=== PATIENT | male | born 1950 | race Caucasian/White ===

== ENCOUNTER 2017-10-10 09:51 | Day surgery (SDC) | payer MEDICARE, OTHER, SELFPAY ==
--- NOTE | 2017-10-10 | PATH_ITS ---
[facility] Accession Number: [id number] . 01 Material submitted: . PART A: TERMINAL ILEUM BIOPSY PART B: RIGHT COLON BIOPSY PART C: TRANSVERSE AND DESCENDING COLON BIOPSY PART D: LEFT COLON BX PART E: COLON PART F: SIGMOID AND RECTAL BIOPSY . 02 Diagnosis: A. Terminal Ileum, Biopsies: Small bowel mucosa with no diagnostic abnormality. Negative for active inflammation, granulomas, dysplasia and malignancy. . B-E: Right Colon, Transverse and Descending Colon, Left Colon, Colon, Biopsies: Colonic mucosa with no significant diagnostic abnormality. Negative for active inflammation, granulomas, dysplasia and malignancy. . F. Sigmoid Colon, Rectum, Biopsies: Chronic colitis with moderate to severe neutrophilic activity. Rare nonnecrotizing granulomas present in association with crypt rupture. Negative for dysplasia and malignancy. [facility]/10/18/2017 . 02 Comment: The morphological appearance could be compatible with the provided clinical history of Crohn's disease in the appropriate clinical and endoscopic setting. . 02 Electronically signed: . Allie May MD, Pathologist NPI- [id number] . 01 Gross description: . Received six formalin-filled containers each labeled with the patient's name. . A. In a container labeled TI, the specimen consists of a 0.3 cm portion of tissue. Entirely submitted in cassette A. B. In a container labeled right colon are two 0.2 to 0.3 cm portions of tissue. Entirely submitted in cassette B. C. In a container labeled transverse and descending colon, the specimen consists of two less than 0.1 to 0.3 cm portions of tissue. Entirely submitted in cassette C. D. In a container labeled left colon are two 0.2 to 0.3 cm portions of tissue. Entirely submitted in cassette D. E. In a container designated colon, source confirmed per client, are multiple less than 0.1 to 0.3 cm portions of tissue. Filtered, wrapped and entirely submitted in cassette E. F. In a container labeled sigmoid and rectal are multiple less than 0.1 to 0.3 cm portions of tissue, which are filtered, wrapped and entirely submitted in cassette F. ([facility]:[id number]) /[facility] . 02 Pathologist provided ICD-10: K50.90 . 02 CPT . 284823, 364730, 733639, 150029, 128982, 015095 Performed at: 01 [facility] [address] [place] [address], [place], [place] [id number] MD Tyrone Patel MD Phone: [phone] Performed at: 02 [facility] [address] [place] [id number] MD Rocco Smalls MD Phone: [phone]
[2017-10-10] MEDS: SODIUM CHLORIDE 0.9% 1,000 ML 70 ML IV (10:13)
[2017-10-10 10:18] VITALS: BP 172/100; PULSE 82; RESP 16; TEMP 36.6; O2SAT 96; BMI 32.8
--- NOTE | 2017-10-10 10:44 | PM.HP.1 ---
History of Present Illness Date Patient Seen: 10/10/17 Chief complaint: colonoscopy [id number] Narrative: 67-year-old male with a longstanding history of Crohn's colitis currently managed with sulfasalazine and prednisone who has had a several month history of rectal bleeding suggestive that he is currently has poorly controlled Crohn's disease. He has no evidence of acute abdomen. He is here for disease activity assessment by means of colonoscopy. Patient History Family & Social History Social History: household members significant other Meds Home Medications Medication Instructions Recorded Confirmed Type simvastatin 40 mg PO QDAY #0 02/16/11 10/10/17 History atenolol 50 mg PO BID #0 11/10/11 10/10/17 History sulfasalazine 1,000 mg PO BID #0 11/10/11 10/10/17 History Review of Systems Review of Systems All systems reviewed & are unremarkable except as noted in HPI and below Exam Vital Signs (past 8 hours): - 10/10/17 10:18 Temperature 98 F Pulse Rate 82 Respiratory Rate 16 Blood Pressure 172/100 H Pulse Oximetry 96 Oxygen Delivery Method Room Air Narrative Exam Narrative: General: Patient is overweight, not in apparent distress Cardiovascular: Regular rate and rhythm, no murmurs, rubs, or gallops; no evidence of edema; no palpable abdominal aortic aneurysm Gastrointestinal: Normoactive bowel sounds, soft, nontender, nondistended, no rebound tenderness, no hepatosplenomegaly, no evidence of hernia Assessment & Plan Plan: Assessment/Plan Narrative: 67-year-old male with a history of Crohn's colitis for several years currently with signs of poorly-controlled disease including rectal bleeding for several months. He is currently managed on sulfasalazine and takes prednisone whenever his rectal bleeding is frequent. Colonoscopy today is to assess his disease activity. Regarding the procedure(s), the risks and potential complications, benefits, and alternatives (including not doing the procedure) were discussed with the patient. The risks include but are not limited to bleeding, infection, perforation which may require surgical intervention, missed lesions, and adverse reactions to sedative medicines. After a question and answer period, the patient agreed to proceed with the procedure(s) and gives informed consent.
--- NOTE | 2017-10-10 11:15 | PM.OP.ENDO ---
Operative Date/Time/Diagnoses Date of procedure: 10/10/17 Procedure Notes Procedure in detail: Surgeon: Danish Rosado MD Procedure: Colonoscopy with biopsy Preoperative diagnosis: History of Crohn's colitis with hematochezia Postoperative diagnosis: History of Crohn's colitis, currently with hematochezia Medications: Conscious sedation using 6 mg IV of Midazolam and 150 mcg IV of Fentanyl; ondansetron 4 mg IV Preanesthesia Assessment An H and P was performed/updated and the Px?s ASA class is 2. The procedure was discussed in detail with the patient. The potential risks and complications including infection, bleeding, missed lesions, perforation, need for surgery in case of perforation, prolonged hospital stay, and were explained. A brief question and answer period was allotted and once all questions were answered, informed consent was obtained. The patient was brought back to the procedure room and placed on standard monitoring. The patient?s vital signs were monitored continuously throughout the entire procedure. Prior to starting, a timeout was performed to confirm the patient?s identity, allergies, medications, and procedure. Procedure in detail The patient was placed in left lateral decubitus position and once adequate sedation was obtained a BELKIS was performed. The digital rectal examination did not reveal any abnormality. The tip of the colonoscope was placed in the anal canal and advanced without difficulty all the way to the cecum which was identified by the appendiceal orifice and ileocecal valve. The terminal ileum was intubated to a distance of 5 cm and showed no mucosal abnormalities. Biopsies were taken for histology. The colonoscope was brought back into the cecum and careful examination of all moreno of the colon was performed with irrigation of any residual stool. Random colon biopsies were obtained from the right colon, transverse colon, and descending colon. In these areas of the colon, there was no note of any mucosal abnormality or colitis. From the anus all the way to 30 cm proximal to the anus (likely representing the sigmoid colon) there was note of diffuse moderate inflammation characterized by aphthous ulcerations, granularity, edema. This is consistent with the patient's history of Crohn's colitis biopsies were obtained from this area. In the sigmoid colon there was also note of a 5 mm sessile polyp which was removed in its entirety by means of a cold snare with minimal bleeding. Retroflexion performed in the colon revealed grade 1 internal hemorrhoids. The patient tolerated the procedure well and will be brought back to the recovery area to be discharged once criteria are met. The prep was judged to be good/excellent and adequate to identify polyps less than 5 mm. The withdrawal time was 12.5 min. The total procedure time from initial sedation was 18. Complications There were no complications and estimated blood loss was minimal. Recommendations: Resume previous diet Continue outPx medications including sulfasalazine and prednisone 20 mg daily until patient is seen at [facility] Follow up pathology results Repeat colonoscopy timing depending on response to therapy Office follow up with Dr. Albright November 06, 2017 as previously scheduled An emergency contact number was given to the patient for any complications related to the procedure
[2017-10-10] MEDS: ONDANSETRON 4 MG/2 ML INJ IV (11:18)
--- NOTE | 2017-10-10 11:20 | P.OP.ENDO_ITS ---
Operative Date/Time/Diagnoses Date of procedure: 10/10/17 Procedure Notes Procedure in detail: Surgeon: Danish Rosado MD Procedure: Colonoscopy with biopsy Preoperative diagnosis: History of Crohn's colitis with hematochezia Postoperative diagnosis: History of Crohn's colitis, currently with hematochezia Medications: Conscious sedation using 6 mg IV of Midazolam and 150 mcg IV of Fentanyl; ondansetron 4 mg IV Preanesthesia Assessment An H and P was performed/updated and the Px?s ASA class is 2. The procedure was discussed in detail with the patient. The potential risks and complications including infection, bleeding, missed lesions, perforation, need for surgery in case of perforation, prolonged hospital stay, and were explained. A brief question and answer period was allotted and once all questions were answered, informed consent was obtained. The patient was brought back to the procedure room and placed on standard monitoring. The patient?s vital signs were monitored continuously throughout the entire procedure. Prior to starting, a timeout was performed to confirm the patient?s identity, allergies, medications, and procedure. Procedure in detail The patient was placed in left lateral decubitus position and once adequate sedation was obtained a BELKIS was performed. The digital rectal examination did not reveal any abnormality. The tip of the colonoscope was placed in the anal canal and advanced without difficulty all the way to the cecum which was identified by the appendiceal orifice and ileocecal valve. The terminal ileum was intubated to a distance of 5 cm and showed no mucosal abnormalities. Biopsies were taken for histology. The colonoscope was brought back into the cecum and careful examination of all moreno of the colon was performed with irrigation of any residual stool. Random colon biopsies were obtained from the right colon, transverse colon, and descending colon. In these areas of the colon, there was no note of any mucosal abnormality or colitis. From the anus all the way to 30 cm proximal to the anus (likely representing the sigmoid colon ) there was note of diffuse moderate inflammation characterized by aphthous ulcerations, granularity, edema. This is consistent with the patient's history of Crohn's colitis biopsies were obtained from this area. In the sigmoid colon there was also note of a 5 mm sessile polyp which was removed in its entirety by means of a cold snare with minimal bleeding. Retroflexion performed in the colon revealed grade 1 internal hemorrhoids. The patient tolerated the procedure well and will be brought back to the recovery area to be discharged once criteria are met. The prep was judged to be good/excellent and adequate to identify polyps less than 5 mm. The withdrawal time was 12.5 min. The total procedure time from initial sedation was 18. Complications There were no complications and estimated blood loss was minimal. Recommendations: Resume previous diet Continue outPx medications including sulfasalazine and prednisone 20 mg daily until patient is seen at [facility] Follow up pathology results Repeat colonoscopy timing depending on response to therapy Office follow up with Dr. Albright November 06, 2017 as previously scheduled An emergency contact number was given to the patient for any complications related to the procedure
[2017-10-10] MEDS: MIDAZOLAM 5 MG/5 ML VIAL IV (11:35)
[2017-10-10] MEDS: fentaNYL 250 MCG/5 ML INJ IV (11:36)
[2017-10-10 11:45] VITALS: BP 148/86; PULSE 76; RESP 20; TEMP 36.6; O2SAT 95
--- NOTE | 2017-10-10 11:46 | PM.DS.1 ---
History of Present Illness Chief complaint: colonoscopy [id number] Narrative: 67-year-old male with a longstanding history of Crohn's colitis currently managed with sulfasalazine and prednisone who has had a several month history of rectal bleeding suggestive that he is currently has poorly controlled Crohn's disease. He has no evidence of acute abdomen. He is here for disease activity assessment by means of colonoscopy. Discharge Providers Primary care physician: Ernesto Nation MD Discharge provider: Danish Rosado MD Exam Vital Signs (past 8 hours): - 10/10/17 10:18 Temperature 98 F Pulse Rate 82 Respiratory Rate 16 Blood Pressure 172/100 H Pulse Oximetry 96 Oxygen Delivery Method Room Air Narrative Exam Narrative: General: Patient is well developed, not in apparent distress Cardiovascular: Regular rate and rhythm, no murmurs, rubs, or gallops; no evidence of edema; no palpable abdominal aortic aneurysm Gastrointestinal: Normoactive bowel sounds, soft, nontender, nondistended, no rebound tenderness, no hepatosplenomegaly, no evidence of hernia Discharge Plan Discharge Plan Patient Disposition: Home, Self-Care Discharge Med Rec/Prescriptions Prescriptions: Continue simvastatin 40 MG tablet 40 mg PO QDAY Qty: 0 RF: 0 atenolol 25 MG tablet 50 mg PO BID Qty: 0 RF: 0 sulfasalazine 500 MG tablet 1,000 mg PO BID Qty: 0 RF: 0 Discharge Orders: Discharge (Order); Ordered 10/10/17 Ordered By: Danish Rosado Provider Discharge Instructions Diet: Diet as Tolerated Visit Report/Discharge Packet Stand Alone Forms: Surgery Discharge Discharge Data Primary Care Provider: Ernesto Nation Attending Provider: Danish Rosado
[2017-10-10 12:05] VITALS: BP 149/90; PULSE 75; RESP 20; TEMP 36.6; O2SAT 95
== END 2017-10-10 12:00 | disposition home or self-care (01) ==
PROVIDERS: Family Provider Family Medicine Geriatric Medicine; PCP Family Medicine Geriatric Medicine; Visit Provider Internal Medicine Gastroenterology
PROC: 0DJD8ZZ Inspection of Lower Intestinal Tract, Via Natural or Artificial Opening Endoscopic (ICD-10-PCS; CPT 45378; principal; 2017-10-10 11:00)
DX: K50.90 Crohn's disease, unspecified, without complications (principal); K92.1 Melena
CPT/HCPCS: 45380; 88305; J2250; J2405; J3010

== ENCOUNTER → 2018-06-03 20:54 | Outpatient (REF) | payer MEDICARE, OTHER, SELFPAY ==
[2018-06-03 21:29] LABS: HEMOLYSIS < 15 (0-50)
[2018-06-03 21:30] LABS: Add Manual Diff / Slide Review NO; Basophils Absolute Auto 100 /uL (0-100); Basophils Percent Auto 1.3 % (0-2); Eosinophils Absolute Auto 200 /uL (0-450); Eosinophils Percent Auto 2.5 % (2-4); Hematocrit 41.4 % (41-53); Hemoglobin 13.8 g/dL (13.5-17.5); Lymphocytes Absolute Auto 1600 /uL (1100-4500); Lymphocytes Percent Auto 18.8 % (25-40); Mean Corpuscular HGB Conc 33.3 % (30-36); Mean Corpuscular Hemoglobin 31.7 PG (26-34); Mean Corpuscular Volume 95.2 fL (80-100); Monocytes Absolute Auto 1000 /uL (0-900); Monocytes Percent Auto 11.1 % (3-14); Neutrophils Absolute Auto 5800 /uL (1500-7000); Neutrophils Percent Auto 66.3 % (50-75); Platelet Count 218 X10^3/uL (150-400); Red Blood Cell Count 4.35 X10^6/uL (4.5-5.9); Red Cell Distribution Width 13.8 % (11.6-14.8); White Blood Cell Count 8.7 X10^3/uL (4.5-11.0)
[2018-06-03 21:43] LABS: Alanine Aminotransferase 27 IU/L (21-72); Albumin 3.9 g/dL (3.5-5.0); Albumin Globulin Ratio 1.5 (1.0-2.8); Alkaline Phosphatase 72 U/L (38-126); Aspartate Aminotransferase 47 IU/L (17-59); BUN Creatinine Ratio 16.3 (6-22); Bilirubin Total 0.2 mg/dL (0.2-1.3); Blood Urea Nitrogen 13 mg/dL (9-20); Carbon Dioxide 28 mmol/L (22-32); Chloride 103 mmol/L (98-107); Cholesterol 129 mg/dL (140-199); Estimated Glomerular Filt Rate > 60.0 mL/min (>60); Globulin 2.6 g/dL (1.7-4.1); Glucose 95 mg/dL (80-110); HDL Cholesterol 52 mg/dL (40-60); LDL Cholesterol Calculated 60 mg/dL (<100); Potassium 4.4 mmol/L (3.4-5.1); Sodium 139 mmol/L (137-145); Total Protein 6.5 g/dL (6.3-8.2); Triglycerides 85 mg/dL (35-150)
[2018-06-03 22:29] LABS: Thyroid Stimulating Hormone 3.63 uIU/mL (0.47-4.68)
[2018-06-03 22:32] LABS: Prostate Specific Antigen 0.369 ng/mL (0.10-4.00)
== END ==
LOC: LAB 20:54
PROVIDERS: Family Provider Family Medicine Geriatric Medicine; PCP Family Medicine Geriatric Medicine; Visit Provider Family Medicine Geriatric Medicine
DX: E78.5 Hyperlipidemia, unspecified (principal); C61 Malignant neoplasm of prostate; K50.10 Crohn's disease of large intestine without complications; Z13.29 Encounter for screening for other suspected endocrine disorder
CPT/HCPCS: 36415; 80053; 80061; 84153; 84443; 85025

== ENCOUNTER → 2019-04-01 15:49 | Outpatient (CLI) | payer MEDICARE, OTHER, SELFPAY ==
[2019-04-01 17:49] LABS: Add Manual Diff / Slide Review NO; Basophils Absolute Auto 100 /uL (0-100); Basophils Percent Auto 1.9 % (0-2); Eosinophils Absolute Auto 300 /uL (0-450); Eosinophils Percent Auto 5.5 % (2-4); Hematocrit 38.6 % (41-53); Hemoglobin 12.7 g/dL (13.5-17.5); Lymphocytes Absolute Auto 1400 /uL (1100-4500); Lymphocytes Percent Auto 23.7 % (25-40); Mean Corpuscular Hemoglobin 29.1 PG (26-34); Mean Corpuscular Volume 88.4 fL (80-100); Monocytes Absolute Auto 800 /uL (0-900); Monocytes Percent Auto 14.2 % (3-14); Neutrophils Absolute Auto 3200 /uL (1500-7000); Neutrophils Percent Auto 54.7 % (50-75); Platelet Count 225 X10^3/uL (150-400); Red Blood Cell Count 4.37 X10^6/uL (4.5-5.9); Red Cell Distribution Width 13.8 % (11.6-14.8); White Blood Cell Count 5.9 X10^3/uL (4.5-11.0)
[2019-04-01 17:56] LABS: HEMOLYSIS < 15 (0-50); Iron 32 ug/dL (49-181)
[2019-04-01 18:26] LABS: Alanine Aminotransferase 25 IU/L (<50); Albumin 4.1 g/dL (3.5-5.0); Albumin Globulin Ratio 1.3 (1.0-2.8); Alkaline Phosphatase 98 U/L (38-126); Aspartate Aminotransferase 48 IU/L (17-59); BUN Creatinine Ratio 17.1 (6-22); Bilirubin Total 0.3 mg/dL (0.2-1.3); Blood Urea Nitrogen 12 mg/dL (9-20); Calcium 9.4 mg/dL (8.4-10.2); Carbon Dioxide 26 mmol/L (22-32); Chloride 105 mmol/L (98-107); Estimated Glomerular Filt Rate > 60.0 mL/min (>60); Globulin 3.1 g/dL (1.7-4.1); Glucose 79 mg/dL (80-110); HEMOLYSIS < 15 (0-50); Percent Iron Saturation 8 % (20-50); Potassium 4.4 mmol/L (3.4-5.1); Sodium 139 mmol/L (137-145); Total Iron Binding Capacity 385 ug/dL (261-462); Total Protein 7.2 g/dL (6.3-8.2); Transferrin 309 mg/dL (206-381)
[2019-04-03 14:32] LABS: Hepatitis B Core Antibody Nonreactive (Nonreactive)
[2019-04-03 16:07] LABS: Mitogen-NIL 6.56 IU/mL; NIL 0.01 IU/mL; QuantiFERON TB NEGATIVE (Negative); TB1-NIL 0.02 IU/mL; TB2-NIL 0.01 IU/mL
[2019-04-05 15:35] LABS: Hepatitis B Surf AB Imm QUANT < 5 mIU/mL (> 9)
== END ==
PROVIDERS: PCP Family Medicine Geriatric Medicine; Visit Provider Student in an Organized Health Care Education/Training Program
DX: K50.10 Crohn's disease of large intestine without complications (principal)
CPT/HCPCS: 36415; 80053; 82657; 83540; 83550; 85025; 86480; 86704; 86706

== ENCOUNTER → 2019-04-02 13:21 | Outpatient (CLI) | payer MEDICARE, OTHER, SELFPAY ==
[2019-04-09 19:39] LABS: Calprotectin, Stool 579.7 mcg/g
== END ==
PROVIDERS: PCP Family Medicine Geriatric Medicine; Visit Provider Student in an Organized Health Care Education/Training Program
DX: K50.10 Crohn's disease of large intestine without complications (principal)
CPT/HCPCS: 83993; 87045; 87177; 87899

== ENCOUNTER 2019-07-09 06:05 | Emergency (ER) | payer MEDICARE, OTHER, SELFPAY ==
[2019-07-09] MEDS: ONDANSETRON 4 MG/2 ML INJ IV ×2 (06:46→09:53)
[2019-07-09] MEDS: HYDROMORPHONE 0.5 MG INJ IV (06:46)
[2019-07-09] MEDS: SODIUM CHLORIDE 0.9% 1,000 ML 150 ML IV (06:47)
--- NOTE | 2019-07-09 06:57 | ED_ITS ---
HPI - Abdominal Pain <Song Mcpherson DO - Last Filed: 07/10/19 01:00> General Chief Complaint: Abdominal Pain Stated Complaint: abd pain Time Seen by Provider: 07/09/19 06:09 Source: patient Mode of arrival: Ambulatory Limitations: no limitations History of Present Illness HPI narrative: 69-year-old male nonsmoker with history of hypertension, hyperlipidemia, prostate cancer and Crohn's presents with severe, unrelenting abdominal pain which started at about 1:00 a.m.. He states this is much different than the type of discomfort associated with his Crohn's flare ups. He states his last bowel movement was a few days ago and he can no longer even pass gas. He denies any urinary complaints nor fever or chills. He is nauseated but denies vomiting. His pain is persistent and worsening. He states it is worse when he moves and improves with rest. He denies chest pain or shortness of breath. MD complaint: abdominal pain Onset (ago): hour(s) Pain Consistency: constant Location: diffuse Severity: severe Quality: cramping and aching Radiation: none Relieving factors: nothing Exacerbating factors: movement Associated symptoms: nausea Related Data Home Medications Medication Instructions Recorded Confirmed simvastatin 40 mg PO QDAY #0 02/16/11 10/10/17 atenolol 50 mg PO BID #0 11/10/11 10/10/17 sulfasalazine 1,000 mg PO BID #0 11/10/11 10/10/17 Previous Rx's Medication Instructions Recorded ondansetron HCl [Zofran] 4 mg PO Q6H PRN #12 tab 07/09/19 oxycodone-acetaminophen [Percocet] 1 tab PO Q6H PRN #14 tab 07/09/19 tamsulosin [Flomax] 0.4 mg PO DAILY #5 cap 07/09/19 Allergies Allergy/AdvReac Type Severity Reaction Status Date / Time No Known Drug Allergies Allergy Verified 07/09/19 07:52 Review of Systems <Song Mcpherson DO - Last Filed: 07/10/19 01:00> Constitutional Constitutional: Denies chills, Denies fatigue, Denies fever(s), Denies frequent falls, Denies lethargy and Denies weakness Eyes Eyes: Denies change in vision, Denies eye discharge, Denies irritation and Denies loss of vision ENT Ears, Nose, Mouth, and Throat: Denies change in voice, Denies dizziness, Denies neck pain, Denies sore throat and Denies throat swelling Cardiovascular Cardiovascular: Denies chest pain, Denies irregular heart rhythm, Denies lightheadedness, Denies palpitations, Denies dyspnea, Denies dyspnea on exertion and Denies orthopnea Respiratory Respiratory: Denies cough, Denies dyspnea, Denies dyspnea on exertion and Denies wheezing Gastrointestinal Gastrointestinal: Denies abdominal pain, Denies change in bowel habits, Denies diarrhea, Denies nausea and Denies vomiting Genitourinary Genitourinary: Denies hematuria, Denies flank pain, Denies urinary incontinence and Denies urinary urgency Musculoskeletal Musculoskeletal: Denies back pain, Denies muscle weakness, Denies neck pain, Denies numbness and Denies tingling Integumentary/Breasts Skin/Breast: Denies pruritus, Denies erythema, Denies rash and Denies wounds Neurologic Neurologic: Denies behavioral changes, Denies confusion, Denies dizziness, Denies frequent falls, Denies loss of vision, Denies numbness, Denies tingling and Denies weakness Psychiatric Psychiatric: Denies anxiety, Denies behavioral changes, Denies confusion, Denies depression, Denies homicidal ideation and Denies suicidal ideation Endocrine Endocrine: Denies fatigue, Denies flushing and Denies palpitations Hematologic/Lymphatic Hematologic/Lymphatic: Denies easy bruising Allergic/Immunologic Allergic/Immunologic: Denies urticaria, Denies throat swelling and Denies wheezing Patient History <Song Mcpherson DO - Last Filed: 07/10/19 01:00> Social History household members: significant other Smoking Status: Never smoker Smoking Status: Never smoker alcohol intake frequency: a few times a month Substance Use Type: does not use Exam <Song Mcpherson DO - Last Filed: 07/10/19 01:00> Narrative Exam Narrative: GENERAL: [69] year old patient appears stated age. Well- nourished, well-developed patient, in mild distress. HEAD: Atraumatic. Normocephalic. EYES: Pupils equal round and reactive. Extraocular motions intact. No scleral icterus. No injection or drainage. ENT: Nose without bleeding, purulent drainage. Throat without erythema, tonsillar hypertrophy or exudate. Airway patent. NECK: Trachea midline. Non tender CARDIOVASCULAR: Regular rate and rhythm without murmurs, gallops, or rubs. RESPIRATORY: Clear to auscultation. Breath sounds equal bilaterally. No wheezes, rales, or rhonchi. GASTROINTESTINAL: Abdomen soft, very tender throughout, with decreased bowel sounds, nondistended. EXTREMITIES: No edema or joint tenderness. BACK: Nontender without deformity or crepitance. No flank tenderness. NEURO: AOx3. SKIN: No rash or erythema of visible areas Initial Vital Signs Initial Vital Signs: Vital Signs Pulse Rate 64 07/09/19 08:12 Respiratory Rate 16 07/09/19 08:12 Blood Pressure 155/70 H 07/09/19 08:12 Pulse Oximetry 96 07/09/19 08:12 <Christ Stockton MD - Last Filed: 07/10/19 07:42> Initial Vital Signs Initial Vital Signs: Vital Signs Pulse Rate 64 07/09/19 08:12 Respiratory Rate 16 07/09/19 08:12 Blood Pressure 155/70 H 07/09/19 08:12 Pulse Oximetry 96 07/09/19 08:12 Course <Sogn Mcpherson DO - Last Filed: 07/10/19 01:00> Orders Ordered: Discontinued Medications Hydromorphone HCl (Dilaudid) 0.5 mg IV NOW ONE Stop: 07/09/19 06:20 Last Admin: 07/09/19 06:46 Dose: 0.5 mg Documented by: LELA Hydromorphone HCl (Dilaudid) 1 mg IV NOW ONE Stop: 07/09/19 09:44 Last Admin: 07/09/19 09:53 Dose: 1 mg Documented by: SHELBY Sodium Chloride (Normal Saline 0.9%) 1,000 mls @ 150 mls/hr IV CONT LARRY Last Infusion: 07/09/19 10:45 Dose: 0 mls/hr Documented by: Admin: 07/09/19 06:47 Dose: 150 mls/hr Documented by: LELA Ondansetron HCl (Zofran) 4 mg IV NOW ONE Stop: 07/09/19 06:20 Last Admin: 07/09/19 06:46 Dose: 4 mg Documented by: LELA Ondansetron HCl (Zofran) 4 mg IV NOW ONE Stop: 07/09/19 09:44 Last Admin: 07/09/19 09:53 Dose: 4 mg Documented by: SHELBY Tamsulosin HCl (Flomax) 0.4 mg PO NOW ONE Stop: 07/09/19 09:59 Last Admin: 07/09/19 10:43 Dose: Not Given Documented by: SHELBY Vital Signs Vital signs: Vital Signs - 8 hr 07/09/19 08:12 Pulse Rate 64 Respiratory Rate 16 Blood Pressure [Left Arm] 155/70 H Pulse Oximetry 96 <Christ Stockton MD - Last Filed: 07/10/19 07:42> Course Course Narrative: 0715: Report received from Dr. Mcpherson. CT of the patient's abdomen with IV contrast was ordered since the patient has been having increased abdominal pain and cramps without any bowel movement since yesterday afternoon. The patient has not been passing flatness. He has been intensely nauseous and has almost vomited but not vomited. He had 3 small bowel movements yesterday without melena or hematochezia or diarrhea. His pain and discomfort is unlike his normal Crohn's disease. He denies any fever chills sweats cough shortness of breath or exposure to [place] it. He denies any fall or injury. His pain I at the time that I am examining him is under control. Repeat PE: He is awake alert oriented and coherent. He does not appear to be in any acute distress. Monitor reveals that his vital signs are stable. Blood pressure is 155/75. Lungs are clear and symmetrical. Heart is regular rhythm and rate without tachycardia or murmur. Abdomen is distended, mildly tympanitic in all 4 quadrants. Diffusely tender without any significant guarding rebound or rigidity. Bowel sounds are decreased. There is no palpable spleen or mass. CT scan is pending to rule out any acute pathology including possible bowel obstruction. 0930: The patient's CT scan of the abdomen reveals biliary system is nondilated. Pancreas enhances normally. Spleen is normal in size and hands min. Peritoneum in bowel reveals bowel loops to have normal wall thickness and caliber no free fluid or air no evidence of obstruction. There is a small fat containing umbilical hernia. Patient has a 4 mm stone at the right ureterovesic al junction causing mild to moderate right hydronephrosis and hydroureter. There is remote granulomatous disease in the spleen. The patient has a couple of indeterminate hepatic hypodensities most likely hepatic cysts in his liver. No acute pathology. Orders Ordered: Discontinued Medications Hydromorphone HCl (Dilaudid) 0.5 mg IV NOW ONE Stop: 07/09/19 06:20 Last Admin: 07/09/19 06:46 Dose: 0.5 mg Documented by: LELA Hydromorphone HCl (Dilaudid) 1 mg IV NOW ONE Stop: 07/09/19 09:44 Last Admin: 07/09/19 09:53 Dose: 1 mg Documented by: SHELBY Sodium Chloride (Normal Saline 0.9%) 1,000 mls @ 150 mls/hr IV CONT LARRY Last Infusion: 07/09/19 10:45 Dose: 0 mls/hr Documented by: Admin: 07/09/19 06:47 Dose: 150 mls/hr Documented by: LELA Ondansetron HCl (Zofran) 4 mg IV NOW ONE Stop: 07/09/19 06:20 Last Admin: 07/09/19 06:46 Dose: 4 mg Documented by: LELA Ondansetron HCl (Zofran) 4 mg IV NOW ONE Stop: 07/09/19 09:44 Last Admin: 07/09/19 09:53 Dose: 4 mg Documented by: SHELBY Tamsulosin HCl (Flomax) 0.4 mg PO NOW ONE Stop: 07/09/19 09:59 Last Admin: 07/09/19 10:43 Dose: Not Given Documented by: SHELBY Vital Signs Vital signs: Vital Signs - 8 hr 07/09/19 08:12 Pulse Rate 64 Respiratory Rate 16 Blood Pressure [Left Arm] 155/70 H Pulse Oximetry 96 MDM - Abdominal Pain <Song Mcpherson DO - Last Filed: 07/10/19 01:00> Lab Data Result diagrams: 07/09/19 06:50 07/09/19 06:50 Labs: Lab Results 07/09/19 07/09/19 07/09/19 Range/Units 06:50 06:50 06:50 WBC 9.7 (4.5-11.0) X10^3/uL RBC 4.84 (4.5-5.9) X10^6/uL Hgb 12.8 L (13.5-17.5) g/dL Hct 39.3 L (41-53) % MCV 81.2 (80-100) fL MCH 26.5 (26-34) PG MCHC 32.7 (30-36) % RDW 16.8 H (11.6-14.8) % Plt Count 210 (150-400) X10^3/uL Neut % (Auto) 91.6 H (50-75) % Lymph % (Auto) 4.5 L (25-40) % [place] % (Auto) 3.2 (3-14) % Eos % (Auto) 0.1 L (2-4) % Baso % (Auto) 0.6 (0-2) % Neut # (Auto) 8900 H (7071-1840) /uL Lymph # (Auto) 400 L (2454-3177) /uL [place] # (Auto) 300 (0-900) /uL Eos # (Auto) 0 (0-450) /uL Baso # (Auto) 100 (0-100) /uL Sodium 138 (137-145) mmol/L Potassium 4.6 (3.4-5.1) mmol/L Chloride 107 (98-107) mmol/L Carbon Dioxide 24 (22-32) mmol/L BUN 17 (9-20) mg/dL Creatinine 0.82 (0.66-1.25) mg/dL Estimated GFR > 60.0 (>60) mL/min BUN/Creatinine Ratio 20.7 (6-22) Glucose 152 H (80-110) mg/dL Lactate 1.1 (0.7-2.1) mmol/L Calcium 9.0 (8.4-10.2) mg/dL Total Bilirubin 0.4 (0.2-1.3) mg/dL AST 32 (17-59) IU/L ALT 20 (<50) IU/L Alkaline Phosphatase 100 (38-126) U/L Total Protein 7.3 (6.3-8.2) g/dL Albumin 4.2 (3.5-5.0) g/dL Globulin 3.1 (1.7-4.1) g/dL Albumin/Globulin Ratio 1.4 (1.0-2.8) Lipase 70 (23-300) U/L <Christ Maino, MD - Last Filed: 07/10/19 07:42> Lab Data Labs: Lab Results 07/09/19 07/09/19 07/09/19 Range/Units 06:50 06:50 06:50 WBC 9.7 (4.5-11.0) X10^3/uL RBC 4.84 (4.5-5.9) X10^6/uL Hgb 12.8 L (13.5-17.5) g/dL Hct 39.3 L (41-53) % MCV 81.2 (80-100) fL MCH 26.5 (26-34) PG MCHC 32.7 (30-36) % RDW 16.8 H (11.6-14.8) % Plt Count 210 (150-400) X10^3/uL Neut % (Auto) 91.6 H (50-75) % Lymph % (Auto) 4.5 L (25-40) % [place] % (Auto) 3.2 (3-14) % Eos % (Auto) 0.1 L (2-4) % Baso % (Auto) 0.6 (0-2) % Neut # (Auto) 8900 H (4331-6424) /uL Lymph # (Auto) 400 L (3737-8040) /uL [place] # (Auto) 300 (0-900) /uL Eos # (Auto) 0 (0-450) /uL Baso # (Auto) 100 (0-100) /uL Sodium 138 (137-145) mmol/L Potassium 4.6 (3.4-5.1) mmol/L Chloride 107 (98-107) mmol/L Carbon Dioxide 24 (22-32) mmol/L BUN 17 (9-20) mg/dL Creatinine 0.82 (0.66-1.25) mg/dL Estimated GFR > 60.0 (>60) mL/min BUN/Creatinine Ratio 20.7 (6-22) Glucose 152 H (80-110) mg/dL Lactate 1.1 (0.7-2.1) mmol/L Calcium 9.0 (8.4-10.2) mg/dL Total Bilirubin 0.4 (0.2-1.3) mg/dL AST 32 (17-59) IU/L ALT 20 (<50) IU/L Alkaline Phosphatase 100 (38-126) U/L Total Protein 7.3 (6.3-8.2) g/dL Albumin 4.2 (3.5-5.0) g/dL Globulin 3.1 (1.7-4.1) g/dL Albumin/Globulin Ratio 1.4 (1.0-2.8) Lipase 70 (23-300) U/L Discharge Plan Departure Patient Disposition: Home Clinical Impression: Ureter colic, Ureteric stone Umbilical hernia Qualifiers: Obstruction and gangrene presence: without obstruction or gangrene Qualified Code(s): K42.9 - Umbilical hernia without obstruction or gangrene Hydronephrosis Qualifiers: Hydronephrosis type: with ureteropelvic junction obstruction Qualified Code(s): Q62.11 - Congenital occlusion of ureteropelvic junction Discharge Date/Time: 07/09/19 10:47 Instructions: DI for Kidney Stones, DI for Ventral Hernia, DI for Hydronephrosis-Adult Activity Restrictions/Additional Instructions: 1.Take medications as prescribed 2 Follow up with the urologist Dr. Capellan 3. take 1-3 packets of Miralax to stimulate a bowel movement. Otherwise use 1 packet per day for seven days, stop for 2 days and then resume as necessary for any constipation. 4. Return to the emergency department if you develop progressively worsening abdominal pain, persistent nausea and vomiting, fever,. Prescriptions: New oxycodone-acetaminophen [Percocet] 5-325 mg tablet 1 tab PO Q6H PRN (Reason: pain) Qty: 14 RF: 0 tamsulosin [Flomax] 0.4 mg capsule 0.4 mg PO DAILY Qty: 5 RF: 1 ondansetron HCl [Zofran] 4 mg tablet 4 mg PO Q6H PRN (Reason: nausea and vomiting) Qty: 12 RF: 0 No Action simvastatin 40 MG tablet 40 mg PO QDAY Qty: 0 RF: 0 atenolol 25 MG tablet 50 mg PO BID Qty: 0 RF: 0 sulfasalazine 500 MG tablet 1,000 mg PO BID Qty: 0 RF: 0 Referrals: Scot Telles MD [Primary Care Provider] - Rosalind Capellan MD [Physician] -
[2019-07-09 07:01] LABS: Add Manual Diff / Slide Review NO; Basophils Absolute Auto 100 /uL (0-100); Basophils Percent Auto 0.6 % (0-2); Eosinophils Absolute Auto 0 /uL (0-450); Eosinophils Percent Auto 0.1 % (2-4); Hematocrit 39.3 % (41-53); Hemoglobin 12.8 g/dL (13.5-17.5); Lymphocytes Absolute Auto 400 /uL (1100-4500); Lymphocytes Percent Auto 4.5 % (25-40); Mean Corpuscular HGB Conc 32.7 % (30-36); Mean Corpuscular Hemoglobin 26.5 PG (26-34); Mean Corpuscular Volume 81.2 fL (80-100); Monocytes Absolute Auto 300 /uL (0-900); Monocytes Percent Auto 3.2 % (3-14); Neutrophils Absolute Auto 8900 /uL (1500-7000); Neutrophils Percent Auto 91.6 % (50-75); Platelet Count 210 X10^3/uL (150-400); Red Blood Cell Count 4.84 X10^6/uL (4.5-5.9); Red Cell Distribution Width 16.8 % (11.6-14.8); White Blood Cell Count 9.7 X10^3/uL (4.5-11.0)
[2019-07-09 07:08] LABS: Lactate (Lactic Acid) 1.1 mmol/L (0.7-2.1)
[2019-07-09 07:09] LABS: Alanine Aminotransferase 20 IU/L (<50); Albumin 4.2 g/dL (3.5-5.0); Albumin Globulin Ratio 1.4 (1.0-2.8); Alkaline Phosphatase 100 U/L (38-126); Aspartate Aminotransferase 32 IU/L (17-59); BUN Creatinine Ratio 20.7 (6-22); Bilirubin Total 0.4 mg/dL (0.2-1.3); Blood Urea Nitrogen 17 mg/dL (9-20); Carbon Dioxide 24 mmol/L (22-32); Chloride 107 mmol/L (98-107); Estimated Glomerular Filt Rate > 60.0 mL/min (>60); Globulin 3.1 g/dL (1.7-4.1); Glucose 152 mg/dL (80-110); HEMOLYSIS < 15 (0-50); Lipase 70 U/L (23-300); Potassium 4.6 mmol/L (3.4-5.1); Sodium 138 mmol/L (137-145); Total Protein 7.3 g/dL (6.3-8.2)
[2019-07-09 08:12] VITALS: BP 155/70; PULSE 64; RESP 16; O2SAT 96
--- NOTE | 2019-07-09 09:11 | DI.CT.S_ITS ---
PROCEDURE: CT ABDOMEN PELVIS W CON INDICATIONS: severe right abdominal pain, no flatus, no BM TECHNIQUE: After the administration of intravenous contrast, 5 mm thick sections acquired from the diaphragm to the symphysis. 5 mm coronal and sagittal reformats were acquired. For radiation dose reduction, the following was used: automated exposure control, adjustment of mA and/or kV according to patient size. COMPARISON: [facility], CT, CHEST ABDOMEN PELVIS WITH CONTRAST, 01/14/2009, 10:02. CT, CHEST W/O CONTRAST, 07/21/2009, 11:30. FINDINGS: Image quality: Excellent. ABDOMEN: Lung bases: Left basilar scars and atelectasis. Heart size is normal. Solid organs: There is a 4 mm stone at the right ureterovesical junction, causing [id number] right hydronephrosis and hydroureter. Mild bilateral perinephric stranding. Mild hepatic steatosis. A couple of small indeterminate hepatic hypodensities are most likely cysts. Liver is normal in size and enhancement. Gallbladder is surgically absent. Biliary system is non dilated. Pancreas enhances normally. Spleen is normal in size and enhancement. Calcified granulomas in spleen. No adrenal nodules. Peritoneum and bowel: Bowel loops demonstrate normal wall thickness and caliber. No free fluid or air. Nodes and vessels: No retroperitoneal or mesenteric adenopathy by size criteria. Aorta and inferior vena cava are normal in size. Moderate atherosclerosis. Miscellaneous: A small fat containing umbilical hernia is noted. PELVIS: Genitourinary: Bladder wall thickness is normal. Miscellaneous: No inguinal adenopathy. There is a small fat containing left inguinal hernia. Bones: No suspicious bony lesions. No vertebral body compression fractures. Degenerative disc and facet disease in lumbar spine. IMPRESSION: 1. A 4 mm stone at the right ureterovesical junction, causing [id number] right hydronephrosis and hydroureter. 2. Remote granulomatous disease in spleen. 3. A couple of indeterminate hepatic hypodensities, most likely hepatic cysts. Dictated by: Palma Maddox M.D. on 07/09/2019 at 9:18 Approved by: Palma Maddox M.D. on 07/09/2019 at 9:25
[2019-07-09 09:25] VITALS: BP 157/71; PULSE 70; RESP 18; O2SAT 97
[2019-07-09] MEDS: HYDROMORPHONE 1 MG INJ IV (09:53)
--- NOTE | 2019-07-09 09:54 | PC.NURSE ---
pt requested pain medication, orders rec'd and noted.
[2019-07-09 10:00] VITALS: BP 169/77; PULSE 71; RESP 24; O2SAT 98
== END 2019-07-09 10:47 | disposition home or self-care (01) ==
PROVIDERS: Emergency Medicine; Emergency Provider Emergency Medicine; PCP Student in an Organized Health Care Education/Training Program
DX: N23 Unspecified renal colic (principal); N20.1 Calculus of ureter; N13.30 Unspecified hydronephrosis; K42.9 Umbilical hernia without obstruction or gangrene; Q62.11 Congenital occlusion of ureteropelvic junction; I10 Essential (primary) hypertension; E78.5 Hyperlipidemia, unspecified
CPT/HCPCS: 36415; 74177; 80053; 83605; 83690; 85025; 93005; 96361; 96374; 96375; 96376; 99284; J1170; J2405; Q9967

== ENCOUNTER → 2019-09-10 12:46 | Outpatient (CLI) | payer MEDICARE, OTHER, SELFPAY ==
[2019-09-10 13:59] LABS: BUN Creatinine Ratio 19.2 (6-22); Blood Urea Nitrogen 14 mg/dL (9-20); Calcium 9.4 mg/dL (8.4-10.2); Carbon Dioxide 25 mmol/L (22-32); Chloride 106 mmol/L (98-107); Estimated Glomerular Filt Rate > 60.0 mL/min (>60); Glucose 111 mg/dL (80-110); HEMOLYSIS < 15 (0-50); Potassium 4.9 mmol/L (3.4-5.1); Sodium 137 mmol/L (137-145)
[2019-09-10 14:29] LABS: Prostate Specific Antigen 0.522 ng/mL (0.10-4.00)
== END ==
PROVIDERS: PCP Student in an Organized Health Care Education/Training Program; Referring Provider Student in an Organized Health Care Education/Training Program; Visit Provider Student in an Organized Health Care Education/Training Program
DX: I10 Essential (primary) hypertension (principal); Z85.46 Personal history of malignant neoplasm of prostate
CPT/HCPCS: 36415; 80048; 84153

== ENCOUNTER 2019-10-06 16:14 | Emergency (ER) | payer MEDICARE, OTHER, SELFPAY ==
[2019-10-06 16:17] VITALS: BP 131/68; PULSE 65; RESP 20; TEMP 37.4; O2SAT 98
--- NOTE | 2019-10-06 16:26 | DI.RAD.S_ITS ---
PROCEDURE: XR CHEST 1V INDICATIONS: Chest pain TECHNIQUE: One view of the chest was acquired. COMPARISON: None. FINDINGS: Surgical changes and devices: None. Lungs and pleura: There is cephalization of the upper lobe pulmonary vasculature with mild increased interstitial markings. No pleural effusions or pneumothorax. Mediastinum: Mediastinal contours appear normal. Heart size is at the upper limits of normal. Bones and chest wall: No suspicious bony lesions. Overlying soft tissues appear unremarkable. IMPRESSION: Findings of pulmonary vascular congestion and borderline cardiomegaly. Correlate with BNP. Dictated by: Andrea Bangura M.D. on 10/06/2019 at 17:03 Approved by: Andrea Bangura M.D. on 10/06/2019 at 17:04
[2019-10-06 16:49] LABS: Add Manual Diff / Slide Review NO; Basophils Absolute Auto 100 /uL (0-100); Basophils Percent Auto 0.8 % (0-2); Eosinophils Absolute Auto 200 /uL (0-450); Eosinophils Percent Auto 1.7 % (2-4); Hematocrit 36.5 % (41-53); Hemoglobin 11.6 g/dL (13.5-17.5); Lymphocytes Absolute Auto 800 /uL (1100-4500); Lymphocytes Percent Auto 7.6 % (25-40); Mean Corpuscular HGB Conc 31.9 % (30-36); Mean Corpuscular Hemoglobin 25.5 PG (26-34); Mean Corpuscular Volume 79.8 fL (80-100); Monocytes Absolute Auto 800 /uL (0-900); Monocytes Percent Auto 7.5 % (3-14); Neutrophils Absolute Auto 9100 /uL (1500-7000); Neutrophils Percent Auto 82.4 % (50-75); Platelet Count 254 X10^3/uL (150-400); Red Blood Cell Count 4.58 X10^6/uL (4.5-5.9); Red Cell Distribution Width 17.9 % (11.6-14.8); White Blood Cell Count 11.1 X10^3/uL (4.5-11.0)
[2019-10-06 17:00] LABS: INR 1.2 (0.9-1.3); Prothrombin Time 13.9 SECONDS (10.1-12.7)
[2019-10-06 17:03] LABS: PTT Partial Thromboplastin Tim 32 SECONDS (26.4-36.2)
[2019-10-06 17:04] LABS: Alanine Aminotransferase 19 IU/L (<50); Albumin 3.8 g/dL (3.5-5.0); Albumin Globulin Ratio 1.3 (1.0-2.8); Alkaline Phosphatase 73 U/L (38-126); Aspartate Aminotransferase 29 IU/L (17-59); BUN Creatinine Ratio 15.2 (6-22); Bilirubin Total 0.6 mg/dL (0.2-1.3); Blood Urea Nitrogen 12 mg/dL (9-20); Calcium 9.2 mg/dL (8.4-10.2); Carbon Dioxide 25 mmol/L (22-32); Chloride 104 mmol/L (98-107); Creatine Kinase 30 U/L (55-170); Estimated Glomerular Filt Rate > 60.0 mL/min (>60); Globulin 2.9 g/dL (1.7-4.1); Glucose 96 mg/dL (80-110); HEMOLYSIS < 15 (0-50); Lipase 176 U/L (23-300); Potassium 4.6 mmol/L (3.4-5.1); Sodium 135 mmol/L (137-145); Total Protein 6.7 g/dL (6.3-8.2)
[2019-10-06 17:05] LABS: Lactate (Lactic Acid) 0.8 mmol/L (0.7-2.1)
[2019-10-06 17:16] LABS: Troponin I 0.014 ng/mL (0.01-0.034)
[2019-10-06 17:38] LABS: NT-proBNP (BNP-Adult 18+) 1910 pg/mL (<125)
[2019-10-06 17:51] LABS: Procalcitonin 0.09 ng/mL (<0.5)
[2019-10-06] MEDS: FUROSEMIDE 40 MG/4 ML VIAL IV (18:26)
[2019-10-06 18:59] VITALS: BP 111/57; PULSE 63; RESP 16; O2SAT 99
--- NOTE | 2019-10-07 01:14 | ED.CHESTPAIN ---
HPI - Chest Pain <CURTIS Dover - Last Filed: 10/07/19 02:09> General Chief Complaint: Chest Pain Stated Complaint: Body Aches, Fever, Pressure in Chest and Knees Time Seen by Provider: 10/06/19 16:29 Source: patient Mode of arrival: Ambulatory Limitations: no limitations History of Present Illness HPI narrative: This is a 69-year-old male, former smoker, who has chronic condition as hypertension, CAD with cardiac stent, Crohn's disease, hypertension, prostate cancer presents to ED with intermittent chest pressure, chills, fever ranging from 99-102, back pain, knee pain during last 10 days. Patient reports more consistent chest and back pressure last 2 days. He denies dyspnea but mildly increased short of breath. He reports history of heart failure and noticed about 5 lb weight gain recently. He denies cough. Patient had been on prednisone last 3-4 months for Crohn's disease finally had taper down from 30 mg to 5 mg and stop taking it 2 days ago. Patient's GI specialist is Dr. Wells who manages his Crohn's disease. Patient also has history of bilateral partial knee surgery and has been having increasing knee intermittent pain and has been limping. He is usually very active but due to the increased pain patient has not been walking much last few days. Patient reports mild nausea without vomiting. Patient denies new urinary symptoms or signs/symptoms of skin lesions or infection. Patient report Covid test done on 10/02/19 for current symptoms and was informed that the test was negative. Patient reports his primary care physician Dr. Pagan is located at [facility] and the patient and his significant other is reside in [place] after the recently moved from [facility]. Patient has quality control supervisor is Dr. Capellan and states had had recent visit after 2 week duration of Holter monitor for palpitation/skipping hearts which was normal. He had echo test done by Dr. Capellan about 6 weeks ago which was told normal. He states cardiac stress test was done about 10 years ago. Patient was referred by his primary care doctor for further evaluation and treatment for his symptoms. Had received recent lab tests, EKG, visit reason from the PCP clinic with the patient. Related Data Home Medications Medication Instructions Recorded Confirmed atenolol 25 mg tablet 50 mg PO DAILY #0 tab 09/02/19 09/02/19 azathioprine 10 mg 10/07/19 rosuvastatin mg 10/07/19 Previous Rx's Medication Instructions Recorded furosemide [Lasix] 20 mg PO DAILY 3 Days #3 tab 10/06/19 Allergies Allergy/AdvReac Type Severity Reaction Status Date / Time No Known Drug Allergies Allergy Verified 09/02/19 10:30 Review of Systems <CURTIS Dover - Last Filed: 10/07/19 02:09> Review of Systems Narrative: General: See HPI HEENT: Denies sinus pain, ear pain, sore throat, difficulty swallowing, dizziness. Respiratory: HPI Cardiovascular: See HPI Gastrointestinal: Denies (+) mild nausea, vomiting, abdominal pain, diarrhea, constipation, melena. : Denies dysuria, frequency, incontinence, hematuria, urinary retention. Musculoskeletal: Denies weakness, joint pain or bony pain. Skin: Denies rash, skin lesions, or other. Neurologic: Denies weakness, headache, numbness, change in speech, confusion, seizures, incoordination. Psychiatric: No concerning psychosocial issues. 12-point review of systems is negative except for those stated above. Patient History <CURTIS Dover - Last Filed: 10/07/19 02:09> Medical History (Updated 10/07/19 @ 01:46 by CURTIS Dover) CAD (coronary artery disease) (Acute) Chest pain (Acute) Crohn's disease (Acute) Hyperlipidemia (Acute) Hypertension (Acute) Paresthesia (Acute) Prostate cancer (Acute) Skin cancer (Acute) Surgical History (Updated 10/07/19 @ 01:46 by CURTIS Dover) H/O hernia repair (Acute) History of heart artery stent (Acute) History of prostate surgery (Acute) Social History (Updated 10/07/19 @ 01:47 by CURTIS Dover) household members: significant other Smoking Status: Never smoker Smoking Status: Never smoker alcohol intake frequency: a few times a month Substance Use Type: does not use Exam <CURTIS Dover - Last Filed: 10/07/19 02:09> Narrative Exam Narrative: GEN: Alert, oriented x 3, well appearing and nourished, and in no acute distress. Head: Normal cephalic, atraumatic. No scalp or temporal tenderness, palpable mass or rash. EYES: Pupils are equal, round, and reactive to light and accommodation. Extraocular muscles are intact bilaterally. There is no subconjunctival hemorrhage, exudate and sclera non-icteric. ENT: Left auditory canals and tympanic membranes clear. Right auditory canal semi occluded with cerumen. Hearing grossly intact. Nose without bleeding, purulent discharge or deviation. Facial sinuses nontender to palpate. Mucous membrane moist, no mucosal lesion. Throat without erythema, tonsillar hypertrophy or exudate. Uvula in midline, airway patent. Neck: Trachea in midline. No JVD, non-tender without lymphadenopathy. No masses or thyroid megaly. Supple, non-tender and no meningeal signs. CARDIAC: Normal regular rate and rhythm without murmurs, gallops, or rubs. No chest wall tenderness. No peripheral edema, cyanosis or pallor. Capillary refill is less than 2 seconds. RESPIRATORY: Lungs are clear to auscultate bilaterally. No cough, wheezes, rales, or rhonchi. No stridor, respiratory distress, increase work of breathing, or accessary muscle used. ABD: Abdomen soft, nontender and non-distended. No guarding or rebound tenderness to palpate. Bowel sounds are normal in all 4 quadrants. There is no palpable masses or organomegaly. EXT: Full ROM of all extremities. Reports deep discomfort in bilateral knees significant tenderness to palpate around patella. No loss of sensation, strength, effusion or edema. SKIN: Warm, dry, normal color for patient. No erythema, lesions or rash over visible areas. BACK: Nontender without deformity or crepitance. No flank tenderness. NEUROLOGICAL: Alert and oriented to place, time and person. Sensation and motor function intact bilaterally. No facial droops, dysphasia. PSYCHIATRIC: Good judgement and reason, without hallucinations, abnormal affect or abnormal behaviors during the examination. Patient is not suicidal. Initial Vital Signs Initial Vital Signs: Vital Signs Temperature 99.3 F 10/06/19 16:17 Pulse Rate 65 10/06/19 16:17 Respiratory Rate 20 10/06/19 16:17 Blood Pressure 131/68 10/06/19 16:17 Pulse Oximetry 98 10/06/19 16:17 <Nayely Boswell, - Last Filed: 10/07/19 11:22> Initial Vital Signs Initial Vital Signs: Vital Signs Temperature 99.3 F 10/06/19 16:17 Pulse Rate 65 10/06/19 16:17 Respiratory Rate 20 10/06/19 16:17 Blood Pressure 131/68 10/06/19 16:17 Pulse Oximetry 98 10/06/19 16:17 Scores <[facility] - Last Filed: 10/07/19 02:09> GCS Lexy coma scale eye opening: Spontaneous Lexy coma scale verbal response: Orientated Lexy coma scale motor response: Obey commands Jackson coma scale total score: 15 qSOFA Altered Mental Status (GCS <15): No Respiratory rate greater than/equal to 22: No Systolic blood pressure less than or equal to 100: No qSOFA Total: 0 0-1 Not High Risk 1-3 High risk Course <[facility] - Last Filed: 10/07/19 02:09> Orders Ordered: Discontinued Medications Furosemide (Lasix) 40 mg IV NOW ONE Stop: 10/06/19 18:23 Last Admin: 10/06/19 18:26 Dose: 40 mg Documented by: KODAK Vital Signs Vital signs: Vital Signs - 8 hr 10/06/19 18:59 Pulse Rate 63 Respiratory Rate 16 Blood Pressure 111/57 L Pulse Oximetry 99 <Nayely Boswell DO - Last Filed: 10/07/19 11:22> Orders Ordered: Discontinued Medications Furosemide (Lasix) 40 mg IV NOW ONE Stop: 10/06/19 18:23 Last Admin: 10/06/19 18:26 Dose: 40 mg Documented by: KODAK Vital Signs Vital signs: Vital Signs - 8 hr 10/06/19 18:59 Pulse Rate 63 Respiratory Rate 16 Blood Pressure 111/57 L Pulse Oximetry 99 MDM - Chest Pain <[facility] Last Filed: 10/07/19 02:09> Differential Diagnosis Differential diagnosis: Likely atypical chest pain and other (Pneumonia, UTI, heart faillure, STEMI, viral illness, Covid 19) Medical Records Data Attestation: I reviewed the patient's medical records. Lab Data Attestation: I reviewed the patient's lab results. Result diagrams: 10/06/19 16:43 10/06/19 16:43 Labs: Lab Results 10/06/19 10/06/19 10/06/19 Range/Units 16:43 16:43 16:43 WBC 11.1 H (4.5-11.0) X10^3/uL RBC 4.58 (4.5-5.9) X10^6/uL Hgb 11.6 L (13.5-17.5) g/dL Hct 36.5 L (41-53) % MCV 79.8 L (80-100) fL MCH 25.5 L (26-34) PG MCHC 31.9 (30-36) % RDW 17.9 H (11.6-14.8) % Plt Count 254 (150-400) X10^3/uL Neut % (Auto) 82.4 H (50-75) % Lymph % (Auto) 7.6 L (25-40) % [place] % (Auto) 7.5 (3-14) % Eos % (Auto) 1.7 L (2-4) % Baso % (Auto) 0.8 (0-2) % Neut # (Auto) 9100 H (9333-7252) /uL Lymph # (Auto) 800 L (8072-2743) /uL [place] # (Auto) 800 (0-900) /uL Eos # (Auto) 200 (0-450) /uL Baso # (Auto) 100 (0-100) /uL PT 13.9 H (10.1-12.7) SECONDS INR 1.2 (0.9-1.3) APTT 32 (26.4-36.2) SECONDS Sodium 135 L (137-145) mmol/L Potassium 4.6 (3.4-5.1) mmol/L Chloride 104 (98-107) mmol/L Carbon Dioxide 25 (22-32) mmol/L BUN 12 (9-20) mg/dL Creatinine 0.79 (0.66-1.25) mg/dL Estimated GFR > 60.0 (>60) mL/min BUN/Creatinine Ratio 15.2 (6-22) Glucose 96 (80-110) mg/dL Lactate (0.7-2.1) mmol/L Calcium 9.2 (8.4-10.2) mg/dL Total Bilirubin 0.6 (0.2-1.3) mg/dL AST 29 (17-59) IU/L ALT 19 (<50) IU/L Alkaline Phosphatase 73 (38-126) U/L Total Creatine Kinase 30 L (55-170) U/L CK-MB (CK-2) TNP CK-MB (CK-2) Rel Index TNP Troponin I 0.014 (0.01-0.034) ng/mL NT-Pro-B Natriuret Pep (<125) pg/mL Total Protein 6.7 (6.3-8.2) g/dL Albumin 3.8 (3.5-5.0) g/dL Globulin 2.9 (1.7-4.1) g/dL Albumin/Globulin Ratio 1.3 (1.0-2.8) Lipase 176 (23-300) U/L Procalcitonin (<0.5) ng/mL 10/06/19 10/06/19 10/06/19 Range/Units 16:43 16:43 16:43 WBC (4.5-11.0) X10^3/uL RBC (4.5-5.9) X10^6/uL Hgb (13.5-17.5) g/dL Hct (41-53) % MCV (80-100) fL MCH (26-34) PG MCHC (30-36) % RDW (11.6-14.8) % Plt Count (150-400) X10^3/uL Neut % (Auto) (50-75) % Lymph % (Auto) (25-40) % [place] % (Auto) (3-14) % Eos % (Auto) (2-4) % Baso % (Auto) (0-2) % Neut # (Auto) (4188-3801) /uL Lymph # (Auto) (8229-7946) /uL Adair # (Auto) (0-900) /uL Eos # (Auto) (0-450) /uL Baso # (Auto) (0-100) /uL PT (10.1-12.7) SECONDS INR (0.9-1.3) APTT (26.4-36.2) SECONDS Sodium (137-145) mmol/L Potassium (3.4-5.1) mmol/L Chloride (98-107) mmol/L Carbon Dioxide (22-32) mmol/L BUN (9-20) mg/dL Creatinine (0.66-1.25) mg/dL Estimated GFR (>60) mL/min BUN/Creatinine Ratio (6-22) Glucose (80-110) mg/dL Lactate 0.8 (0.7-2.1) mmol/L Calcium (8.4-10.2) mg/dL Total Bilirubin (0.2-1.3) mg/dL AST (17-59) IU/L ALT (<50) IU/L Alkaline Phosphatase (38-126) U/L Total Creatine Kinase (55-170) U/L CK-MB (CK-2) CK-MB (CK-2) Rel Index Troponin I (0.01-0.034) ng/mL NT-Pro-B Natriuret Pep 1910 H (<125) pg/mL Total Protein (6.3-8.2) g/dL Albumin (3.5-5.0) g/dL Globulin (1.7-4.1) g/dL Albumin/Globulin Ratio (1.0-2.8) Lipase (23-300) U/L Procalcitonin 0.09 (<0.5) ng/mL Urine Dip Bedside Urine Glucose Negative Urine Specific [place] 1.010 Bedside Urine Occult Blood - Negative Bedside Urine pH 6.5 Bedside Urine Protein - Negative Bedside Urine Urobilinogen - Negative Bedside Urine Nitrite - Negative Bedside Urine Leukocytes - Negative Esterase Imaging Data Chest x-ray: Radiologist's Impression: [address] [address] XRay Report Signed Patient: Eliezer Blair LMR#: [id number] : 9Acct:[id number] Age/Sex: 69 / MDate of Service: 10/06/19 Loc: ED Accession Number: [id number] Procedure: XR chest 1V Ordering Provider: Nayely Boswell D.O. PROCEDURE: XR CHEST 1V INDICATIONS: Chest pain TECHNIQUE: One view of the chest was acquired. COMPARISON: None. FINDINGS: Surgical changes and devices: None. Lungs and pleura: There is cephalization of the upper lobe pulmonary vasculature with mild increased interstitial markings. No pleural effusions or pneumothorax. Mediastinum: Mediastinal contours appear normal. Heart size is at the upper limits of normal. Bones and chest wall: No suspicious bony lesions. Overlying soft tissues appear unremarkable. IMPRESSION: Findings of pulmonary vascular congestion and borderline cardiomegaly. Correlate with BNP. Dictated by: Andrea Bangura M.D. on 10/06/2019 at 17:03 Approved by: Andrea Bangura M.D. on 10/06/2019 at 17:04 ECG Data Attestation: I personally reviewed and interpreted this ECG as follows: Prior ECG tracings: available for review Interpretation: Normal sinus rhythm rate at 66. Left deviated Hurt. MO interval 166, QRS duration 114, QT/QTc 382/[address] changes Previous EKG shows Q waves in lead III MDM Narrative Medical decision making narrative: This is a 69 year old gentleman who presents to ED with several chief complaints. Patient reports intermittent fever for 2 weeks with chest and back pressure with very mild short of breath with activity and bilateral knee pain. EKG is sinus rhythm without acute ST changes. Chest x-ray indicates pulmonary vascular congestion and borderline cardiomegaly without acute findings for pneumonia. Lung sounds are clear to auscultate with O2 sat in 98%. Patient states he had taken Lasix in the past and is aware of heart failure. Patient reports gained about 5 lb recently. CBC shows mild elevation in WBC as 11.1 with neutrophil of 82.4 %. Mild anemia and H/H of 11.6/36.5. Mildly decreased sodium of 135. Normal kidney function test. Troponin was within normal of 0.014. ProBNP is increased today to 1910. Lactate and procalcitonin was negative indicating sepsis or bacterial infection. Urine appears no indication for infection. No obvious signs for cellulitis. Bilateral knees appears to be normal without erythema, edema, warmth. Patient denies acute abdominal pain. Patient recently stopped taking prednisone tapered dose 2 days ago after 2-3 month duration use. Covid 19 test was done a few days ago which was arranged by the PCP and it was negative. Patient denies any changes in respiratory symptoms after Covid test was obtained and additional test was deffered. Patient was medicated with 40 mg of Lasix in ED. he was discharged to home with additional 20 mg total 3 day dose for fluid overload and advised to follow up with his primary care physician for recheck. It is unclear the etiologies of fever. Patient may have viral illness. Patient advised to follow-up with primary care physician and possible echocardiogram. Return precautions were discussed with patient. Patient verbalized the understanding and agreement with treatment plan. <Nayely Boswell, DO - Last Filed: 10/07/19 11:22> Lab Data Labs: Lab Results 10/06/19 10/06/19 10/06/19 Range/Units 16:43 16:43 16:43 WBC 11.1 H (4.5-11.0) X10^3/uL RBC 4.58 (4.5-5.9) X10^6/uL Hgb 11.6 L (13.5-17.5) g/dL Hct 36.5 L (41-53) % MCV 79.8 L (80-100) fL MCH 25.5 L (26-34) PG MCHC 31.9 (30-36) % RDW 17.9 H (11.6-14.8) % Plt Count 254 (150-400) X10^3/uL Neut % (Auto) 82.4 H (50-75) % Lymph % (Auto) 7.6 L (25-40) % [place] % (Auto) 7.5 (3-14) % Eos % (Auto) 1.7 L (2-4) % Baso % (Auto) 0.8 (0-2) % Neut # (Auto) 9100 H (6387-5843) /uL Lymph # (Auto) 800 L (9506-4810) /uL [place] # (Auto) 800 (0-900) /uL Eos # (Auto) 200 (0-450) /uL Baso # (Auto) 100 (0-100) /uL PT 13.9 H (10.1-12.7) SECONDS INR 1.2 (0.9-1.3) APTT 32 (26.4-36.2) SECONDS Sodium 135 L (137-145) mmol/L Potassium 4.6 (3.4-5.1) mmol/L Chloride 104 (98-107) mmol/L Carbon Dioxide 25 (22-32) mmol/L BUN 12 (9-20) mg/dL Creatinine 0.79 (0.66-1.25) mg/dL Estimated GFR > 60.0 (>60) mL/min BUN/Creatinine Ratio 15.2 (6-22) Glucose 96 (80-110) mg/dL Lactate (0.7-2.1) mmol/L Calcium 9.2 (8.4-10.2) mg/dL Total Bilirubin 0.6 (0.2-1.3) mg/dL AST 29 (17-59) IU/L ALT 19 (<50) IU/L Alkaline Phosphatase 73 (38-126) U/L Total Creatine Kinase 30 L (55-170) U/L CK-MB (CK-2) TNP CK-MB (CK-2) Rel Index TNP Troponin I 0.014 (0.01-0.034) ng/mL NT-Pro-B Natriuret Pep (<125) pg/mL Total Protein 6.7 (6.3-8.2) g/dL Albumin 3.8 (3.5-5.0) g/dL Globulin 2.9 (1.7-4.1) g/dL Albumin/Globulin Ratio 1.3 (1.0-2.8) Lipase 176 (23-300) U/L Procalcitonin (<0.5) ng/mL 10/06/19 10/06/19 10/06/19 Range/Units 16:43 16:43 16:43 WBC (4.5-11.0) X10^3/uL RBC (4.5-5.9) X10^6/uL Hgb (13.5-17.5) g/dL Hct (41-53) % MCV (80-100) fL MCH (26-34) PG MCHC (30-36) % RDW (11.6-14.8) % Plt Count (150-400) X10^3/uL Neut % (Auto) (50-75) % Lymph % (Auto) (25-40) % [place] % (Auto) (3-14) % Eos % (Auto) (2-4) % Baso % (Auto) (0-2) % Neut # (Auto) (1847-1077) /uL Lymph # (Auto) (8353-9488) /uL [place] # (Auto) (0-900) /uL Eos # (Auto) (0-450) /uL Baso # (Auto) (0-100) /uL PT (10.1-12.7) SECONDS INR (0.9-1.3) APTT (26.4-36.2) SECONDS Sodium (137-145) mmol/L Potassium (3.4-5.1) mmol/L Chloride (98-107) mmol/L Carbon Dioxide (22-32) mmol/L BUN (9-20) mg/dL Creatinine (0.66-1.25) mg/dL Estimated GFR (>60) mL/min BUN/Creatinine Ratio (6-22) Glucose (80-110) mg/dL Lactate 0.8 (0.7-2.1) mmol/L Calcium (8.4-10.2) mg/dL Total Bilirubin (0.2-1.3) mg/dL AST (17-59) IU/L ALT (<50) IU/L Alkaline Phosphatase (38-126) U/L Total Creatine Kinase (55-170) U/L CK-MB (CK-2) CK-MB (CK-2) Rel Index Troponin I (0.01-0.034) ng/mL NT-Pro-B Natriuret Pep 1910 H (<125) pg/mL Total Protein (6.3-8.2) g/dL Albumin (3.5-5.0) g/dL Globulin (1.7-4.1) g/dL Albumin/Globulin Ratio (1.0-2.8) Lipase (23-300) U/L Procalcitonin 0.09 (<0.5) ng/mL Urine Dip Bedside Urine Glucose Negative Urine Specific [place] 1.010 Bedside Urine Occult Blood - Negative Bedside Urine pH 6.5 Bedside Urine Protein - Negative Bedside Urine Urobilinogen - Negative Bedside Urine Nitrite - Negative Bedside Urine Leukocytes - Negative Esterase ECG Data Attestation: I personally reviewed and interpreted this ECG as follows: Prior ECG tracings: available for review Interpretation: Normal sinus rhythm rate 66 p.r. interval 164 QRS [address] changes similar to previous EKG low voltage is noted Discharge Plan Departure Patient Disposition: Home Clinical Impression: Congestive heart failure Qualifiers: Heart failure type: unspecified Heart failure chronicity: unspecified Qualified Code(s): I50.9 - Heart failure, unspecified Fever Qualifiers: Fever type: unspecified Qualified Code(s): R50.9 - Fever, unspecified Discharge Date/Time: 10/06/19 19:12 Instructions: DI for Heart Failure, DI for Fever (Symptom) -- Adult Activity Restrictions/Additional Instructions: You have been diagnosed with [heart failure and fever. proBNP is 1910 today. CXR shows pulmonary vascular congestion with borderline cardiomyopathy. WBC has mildly increased to 11.1 today. Lactate, procalcitonin are unremarkable which is indicator for severe infection. Mild anemia and today's H&H is 11.6/36.5. Sodium level is mildly decreased to 135. O2 Sat is 98% in room air with good lung sounds.]. What to do: *Take your medications as directed. You are discharged to home with Lasix 20 mg for 3 days to help with heart failure. Lasix has been transmitted to [facility] in [facility]. Please limit sodium intake. *Follow up with your primary care provider in 2-3 days, call for an appointment. It is recommended echocardiogram arranged by primary care physician. Let them know you were seen in the ED and that we asked you to be seen in follow up. *Return to ED if you have any new, worsening, or concerning symptoms, such as [worsening or different chest pain, breathing difficulty, increasing swelling to her legs, fever, unable to tolerate fluids, or any acute concerns]. Prescriptions: New furosemide [Lasix] 20 mg tablet 20 mg PO DAILY 3 Days Qty: 3 RF: 0 No Action atenolol 25 mg tablet 50 mg PO DAILY Qty: 0 RF: 0 rosuvastatin 10 mg tablet RF: 0 azathioprine 50 mg tablet 10 mg RF: 0 Referrals: Arnulfo Pagan MD [Primary Care Provider] - <Nayely Boswell DO - Last Filed: 10/07/19 11:22> Cosign ED Attending Jesus Attestation: I was immediately available in the department for consultation. Documentation has been reviewed. I agree with assessment and plan.
== END 2019-10-06 19:12 | disposition home or self-care (01) ==
PROVIDERS: Emergency Medicine; Emergency Provider Nurse Practitioner Family; PCP Family Medicine
DX: I50.9 Heart failure, unspecified (principal); R50.9 Fever, unspecified; M54.9 Dorsalgia, unspecified; R06.02 Shortness of breath; R11.0 Nausea; M25.562 Pain in left knee; M25.561 Pain in right knee; D72.829 Elevated white blood cell count, unspecified
CPT/HCPCS: 36415; 71045; 80053; 81003; 82550; 83605; 83690; 83880; 84145; 84484; 85025; 85610; 85730; 93005; 96374; 99284; J1940

== ENCOUNTER 2019-10-10 14:02 | Emergency (ER) | payer MEDICARE, OTHER, SELFPAY ==
[2019-10-10] VITALS (8 sets, daily range): BP systolic 124–163; BP diastolic 86–98; PULSE 108–184; RESP 15–55; TEMP 36.9; O2SAT 95–97; BMI 30.9
--- NOTE | 2019-10-10 14:09 | ED_ITS ---
HPI - Chest Pain General Chief Complaint: Chest Pain Stated Complaint: heart issue Time Seen by Provider: 10/10/19 14:08 Source: patient, RN notes reviewed and old records reviewed Mode of arrival: Ambulatory Limitations: no limitations History of Present Illness HPI narrative: Patient is a 69-year-old male with history of coronary artery disease hypertension Crohn's disease prostate cancer presenting today with chest discomfort. He says he has had off and on for the last 2 weeks. Actually seen evaluated here 4 days ago for body aches fever he actually had a COVID-19 test last week for intermittent fevers she got the results back 5 days ago which were negative. Today he says that he started having some chest discomfort he took nitroglycerin without any relief. He feels of fluttering in his chest. He is noted to be in atrial fibrillation with RVR. He denies any shortness of breath he says his fevers have resolved he denies any cough. MD complaint: chest pain Duration: intermittent (for 2 weeks) Related Data Home Medications Medication Instructions Recorded Confirmed atenolol 25 mg tablet 50 mg PO DAILY #0 tab 09/02/19 09/02/19 azathioprine 10 mg 10/07/19 rosuvastatin mg 10/07/19 Previous Rx's Medication Instructions Recorded metoprolol succinate 25 mg PO BID #30 each 10/10/19 warfarin [Coumadin] 5 mg PO DAILY #20 tab 10/10/19 Allergies Allergy/AdvReac Type Severity Reaction Status Date / Time No Known Drug Allergies Allergy Verified 10/10/19 14:10 Review of Systems Review of Systems Narrative: GENERAL: Denies chills, fatigue, malaise, fever, sweats, travel HEENT: Denies sinus pain, ear pain, sore throat, difficulty swallowing, neck pain RESPIRATORY: Denies dyspnea, cough, wheezing, hemoptysis, sputum. CARDIOVASCULAR: See HPI GASTROINTESTINAL: Denies nausea, vomiting, abdominal pain, diarrhea, constipation, melena. : Denies dysuria, frequency, incontinence, hematuria, urinary retention, flank pain. MUSCULOSKELETAL: Denies weakness, joint pain, or bony pain SKIN: No rash, no erythema, no pruritus NEUROLOGIC: Denies weakness, dizziness, headache, numbness, change in speech, confusion PSYCHIATRIC: No concerning psychosocial issues. 12 point review of systems is negative except for those stated above and HPI Patient History Medical History (Updated 10/10/19 @ 16:18 by Nayely Boswell DO) CAD (coronary artery disease) (Acute) Chest pain (Acute) Crohn's disease (Acute) Hyperlipidemia (Acute) Hypertension (Acute) Paresthesia (Acute) Prostate cancer (Acute) Skin cancer (Acute) Surgical History (Updated 10/07/19 @ 01:46 by CURTIS Dover) H/O hernia repair (Acute) History of heart artery stent (Acute) History of prostate surgery (Acute) Social History (Updated 10/07/19 @ 01:47 by CURTIS Dover) household members: significant other Smoking Status: Never smoker Smoking Status: Never smoker alcohol intake frequency: a few times a month Substance Use Type: does not use Exam Initial Vital Signs Initial Vital Signs: Vital Signs Temperature 98.5 F 10/10/19 14:10 Pulse Rate 184 H 10/10/19 14:10 Respiratory Rate 15 10/10/19 14:10 Blood Pressure 124/94 H 10/10/19 14:10 Pulse Oximetry 97 10/10/19 14:10 GENERAL: Well-appearing, well-nourished and in no acute distress. HEENT: Head atraumatic,EOMI, pupils reactive, face symmetric, moist mucous membranes CARDIOVASCULAR: Tachycardic irregularly irregular RESPIRATORY: Breath sounds equal bilaterally, no wheezes rales or rhonchi. ABDOMEN: Soft, nontender. Normoactive bowel sounds all 4 quadrants. No guarding or rebound. EXTREMITIES: Normal range of motion, no clubbing or edema. Neurovascularly intact NEUROLOGICAL: Alert and oriented x4.Normal gait and speech. SKIN: Warm, dry, no laceration, no petechiae, no rashes or lesions. Scores CHADS-VASc Congestive heart failure: yes Hypertension: yes Age 75 years or older: no Diabetes mellitus: no Stroke, TIA, or TE: no Vascular disease: no Age 65 to 74 years: yes Sex category (female): Male CHADS-VASc Score: 3 Course Orders Ordered: ED Orders 10/10/19 14:09 EKG-12 Lead Stat 10/10/19 14:16 XR chest 1V Stat 10/10/19 14:26 Complete Blood Count AUTO DIFF Stat Comprehensive Metabolic Panel Stat Magnesium Stat NT-proBNP (BNP-Adult 18+) Stat Partial Thromboplastin Time Stat Prothrombin Time INR Stat Thyroid Stimulating Hormone Stat Troponin & CK Cardiac Panel Stat Discontinued Medications Apixaban (Eliquis) 5 mg PO NOW ONE Stop: 10/10/19 16:04 Last Admin: 10/10/19 16:20 Dose: Not Given Documented by: URIEL Metoprolol Succinate (Toprol Xl) 25 mg PO NOW ONE Stop: 10/10/19 16:04 Last Admin: 10/10/19 16:18 Dose: 25 mg Documented by: URIEL Metoprolol Tartrate (Lopressor) 5 mg IV NOW ONE Stop: 10/10/19 14:17 Last Admin: 10/10/19 14:22 Dose: 5 mg Documented by: URIEL Warfarin Sodium (Coumadin) 5 mg PO NOW ONE Stop: 10/10/19 16:12 Last Admin: 10/10/19 16:20 Dose: 5 mg Documented by: URIEL Consultations Consultation #1: Dr. Morgan, cardiology, recommends Eliquis and Toprol XL b.i.d. and follow up as outpatient on Sunday as scheduled Time: 16:05 Vital Signs Vital signs: Vital Signs - 8 hr 10/10/19 14:10 10/10/19 15:49 10/10/19 15:50 Temperature 98.5 F Pulse Rate 184 H 120 H 108 H Respiratory Rate 15 23 22 Blood Pressure 124/94 H 145/98 H Pulse Oximetry 97 95 95 10/10/19 16:00 10/10/19 16:10 10/10/19 16:18 Temperature Pulse Rate 127 H 122 H 108 H Respiratory Rate 40 H 32 H Blood Pressure 150/94 H 163/91 H 163/91 H Pulse Oximetry 96 97 10/10/19 16:20 10/10/19 16:30 Temperature Pulse Rate 112 H 167 H Respiratory Rate 17 55 H Blood Pressure 159/86 H Pulse Oximetry 96 97 MDM - Chest Pain Lab Data Attestation: I reviewed the patient's lab results. Result diagrams: 10/10/19 14:26 10/10/19 14:26 Labs: Lab Results 10/10/19 10/10/19 10/10/19 Range/Units 14:26 14:26 14:26 WBC 7.5 (4.5-11.0) X10^3/uL RBC 5.15 (4.5-5.9) X10^6/uL Hgb 13.4 L (13.5-17.5) g/dL Hct 40.6 L (41-53) % MCV 78.9 L (80-100) fL MCH 26.0 (26-34) PG MCHC 33.0 (30-36) % RDW 17.4 H (11.6-14.8) % Plt Count 276 (150-400) X10^3/uL Neut % (Auto) 71.3 (50-75) % Lymph % (Auto) 16.4 L (25-40) % [place] % (Auto) 9.2 (3-14) % Eos % (Auto) 2.4 (2-4) % Baso % (Auto) 0.7 (0-2) % Neut # (Auto) 5300 (0394-3840) /uL Lymph # (Auto) 1200 (5688-7689) /uL [place] # (Auto) 700 (0-900) /uL Eos # (Auto) 200 (0-450) /uL Baso # (Auto) 100 (0-100) /uL PT 14.2 H (10.1-12.7) SECONDS INR 1.2 (0.9-1.3) APTT 33 (26.4-36.2) SECONDS Sodium 138 (137-145) mmol/L Potassium 3.7 (3.4-5.1) mmol/L Chloride 105 (98-107) mmol/L Carbon Dioxide 26 (22-32) mmol/L BUN 19 (9-20) mg/dL Creatinine 1.13 (0.66-1.25) mg/dL Estimated GFR > 60.0 (>60) mL/min BUN/Creatinine Ratio 16.8 (6-22) Glucose 133 H (80-110) mg/dL Calcium 9.8 (8.4-10.2) mg/dL Magnesium 2.0 (1.6-2.3) mg/dL Total Bilirubin 0.5 (0.2-1.3) mg/dL AST 29 (17-59) IU/L ALT 19 (<50) IU/L Alkaline Phosphatase 68 (38-126) U/L Total Creatine Kinase 37 L (55-170) U/L CK-MB (CK-2) TNP CK-MB (CK-2) Rel Index TNP Troponin I 0.030 (0.01-0.034) ng/mL NT-Pro-B Natriuret Pep 935 H (<125) pg/mL Total Protein 6.9 (6.3-8.2) g/dL Albumin 4.0 (3.5-5.0) g/dL Globulin 2.9 (1.7-4.1) g/dL Albumin/Globulin Ratio 1.4 (1.0-2.8) TSH (0.47-4.68) uIU/mL 10/10/19 Range/Units 14:26 WBC (4.5-11.0) X10^3/uL RBC (4.5-5.9) X10^6/uL Hgb (13.5-17.5) g/dL Hct (41-53) % MCV (80-100) fL MCH (26-34) PG MCHC (30-36) % RDW (11.6-14.8) % Plt Count (150-400) X10^3/uL Neut % (Auto) (50-75) % Lymph % (Auto) (25-40) % [place] % (Auto) (3-14) % Eos % (Auto) (2-4) % Baso % (Auto) (0-2) % Neut # (Auto) (3037-2556) /uL Lymph # (Auto) (7160-0125) /uL [place] # (Auto) (0-900) /uL Eos # (Auto) (0-450) /uL Baso # (Auto) (0-100) /uL PT (10.1-12.7) SECONDS INR (0.9-1.3) APTT (26.4-36.2) SECONDS Sodium (137-145) mmol/L Potassium (3.4-5.1) mmol/L Chloride (98-107) mmol/L Carbon Dioxide (22-32) mmol/L BUN (9-20) mg/dL Creatinine (0.66-1.25) mg/dL Estimated GFR (>60) mL/min BUN/Creatinine Ratio (6-22) Glucose (80-110) mg/dL Calcium (8.4-10.2) mg/dL Magnesium (1.6-2.3) mg/dL Total Bilirubin (0.2-1.3) mg/dL AST (17-59) IU/L ALT (<50) IU/L Alkaline Phosphatase (38-126) U/L Total Creatine Kinase (55-170) U/L CK-MB (CK-2) CK-MB (CK-2) Rel Index Troponin I (0.01-0.034) ng/mL NT-Pro-B Natriuret Pep (<125) pg/mL Total Protein (6.3-8.2) g/dL Albumin (3.5-5.0) g/dL Globulin (1.7-4.1) g/dL Albumin/Globulin Ratio (1.0-2.8) TSH 1.45 (0.47-4.68) uIU/mL Imaging Data Chest x-ray: Radiologist's Impression: PROCEDURE: XR CHEST 1V INDICATIONS: chest pain TECHNIQUE: One view of the chest was acquired. COMPARISON: [facility], , XR CHEST 1V, 10/06/2019, 16:52. [facility], , CHEST 1 VIEW, 11/10/2011, 13:37. FINDINGS: Surgical changes and devices: None. Lungs and pleura: Lungs are clear. No pleural effusions or pneumothorax. Mediastinum: Mediastinal contours appear normal. Heart size is normal. Bones and chest wall: No suspicious bony lesions. Overlying soft tissues appear unremarkable. IMPRESSION: Reduced inspiratory volume, mild chronic elevation of the left hemidiaphragm. No acute disease. Dictated by: Archie Cruz M.D. on 10/10/2019 at 14:54 Approved by: Archie Cruz M.D. on 10/10/2019 at 14:55 ECG Data Attestation: I personally reviewed and interpreted this ECG as follows: Prior ECG tracings: available for review Interpretation: AFib with RVR rate [address] changes previous EKG shows a normal sinus rhythm MDM Narrative Medical decision making narrative: The patient has new onset atrial fibrillation however he is had his symptoms off and on for the last 2 weeks he is therefore not a candidate for ER cardioversion. He actually has an appointment with a instructor physical education on Sunday Dr. Gonsalez. He is given 1 dose of IV metoprolol in his heart rate seems to be much better controlled rate 106-120. I have spoken with on-call cardiology who recommends p.o. metoprolol. I have had a discussion with patient about anticoagulation he has an elevated chads Vasc score and requires more than aspirin. He is semi familiar with anticoagulation his is currently taking Coumadin we discussed risks and benefits of anticoagulation. At this time he would like to take Coumadin over Eliquis. He is feeling much better now that his heart rate is controlled I discussed all findings with the patient, Education has been performed rega rding treatment plan, diagnosis, warning signs and symptoms and all concerns have been addressed. Verbally agree with and understood all of the above. Discharge Plan Departure Patient Disposition: Home Clinical Impression: Atrial fibrillation with rapid ventricular response Instructions: Atrial Fibrillation Activity Restrictions/Additional Instructions: *You have been diagnosed with atrial fibrillation *What to do: You are at risk for stroke with atrial fibrillation. You will need to take Coumadin and have your blood checked regularly. Please bring this paper with you to your appointment on Sunday along with her EKG Be sure to have INR checked next week with Cardiology INR today is 1.2 *Continue to take medications as directed--> sent to [facility] in [place] Metoprolol 25 mg twice a day--stop taking atenolol Warfarin 5 mg once daily *Follow up with your primary care provider in 2-3 days *Return to ER if you should have increasing shortness of breath, heart palpitations, bloody stool, hitting your head or trauma [or] any new, worsening or concerning symptoms Prescriptions: New metoprolol succinate 25 mg capsule,sprinkle,ER 24hr 25 mg PO BID Qty: 30 RF: 0 warfarin [Coumadin] 5 mg tablet 5 mg PO DAILY Qty: 20 RF: 0 No Action atenolol 25 mg tablet 50 mg PO DAILY Qty: 0 RF: 0 rosuvastatin 10 mg tablet RF: 0 azathioprine 50 mg tablet 10 mg RF: 0 Referrals: Chilo Gonsalez MD [Non-Staff] - Arnulfo Pagan MD [Primary Care Provider] -
--- NOTE | 2019-10-10 14:16 | DI.RAD.S_ITS ---
PROCEDURE: XR CHEST 1V INDICATIONS: chest pain TECHNIQUE: One view of the chest was acquired. COMPARISON: [facility], , XR CHEST 1V, 10/06/2019, 16:52. Merged With [facility], , CHEST 1 VIEW, 11/10/2011, 13:37. FINDINGS: Surgical changes and devices: None. Lungs and pleura: Lungs are clear. No pleural effusions or pneumothorax. Mediastinum: Mediastinal contours appear normal. Heart size is normal. Bones and chest wall: No suspicious bony lesions. Overlying soft tissues appear unremarkable. IMPRESSION: Reduced inspiratory volume, mild chronic elevation of the left hemidiaphragm. No acute disease. Dictated by: Archie Cruz M.D. on 10/10/2019 at 14:54 Approved by: Archie Cruz M.D. on 10/10/2019 at 14:55
[2019-10-10] MEDS: METOPROLOL TARTRATE 5 MG/5 ML INJ IV (14:22)
[2019-10-10 14:36] LABS: Add Manual Diff / Slide Review NO; Basophils Absolute Auto 100 /uL (0-100); Basophils Percent Auto 0.7 % (0-2); Eosinophils Absolute Auto 200 /uL (0-450); Eosinophils Percent Auto 2.4 % (2-4); Hematocrit 40.6 % (41-53); Hemoglobin 13.4 g/dL (13.5-17.5); Lymphocytes Absolute Auto 1200 /uL (1100-4500); Lymphocytes Percent Auto 16.4 % (25-40); Mean Corpuscular Volume 78.9 fL (80-100); Monocytes Absolute Auto 700 /uL (0-900); Monocytes Percent Auto 9.2 % (3-14); Neutrophils Absolute Auto 5300 /uL (1500-7000); Neutrophils Percent Auto 71.3 % (50-75); Platelet Count 276 X10^3/uL (150-400); Red Blood Cell Count 5.15 X10^6/uL (4.5-5.9); Red Cell Distribution Width 17.4 % (11.6-14.8); White Blood Cell Count 7.5 X10^3/uL (4.5-11.0)
[2019-10-10 14:43] LABS: HEMOLYSIS 20 (0-50)
[2019-10-10 14:44] LABS: INR 1.2 (0.9-1.3); Prothrombin Time 14.2 SECONDS (10.1-12.7)
[2019-10-10 14:47] LABS: PTT Partial Thromboplastin Tim 33 SECONDS (26.4-36.2)
[2019-10-10 14:49] LABS: Alanine Aminotransferase 19 IU/L (<50); Albumin Globulin Ratio 1.4 (1.0-2.8); Alkaline Phosphatase 68 U/L (38-126); Aspartate Aminotransferase 29 IU/L (17-59); BUN Creatinine Ratio 16.8 (6-22); Bilirubin Total 0.5 mg/dL (0.2-1.3); Blood Urea Nitrogen 19 mg/dL (9-20); Calcium 9.8 mg/dL (8.4-10.2); Carbon Dioxide 26 mmol/L (22-32); Chloride 105 mmol/L (98-107); Creatine Kinase 37 U/L (55-170); Estimated Glomerular Filt Rate > 60.0 mL/min (>60); Globulin 2.9 g/dL (1.7-4.1); Glucose 133 mg/dL (80-110); Potassium 3.7 mmol/L (3.4-5.1); Sodium 138 mmol/L (137-145); Total Protein 6.9 g/dL (6.3-8.2)
[2019-10-10 15:02] LABS: NT-proBNP (BNP-Adult 18+) 935 pg/mL (<125)
[2019-10-10 15:33] LABS: Thyroid Stimulating Hormone 1.45 uIU/mL (0.47-4.68)
[2019-10-10] MEDS: METOPROLOL ER 25 MG TABLET PO (16:18)
[2019-10-10] MEDS: WARFARIN 5 MG TABLET PO (16:20)
== END 2019-10-10 16:40 | disposition home or self-care (01) ==
PROVIDERS: Emergency Provider Emergency Medicine; PCP Family Medicine
DX: I48.91 Unspecified atrial fibrillation (principal); I25.10 Atherosclerotic heart disease of native coronary artery without angina pectoris; I10 Essential (primary) hypertension; Z85.46 Personal history of malignant neoplasm of prostate
CPT/HCPCS: 36415; 71045; 80053; 82550; 83735; 83880; 84443; 84484; 85025; 85610; 85730; 93005; 96374; 99284

== ENCOUNTER → 2020-09-01 15:57 | Outpatient (CLI) | payer MEDICARE, OTHER, SELFPAY ==
--- NOTE | 2020-09-01 17:05 | DI.RAD.S_ITS ---
PROCEDURE: XR WRIST LT MIN 3V INDICATIONS: left wrist pain and weakness TECHNIQUE: 3 views of the wrist were acquired. COMPARISON: None. FINDINGS: Bones: No fractures or dislocations. No suspicious bony lesions. Scattered degenerative subchondral sclerosis and spurring. Diffuse carpal degenerative sclerosis. There is [id number] appearance at the capitate lunate articulation with associated sclerosis. 1st MCP joint degeneration also noted, mild. Soft tissues: No suspicious soft tissue calcifications. IMPRESSION: Severe diffuse carpal joint degeneration. Dictated by: Marino Osuna M.D. on 09/02/2020 at 8:49 Approved by: Marino Osuna M.D. on 09/02/2020 at 9:21
--- NOTE | 2020-09-01 17:05 | DI.RAD.S_ITS ---
PROCEDURE: XR HAND LT MIN 3V INDICATIONS: left hand pain TECHNIQUE: 3 views of the hand(s) acquired. COMPARISON: None. FINDINGS: Bones: No fractures or dislocations. Carpal bones are normally aligned. No suspicious bony lesions. Scattered degenerative subchondral sclerosis and spurring. First CMC and triscaphe joint degeneration. Marginal lucency seen at the PIP joint of the index finger in the DIP joints of the index and middle finger, possibly small cysts versus erosions. Additional possible age-indeterminate erosion involving the 3rd metacarpal head. Soft tissues: No suspicious soft tissue calcifications. IMPRESSION: Chronic degenerative changes as above. If the patient's pain or other symptoms persist, consider further evaluation with MRI Dictated by: Marino Osuna M.D. on 09/02/2020 at 8:47 Approved by: Marino Osuna M.D. on 09/02/2020 at 8:49
[2020-09-01 17:10] LABS: Creatinine Urine Random 140.9 mg/dL
[2020-09-01 17:13] LABS: Microalbumi Creatinin Ratio Ur 4.2 ug/mg CR (<30); Microalbumin Urine Random 0.6 mg/dL (0-1.6)
[2020-09-01 17:43] LABS: Add Manual Diff / Slide Review NO; Basophils Absolute Auto 100 /uL (0-100); Basophils Percent Auto 1.1 % (0-2); Eosinophils Absolute Auto 300 /uL (0-450); Eosinophils Percent Auto 3.4 % (2-4); Hematocrit 43.4 % (41-53); Hemoglobin 14.4 g/dL (13.5-17.5); Lymphocytes Absolute Auto 1300 /uL (1100-4500); Lymphocytes Percent Auto 17.4 % (25-40); Mean Corpuscular HGB Conc 33.2 % (30-36); Mean Corpuscular Hemoglobin 28.2 PG (26-34); Mean Corpuscular Volume 84.9 fL (80-100); Monocytes Absolute Auto 600 /uL (0-900); Monocytes Percent Auto 8.2 % (3-14); Neutrophils Absolute Auto 5300 /uL (1500-7000); Neutrophils Percent Auto 69.9 % (50-75); Platelet Count 149 X10^3/uL (150-400); Red Blood Cell Count 5.11 X10^6/uL (4.5-5.9); Red Cell Distribution Width 16.4 % (11.6-14.8); White Blood Cell Count 7.6 X10^3/uL (4.5-11.0)
[2020-09-01 18:16] LABS: Alanine Aminotransferase 28 IU/L (<50); Albumin 3.9 g/dL (3.5-5.0); Albumin Globulin Ratio 1.4 (1.0-2.8); Alkaline Phosphatase 77 U/L (38-126); Aspartate Aminotransferase 39 IU/L (17-59); BUN Creatinine Ratio 21.1 (6-22); Bilirubin Total 0.5 mg/dL (0.2-1.3); Blood Urea Nitrogen 20 mg/dL (9-20); Calcium 9.5 mg/dL (8.4-10.2); Carbon Dioxide 24 mmol/L (22-32); Chloride 106 mmol/L (98-107); Cholesterol 131 mg/dL (140-199); Estimated Glomerular Filt Rate > 60.0 mL/min (>60); Globulin 2.8 g/dL (1.7-4.1); Glucose 115 mg/dL (80-110); HDL Cholesterol 40 mg/dL (40-60); HEMOLYSIS < 15 (0-50); LDL Cholesterol Calculated 52 mg/dL (<100); Potassium 4.2 mmol/L (3.4-5.1); Sodium 138 mmol/L (137-145); Total Protein 6.7 g/dL (6.3-8.2); Triglycerides 196 mg/dL (35-150)
[2020-09-01 18:18] LABS: Hemoglobin A1C% w Est Avg Glu 5.8 % (4.0-6.0)
[2020-09-01 18:45] LABS: Prostate Specific Antigen Scrn 0.516 ng/mL (0.1-4.0)
== END ==
PROVIDERS: PCP Family Medicine; Referring Provider Family Medicine; Visit Provider Family Medicine
DX: I10 Essential (primary) hypertension (principal); Z12.5 Encounter for screening for malignant neoplasm of prostate; R73.9 Hyperglycemia, unspecified; I49.9 Cardiac arrhythmia, unspecified; K50.90 Crohn's disease, unspecified, without complications; Z85.46 Personal history of malignant neoplasm of prostate; M25.532 Pain in left wrist; R29.898 Other symptoms and signs involving the musculoskeletal system
CPT/HCPCS: 36415; 73110; 73130; 80053; 80061; 82043; 82570; 83036; 85025; G0103

== ENCOUNTER 2020-10-18 09:45 | Outpatient (RCR) | payer MEDICARE, OTHER, SELFPAY ==
--- NOTE | 2020-09-30 15:56 | PT.OIE ---
Current Diagnoses Primary osteoarthritis, right hand (09/30/20) Primary osteoarthritis, left hand (09/30/20) Pain in left hand (09/30/20) Weakness (09/30/20) Past Medical History (Last Reviewed 06/28/20 @ 14:26 by Castro Tang MD) CAD (coronary artery disease) (~2009) Cardiac arrhythmia (~2009) Cataracts, bilateral (~2003) Chest pain Crohn's disease (~2012) H/O hernia repair History of heart artery stent (~2009) History of knee replacement History of prostate surgery (~2012) Hyperlipidemia Hypertension Osteoarthritis Paresthesia Prostate cancer (~2010) Skin cancer Past Surgical History (Last Reviewed 06/28/20 @ 14:26 by Castro Tang MD) Anesthesia H/O hernia repair History of heart artery stent (~2009) History of knee replacement History of prostate surgery (~2012) Visit Care Team Role Provider Type Castro Tang MD Attending Provider Physician Family Provider Primary Care Provider Referring Provider Specialty: [facility] Address: [address] [place] [address] Email: [email or web address] Physical Therapy Initial Evaluation PT-OP-A Visit Information Start: 09/14/20 18:02 Freq: Status: Active Protocol: Document 09/30/20 09:56 LRN (Rec: 09/30/20 11:46 LRN [id number]) Out-Patient Physical Therapy Visit Information Visit Information Visit Type Initial Evaluation Visit Start Time 09:56 Visit Stop Time 10:52 Total Visit Minutes 56 Visit Number 1 Evaluation Information Evaluation Date 09/30/20 Precautions Precautions Heart stints A.Fib Controlled HBP Erickson partial knee replacements (2012 left, ~2014 right) PT-OP-B Current Condition Start: 09/14/20 18:02 Freq: Status: Active Protocol: Document 09/30/20 09:56 LRN (Rec: 09/30/20 11:46 LRN [id number]) Current Condition History of Current Condition Onset Date Gradual worsening since past 5 -6 months (onset 2 years ago). Current Complaints Keeps him up at night and disturbs sleep. History of Current Condition Referring physician reports he has severe arthritis at L wrist and knuckles of digits 2 -5. States ~ 6 months ago developed R forearm ache in wrist extensors due to using more his R than L since the L hand pain. States it feels like tendonitis that he's had before but is at PT for only the L hand. Prior Treatments and Tests Bilateral thumb surgery, ~2008 , 2009 to transfer tendon from forearm to CMC jt due to bone on bone at the time. X-rays at of L Wrist ( Severe diffuse carpal joint degeneration) and L hand ( Marginal lucency seen at the PIP joint of the index finger in the DIP joints of the index and middle finger, possibly small cysts versus erosions. Additional possible age- indeterminate erosion involving the 3rd metacarpal head). Treatment Goals Patient/Caregiver Goals Pt goal is to achieve some pain relief. Pt agreeable to other goals of : improved mobility of L wrist and hand, education onto a HEP, & education of self care pain managment. Prior Functional Status Baseline Function- ADL's Independent Baseline Function- Mobility Independent Baseline Function- Work/School Retired from [employer] company . Current Functional Impairments (Reported) Functional Limitations- ADL's Interferes with sleep. Pain lifting frying pain, tying shoes (with laces); therefore purchased slip ons to avoid having to tie shoes), reaching over items overhead with L hand. Personal Factors Other Personal Factors That May Effect Chronic Osteoarthritis Therapy/Recovery Hx of prostate cancer Cardiac arrhythmia (A. Fib) PT-OP-C Subjective Start: 09/14/20 18:02 Freq: Status: Active Protocol: Document 09/30/20 09:56 LRN (Rec: 09/30/20 11:46 LRN [id number]) Patient Questionnaires Quick Dash- Upper Extremity Quick Dash UE Score 27.5 (one missing question) Quick Dash UE Impairment 20 to 39% Impaired (Score 20- 39) OP-PT Pain Assessment Pain Assessment Grid Paper Pain Assessment Grid Completed Yes Location Left Dorsal Hand Pain Location Details L knuckles 2-4 & dorsal wrist Intensity 7 Scale Used Numeric (0 - 10) Description Sharp,Throbbing Frequency Intermittent Pain Aggravating Factors Changing Position,Activity Other Pain Alleviating Factors At night, takes Excedrin PM aspirin to sleep. PT-OP-H Neuro Start: 09/14/20 18:02 Freq: Status: Active Protocol: Document 09/30/20 09:56 LRN (Rec: 09/30/20 11:46 LRN [id number]) Sensation Evaluation Gross Sensation Gross Sensation WNL PT-OP-J Posture/Palpation/Skin Start: 09/14/20 18:02 Freq: Status: Active Protocol: Document 09/30/20 09:56 LRN (Rec: 09/30/20 11:46 LRN [id number]) Posture Evaluation Comments Posture Comments Atrophy L forearm, forward head, Arms in IR. Skin Assessment Other Assessments Skin Assessment Comments Pt forearms have areas of dry white and red patches of skin. PT-OP-K Range of Motion Start: 09/14/20 18:02 Freq: Status: Active Protocol: Document 09/30/20 09:56 LRN (Rec: 09/30/20 11:46 LRN [id number]) Elbow/Forearm Range of Motion Elbow/Forearm Left Active ROM Testing Position Sitting Pronation (degrees) 90 Supination (degrees) 60 Wrist Goniometric Range of Motion Wrist Right Wrist ROM WFL Yes Flexion Active (degrees) 54 Extension Active (degrees) 61 Ulnar Deviation Active (degrees) 25 Radial Deviation Active (degrees) 25 Left Wrist ROM WFL No Flexion Active (degrees) 24 Extension Active (degrees) 26 Ulnar Deviation Active (degrees) 16 Radial Deviation Active (degrees) 20 ROM Limitations Comments Pain with UD and flexion L hand. Finger Goniometric Range of Motion Finger Left Fifth MCP Flexion Active (degrees) 70 Left Fourth MCP Flexion Active (degrees) 68 Left Third MCP Flexion Active (degrees) 62 Left Second MCP Flexion Active (degrees) 60 PT-OP-M Strength Start: 09/14/20 18:02 Freq: Status: Active Protocol: Document 09/30/20 09:56 LRN (Rec: 09/30/20 11:46 LRN [id number]) Elbow/Forearm Strength Elbow and Forearm Manual Muscle Testing Right Comments Generally 5/5 Left Comments Generally 5/5 Wrist Strength Wrist Manual Muscle Testing Right Comments Generally 5/5 Left Flexion (C7) 2+ Poor+ Extension (C6) 5 Normal Ulnar Deviation 4 Good Radial Deviation 5 Normal Comments Wrist flex & UD strength limited due to dorsal wrist pain. Hand Deflector Operator/Pinch Strength Hand Dominance Hand Dominance Right Hand Strength Left Comments #77, 83, 75 kg, 45, 38, 34, Pain at MCP joints while squeezing critical care nurse strength testing device. Opposition strength is normal. Table top flex is 5/5, no pain . Right Comments #97, 100, 96 kg 42, 46, 44 PT-OP-Q Treatments Start: 09/14/20 18:02 Freq: Status: Active Protocol: Document 09/30/20 09:56 LRN (Rec: 09/30/20 11:46 LRN [id number]) Self-Care/Home Management Treatment Education Patient Education Home Exercise Program Other Education Educated pt in proper stretch to avoid pain and to perform active stretch after prolonged stretch. Educated pt in self care for max stretch program. Discussed results of evaluation, goals, and plan of care (POC). Pt agreeable to goals and POC. Activities Self-Care/Home Management Activities I/S pt in HEP: Stretches: Wrist flex > ext, and UD. PT-OP-T Assessment and Plan Start: 09/14/20 18:02 Freq: Status: Active Protocol: Document 09/30/20 09:56 LRN (Rec: 09/30/20 11:46 LRN [id number]) Physical Therapy Assessment Rehab Potential Rehabilitation Potential Good Evaluation Complexity Number of Personal Factors/Comorbidities 3 or More Number of Body Systems Impaired 4 or More Clinical Presentation at Evaluation Evolving Impairments Impairments Activity Tolerance,Functional Activities,Pain,ROM,Soft Tissue Mobility,Strength Other Impairments Interferes with sleep Goals Four Impairment Intermittent L wrist & hand ( MCP jts) pain rated 7/10 Short Term Goal (STG) Decrease intermittent pain at L wrist & L hand MCP joints to 3-4/10. STG Duration 11/05/20 Planer Offbearer Goal (LTG) Pain relief with use of L hand , with tolerable pain, no sharp pain and pt able to tie shoe laces with tolerable discomfort. LTG Duration 12/03/20 Three Impairment Decreased L wrist/hand strength due to pain Short Term Goal (STG) Pt will be able to lift and lower a frying pain with tolerable pain no greater than 2-3/10. STG Duration 11/05/20 Planer Offbearer Goal (LTG) Pt will be able to safely modify his reaching overhead and lifting of objects with L hand to minimize or eliminate sharp pain in the L hand/wrist . LTG Duration 12/03/20 Two Impairment Decreased L wrist/digits 2-4 MCP jts mobility interfering with sleep Impairment Pt goal is to achieve some pain relief, improve mobility of L wrist and hand, educate pt on HEP, educate on pain managment. Short Term Goal (STG) Normalize AROM of L wrist flexion from 24 to 54 deg's (R is 54 deg's) and UD from 16 to 25 deg's (R is 25 deg's), improve supination AROM ( initial is 60 deg's). STG Duration 11/05/20 Planer Offbearer Goal (LTG) Improve digits 2-5 MCP flexion AROM (initial active flexion in deg's: digits 2 to 5 is 60, 62, 68, 70 deg's respectively ) with pt interrupted in sleep no more than 1 time during the night. LTG Duration 12/03/20 One Impairment Lacks appropriate self care HEP Short Term Goal (STG) Pt will be educated in self care pain managment techniques . STG Duration 10/08/20 Planer Offbearer Goal (LTG) Pt will be educate and independent in a self care HEP . LTG Duration 12/29/20 Assessment Summary Assessment Pt presents with mechanical and soft tissue dysfunction of the L hand and wrist. He has stiffness and pain of the L wrist with flexion and ulnar deviation. He has pain at L hand digits 2-4 MCP joints with active flexion (fist making), due to arthritic changes, decreased stability at joints (weakness of finger extensors), and tightness of the L hand finger/wrist extensors and restrictions in tendon glides at the MCP joints. The pt lacks a self care program of exercises and pain management techniques. His progress may be hindered due to skin conditions that may need to be evaluated prior to use of the modality of paraffin dip. The pt will benefit from skilled physical therapy to achieve the above stated goals. Physical Therapy Plan Frequency and Duration Plan of Care Start Date 09/30/20 Plan of Care End Date 12/29/20 Therapeutic Interventions Therapeutic Interventions Manual Therapy,Patient/ Caregiver Education,Self-Care/ Home Management,Soft Tissue Mobilization,Taping, Therapeutic Exercises Modalities Cold Pack/Ice Massage,Hot Packs,Paraffin Bath,Ultrasound Next Visit Focus/Plan Next Note Type Treatment Note Next Visit Plan US L wrist extensors f/b review and issue handouts for HEP (wrist flex & UD stretch). Pt to complete UE QuickDASH Assess for cervical involvement, L finger AROM at MCP joints, and carpal mobility. Discuss nighttime positioning to decrease pain at night. Add L finger flexion stretching and start L wrist/ finger extension strengthening . Progress pt onto HEP, when ROM improved decrease to 1x/week with focus on pt's HEP.
--- NOTE | 2020-10-04 11:09 | PT.OTN ---
Current Diagnoses Primary osteoarthritis, right hand (10/04/20) Primary osteoarthritis, left hand (10/04/20) Pain in left hand (10/04/20) Weakness (10/04/20) Physical Therapy Treatment Note PT-OP-A Visit Information Start: 09/14/20 18:02 Freq: Status: Active Protocol: Document 10/04/20 09:51 LRN (Rec: 10/04/20 11:03 LRN [id number]) Out-Patient Physical Therapy Visit Information Visit Information Visit Type Treatment Note Visit Start Time 09:51 Visit Stop Time 10:44 Total Visit Minutes 53 Visit Number 2 Evaluation Information Evaluation Date 09/30/20 Precautions Precautions Heart stints A.Fib Controlled HBP Erickson partial knee replacements (2012 left, ~2014 right) PT-OP-B Current Condition Start: 09/14/20 18:02 Freq: Status: Active Protocol: Document 09/30/20 09:56 LRN (Rec: 09/30/20 11:46 LRN [id number]) Current Condition History of Current Condition Onset Date Gradual worsening since past 5 -6 months (onset 2 years ago). Current Complaints Keeps him up at night and disturbs sleep. History of Current Condition Referring physician reports he has severe arthritis at L wrist and knuckles of digits 2 -5. States ~ 6 months ago developed R forearm ache in wrist extensors due to using more his R than L since the L hand pain. States it feels like tendonitis that he's had before but is at PT for only the L hand. Prior Treatments and Tests Bilateral thumb surgery, ~2008 , 2009 to transfer tendon from forearm to CMC jt due to bone on bone at the time. X-rays at of L Wrist ( Severe diffuse carpal joint degeneration) and L hand ( Marginal lucency seen at the PIP joint of the index finger in the DIP joints of the index and middle finger, possibly small cysts versus erosions. Additional possible age- indeterminate erosion involving the 3rd metacarpal head). Treatment Goals Patient/Caregiver Goals Pt goal is to achieve some pain relief. Pt agreeable to other goals of : improved mobility of L wrist and hand, education onto a HEP, & education of self care pain managment. Prior Functional Status Baseline Function- ADL's Independent Baseline Function- Mobility Independent Baseline Function- Work/School Retired from [employer] . Current Functional Impairments (Reported) Functional Limitations- ADL's Interferes with sleep. Pain lifting frying pain, tying shoes (with laces); therefore purchased slip ons to avoid having to tie shoes), reaching over items overhead with L hand. Personal Factors Other Personal Factors That May Effect Chronic Osteoarthritis Therapy/Recovery Hx of prostate cancer Cardiac arrhythmia (A. Fib) PT-OP-C Subjective Start: 09/14/20 18:02 Freq: Status: Active Protocol: Document 10/04/20 09:51 LRN (Rec: 10/04/20 11:03 LRN [id number]) OP-PT Subjective Patient Comments Patient Comments Insidious onset of L wrist/ thumb pain. States no change. Patient Questionnaires Quick Dash- Upper Extremity Quick Dash UE Score 25 Quick Dash UE Impairment 20 to 39% Impaired (Score 20- 39) PT-OP-H Neuro Start: 09/14/20 18:02 Freq: Status: Active Protocol: Document 09/30/20 09:56 LRN (Rec: 09/30/20 11:46 LRN [id number]) Sensation Evaluation Gross Sensation Gross Sensation WNL PT-OP-J Posture/Palpation/Skin Start: 09/14/20 18:02 Freq: Status: Active Protocol: Document 09/30/20 09:56 LRN (Rec: 09/30/20 11:46 LRN [id number]) Posture Evaluation Comments Posture Comments Atrophy L forearm, forward head, Arms in IR. Skin Assessment Other Assessments Skin Assessment Comments Pt forearms have areas of dry white and red patches of skin. PT-OP-K Range of Motion Start: 09/14/20 18:02 Freq: Status: Active Protocol: Document 09/30/20 09:56 LRN (Rec: 09/30/20 11:46 LRN [id number]) Elbow/Forearm Range of Motion Elbow/Forearm Left Active ROM Testing Position Sitting Pronation (degrees) 90 Supination (degrees) 60 Wrist Goniometric Range of Motion Wrist Right Wrist ROM WFL Yes Flexion Active (degrees) 54 Extension Active (degrees) 61 Ulnar Deviation Active (degrees) 25 Radial Deviation Active (degrees) 25 Left Wrist ROM WFL No Flexion Active (degrees) 24 Extension Active (degrees) 26 Ulnar Deviation Active (degrees) 16 Radial Deviation Active (degrees) 20 ROM Limitations Comments Pain with UD and flexion L hand. Finger Goniometric Range of Motion Finger Left Fifth MCP Flexion Active (degrees) 70 Left Fourth MCP Flexion Active (degrees) 68 Left Third MCP Flexion Active (degrees) 62 Left Second MCP Flexion Active (degrees) 60 PT-OP-M Strength Start: 09/14/20 18:02 Freq: Status: Active Protocol: Document 09/30/20 09:56 LRN (Rec: 09/30/20 11:46 LRN [id number]) Elbow/Forearm Strength Elbow and Forearm Manual Muscle Testing Right Comments Generally 5/5 Left Comments Generally 5/5 Wrist Strength Wrist Manual Muscle Testing Right Comments Generally 5/5 Left Flexion (C7) 2+ Poor+ Extension (C6) 5 Normal Ulnar Deviation 4 Good Radial Deviation 5 Normal Comments Wrist flex & UD strength limited due to dorsal wrist pain. Hand Director [facility]/Pinch Strength Hand Dominance Hand Dominance Right Hand Strength Left Comments #77, 83, 75 kg, 45, 38, 34, Pain at MCP joints while squeezing toll bridge operator strength testing device. Opposition strength is normal. Table top flex is 5/5, no pain . Right Comments #97, 100, 96 kg 42, 46, 44 PT-OP-Q Treatments Start: 09/14/20 18:02 Freq: Status: Active Protocol: Document 10/04/20 09:51 LRN (Rec: 10/04/20 11:03 LRN [id number]) Therapeutic Exercises Sitting Exercises L wrist ext Sitting Exercise Name Self passive/active stretch Side left Reps/Minutes 2' L wrist flex Sitting Exercise Name Self passive/active stretch Side left Reps/Minutes 2' Manual Therapy Treatment Manual Traction L wrist Details L wrist distraction & with AP of lunate on wrist ext Body Position Supine Reps/Duration 3' Cervical Details Manual C tx in neutral and R SB: Without & With L wrist ext Body Position Supine Reps/Duration 10' Nerve Glides L UE Median n Nerve Median Details L Shoulder deprssion with passive wrist ext with AP to Lunate Body Position Supine Reps/Duration 3' Self-Care/Home Management Treatment Education Patient Education Pain Management Other Education Educated & discussed handouts for edema/pain management ( RICE & contrast bath). Educated & discussed neutral nighttime sleep positioning in [facility]. Activities Self-Care/Home Management Activities Issued & reviewed HEP: Wrist flex/ext stretch; Neck SB & rot stretch PT-OP-R Modalities Start: 09/14/20 18:02 Freq: Status: Active Protocol: Document 10/04/20 09:51 LRN (Rec: 10/04/20 11:03 LRN [id number]) Ultrasound Therapy Treatment L wrist Treatment Duration (minutes) 8 Patient Position Sitting Applicator Size (cm2) 2 Frequency Setting (mHz) 3 Mode Setting Pulsed Duty Cycle 50% Intensity Setting (w/cm2) 1.0 PT-OP-T Assessment and Plan Start: 09/14/20 18:02 Freq: Status: Active Protocol: Document 10/04/20 09:51 LRN (Rec: 10/04/20 11:03 LRN [id number]) Physical Therapy Assessment Goals Four Impairment Intermittent L wrist & hand ( MCP jts) pain rated 7/10 Short Term Goal (STG) Decrease intermittent pain at L wrist & L hand MCP joints to 3-4/10. STG Duration 11/05/20 Assisted Goal (LTG) Pain relief with use of L hand , with tolerable pain, no sharp pain and pt able to tie shoe laces with tolerable discomfort. LTG Duration 12/03/20 Three Impairment Decreased L wrist/hand strength due to pain Short Term Goal (STG) Pt will be able to lift and lower a frying pain with tolerable pain no greater than 2-3/10. STG Duration 11/05/20 Assisted Goal (LTG) Pt will be able to safely modify his reaching overhead and lifting of objects with L hand to minimize or eliminate sharp pain in the L hand/wrist . LTG Duration 12/03/20 Two Impairment Decreased L wrist/digits 2-4 MCP jts mobility interfering with sleep Impairment Pt goal is to achieve some pain relief, improve mobility of L wrist and hand, educate pt on HEP, educate on pain managment. Short Term Goal (STG) Normalize AROM of L wrist flexion from 24 to 54 deg's (R is 54 deg's) and UD from 16 to 25 deg's (R is 25 deg's), improve supination AROM ( initial is 60 deg's). STG Duration 11/05/20 Assisted Goal (LTG) Improve digits 2-5 MCP flexion AROM (initial active flexion in deg's: digits 2 to 5 is 60, 62, 68, 70 deg's respectively ) with pt interrupted in sleep no more than 1 time during the night. LTG Duration 12/03/20 One Impairment Lacks appropriate self care HEP Short Term Goal (STG) Pt will be educated in self care pain managment techniques . STG Duration 10/08/20 Assisted Goal (LTG) Pt will be educate and independent in a self care HEP . LTG Duration 12/29/20 Assessment Summary Assessment Pt tender at unar side of L carpal: lunate to start, but after US tender at radial side of lunate. Pt sleeping with L arm under head in slidelie and arm draping over head. Pt shows no obvious signs of cervical involvement, but nighttime static positioning of the wrist in flexion may be straining the dorsal side of the wrist. Pt to monitor more closely his sleeping position and try changing position to sidelie huggin pilllow this coming week. UE Quick DASH is 25, no change in impairment with missing one question (20 to 39% Impaired (Score 20-39)) Physical Therapy Plan Frequency and Duration Frequency of Treatment 2x/Week Plan of Care Start Date 09/30/20 Plan of Care End Date 12/29/20 Next Visit Focus/Plan Next Note Type Treatment Note Next Visit Plan US L wrist extensors f/b review HEP (wrist flex/ext stretch and neck SB/rot stretch). Issue handouts for HEP (UD stretch). Assess response to addition of cervical stretches and change in pt sleep position with awareness of L hand/wrist positioning. L finger AROM at MCP joints, and carpal mobility. Add L finger flexion stretching and start L wrist/ finger extension strengthening . Progress pt onto HEP, when ROM improved decrease to 1x/week with focus on pt's HEP.
--- NOTE | 2020-10-11 17:00 | PT.OTN ---
Current Diagnoses Primary osteoarthritis, right hand (10/11/20) Primary osteoarthritis, left hand (10/11/20) Pain in left hand (10/11/20) Weakness (10/11/20) Physical Therapy Treatment Note PT-OP-A Visit Information Start: 09/14/20 18:02 Freq: Status: Active Protocol: Document 10/11/20 09:50 LRN (Rec: 10/11/20 10:35 LRN [id number]) Out-Patient Physical Therapy Visit Information Visit Information Visit Type Treatment Note Visit Start Time 09:50 Visit Stop Time 10:30 Total Visit Minutes 40 Visit Number 3 Evaluation Information Evaluation Date 09/30/20 Precautions Precautions Heart stints A.Fib Controlled HBP Erickson partial knee replacements (2012 left, ~2014 right) PT-OP-B Current Condition Start: 09/14/20 18:02 Freq: Status: Active Protocol: Document 09/30/20 09:56 LRN (Rec: 09/30/20 11:46 LRN [id number]) Current Condition History of Current Condition Onset Date Gradual worsening since past 5 -6 months (onset 2 years ago). Current Complaints Keeps him up at night and disturbs sleep. History of Current Condition Referring physician reports he has severe arthritis at L wrist and knuckles of digits 2 -5. States ~ 6 months ago developed R forearm ache in wrist extensors due to using more his R than L since the L hand pain. States it feels like tendonitis that he's had before but is at PT for only the L hand. Prior Treatments and Tests Bilateral thumb surgery, ~2008 , 2009 to transfer tendon from forearm to CMC jt due to bone on bone at the time. X-rays at of L Wrist ( Severe diffuse carpal joint degeneration) and L hand ( Marginal lucency seen at the PIP joint of the index finger in the DIP joints of the index and middle finger, possibly small cysts versus erosions. Additional possible age- indeterminate erosion involving the 3rd metacarpal head). Treatment Goals Patient/Caregiver Goals Pt goal is to achieve some pain relief. Pt agreeable to other goals of : improved mobility of L wrist and hand, education onto a HEP, & education of self care pain managment. Prior Functional Status Baseline Function- ADL's Independent Baseline Function- Mobility Independent Baseline Function- Work/School Retired from [employer] . Current Functional Impairments (Reported) Functional Limitations- ADL's Interferes with sleep. Pain lifting frying pain, tying shoes (with laces); therefore purchased slip ons to avoid having to tie shoes), reaching over items overhead with L hand. Personal Factors Other Personal Factors That May Effect Chronic Osteoarthritis Therapy/Recovery Hx of prostate cancer Cardiac arrhythmia (A. Fib) PT-OP-C Subjective Start: 09/14/20 18:02 Freq: Status: Active Protocol: Document 10/11/20 09:50 LRN (Rec: 10/11/20 10:35 LRN [id number]) OP-PT Subjective Patient Comments Patient Comments Same. Last night slept good and didn't get woken by L wrist pain, but the night before pulled weeds and had a lot of L wrist pain. Did ice after pulling weeds, but not right away. Wrist ext just kills me (just at the L wrist). States he can't remember how he did after last session. PT-OP-H Neuro Start: 09/14/20 18:02 Freq: Status: Active Protocol: Document 09/30/20 09:56 LRN (Rec: 09/30/20 11:46 LRN [id number]) Sensation Evaluation Gross Sensation Gross Sensation WNL PT-OP-J Posture/Palpation/Skin Start: 09/14/20 18:02 Freq: Status: Active Protocol: Document 09/30/20 09:56 LRN (Rec: 09/30/20 11:46 LRN [id number]) Posture Evaluation Comments Posture Comments Atrophy L forearm, forward head, Arms in IR. Skin Assessment Other Assessments Skin Assessment Comments Pt forearms have areas of dry white and red patches of skin. PT-OP-K Range of Motion Start: 09/14/20 18:02 Freq: Status: Active Protocol: Document 09/30/20 09:56 LRN (Rec: 09/30/20 11:46 LRN [id number]) Elbow/Forearm Range of Motion Elbow/Forearm Left Active ROM Testing Position Sitting Pronation (degrees) 90 Supination (degrees) 60 Wrist Goniometric Range of Motion Wrist Right Wrist ROM WFL Yes Flexion Active (degrees) 54 Extension Active (degrees) 61 Ulnar Deviation Active (degrees) 25 Radial Deviation Active (degrees) 25 Left Wrist ROM WFL No Flexion Active (degrees) 24 Extension Active (degrees) 26 Ulnar Deviation Active (degrees) 16 Radial Deviation Active (degrees) 20 ROM Limitations Comments Pain with UD and flexion L hand. Finger Goniometric Range of Motion Finger Left Fifth MCP Flexion Active (degrees) 70 Left Fourth MCP Flexion Active (degrees) 68 Left Third MCP Flexion Active (degrees) 62 Left Second MCP Flexion Active (degrees) 60 PT-OP-M Strength Start: 09/14/20 18:02 Freq: Status: Active Protocol: Document 09/30/20 09:56 LRN (Rec: 09/30/20 11:46 LRN [id number]) Elbow/Forearm Strength Elbow and Forearm Manual Muscle Testing Right Comments Generally 5/5 Left Comments Generally 5/5 Wrist Strength Wrist Manual Muscle Testing Right Comments Generally 5/5 Left Flexion (C7) 2+ Poor+ Extension (C6) 5 Normal Ulnar Deviation 4 Good Radial Deviation 5 Normal Comments Wrist flex & UD strength limited due to dorsal wrist pain. Hand Sweater Designer/Pinch Strength Hand Dominance Hand Dominance Right Hand Strength Left Comments #77, 83, 75 kg, 45, 38, 34, Pain at MCP joints while squeezing cottage attendant strength testing device. Opposition strength is normal. Table top flex is 5/5, no pain . Right Comments #97, 100, 96 kg 42, 46, 44 PT-OP-Q Treatments Start: 09/14/20 18:02 Freq: Status: Active Protocol: Document 10/11/20 09:50 LRN (Rec: 10/11/20 10:35 LRN [id number]) Therapeutic Exercises Sitting Exercises L wrist ext stretch Sitting Exercise Name Forearm in supination and pronation Side left Reps/Minutes 4' Comments Pt tolerated sup positioning stretch much better L wrist ext Sitting Exercise Name Active Side left Reps/Minutes 3x Comments Painful, therefore stopped for MwM AROM Manual Therapy Treatment Soft Tissue Mobilization L wrist Flexors Mobilization Type Strumming Intensity/Depth Moderate Body Position Sitting Comments Tight muscles. Decreased pain with wrist ext after STM L wrist extensors Mobilization Type Strumming Intensity/Depth Moderate Body Position Sitting Manual Techniques MWM L wrist ext Type PA of Lunate with L wrist ext Body Location Lunate Body Position Sitting Reps/Duration 3' Self-Care/Home Management Treatment Education Patient Education Home Exercise Program Other Education Discussed self care pain management of wrist, including activity and timing (ice right after activity). Activities Self-Care/Home Management Activities Issued & reviewed HEP: Stretch into L wrist with forearm in supination. PT-OP-R Modalities Start: 09/14/20 18:02 Freq: Status: Active Protocol: Document 10/11/20 09:50 LRN (Rec: 10/11/20 10:35 LRN [id number]) Ultrasound Therapy Treatment L wrist Treatment Duration (minutes) 8 Patient Position Sitting Applicator Size (cm2) 2 Frequency Setting (mHz) 3 Mode Setting Pulsed Duty Cycle 50% Intensity Setting (w/cm2) 1.0 Comments 4' anter & posertior carpel bones PT-OP-T Assessment and Plan Start: 09/14/20 18:02 Freq: Status: Active Protocol: Document 10/11/20 09:50 LRN (Rec: 10/11/20 10:35 LRN [id number]) Physical Therapy Assessment Goals Four Impairment Intermittent L wrist & hand ( MCP jts) pain rated 7/10 Short Term Goal (STG) Decrease intermittent pain at L wrist & L hand MCP joints to 3-4/10. STG Duration 11/05/20 Nursing Home Goal (LTG) Pain relief with use of L hand , with tolerable pain, no sharp pain and pt able to tie shoe laces with tolerable discomfort. LTG Duration 12/03/20 Three Impairment Decreased L wrist/hand strength due to pain Short Term Goal (STG) Pt will be able to lift and lower a frying pain with tolerable pain no greater than 2-3/10. STG Duration 11/05/20 Custodial Worker Goal (LTG) Pt will be able to safely modify his reaching overhead and lifting of objects with L hand to minimize or eliminate sharp pain in the L hand/wrist . LTG Duration 12/03/20 Two Impairment Decreased L wrist/digits 2-4 MCP jts mobility interfering with sleep Impairment Pt goal is to achieve some pain relief, improve mobility of L wrist and hand, educate pt on HEP, educate on pain managment. Short Term Goal (STG) Normalize AROM of L wrist flexion from 24 to 54 deg's (R is 54 deg's) and UD from 16 to 25 deg's (R is 25 deg's), improve supination AROM ( initial is 60 deg's). STG Duration 11/05/20 Nursing Home Goal (LTG) Improve digits 2-5 MCP flexion AROM (initial active flexion in deg's: digits 2 to 5 is 60, 62, 68, 70 deg's respectively ) with pt interrupted in sleep no more than 1 time during the night. LTG Duration 12/03/20 One Impairment Lacks appropriate self care HEP Short Term Goal (STG) Pt will be educated in self care pain management techniques. STG Duration 10/08/20 Nursing Home Goal (LTG) Pt will be educate and independent in a self care HEP . LTG Duration 12/29/20 Assessment Summary Assessment Pain with active L wrist ext after US. Decreased pain with active ext after STM of wrist flexors & extensors. Pain appears to be L wrist Lunate. Physical Therapy Plan Frequency and Duration Frequency of Treatment 2x/Week Plan of Care Start Date 09/30/20 Plan of Care End Date 12/29/20 Next Visit Focus/Plan Next Note Type Treatment Note Next Visit Plan US L wrist extensors f/b review HEP (wrist flex/ext stretch and neck SB/rot stretch). Issue handouts for HEP (UD stretch). Assess response to addition of cervical stretches and change in pt sleep position with awareness of L hand/wrist positioning. L finger AROM at MCP joints, and carpal mobility. Add L finger flexion stretching and start L wrist/ finger extension strengthening . Progress pt onto HEP, when ROM improved decrease to 1x/week with focus on pt's HEP.
--- NOTE | 2020-10-15 13:12 | PT-OP ANOTE ---
Pt notified by phone of his missed appointment. He states he did not have it on his calendar and he wrote the appt from his list, but he threw the list away. Pt notified of next appt 10/18/20, 9:45a. Pt states his hand is doing better and that it doesn't wake him up at night anymore.
--- NOTE | 2020-10-18 16:30 | PT.OTN ---
Current Diagnoses Primary osteoarthritis, right hand (10/18/20) Primary osteoarthritis, left hand (10/18/20) Pain in left hand (10/18/20) Weakness (10/18/20) Physical Therapy Treatment Note PT-OP-A Visit Information Start: 09/14/20 18:02 Freq: Status: Active Protocol: Document 10/18/20 09:50 LRN (Rec: 10/18/20 10:35 LRN [id number]) Out-Patient Physical Therapy Visit Information Visit Information Visit Type Treatment Note Visit Start Time 09:50 Visit Stop Time 10:33 Total Visit Minutes 43 Visit Number 4 Evaluation Information Evaluation Date 09/30/20 Precautions Precautions Heart stints A.Fib Controlled HBP Erickson partial knee replacements (2012 left, ~2014 right) PT-OP-B Current Condition Start: 09/14/20 18:02 Freq: Status: Active Protocol: Document 09/30/20 09:56 LRN (Rec: 09/30/20 11:46 LRN [id number]) Current Condition History of Current Condition Onset Date Gradual worsening since past 5 -6 months (onset 2 years ago). Current Complaints Keeps him up at night and disturbs sleep. History of Current Condition Referring physician reports he has severe arthritis at L wrist and knuckles of digits 2 -5. States ~ 6 months ago developed R forearm ache in wrist extensors due to using more his R than L since the L hand pain. States it feels like tendonitis that he's had before but is at PT for only the L hand. Prior Treatments and Tests Bilateral thumb surgery, ~2008 , 2009 to transfer tendon from forearm to [facility] jt due to bone on bone at the time. X-rays at of L Wrist ( Severe diffuse carpal joint degeneration) and L hand ( Marginal lucency seen at the PIP joint of the index finger in the DIP joints of the index and middle finger, possibly small cysts versus erosions. Additional possible age- indeterminate erosion involving the 3rd metacarpal head). Treatment Goals Patient/Caregiver Goals Pt goal is to achieve some pain relief. Pt agreeable to other goals of : improved mobility of L wrist and hand, education onto a HEP, & education of self care pain managment. Prior Functional Status Baseline Function- ADL's Independent Baseline Function- Mobility Independent Baseline Function- Work/School Retired from [employer] . Current Functional Impairments (Reported) Functional Limitations- ADL's Interferes with sleep. Pain lifting frying pain, tying shoes (with laces); therefore purchased slip ons to avoid having to tie shoes), reaching over items overhead with L hand. Personal Factors Other Personal Factors That May Effect Chronic Osteoarthritis Therapy/Recovery Hx of prostate cancer Cardiac arrhythmia (A. Fib) PT-OP-C Subjective Start: 09/14/20 18:02 Freq: Status: Active Protocol: Document 10/18/20 09:50 LRN (Rec: 10/18/20 10:35 LRN [id number]) OP-PT Subjective Patient Comments Patient Comments R hand worse the last couple days. Dropped a box that wasn 't heavy ~5#. Was using the hands yesterday (electrical work done with L hand. Getting used to sleeping on the back. When did wake up on side the L arm was overhead . PT-OP-H Neuro Start: 09/14/20 18:02 Freq: Status: Active Protocol: Document 09/30/20 09:56 LRN (Rec: 09/30/20 11:46 LRN [id number]) Sensation Evaluation Gross Sensation Gross Sensation WNL PT-OP-J Posture/Palpation/Skin Start: 09/14/20 18:02 Freq: Status: Active Protocol: Document 09/30/20 09:56 LRN (Rec: 09/30/20 11:46 LRN [id number]) Posture Evaluation Comments Posture Comments Atrophy L forearm, forward head, Arms in IR. Skin Assessment Other Assessments Skin Assessment Comments Pt forearms have areas of dry white and red patches of skin. PT-OP-K Range of Motion Start: 09/14/20 18:02 Freq: Status: Active Protocol: Document 09/30/20 09:56 LRN (Rec: 09/30/20 11:46 LRN [id number]) Elbow/Forearm Range of Motion Elbow/Forearm Left Active ROM Testing Position Sitting Pronation (degrees) 90 Supination (degrees) 60 Wrist Goniometric Range of Motion Wrist Right Wrist ROM WFL Yes Flexion Active (degrees) 54 Extension Active (degrees) 61 Ulnar Deviation Active (degrees) 25 Radial Deviation Active (degrees) 25 Left Wrist ROM WFL No Flexion Active (degrees) 24 Extension Active (degrees) 26 Ulnar Deviation Active (degrees) 16 Radial Deviation Active (degrees) 20 ROM Limitations Comments Pain with UD and flexion L hand. Finger Goniometric Range of Motion Finger Left Fifth MCP Flexion Active (degrees) 70 Left Fourth MCP Flexion Active (degrees) 68 Left Third MCP Flexion Active (degrees) 62 Left Second MCP Flexion Active (degrees) 60 PT-OP-M Strength Start: 09/14/20 18:02 Freq: Status: Active Protocol: Document 09/30/20 09:56 LRN (Rec: 09/30/20 11:46 LRN [id number]) Elbow/Forearm Strength Elbow and Forearm Manual Muscle Testing Right Comments Generally 5/5 Left Comments Generally 5/5 Wrist Strength Wrist Manual Muscle Testing Right Comments Generally 5/5 Left Flexion (C7) 2+ Poor+ Extension (C6) 5 Normal Ulnar Deviation 4 Good Radial Deviation 5 Normal Comments Wrist flex & UD strength limited due to dorsal wrist pain. Hand Tire Spotter/Pinch Strength Hand Dominance Hand Dominance Right Hand Strength Left Comments #77, 83, 75 kg, 45, 38, 34, Pain at MCP joints while squeezing custom protection officer strength testing device. Opposition strength is normal. Table top flex is 5/5, no pain . Right Comments #97, 100, 96 kg 42, 46, 44 PT-OP-Q Treatments Start: 09/14/20 18:02 Freq: Status: Active Protocol: Document 10/18/20 09:50 LRN (Rec: 10/18/20 10:35 LRN [id number]) Therapeutic Exercises Sitting Exercises Active C. SB Sitting Exercise Name Stretch Side bilateral Reps/Minutes 10 H x 6 each Comments V cuing required to not go into pain as shown in facial grimacing. Active C rot Sitting Exercise Name Active C rot stretch Side bilateral Reps/Minutes 10 H x 6 each Comments Extra time for training , v. cuing for holding of stretch L wrist ext stretch Sitting Exercise Name Passive stretch: Forearm in supin/pron Side left Reps/Minutes 4' Comments Pt tolerated sup positioning stretch much better L wrist ext Sitting Exercise Name Active Side left Reps/Minutes 10x Comments Painful, therefore stopped for MwM AROM L wrist flex Sitting Exercise Name Self passive/active stretch Side left Reps/Minutes 10 H x 10 Manual Therapy Treatment Manual Traction Cervical Details Manual C tx in neutral and R SB: Without & With L wrist ext Body Position Supine Reps/Duration 10' Self-Care/Home Management Treatment Education Patient Education Home Exercise Program Other Education Pt education and discussion at length (anatomy and physiology) in proper posturing sitting and sleeping , and effects on L UE/wrist pain. Discussed use of hot/cold packs for pain & edema management. Activities Self-Care/Home Management Activities Issued & reviewed HEP: Wrist UD stretch; Active wrist flex/ ext. PT-OP-R Modalities Start: 09/14/20 18:02 Freq: Status: Active Protocol: Document 10/18/20 09:50 LRN (Rec: 10/18/20 10:35 LRN [id number]) Other Unlisted Modality Treatment Hot/Cold treatment Name of Modality Hot 3'/Cold 1' cycles to L wrist Body Position Sitting Comments Pt doing C stretches during treatment PT-OP-T Assessment and Plan Start: 09/14/20 18:02 Freq: Status: Active Protocol: Document 10/18/20 09:50 LRN (Rec: 10/18/20 10:35 LRN [id number]) Physical Therapy Assessment Goals Four Impairment Intermittent L wrist & hand ( MCP jts) pain rated 7/10 Short Term Goal (STG) Decrease intermittent pain at L wrist & L hand MCP joints to 3-4/10. STG Duration 11/05/20 [facility] Goal (LTG) Pain relief with use of L hand , with tolerable pain, no sharp pain and pt able to tie shoe laces with tolerable discomfort. LTG Duration 12/03/20 Three Impairment Decreased L wrist/hand strength due to pain Short Term Goal (STG) Pt will be able to lift and lower a frying pain with tolerable pain no greater than 2-3/10. STG Duration 11/05/20 [facility] Goal (LTG) Pt will be able to safely modify his reaching overhead and lifting of objects with L hand to minimize or eliminate sharp pain in the L hand/wrist . LTG Duration 12/03/20 Two Impairment Decreased L wrist/digits 2-4 MCP jts mobility interfering with sleep Impairment Pt goal is to achieve some pain relief, improve mobility of L wrist and hand, educate pt on HEP, educate on pain managment. Short Term Goal (STG) Normalize AROM of L wrist flexion from 24 to 54 deg's (R is 54 deg's) and UD from 16 to 25 deg's (R is 25 deg's), improve supination AROM ( initial is 60 deg's). STG Duration 11/05/20 Md Pediatric Allergist Goal (LTG) Improve digits 2-5 MCP flexion AROM (initial active flexion in deg's: digits 2 to 5 is 60, 62, 68, 70 deg's respectively ) with pt interrupted in sleep no more than 1 time during the night. LTG Duration 12/03/20 One Impairment Lacks appropriate self care HEP Short Term Goal (STG) Pt will be educated in self care pain management techniques. (10/18/20: Pt educated in use of MH/Cryotherapy and contrast hot/cold therapy during therapeutic ex's). STG Duration 10/08/20 (10/18/20: MET GOAL) Md Pediatric Allergist Goal (LTG) Pt will be educate and independent in a self care HEP . LTG Duration 12/29/20 (10/18/20: Progressed HEP) Progress Towards Goals Progress Comments Progressed HEP Assessment Summary Assessment Decreased L wrist pain with AROM (flex/ext/UD/RD) during manual C tx; therefore probable cervical involvement. Pt noted he slept with his L arm overhead and woke with L wrist pain but he is working on changing his sleeping position habit.. Positive response to use of hot/cold during L wrist ROM ex with increased tolerance to AROM. Physical Therapy Plan Frequency and Duration Frequency of Treatment 2x/Week Plan of Care Start Date 09/30/20 Plan of Care End Date 12/29/20 Next Visit Focus/Plan Next Note Type Treatment Note Next Visit Plan Issue handouts for HEP (UD stretch). L finger AROM at MCP joints, and carpal mobility. Add L finger flexion stretching and start L wrist/ finger extension strengthening . Manual C. Tx and add to HEP Scalene stretch JMT of 1s rib for inferior glide (note pt with heart stent and A.Fib) Add scapular depression ex. Progress pt onto HEP, when ROM improved decrease to 1x/week with focus on pt's HEP.
--- NOTE | 2020-11-30 14:11 | PT.OPDS ---
Current Diagnoses Primary osteoarthritis, right hand (10/18/20) Primary osteoarthritis, left hand (10/18/20) Pain in left hand (10/18/20) Weakness (10/18/20) Visit Care Team Role Provider Type Castro Tang MD Attending Provider Physician Family Provider Primary Care Provider Referring Provider Specialty: Family Practice Address: [address] [place] [address] Email: [email or web address] Visit Number Visit Number 4 Discharge Summary PT-OP-B Current Condition Start: 09/14/20 18:02 Freq: Status: Active Protocol: Document 09/30/20 09:56 LRN (Rec: 09/30/20 11:46 LRN [id number]) Current Condition History of Current Condition Onset Date Gradual worsening since past 5 -6 months (onset 2 years ago). Current Complaints Keeps him up at night and disturbs sleep. History of Current Condition Referring physician reports he has severe arthritis at L wrist and knuckles of digits 2 -5. States ~ 6 months ago developed R forearm ache in wrist extensors due to using more his R than L since the L hand pain. States it feels like tendonitis that he's had before but is at PT for only the L hand. Prior Treatments and Tests Bilateral thumb surgery, ~2008 , 2009 to transfer tendon from forearm to [facility] jt due to bone on bone at the time. X-rays at of L Wrist ( Severe diffuse carpal joint degeneration) and L hand ( Marginal lucency seen at the PIP joint of the index finger in the DIP joints of the index and middle finger, possibly small cysts versus erosions. Additional possible age- indeterminate erosion involving the 3rd metacarpal head). Treatment Goals Patient/Caregiver Goals Pt goal is to achieve some pain relief. Pt agreeable to other goals of : improved mobility of L wrist and hand, education onto a HEP, & education of self care pain managment. Prior Functional Status Baseline Function- ADL's Independent Baseline Function- Mobility Independent Baseline Function- Work/School Retired from [employer] . Current Functional Impairments (Reported) Functional Limitations- ADL's Interferes with sleep. Pain lifting frying pain, tying shoes (with laces); therefore purchased slip ons to avoid having to tie shoes), reaching over items overhead with L hand. Personal Factors Other Personal Factors That May Effect Chronic Osteoarthritis Therapy/Recovery Hx of prostate cancer Cardiac arrhythmia (A. Fib) PT-OP-C Subjective Start: 09/14/20 18:02 Freq: Status: Active Protocol: Document 10/18/20 09:50 LRN (Rec: 10/18/20 10:35 LRN [id number]) OP-PT Subjective Patient Comments Patient Comments R hand worse the last couple days. Dropped a box that wasn 't heavy ~5#. Was using the hands yesterday (electrical work done with L hand. Getting used to sleeping on the back. When did wake up on side the L arm was overhead . PT-OP-H Neuro Start: 09/14/20 18:02 Freq: Status: Active Protocol: Document 09/30/20 09:56 LRN (Rec: 09/30/20 11:46 LRN [id number]) Sensation Evaluation Gross Sensation Gross Sensation WNL PT-OP-J Posture/Palpation/Skin Start: 09/14/20 18:02 Freq: Status: Active Protocol: Document 09/30/20 09:56 LRN (Rec: 09/30/20 11:46 LRN [id number]) Posture Evaluation Comments Posture Comments Atrophy L forearm, forward head, Arms in IR. Skin Assessment Other Assessments Skin Assessment Comments Pt forearms have areas of dry white and red patches of skin. PT-OP-K Range of Motion Start: 09/14/20 18:02 Freq: Status: Active Protocol: Document 09/30/20 09:56 LRN (Rec: 09/30/20 11:46 LRN [id number]) Elbow/Forearm Range of Motion Elbow/Forearm Left Active ROM Testing Position Sitting Pronation (degrees) 90 Supination (degrees) 60 Wrist Goniometric Range of Motion Wrist Right Wrist ROM WFL Yes Flexion Active (degrees) 54 Extension Active (degrees) 61 Ulnar Deviation Active (degrees) 25 Radial Deviation Active (degrees) 25 Left Wrist ROM WFL No Flexion Active (degrees) 24 Extension Active (degrees) 26 Ulnar Deviation Active (degrees) 16 Radial Deviation Active (degrees) 20 ROM Limitations Comments Pain with UD and flexion L hand. Finger Goniometric Range of Motion Finger Left Fifth MCP Flexion Active (degrees) 70 Left Fourth MCP Flexion Active (degrees) 68 Left Third MCP Flexion Active (degrees) 62 Left Second MCP Flexion Active (degrees) 60 PT-OP-M Strength Start: 09/14/20 18:02 Freq: Status: Active Protocol: Document 09/30/20 09:56 LRN (Rec: 09/30/20 11:46 LRN [id number]) Elbow/Forearm Strength Elbow and Forearm Manual Muscle Testing Right Comments Generally 5/5 Left Comments Generally 5/5 Wrist Strength Wrist Manual Muscle Testing Right Comments Generally 5/5 Left Flexion (C7) 2+ Poor+ Extension (C6) 5 Normal Ulnar Deviation 4 Good Radial Deviation 5 Normal Comments Wrist flex & UD strength limited due to dorsal wrist pain. Hand Appliance Service Technician/Pinch Strength Hand Dominance Hand Dominance Right Hand Strength Left Comments #77, 83, 75 kg, 45, 38, 34, Pain at MCP joints while squeezing rack carrier strength testing device. Opposition strength is normal. Table top flex is 5/5, no pain . Right Comments #97, 100, 96 kg 42, 46, 44 PT-OP-T Assessment and Plan Start: 09/14/20 18:02 Freq: Status: Active Protocol: Document 11/30/20 14:05 LRN (Rec: 11/30/20 14:11 LRN [id number]) Physical Therapy Assessment Goals Four Impairment Intermittent L wrist & hand ( MCP jts) pain rated 7/10 Short Term Goal (STG) Decrease intermittent pain at L wrist & L hand MCP joints to 3-4/10. STG Duration 11/05/20 (Self discharge on , goal not met) [facility] Goal (LTG) Pain relief with use of L hand , with tolerable pain, no sharp pain and pt able to tie shoe laces with tolerable discomfort. LTG Duration 12/03/20 (Self discharge on , goal not met) Three Impairment Decreased L wrist/hand strength due to pain Short Term Goal (STG) Pt will be able to lift and lower a frying pain with tolerable pain no greater than 2-3/10. STG Duration 11/05/20 (Self discharge on , goal not met) Infectious Waste Technician Goal (LTG) Pt will be able to safely modify his reaching overhead and lifting of objects with L hand to minimize or eliminate sharp pain in the L hand/wrist . LTG Duration 12/03/20 (Self discharge on , goal not met) Two Impairment Decreased L wrist/digits 2-4 MCP jts mobility interfering with sleep Impairment Pt goal is to achieve some pain relief, improve mobility of L wrist and hand, educate pt on HEP, educate on pain managment. Short Term Goal (STG) Normalize AROM of L wrist flexion from 24 to 54 deg's (R is 54 deg's) and UD from 16 to 25 deg's (R is 25 deg's), improve supination AROM ( initial is 60 deg's). STG Duration 11/05/20 (Self discharge on , goal not met) Infectious Waste Technician Goal (LTG) Improve digits 2-5 MCP flexion AROM (initial active flexion in deg's: digits 2 to 5 is 60, 62, 68, 70 deg's respectively ) with pt interrupted in sleep no more than 1 time during the night. LTG Duration 12/03/20 (Self discharge on 10/27/20, goal not met) One Impairment Lacks appropriate self care HEP Short Term Goal (STG) Pt will be educated in self care pain management techniques. (10/18/20: Pt educated in use of MH/Cryotherapy and contrast hot/cold therapy during therapeutic ex's). STG Duration 10/08/20 (10/18/20: MET GOAL) Infectious Waste Technician Goal (LTG) Pt will be educate and independent in a self care HEP . LTG Duration 12/29/20 (10/18/20: Progressed HEP) Assessment Summary Assessment Pt was last seen 10/18/20. Message sent from office that pt was being sent to an orthopedic physician; therefore pt requesting discharge from therapy. Pt did have decreased L wrist pain during manual C. tx; therefore probable cervical involvement. Pt has a home exercise program. He will be discharged from therapy at pt request. Physical Therapy Plan Discharge Physical Therapy Discharge Reasons Patient Request Discharge Comments Thank you for your referral.
== END 2020-12-01 09:15 | disposition home or self-care (01) ==
LOC: PHYS 09:45
PROVIDERS: Family Provider Family Medicine; PCP Family Medicine; Referring Provider Family Medicine; Visit Provider Family Medicine
DX: M19.041 Primary osteoarthritis, right hand (principal); M19.042 Primary osteoarthritis, left hand; R53.1 Weakness; M79.642 Pain in left hand
CPT/HCPCS: 97035; 97110; 97140; 97162; 97535

== ENCOUNTER → 2020-12-13 09:21 | Outpatient (CLI) | payer MEDICARE, OTHER, SELFPAY ==
[2020-12-13 12:01] LABS: COVID19 -Nasal RAPID Negative (Negative)
== END ==
PROVIDERS: Family Provider Family Medicine; PCP Family Medicine; Visit Provider Nurse Practitioner Family
DX: Z20.822 Contact with and (suspected) exposure to COVID-19 (principal); Z01.812 Encounter for preprocedural laboratory examination
CPT/HCPCS: 87635; C9803

== ENCOUNTER 2020-12-15 07:26 | Day surgery (SDC) | payer MEDICARE, OTHER, SELFPAY ==
[2020-12-15] VITALS (8 sets, daily range): BP systolic 119–195; BP diastolic 65–96; PULSE 60–67; RESP 12–16; TEMP 36.3–37.3; O2SAT 94–100; BMI 32.4
--- NOTE | 2020-12-15 | PATH_ITS ---
[facility] Accession Number: [id number] . 01 Material submitted: . PART A: colon - RIGHT COLON BIOPSIES PART B: colon - TRANSVERSE COLON BIOPSIES PART C: colon - LEFT DESCENDING COLON BIOPSIES PART D: colon - RECTO-SIGMOID COLON BIOPSIES . 01 Clinical history: . 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 02 Diagnosis: A-B. Right Colon, Transverse Colon, Biopsies: Colonic mucosa with no diagnostic abnormality. Negative for active, chronic, and microscopic colitis. Negative for dysplasia and malignancy. . C. Left Descending Colon, Biopsies: Focal, mildly active colitis. Negative for granulomas, dysplasia and malignancy. . D. Rectosigmoid Colon, Biopsies: Mildly active colitis. Negative for granulomas, dysplasia and malignancy. [facility] 12/20/2020 1214 Local . 02 Comment: No obvious viral cytopathic effects or parasitic organisms are identified. The morphologic appearance could be compatible with the provided clinical history of Crohn's disease if infection and medication-related mucosal are excluded. . 02 Electronically signed: . Allie May MD, Pathologist NPI- [id number] . 01 Gross description: . A. Received in formalin, labeled colon consists of multiple warren fragments of soft tissue measuring 0.8 x 0.6 x 0.2 cm in aggregate. The specimen is entirely submitted in cassette A1. B. Received in formalin, labeled colon consists of multiple warren fragments of soft tissue measuring 0.9 x 0.8 x 0.2 cm in aggregate. The specimen is entirely submitted in cassette B1. C. Received in formalin, labeled colon consists of multiple warren fragments of soft tissue measuring 0.7 x 0.6 x 0.2 cm in aggregate. The specimen is entirely submitted in cassette C1. D. Received in formalin, labeled colon consists of multiple warren fragments of soft tissue measuring 0.7 x 0.6 x 0.2 cm in aggregate. The specimen is entirely submitted in cassette D1. ([id number]) /MRV 12/17/2020 1122 Local . 02 Pathologist provided ICD-10: K50.10 . 02 CPT . 172413, 646022, [id number], 639113 Performed at: 01 [facility] [address] [id number] MD Tyrone Patel MD Phone: [phone] Performed at: [address] [facility] [id number] MD Allie May MD Phone: [phone]
[2020-12-15] MEDS: SODIUM CHLORIDE 0.9% 1,000 ML 84 ML IV (08:05)
--- NOTE | 2020-12-15 08:42 | PM.HP.1 ---
History of Present Illness History of Present Illness Date Patient Seen: 12/15/20 Chief complaint: SDC Narrative: History of Crohn's colitis need for follow-up colonoscopy Patient History Medical History (Updated 10/27/20 @ 11:09 by Castro Tang MD) Arthritis of both wrists CAD (coronary artery disease) (~2009) Cardiac arrhythmia (~2009) Cataracts, bilateral (~2003) Chest pain Crohn's disease (~2012) Hyperlipidemia Hypertension Osteoarthritis Paresthesia Prostate cancer (~2010) Skin cancer Surgical History Anesthesia H/O hernia repair History of heart artery stent (~2009) History of knee replacement History of prostate surgery (~2012) Family & Social History Family History Father History of heart disease Social History: household members significant other Tobacco & Substance use: Smoking Status Never smoker alcohol intake current alcohol intake frequency a few times a month Substance Use Type does not use Meds Home Medications and Allergies Home Medications Medication Instructions Recorded Confirmed Type rosuvastatin 10 mg tablet 10 mg PO DAILY 10/07/19 12/15/20 History warfarin 5 mg tablet (Coumadin) 5 mg PO DAILY #20 tab 10/10/19 12/15/20 Rx sotalol 80 mg tablet 80 mg PO BID 06/28/20 12/15/20 History Allergies Allergy/AdvReac Type Severity Reaction Status Date / Time No Known Drug Allergies Allergy Verified 12/15/20 07:45 Exam Vital Signs (past 8 hours): - 12/15/20 07:53 Temperature 98.2 F Pulse Rate 67 Respiratory Rate 12 Blood Pressure 188/89 H Pulse Oximetry 97 Oxygen Delivery Method Room Air Narrative Exam Narrative: Oropharynx free of lesions Chest clear to auscultation percussion Cardiac exam reveals no S3 or murmur Assessment & Plan Assessment & Plan narrative: History of Crohn's colitis need for follow-up colonoscopy. Risks, benefits, alternatives have been explained. Time Spent With Patient Critical Care time: I spent a total of [] minutes of critical care time on this patient's care today; this time is exclusive of procedural time.
--- NOTE | 2020-12-15 08:43 | P.OP.COLON_ITS ---
Operative Date/Time/Diagnoses Date of procedure: 12/15/20 Pre-op diagnosis: See indication and findings Procedure & Clinicians Study performed: Colonoscopy with biopsy Indications: Crohn's colitis surveillance Surgeon: Lu Albright Procedure Notes Procedure in detail: After informed consent was obtained the patient was placed in left lateral decubitus position. The video colonoscope was introduced the rectum slowly advanced cecum. Preparation was good. On slow withdrawal mucosa was carefully examined. The scope was removed. The patient tolerated procedure well. Blood loss none Complications none Sedation mac Findings 1. Mildly active proctosigmoiditis. Otherwise negative colonoscopy to cecum. B iopsies were taken to every 10 cm in the right colon, transverse colon, descending colon, and rectosigmoid. Will follow up thebiopsies with Eliezer. Follow-up colonoscopy will most likely be recommended in 2-3 years. He restart his warfarin tomorrow.
--- NOTE | 2020-12-15 10:20 | SUR.PHASEII ---
Pt hypertensive at admission and discharge. Counseled to keep track of his blood pressure at home and consult with his PCP if it remains high.
== END 2020-12-15 10:06 | disposition home or self-care (01) ==
PROVIDERS: Family Provider Family Medicine; PCP Family Medicine; Referring Provider Internal Medicine Gastroenterology; Visit Provider Internal Medicine Gastroenterology
PROC: 0DJD8ZZ Inspection of Lower Intestinal Tract, Via Natural or Artificial Opening Endoscopic (ICD-10-PCS; CPT 45378; principal; 2020-12-15 08:30)
DX: K50.10 Crohn's disease of large intestine without complications (principal); I25.10 Atherosclerotic heart disease of native coronary artery without angina pectoris; I48.91 Unspecified atrial fibrillation; Z80.0 Family history of malignant neoplasm of digestive organs; Z79.01 Long term (current) use of anticoagulants; Z95.5 Presence of coronary angioplasty implant and graft; Z90.49 Acquired absence of other specified parts of digestive tract
CPT/HCPCS: 45380; 85610; J2704

== ENCOUNTER → 2021-02-02 12:05 | Outpatient (CLI) | payer MEDICARE, OTHER, SELFPAY ==
[2021-02-02 14:13] LABS: BUN Creatinine Ratio 22.9 (6-22); Blood Urea Nitrogen 16 mg/dL (9-20); Calcium 9.1 mg/dL (8.4-10.2); Carbon Dioxide 26 mmol/L (22-32); Chloride 105 mmol/L (98-107); Estimated Glomerular Filt Rate > 60.0 mL/min (>60); Glucose 115 mg/dL (80-110); HEMOLYSIS < 15 (0-50); Potassium 4.8 mmol/L (3.4-5.1); Sodium 140 mmol/L (137-145)
== END ==
PROVIDERS: Family Provider Family Medicine; PCP Family Medicine; Referring Provider Nurse Practitioner Gerontology; Visit Provider Nurse Practitioner Gerontology
DX: I10 Essential (primary) hypertension (principal)
CPT/HCPCS: 36415; 80048

== ENCOUNTER → 2021-03-23 13:44 | Outpatient (CLI) | payer MEDICARE, OTHER, SELFPAY ==
[2021-03-23 15:13] LABS: BUN Creatinine Ratio 20.3 (6-22); Blood Urea Nitrogen 15 mg/dL (9-20); Calcium 9.1 mg/dL (8.4-10.2); Carbon Dioxide 25 mmol/L (22-32); Chloride 107 mmol/L (98-107); Estimated Glomerular Filt Rate > 60.0 mL/min (>60); Glucose 87 mg/dL (80-110); HEMOLYSIS 26 (0-50); Potassium 4.6 mmol/L (3.4-5.1); Sodium 139 mmol/L (137-145)
== END ==
PROVIDERS: Family Provider Family Medicine; PCP Family Medicine; Referring Provider Nurse Practitioner Gerontology; Visit Provider Nurse Practitioner Gerontology
DX: I10 Essential (primary) hypertension (principal)
CPT/HCPCS: 36415; 80048

== ENCOUNTER → 2021-05-31 12:09 | Outpatient (CLI) | payer MEDICARE, OTHER, SELFPAY ==
[2021-05-31 13:19] LABS: Alanine Aminotransferase 19 IU/L (<50); Albumin 3.9 g/dL (3.5-5.0); Albumin Globulin Ratio 1.5 (1.0-2.8); Alkaline Phosphatase 70 U/L (38-126); Aspartate Aminotransferase 26 IU/L (17-59); Bilirubin Total 0.6 mg/dL (0.2-1.3); Blood Urea Nitrogen 16 mg/dL (9-20); Calcium 8.7 mg/dL (8.4-10.2); Carbon Dioxide 27 mmol/L (22-32); Chloride 106 mmol/L (98-107); Estimated Glomerular Filt Rate > 60.0 mL/min (>60); Globulin 2.6 g/dL (1.7-4.1); Glucose 106 mg/dL (80-110); HEMOLYSIS < 15 (0-50); Potassium 4.3 mmol/L (3.4-5.1); Sodium 137 mmol/L (137-145); Total Protein 6.5 g/dL (6.3-8.2)
== END ==
PROVIDERS: Family Provider Family Medicine; PCP Family Medicine; Referring Provider Nurse Practitioner; Visit Provider Nurse Practitioner
DX: R42 Dizziness and giddiness (principal)
CPT/HCPCS: 36415; 80053

== ENCOUNTER → 2021-07-07 13:29 | Outpatient (CLI) | payer MEDICARE, OTHER, SELFPAY ==
[2021-07-08 04:13] LABS: Hepatitis B Core AB w/Reflex Negative (Negative)
[2021-07-08 06:28] LABS: Hepatitis B Surf AB Quant <3.1 mIU/mL (Immunity>9.9)
[2021-07-11 01:41] LABS: QuantiFERON Mitogen Value >10.00 IU/mL (.); QuantiFERON TB Gold Plus Negative (Negative); QuantiFERON TB1 Ag Value 0.01 IU/mL (.); QuantiFERON TB2 Ag Value 0.01 IU/mL (.)
== END ==
PROVIDERS: Family Provider Family Medicine; PCP Family Medicine; Referring Provider Internal Medicine Gastroenterology; Visit Provider Internal Medicine Gastroenterology
DX: K50.111 Crohn's disease of large intestine with rectal bleeding (principal)
CPT/HCPCS: 36415; 82657; 86480; 86704; 86706; 86707; 87340

== ENCOUNTER → 2021-07-26 14:03 | Outpatient (CLI) | payer MEDICARE, OTHER, SELFPAY ==
[2021-07-26 15:08] LABS: COVID19 -Nasal RAPID Negative (Negative)
== END ==
PROVIDERS: Family Provider Family Medicine; PCP Family Medicine; Visit Provider Surgery
DX: Z20.822 Contact with and (suspected) exposure to COVID-19 (principal); Z01.812 Encounter for preprocedural laboratory examination
CPT/HCPCS: 87635; C9803

== ENCOUNTER 2021-07-27 08:21 | Day surgery (SDC) | payer MEDICARE, OTHER, SELFPAY ==
--- NOTE | 2021-07-27 | PATH_ITS ---
[facility] Accession Number: [id number] . 01 Material submitted: . colon - RANDOM COLON . 01 Diagnosis: Random Colon, Biopsies: Severely active colitis with ulceration, crypt rupture and crypt abscesses. Negative for CMV antigen by immunohistochemistry. Negative for granulomas, dysplasia, and malignancy. V 08/01/2021 1402 Local . 01 Comment: The morphologic appearance could be compatible with the provided clinical history of Crohn's disease, if infection and medication-related mucosal injury are excluded. . 01 Electronically signed: . Allie May MD, Pathologist NPI- [id number] . 01 Gross description: . RANDOM COLON: Received in formalin are multiple fragment(s) of warren, soft tissue measuring 1.4 x 0.3 x 0.1 cm in aggregate submitted entirely in 1 cassette(s) /CPE 07/28/2021 0832 Local . 01 Microscopic: . An immunohistochemical stain for CMV antigen was performed and is negative. The control stain showed appropriate reactivity. . * This test was developed and its performance characteristics determined by [facility]. It has not been cleared or approved by the U.S. Food and Drug Administration. The FDA has determined that such clearance or approval is not necessary. This test is used for clinical purposes. It should not be regarded as investigational or for research. . 01 Pathologist provided ICD-10: K50.111 . 01 CPT . 384311, [id number] Specimen Comment: A courtesy copy of this report has been sent to [phone] Performed at: 01 [facility] [address] [place] [address] [address] [facility], [place], [place] [id number] MD Tyrone Patel MD Phone: [phone]
[2021-07-27 08:51] VITALS: BP 167/92; PULSE 101; RESP 22; TEMP 37.1; O2SAT 96; BMI 31.6
[2021-07-27] MEDS: SODIUM CHLORIDE 0.9% 1,000 ML 70 ML IV (09:11)
[2021-07-27] MEDS: ONDANSETRON 4 MG/2 ML INJ IV (09:16)
--- NOTE | 2021-07-27 09:24 | SUR.PREOP ---
Pt came in nauseated, Dr. Curran made aware, ondansetron given, nausea slowly resolving.
--- NOTE | 2021-07-27 09:53 | PM.HP.1 ---
History of Present Illness History of Present Illness Date Patient Seen: 07/27/21 Time Patient Seen: 09:45 Chief complaint: SDC Narrative: Patient is a very pleasant 71-year-old male who presented for colonoscopy. He does have a personal history of Crohn's disease. She states his disease is currently not controlled. He is having copious diarrhea and rectal bleeding. He is now off of his prednisone that is still on a 5 ASA. He has difficulty taking a full dose of the 5 ASA. He states he has bleeding every day. His last colonoscopy was in 2020 he had active disease to the descending colon. He has had increased nausea. He has had increased fatigue. Patient History Medical History Arthritis of both wrists CAD (coronary artery disease) (~2009) Cardiac arrhythmia (~2009) Cataracts, bilateral (~2003) Chest pain Crohn's disease (~2012) Hyperlipidemia Hypertension Osteoarthritis Paresthesia Prostate cancer (~2010) Skin cancer Surgical History Anesthesia H/O hernia repair History of heart artery stent (~2009) History of knee replacement History of prostate surgery (~2012) Family & Social History Family History Father History of heart disease Social History: household members spouse Tobacco & Substance use: Smoking Status Never smoker alcohol intake current alcohol intake frequency holiday/special occasion Substance Use Type does not use Meds Home Medications and Allergies Home Medications Medication Instructions Recorded Confirmed Type rosuvastatin 10 mg tablet 10 mg PO DAILY 10/07/19 07/27/21 History warfarin 5 mg tablet (Coumadin) 5 mg PO DAILY #20 tab 10/10/19 07/27/21 Rx sotalol 80 mg tablet 80 mg PO BID 06/28/20 07/27/21 History Allergies Allergy/AdvReac Type Severity Reaction Status Date / Time No Known Drug Allergies Allergy Verified 12/15/20 07:45 Review of Systems Review of Systems ROS: Yes All systems reviewed with the patient and are negative except as otherwise documented Exam Vital Signs (past 8 hours): - 07/27/21 08:51 Temperature 98.7 F Pulse Rate 101 H Respiratory Rate 22 Blood Pressure 167/92 H Pulse Oximetry 96 Oxygen Delivery Method Room Air Const General: cooperative, comfortable, well developed and well groomed HENNJ Head: normocephalic and atraumatic Resp Effort & Inspection: normal respiratory effort and able to speak in complete sentences Auscultation: clear to auscultation bilaterally Cardio Rate: regular rate Rhythm: regular rhythm GI Palpation: soft and No rigid Assessment & Plan Assessment & Plan narrative: 1. Colonoscopy today, further recommendations to follow Time Spent With Patient Critical Care time: I spent a total of [] minutes of critical care time on this patient's care today; this time is exclusive of procedural time.
[2021-07-27 10:16] VITALS: BP 112/65; PULSE 83; RESP 10; TEMP 36.8; O2SAT 98
--- NOTE | 2021-07-27 10:19 | P.OP.COLON_ITS ---
Operative Date/Time/Diagnoses Date of procedure: 07/27/21 Time of procedure: 09:58 Procedure Notes Procedure in detail: Surgeon: Carmencita Curran DO Procedure: Colonoscopy with biopsy Preoperative diagnosis: 1. Crohn's colitis, disease activity assessment 2. Long-term use of anticoagulant, last Coumadin 6 days ago Postoperative diagnosis: 1. Salmeron colitis -Riggs 2-3, biopsied 2. Normal-appearing terminal ileum Medications: Monitored anesthesia care Preanesthesia Assessment An H and P was performed/updated and the Px?s ASA class is 3. The procedure was discussed in detail with the patient. The potential risks and complications including infection, bleeding, missed lesions, perforation, need for surgery in case of perforation, prolonged hospital stay, and were explained. A brief question and answer period was allotted and once all questions were answered, informed consent was obtained. The patient was brought back to the procedure room and placed on standard monitoring. The patient?s vital signs were monitored continuously throughout the entire procedure. Prior to starting, a timeout was performed to confirm the patient?s identity, allergies, medications, and procedure. Procedure in detail The patient was placed in left lateral decubitus position and once adequate sedation was obtained a BELKIS was performed. The digital rectal examination did not reveal any palpable lesions. The tip of the colonoscope was placed in the a nal canal and advanced without difficulty all the way to the cecum and terminal ileum which was identified by the appendiceal orifice and the ileocecal valve. Careful examination of all moreno of the colon was performed with irrigation of any residual stool. Patient noted to have salmeron colitis from the rectum to the cecum. This was Riggs 2-3 severity with ulceration and spontaneous bleeding. Random colon biopsies were obtained. Terminal ileum was unremarkable. The patient tolerated the procedure well and will be brought back to the recovery area to be discharged once criteria are met. The prep was judged to be good/excellent and adequate to identify polyps less than 5 mm. The withdrawal time was 8 min. Complications There were no complications and estimated blood loss was minimal. Recommendations: Resume previous diet Continue outPx medications Follow up pathology results Repeat colonoscopy will be determined based on response to therapy Office follow up to be scheduled An emergency contact number was given to the patient for any complications related to the procedure
[2021-07-27 10:21] VITALS: BP 118/67; PULSE 86; RESP 18; O2SAT 98
[2021-07-27 10:27] VITALS: BP 135/67; PULSE 91; RESP 16; O2SAT 96
[2021-07-27 10:31] VITALS: BP 151/77; PULSE 84; RESP 16; O2SAT 98
== END 2021-07-27 10:57 | disposition home or self-care (01) ==
PROVIDERS: Family Provider Family Medicine; PCP Family Medicine; Referring Provider Student in an Organized Health Care Education/Training Program; Visit Provider Student in an Organized Health Care Education/Training Program
PROC: 0DJD8ZZ Inspection of Lower Intestinal Tract, Via Natural or Artificial Opening Endoscopic (ICD-10-PCS; CPT 45378; principal; 2021-07-27 09:30)
DX: K50.111 Crohn's disease of large intestine with rectal bleeding (principal); Z79.01 Long term (current) use of anticoagulants
CPT/HCPCS: 45380; J2405; J2704

== ENCOUNTER → 2021-08-10 10:34 | Outpatient (CLI) | payer MEDICARE, OTHER, SELFPAY ==
[2021-08-10 11:24] LABS: Prothrombin Time 81.3 SECONDS (10.1-12.7)
[2021-08-10 15:14] LABS: INR 6.8 (0.9-1.3)
== END ==
PROVIDERS: Family Provider Family Medicine; PCP Family Medicine; Referring Provider Internal Medicine Cardiovascular Disease; Visit Provider Internal Medicine Cardiovascular Disease
DX: I48.91 Unspecified atrial fibrillation (principal)
CPT/HCPCS: 36415; 85610

== ENCOUNTER 2021-08-15 13:59 | Observation (INO) | payer MEDICARE, OTHER, SELFPAY ==
[2021-08-15] VITALS (17 sets, daily range): BP systolic 128–173; BP diastolic 60–84; PULSE 66–80; RESP 16–22; TEMP 36.5–37.1; O2SAT 96–98; BMI 30.2
--- NOTE | 2021-08-15 14:18 | DI.RAD.S_ITS ---
PROCEDURE: XR CHEST 2V INDICATIONS: Dizziness, palpitations TECHNIQUE: 2 views of the chest were acquired. COMPARISON: [facility], CT, CT ABDOMEN PELVIS W CON, 07/09/2019, 8:57. [facility], CR, XR CHEST 1V, 10/10/2019, 14:30. [facility], CR, XR CHEST 1V, 10/06/2019, 16:52. FINDINGS: Surgical changes and devices: None. Lungs and pleura: Lungs are clear. No pleural effusions or pneumothorax. Mediastinum: Mediastinal contours are normal. Heart size is normal. Bones and chest wall: No suspicious bony abnormalities. Mild T8 compression fracture, unchanged. Soft tissues appear unremarkable. IMPRESSION: No acute cardiopulmonary abnormality. Dictated by: Cr Alvarez M.D. on 08/15/2021 at 16:38 Approved by: Cr Alvarez M.D. on 08/15/2021 at 16:40
--- NOTE | 2021-08-15 14:51 | ED.ABDPAIN ---
HPI - Abdominal Pain <Israel Ochoa PA-C - Last Filed: 08/15/21 20:10> General Chief Complaint: Abdominal Pain Stated Complaint: Crohn's and UC, Antivia Treatment, Dizzy/Heart Iss Time Seen by Provider: 08/15/21 14:16 Source: patient Mode of arrival: Ambulatory History of Present Illness HPI narrative: 71-year-old male with past medical history AFib, coronary artery disease, status post drug-eluting stent to the LAD and RCA, Crohn's disease of large intestine presents to the ED with 2 months of worsening lightheadedness, 5 days of worsening epigastric pain. Patient has been suffering a Crohn's flare for the last 2 months, during which the patient reports worsening lightheadedness, exertional dyspnea, fatigue. Patient has been on prednisone for the last 2 months, is being currently tapered down. Patient was given a 1st infusion of Entyvio 5 days ago for Crohn's, following which he experienced a new symptomof epigastric pain which he describes as burning. Patient states that the epigastric pain is relieved with defecation, however it returns soon after. Patient also complains of nausea since the Entyvio infusion. Patient endorses chronic diarrhea, with blood in the stool that has not changed recently. Denies fever, chills, headache, chest pain, vomiting, dysuria, syncope. Patient was in e-mail communication with his GI doctor this morning, who advised him to go to the ED. patient also is on Coumadin for AFib, his elevated to 6.8 on 08/10/2021. Patient states that he was hospitalized for this, Coumadin held until last night. Patient took a small dose of Coumadin last night as instructed. Related Data Home Medications Medication Instructions Recorded Confirmed rosuvastatin 10 mg tablet 10 mg PO DAILY 10/07/19 08/15/21 sotalol 80 mg tablet 80 mg PO BID 06/28/20 08/15/21 prednisone 5 mg tablet 5 mg PO DAILY 08/15/21 08/15/21 warfarin 5 mg tablet 2.5 mg PO DAILY 08/15/21 08/15/21 Allergies Allergy/AdvReac Type Severity Reaction Status Date / Time No Known Drug Allergies Allergy Verified 12/15/20 07:45 Review of Systems <Israel Ochoa PA-C - Last Filed: 08/15/21 20:10> Review of Systems ROS Unobtainable: All systems reviewed & are unremarkable except as noted in HPI and below Constitutional Constitutional: Denies chills, Reports fatigue, Denies fever(s), Denies frequent falls and Reports lethargy Eyes Eyes: Denies change in vision, Denies eye discharge, Denies irritation and Denies loss of vision ENT Ears, Nose, Mouth, and Throat: Denies change in voice, Reports dizziness, Denies neck pain, Denies sore throat and Denies throat swelling Cardiovascular Cardiovascular: Denies chest pain, Denies irregular heart rhythm, Denies lightheadedness, Denies palpitations, Denies dyspnea, Reports dyspnea on exertion and Denies orthopnea Respiratory Respiratory: Denies cough, Denies dyspnea, Reports dyspnea on exertion and Denies wheezing Gastrointestinal Gastrointestinal: Reports abdominal pain, Reports hematochezia, Denies change in bowel habits, Denies diarrhea, Reports loose stools, Reports nausea and Denies vomiting Genitourinary Genitourinary: Denies hematuria, Denies flank pain, Denies urinary incontinence and Denies urinary urgency Musculoskeletal Musculoskeletal: Denies back pain, Denies muscle weakness, Denies neck pain, Denies numbness and Denies tingling Integumentary/Breasts Skin/Breast: Denies pruritus, Denies erythema, Denies rash and Denies wounds Neurologic Neurologic: Denies behavioral changes, Denies confusion, Reports dizziness, Denies frequent falls, Denies loss of vision, Denies numbness and Denies tingling Psychiatric Psychiatric: Denies anxiety, Denies behavioral changes, Denies confusion, Denies depression, Denies homicidal ideation and Denies suicidal ideation Endocrine Endocrine: Reports fatigue, Denies flushing and Denies palpitations Hematologic/Lymphatic Hematologic/Lymphatic: Denies easy bruising Allergic/Immunologic Allergic/Immunologic: Denies urticaria, Denies throat swelling and Denies wheezing Patient History <Israel Ochoa PA-C - Last Filed: 08/15/21 20:10> Medical History (Updated 08/15/21 @ 20:44 by CURTIS Cervantes) Arthritis of both wrists CAD (coronary artery disease) (~2009) Cardiac arrhythmia (~2009) Cataracts, bilateral (~2003) Chest pain Crohn's disease (~2012) Dyslipidemia Hyperlipidemia Hypertension Osteoarthritis Paresthesia Prostate cancer (~2010) Skin cancer Symptomatic anemia Surgical History Anesthesia H/O hernia repair History of heart artery stent (~2009) History of knee replacement History of prostate surgery (~2012) Family History (Updated 08/15/21 @ 22:22 by CURTIS Cervantes) Father History of heart disease Myocardial infarction Mother Crohn's disease Social History household members: spouse Smoking Status: Former smoker alcohol intake: current Smoking Status: Never smoker alcohol intake frequency: holidays/special occasions only Substance Use Type: does not use Exam <Israel Ochoa PA-C - Last Filed: 08/15/21 20:10> Narrative Exam Narrative: Const General:?cooperative, healthy appearing and comfortable HENMT Head:?normal to inspection Ears:?hearing grossly normal bilaterally Nose:?external nose normal Face and sinus:?normal facial exam and sinuses nontender Mouth:?oral mucosae normal Throat:?posterior oropharynx normal Eyes General:?appearance normal, both eyes and all related structures Neck Neck:?normal visual inspection and no lymphadenopathy noted Resp Effort & Inspection:?normal respiratory effort Auscultation:?clear to auscultation bilaterally Cardio Rate:?regular rate Rhythm:?regular rhythm Neuro General:?patient alert, patient awake and patient oriented x3 Initial Vital Signs Initial Vital Signs: Vital Signs Temperature 98.7 F 08/15/21 14:07 Pulse Rate 80 08/15/21 14:07 Respiratory Rate 18 08/15/21 14:07 Blood Pressure 173/84 H 08/15/21 14:07 Pulse Oximetry 98 08/15/21 14:07 <Joya Alvarenga DO - Last Filed: 08/16/21 19:37> Initial Vital Signs Initial Vital Signs: Vital Signs Temperature 98.7 F 08/15/21 14:07 Pulse Rate 80 08/15/21 14:07 Respiratory Rate 18 08/15/21 14:07 Blood Pressure 173/84 H 08/15/21 14:07 Pulse Oximetry 98 08/15/21 14:07 Course <Israel Ochoa PA-C - Last Filed: 08/15/21 20:10> Orders Ordered: Acetaminophen (Acetaminophen 325 Mg Tablet) 650 mg PO Q6HR PRN PRN Reason: Fever/Mild Pain (1-3) Last Admin: 08/16/21 03:04 Dose: 650 mg Documented by: MICHELLE Atorvastatin Calcium (Atorvastatin 20 Mg Tablet) 20 mg PO BEDTIME [facility] Last Admin: 08/15/21 21:44 Dose: 20 mg Documented by: MICHELLE Diltiazem HCl (Diltiazem Cd 180 Mg Cap) 180 mg PO DAILY [facility] Last Admin: 08/16/21 08:32 Dose: 180 mg Documented by: CTRALEXANDRIA Enoxaparin Sodium (Enoxaparin 40 Mg/0.4 Ml Syringe) 40 mg SUBCUT DAILY [facility] Famotidine (Famotidine 20 Mg/2 Ml Vial) 20 mg IV NOW [facility] Last Admin: 08/15/21 15:04 Dose: 20 mg Documented by: YANIRA Sodium Chloride (Normal Saline 0.9%) 1,000 mls @ 100 mls/hr IV CONT [facility] Last Admin: 08/15/21 21:43 Dose: 100 mls/hr Documented by: MICHELLE Methylprednisolone (Methylprednisolone 125 Mg/2 Ml Vial) 60 mg IV DAILY [facility] Last Admin: 08/16/21 14:35 Dose: 60 mg Documented by: JARED Naloxone HCl (Naloxone 0.4 Mg/Ml Vial) 0.2 mg IV Q2MIN PRN PRN Reason: Opiate Reversal Pantoprazole Sodium (Pantoprazole 40 Mg Vial) 40 mg IV BID [facility] Last Admin: 08/16/21 08:32 Dose: 40 mg Documented by: CTRAL[place]ANDRIA Admin: 08/15/21 21:43 Dose: 40 mg Documented by: MICHELLE Sodium Chloride (Sodium Chloride 0.9% Flush) 10 ml IV BID [facility] Last Admin: 08/16/21 08:42 Dose: 10 ml Documented by: CTRAL[place]ANDRIA Admin: 08/15/21 21:43 Dose: 10 ml Documented by: MICHELLE Sodium Chloride (Sodium Chloride 0.9% Flush) 10 ml IV PRN PRN PRN Reason: Flush Last Admin: 08/15/21 21:48 Dose: 10 ml Documented by: MICHELLE Sotalol HCl (Sotalol 80 Mg Tablet) 80 mg PO BID [facility] Last Admin: 08/16/21 08:32 Dose: 80 mg Documented by: CTR.LUCY Admin: 08/15/21 21:43 Dose: 80 mg Documented by: MICHELLE Discontinued Medications Al Hydrox/Mg Hydrox/Simethicone 20 ml/ Lidocaine HCl 15 ml 0 ml PO NOW ONE Stop: 08/15/21 14:44 Last Admin: 08/15/21 15:03 Dose: 35 ml Documented by: YANIRA Sodium Chloride (Normal Saline 0.9%) 1,000 mls @ 100 mls/hr IV CONT [facility] Last Admin: 08/15/21 21:54 Dose: Not Given Documented by: MICHELLE Non-Formulary Medication (Rosuvastatin) 10 mg PO DAILY [facility] Ondansetron HCl (Ondansetron 4 Mg/2 Ml Inj) 4 mg IV NOW ONE Stop: 08/15/21 14:42 Last Admin: 08/15/21 15:05 Dose: 4 mg Documented by: YANIRA Ondansetron HCl (Ondansetron 4 Mg/2 Ml Inj) 4 mg IV NOW ONE Stop: 08/15/21 19:23 Last Admin: 08/15/21 20:46 Dose: Not Given Documented by: FLORY Prednisone (Prednisone 5 Mg Tablet) 5 mg PO DAILY [facility] Last Admin: 08/16/21 08:32 Dose: 5 mg Documented by: JARED Vital Signs Vital signs: Vital Signs - 8 hr 08/15/21 14:07 08/15/21 14:22 08/15/21 14:30 Temperature 98.7 F Pulse Rate 80 73 74 Respiratory Rate 18 Blood Pressure 173/84 H Pulse Oximetry 98 97 96 08/15/21 14:32 08/15/21 14:48 08/15/21 15:00 Temperature Pulse Rate 73 Respiratory Rate Blood Pressure 171/81 H 154/72 H Pulse Oximetry 97 08/15/21 15:11 08/15/21 15:30 08/15/21 16:08 Temperature Pulse Rate 76 66 Respiratory Rate 18 Blood Pressure Pulse Oximetry 96 96 98 08/15/21 16:09 08/15/21 16:30 08/15/21 17:00 Temperature Pulse Rate 72 69 67 Respiratory Rate 22 20 Blood Pressure 138/65 128/60 Pulse Oximetry 98 97 96 08/15/21 18:44 08/15/21 19:01 08/15/21 19:11 Temperature 98.0 F 98.0 F 97.7 F Pulse Rate 73 68 72 Respiratory Rate 20 18 18 Blood Pressure 170/79 H 166/77 H 150/66 H Pulse Oximetry <Joya Alvarenga, DO - Last Filed: 08/16/21 19:37> Orders Ordered: Acetaminophen (Acetaminophen 325 Mg Tablet) 650 mg PO Q6HR PRN PRN Reason: Fever/Mild Pain (1-3) Last Admin: 08/16/21 03:04 Dose: 650 mg Documented by: MICHELLE Atorvastatin Calcium (Atorvastatin 20 Mg Tablet) 20 mg PO BEDTIME [facility] Last Admin: 08/15/21 21:44 Dose: 20 mg Documented by: MICHELLE Diltiazem HCl (Diltiazem Cd 180 Mg Cap) 180 mg PO DAILY [facility] Last Admin: 08/16/21 08:32 Dose: 180 mg Documented by: CTRAL[place] Enoxaparin Sodium (Enoxaparin 40 Mg/0.4 Ml Syringe) 40 mg SUBCUT DAILY [facility] Famotidine (Famotidine 20 Mg/2 Ml Vial) 20 mg IV NOW [facility] Last Admin: 08/15/21 15:04 Dose: 20 mg Documented by: YANIRA Sodium Chloride (Normal Saline 0.9%) 1,000 mls @ 100 mls/hr IV CONT [facility] Last Admin: 08/15/21 21:43 Dose: 100 mls/hr Documented by: MICHELLE Methylprednisolone (Methylprednisolone 125 Mg/2 Ml Vial) 60 mg IV DAILY [facility] Last Admin: 08/16/21 14:35 Dose: 60 mg Documented by: JARED Naloxone HCl (Naloxone 0.4 Mg/Ml Vial) 0.2 mg IV Q2MIN PRN PRN Reason: Opiate Reversal Pantoprazole Sodium (Pantoprazole 40 Mg Vial) 40 mg IV BID [facility] Last Admin: 08/16/21 08:32 Dose: 40 mg Documented by: CTR.[email or web address] Admin: 08/15/21 21:43 Dose: 40 mg Documented by: MICHELLE Sodium Chloride (Sodium Chloride 0.9% Flush) 10 ml IV BID [facility] Last Admin: 08/16/21 08:42 Dose: 10 ml Documented by: CTR.LUCY Admin: 08/15/21 21:43 Dose: 10 ml Documented by: MICHELLE Sodium Chloride (Sodium Chloride 0.9% Flush) 10 ml IV PRN PRN PRN Reason: Flush Last Admin: 08/15/21 21:48 Dose: 10 ml Documented by: MICHELLE Sotalol HCl (Sotalol 80 Mg Tablet) 80 mg PO BID [facility] Last Admin: 08/16/21 08:32 Dose: 80 mg Documented by: Admin: 08/15/21 21:43 Dose: 80 mg Documented by: MICHELLE Discontinued Medications Al Hydrox/Mg Hydrox/Simethicone 20 ml/ Lidocaine HCl 15 ml 0 ml PO NOW ONE Stop: 08/15/21 14:44 Last Admin: 08/15/21 15:03 Dose: 35 ml Documented by: YANIRA Sodium Chloride (Normal Saline 0.9%) 1,000 mls @ 100 mls/hr IV CONT [facility] Last Admin: 08/15/21 21:54 Dose: Not Given Documented by: MICHELLE Non-Formulary Medication (Rosuvastatin) 10 mg PO DAILY [facility] Ondansetron HCl (Ondansetron 4 Mg/2 Ml Inj) 4 mg IV NOW ONE Stop: 08/15/21 14:42 Last Admin: 08/15/21 15:05 Dose: 4 mg Documented by: YANIRA Ondansetron HCl (Ondansetron 4 Mg/2 Ml Inj) 4 mg IV NOW ONE Stop: 08/15/21 19:23 Last Admin: 08/15/21 20:46 Dose: Not Given Documented by: FLORY Prednisone (Prednisone 5 Mg Tablet) 5 mg PO DAILY [facility] Last Admin: 08/16/21 08:32 Dose: 5 mg Documented by: JARED Vital Signs Vital signs: Vital Signs - 8 hr 08/15/21 14:07 08/15/21 14:22 08/15/21 14:30 Temperature 98.7 F Pulse Rate 80 73 74 Respiratory Rate 18 Blood Pressure 173/84 H Pulse Oximetry 98 97 96 08/15/21 14:32 08/15/21 14:48 08/15/21 15:00 Temperature Pulse Rate 73 Respiratory Rate Blood Pressure 171/81 H 154/72 H Pulse Oximetry 97 08/15/21 15:11 08/15/21 15:30 08/15/21 16:08 Temperature Pulse Rate 76 66 Respiratory Rate 18 Blood Pressure Pulse Oximetry 96 96 98 08/15/21 16:09 08/15/21 16:30 06/06/22 17:00 Temperature Pulse Rate 72 69 67 Respiratory Rate 22 20 Blood Pressure 138/65 128/60 Pulse Oximetry 98 97 96 08/15/21 18:44 08/15/21 19:01 08/15/21 19:11 Temperature 98.0 F 98.0 F 97.7 F Pulse Rate 73 68 72 Respiratory Rate 20 18 18 Blood Pressure 170/79 H 166/77 H 150/66 H Pulse Oximetry MDM - Abdominal Pain <Israel Ochoa PA-C - Last Filed: 08/15/21 20:10> Lab Data Lab results narrative: H&H 7.3, down from 14.4 for over 43.4 a year ago. INR down to 1.8 from 6.8 on 08/10/2021 Result diagrams: 08/16/21 05:10 08/16/21 05:10 Labs: Lab Results 08/15/21 08/15/21 08/15/21 Range/Units 00:03 14:59 14:59 WBC 6.7 (4.5-11.0) X10^3/uL RBC 3.02 L (4.5-5.9) X10^6/uL Hgb Cancelled 7.3 L Hct Cancelled 23.0 L MCV 76.3 L (80-100) fL MCH 24.3 L (26-34) PG MCHC 31.8 (30-36) % RDW 19.0 H (11.6-14.8) % Plt Count 313 (150-400) X10^3/uL Neut % (Auto) 83.7 H (50-75) % Lymph % (Auto) 6.9 L (25-40) % Bracken % (Auto) 5.4 (3-14) % Eos % (Auto) 3.0 (2-4) % Baso % (Auto) 1.0 (0-2) % Neut # (Auto) 5600 (8475-6764) /uL Lymph # (Auto) 500 L (7648-8248) /uL Bracken # (Auto) 400 (0-900) /uL Eos # (Auto) 200 (0-450) /uL Baso # (Auto) 100 (0-100) /uL PT (10.1-12.7) SECONDS INR (0.9-1.3) APTT (26.4-36.2) SECONDS Sodium 138 (137-145) mmol/L Potassium 4.5 (3.4-5.1) mmol/L Chloride 107 (98-107) mmol/L Carbon Dioxide 27 (22-32) mmol/L BUN 9 (9-20) mg/dL Creatinine 0.91 (0.66-1.25) mg/dL Estimated GFR > 60 (>60) mL/min BUN/Creatinine Ratio 9.9 (6-22) Glucose 106 (80-110) mg/dL Calcium 8.3 L (8.4-10.2) mg/dL Total Bilirubin 0.3 (0.2-1.3) mg/dL AST 16 L (17-59) IU/L ALT 8 (<50) IU/L Alkaline Phosphatase 66 (38-126) U/L Total Creatine Kinase (55-170) U/L CK-MB (CK-2) CK-MB (CK-2) Rel Index Troponin I (0.01-0.034) ng/mL NT-Pro-B Natriuret Pep (<125) pg/mL Total Protein 5.3 L (6.3-8.2) g/dL Albumin 2.7 L (3.5-5.0) g/dL Globulin 2.6 (1.7-4.1) g/dL Albumin/Globulin Ratio 1.0 (1.0-2.8) Lipase 102 (23-300) U/L SARS-CoV-2 (PCR) (Negative) Blood Type Antibody Screen Crossmatch 08/15/21 08/15/21 08/15/21 Range/Units 14:59 14:59 14:59 WBC (4.5-11.0) X10^3/uL RBC (4.5-5.9) X10^6/uL Hgb Hct MCV (80-100) fL MCH (26-34) PG MCHC (30-36) % RDW (11.6-14.8) % Plt Count (150-400) X10^3/uL Neut % (Auto) (50-75) % Lymph % (Auto) (25-40) % Bracken % (Auto) (3-14) % Eos % (Auto) (2-4) % Baso % (Auto) (0-2) % Neut # (Auto) (7313-9385) /uL Lymph # (Auto) (8101-3592) /uL Bracken # (Auto) (0-900) /uL Eos # (Auto) (0-450) /uL Baso # (Auto) (0-100) /uL PT 20.2 H D (10.1-12.7) SECONDS INR 1.8 H (0.9-1.3) APTT 31 (26.4-36.2) SECONDS Sodium (137-145) mmol/L Potassium (3.4-5.1) mmol/L Chloride (98-107) mmol/L Carbon Dioxide (22-32) mmol/L BUN (9-20) mg/dL Creatinine (0.66-1.25) mg/dL Estimated GFR (>60) mL/min BUN/Creatinine Ratio (6-22) Glucose (80-110) mg/dL Calcium (8.4-10.2) mg/dL Total Bilirubin (0.2-1.3) mg/dL AST (17-59) IU/L ALT (<50) IU/L Alkaline Phosphatase (38-126) U/L Total Creatine Kinase 21 L (55-170) U/L CK-MB (CK-2) TNP CK-MB (CK-2) Rel Index TNP Troponin I < 0.012 (0.01-0.034) ng/mL NT-Pro-B Natriuret Pep 197 H (<125) pg/mL Total Protein (6.3-8.2) g/dL Albumin (3.5-5.0) g/dL Globulin (1.7-4.1) g/dL Albumin/Globulin Ratio (1.0-2.8) Lipase (23-300) U/L SARS-CoV-2 (PCR) (Negative) Blood Type Antibody Screen Crossmatch 08/15/21 08/15/21 Range/Units 16:13 18:59 WBC (4.5-11.0) X10^3/uL RBC (4.5-5.9) X10^6/uL Hgb Hct MCV (80-100) fL MCH (26-34) PG MCHC (30-36) % RDW (11.6-14.8) % Plt Count (150-400) X10^3/uL Neut % (Auto) (50-75) % Lymph % (Auto) (25-40) % Bracken % (Auto) (3-14) % Eos % (Auto) (2-4) % Baso % (Auto) (0-2) % Neut # (Auto) (0213-6954) /uL Lymph # (Auto) (0654-9662) /uL Bracken # (Auto) (0-900) /uL Eos # (Auto) (0-450) /uL Baso # (Auto) (0-100) /uL PT (10.1-12.7) SECONDS INR (0.9-1.3) APTT (26.4-36.2) SECONDS Sodium (137-145) mmol/L Potassium (3.4-5.1) mmol/L Chloride (98-107) mmol/L Carbon Dioxide (22-32) mmol/L BUN (9-20) mg/dL Creatinine (0.66-1.25) mg/dL Estimated GFR (>60) mL/min BUN/Creatinine Ratio (6-22) Glucose (80-110) mg/dL Calcium (8.4-10.2) mg/dL Total Bilirubin (0.2-1.3) mg/dL AST (17-59) IU/L ALT (<50) IU/L Alkaline Phosphatase (38-126) U/L Total Creatine Kinase (55-170) U/L CK-MB (CK-2) CK-MB (CK-2) Rel Index Troponin I (0.01-0.034) ng/mL NT-Pro-B Natriuret Pep (<125) pg/mL Total Protein (6.3-8.2) g/dL Albumin (3.5-5.0) g/dL Globulin (1.7-4.1) g/dL Albumin/Globulin Ratio (1.0-2.8) Lipase (23-300) U/L SARS-CoV-2 (PCR) Negative (Negative) Blood Type O Positive Antibody Screen Negative Crossmatch See Detail Point of care testing: Urine Dip Bedside Urine Glucose Negative Bedside Urine Bilirubin - Negative Bedside Urine Ketone - Negative Urine Specific Danese 1.015 Bedside Urine Occult Blood - Negative Bedside Urine pH 7.5 Bedside Urine Protein - Negative Bedside Urine Urobilinogen - Negative Bedside Urine Nitrite - Negative Bedside Urine Leukocytes - Negative Esterase Imaging Data Chest x-ray: Radiologist's Impression: PROCEDURE:? XR CHEST 2V ? INDICATIONS:? Dizziness, palpitations ? TECHNIQUE:? 2 views of the chest were acquired.? ? COMPARISON:? [facility], CT, CT ABDOMEN PELVIS W CON, 07/09/2019, 8:57.? [facility], CR, XR CHEST 1V, 10/10/2019, 14:30.? [facility], CR, XR CHEST 1V, 10/06/2019, 16:52. ? FINDINGS:? ? Surgical changes and devices:? None.? ? Lungs and pleura:? Lungs are clear.? No pleural effusions or pneumothorax.? ? Mediastinum:? Mediastinal contours are normal.? Heart size is normal.? ? Bones and chest wall:? No suspicious bony abnormalities.? Mild T8 compression fracture, unchanged.? Soft tissues appear unremarkable.? ? IMPRESSION:? No acute cardiopulmonary abnormality. ? ? ? Dictated by: Cr Alvarez M.D. on 08/15/2021 at 16:38 ? ? Approved by: Cr Alvarez M.D. on 08/15/2021 at 16:40 ? ECG Data Interpretation: Normal sinus rhythm, no axis deviation, no acute ST-T changes MDM Narrative Medical decision making narrative: 71-year-old male with past medical history AFib, coronary artery disease, status post drug-eluting stent to the LAD and RCA, Crohn's disease of large intestine presents to the ED with 2 months of worsening lightheadedness, 5 days of worsening epigastric pain. Concern for Crohn's flare versus dehydration versus anemia versus coagulopathy versus ACS versus acute CHF exacerbation. Will obtain chest x-ray, EKG, labs, troponin, BNP, coags. Will treat patient with Zofran, Pepcid AC, GI cocktail for symptoms. Will consider IV hydration, contingent on BNP, labs. H&H 7.3/23. INR 1.8, down from 6.8 on 08/10/2021. Other labs within normal limits. No acute findings on chest x-ray. BNP, troponin normal. Started patient is on 2 units of PRBCs. Discussed patient with hospitalist Haley Osuna, she agrees to admit for observation to monitor for stable H&H. Patient has epigastric pain improved with Pepcid, GI cocktail. Was stable for the entire stay in the ED. <Joya Alvarenga, DO - Last Filed: 08/16/21 19:37> Lab Data Labs: Lab Results 08/15/21 08/15/21 08/15/21 Range/Units 00:03 14:59 14:59 WBC 6.7 (4.5-11.0) X10^3/uL RBC 3.02 L (4.5-5.9) X10^6/uL Hgb Cancelled 7.3 L Hct Cancelled 23.0 L MCV 76.3 L (80-100) fL MCH 24.3 L (26-34) PG MCHC 31.8 (30-36) % RDW 19.0 H (11.6-14.8) % Plt Count 313 (150-400) X10^3/uL Neut % (Auto) 83.7 H (50-75) % Lymph % (Auto) 6.9 L (25-40) % Bracken % (Auto) 5.4 (3-14) % Eos % (Auto) 3.0 (2-4) % Baso % (Auto) 1.0 (0-2) % Neut # (Auto) 5600 (2158-5481) /uL Lymph # (Auto) 500 L (1729-7888) /uL Bracken # (Auto) 400 (0-900) /uL Eos # (Auto) 200 (0-450) /uL Baso # (Auto) 100 (0-100) /uL PT (10.1-12.7) SECONDS INR (0.9-1.3) APTT (26.4-36.2) SECONDS Sodium 138 (137-145) mmol/L Potassium 4.5 (3.4-5.1) mmol/L Chloride 107 (98-107) mmol/L Carbon Dioxide 27 (22-32) mmol/L BUN 9 (9-20) mg/dL Creatinine 0.91 (0.66-1.25) mg/dL Estimated GFR > 60 (>60) mL/min BUN/Creatinine Ratio 9.9 (6-22) Glucose 106 (80-110) mg/dL Calcium 8.3 L (8.4-10.2) mg/dL Total Bilirubin 0.3 (0.2-1.3) mg/dL AST 16 L (17-59) IU/L ALT 8 (<50) IU/L Alkaline Phosphatase 66 (38-126) U/L Total Creatine Kinase (55-170) U/L CK-MB (CK-2) CK-MB (CK-2) Rel Index Troponin I (0.01-0.034) ng/mL NT-Pro-B Natriuret Pep (<125) pg/mL Total Protein 5.3 L (6.3-8.2) g/dL Albumin 2.7 L (3.5-5.0) g/dL Globulin 2.6 (1.7-4.1) g/dL Albumin/Globulin Ratio 1.0 (1.0-2.8) Lipase 102 (23-300) U/L SARS-CoV-2 (PCR) (Negative) Blood Type Antibody Screen Crossmatch 08/15/21 08/15/21 08/15/21 Range/Units 14:59 14:59 14:59 WBC (4.5-11.0) X10^3/uL RBC (4.5-5.9) X10^6/uL Hgb Hct MCV (80-100) fL MCH (26-34) PG MCHC (30-36) % RDW (11.6-14.8) % Plt Count (150-400) X10^3/uL Neut % (Auto) (50-75) % Lymph % (Auto) (25-40) % Bracken % (Auto) (3-14) % Eos % (Auto) (2-4) % Baso % (Auto) (0-2) % Neut # (Auto) (2239-3643) /uL Lymph # (Auto) (9079-4441) /uL Bracken # (Auto) (0-900) /uL Eos # (Auto) (0-450) /uL Baso # (Auto) (0-100) /uL PT 20.2 H D (10.1-12.7) SECONDS INR 1.8 H (0.9-1.3) APTT 31 (26.4-36.2) SECONDS Sodium (137-145) mmol/L Potassium (3.4-5.1) mmol/L Chloride (98-107) mmol/L Carbon Dioxide (22-32) mmol/L BUN (9-20) mg/dL Creatinine (0.66-1.25) mg/dL Estimated GFR (>60) mL/min BUN/Creatinine Ratio (6-22) Glucose (80-110) mg/dL Calcium (8.4-10.2) mg/dL Total Bilirubin (0.2-1.3) mg/dL AST (17-59) IU/L ALT (<50) IU/L Alkaline Phosphatase (38-126) U/L Total Creatine Kinase 21 L (55-170) U/L CK-MB (CK-2) TNP CK-MB (CK-2) Rel Index TNP Troponin I < 0.012 (0.01-0.034) ng/mL NT-Pro-B Natriuret Pep 197 H (<125) pg/mL Total Protein (6.3-8.2) g/dL Albumin (3.5-5.0) g/dL Globulin (1.7-4.1) g/dL Albumin/Globulin Ratio (1.0-2.8) Lipase (23-300) U/L SARS-CoV-2 (PCR) (Negative) Blood Type Antibody Screen Crossmatch 08/15/21 08/15/21 Range/Units 16:13 18:59 WBC (4.5-11.0) X10^3/uL RBC (4.5-5.9) X10^6/uL Hgb Hct MCV (80-100) fL MCH (26-34) PG MCHC (30-36) % RDW (11.6-14.8) % Plt Count (150-400) X10^3/uL Neut % (Auto) (50-75) % Lymph % (Auto) (25-40) % Bracken % (Auto) (3-14) % Eos % (Auto) (2-4) % Baso % (Auto) (0-2) % Neut # (Auto) (4547-5505) /uL Lymph # (Auto) (2661-4150) /uL Bracken # (Auto) (0-900) /uL Eos # (Auto) (0-450) /uL Baso # (Auto) (0-100) /uL PT (10.1-12.7) SECONDS INR (0.9-1.3) APTT (26.4-36.2) SECONDS Sodium (137-145) mmol/L Potassium (3.4-5.1) mmol/L Chloride (98-107) mmol/L Carbon Dioxide (22-32) mmol/L BUN (9-20) mg/dL Creatinine (0.66-1.25) mg/dL Estimated GFR (>60) mL/min BUN/Creatinine Ratio (6-22) Glucose (80-110) mg/dL Calcium (8.4-10.2) mg/dL Total Bilirubin (0.2-1.3) mg/dL AST (17-59) IU/L ALT (<50) IU/L Alkaline Phosphatase (38-126) U/L Total Creatine Kinase (55-170) U/L CK-MB (CK-2) CK-MB (CK-2) Rel Index Troponin I (0.01-0.034) ng/mL NT-Pro-B Natriuret Pep (<125) pg/mL Total Protein (6.3-8.2) g/dL Albumin (3.5-5.0) g/dL Globulin (1.7-4.1) g/dL Albumin/Globulin Ratio (1.0-2.8) Lipase (23-300) U/L SARS-CoV-2 (PCR) Negative (Negative) Blood Type O Positive Antibody Screen Negative Crossmatch See Detail Point of care testing: Urine Dip Bedside Urine Glucose Negative Bedside Urine Bilirubin - Negative Bedside Urine Ketone - Negative Urine Specific Danese 1.015 Bedside Urine Occult Blood - Negative Bedside Urine pH 7.5 Bedside Urine Protein - Negative Bedside Urine Urobilinogen - Negative Bedside Urine Nitrite - Negative Bedside Urine Leukocytes - Negative Esterase Discharge Plan Departure Patient Disposition: Admitted as Observation Clinical Impression: Anemia Admit Date/Time: 08/15/21 19:38 Admit Provider: Carlene Osuna <Joya Alvarenga DO - Last Filed: 08/16/21 19:37> Cosign ED Attending Cosignature Attestation: I was available at all time for consultation. Patient chart was reviewed.
[2021-08-15] MEDS: MAG HYDROX/ALUMINUM/SIMETH SUS 20 ML, LIDOCAINE VISCOUS 2% 15 ML PO (15:03)
[2021-08-15] MEDS: FAMOTIDINE 20 MG/2 ML VIAL IV (15:04)
[2021-08-15] MEDS: ONDANSETRON 4 MG/2 ML INJ IV (15:05)
[2021-08-15 15:27] LABS: Add Manual Diff / Slide Review NO; Basophils Absolute Auto 100 /uL (0-100); Eosinophils Absolute Auto 200 /uL (0-450); Hemoglobin 7.3 g/dL (13.5-17.5); Lymphocytes Absolute Auto 500 /uL (1100-4500); Lymphocytes Percent Auto 6.9 % (25-40); Mean Corpuscular HGB Conc 31.8 % (30-36); Mean Corpuscular Hemoglobin 24.3 PG (26-34); Mean Corpuscular Volume 76.3 fL (80-100); Monocytes Absolute Auto 400 /uL (0-900); Monocytes Percent Auto 5.4 % (3-14); Neutrophils Absolute Auto 5600 /uL (1500-7000); Neutrophils Percent Auto 83.7 % (50-75); Platelet Count 313 X10^3/uL (150-400); Red Blood Cell Count 3.02 X10^6/uL (4.5-5.9); White Blood Cell Count 6.7 X10^3/uL (4.5-11.0)
[2021-08-15 15:45] LABS: Creatine Kinase 21 U/L (55-170)
[2021-08-15 15:50] LABS: Alanine Aminotransferase 8 IU/L (<50); Albumin 2.7 g/dL (3.5-5.0); Alkaline Phosphatase 66 U/L (38-126); Aspartate Aminotransferase 16 IU/L (17-59); BUN Creatinine Ratio 9.9 (6-22); Bilirubin Total 0.3 mg/dL (0.2-1.3); Blood Urea Nitrogen 9 mg/dL (9-20); Calcium 8.3 mg/dL (8.4-10.2); Carbon Dioxide 27 mmol/L (22-32); Chloride 107 mmol/L (98-107); Estimated Glomerular Filt Rate > 60 mL/min (>60); Globulin 2.6 g/dL (1.7-4.1); Glucose 106 mg/dL (80-110); HEMOLYSIS < 15 (0-50); Lipase 102 U/L (23-300); Potassium 4.5 mmol/L (3.4-5.1); Sodium 138 mmol/L (137-145); Total Protein 5.3 g/dL (6.3-8.2)
[2021-08-15 15:54] LABS: NT-proBNP (BNP-Adult 18+) 197 pg/mL (<125)
[2021-08-15 15:56] LABS: Troponin I < 0.012 ng/mL (0.01-0.034)
[2021-08-15 16:02] LABS: INR 1.8 (0.9-1.3); Prothrombin Time 20.2 SECONDS (10.1-12.7)
[2021-08-15 16:05] LABS: PTT Partial Thromboplastin Tim 31 SECONDS (26.4-36.2)
--- NOTE | 2021-08-15 16:34 | PC.NURSE ---
Pt consent obtained for transfusion. This RN was the witness.
[2021-08-15 19:20] LABS: COVID19 -Nasal RAPID Negative (Negative)
--- NOTE | 2021-08-15 19:27 | PC.NURSE ---
Pt requests water. Confirmed with PAC Don and OK to give sips of water.
[2021-08-15] MEDS: PANTOPRAZOLE 40 MG VIAL IV (21:43)
[2021-08-15] MEDS: SODIUM CHLORIDE 0.9% FLUSH 10 ML IV ×2 (21:43→21:48)
[2021-08-15] MEDS: SODIUM CHLORIDE 0.9% 1,000 ML 100 ML IV (21:43)
[2021-08-15] MEDS: SOTALOL 80 MG TABLET PO (21:43)
[2021-08-15] MEDS: ATORVASTATIN 20 MG TABLET PO (21:44)
--- NOTE | 2021-08-15 22:20 | P.HP_ITS ---
History of Present Illness History of Present Illness Date Patient Seen: 08/15/21 Time Patient Seen: 22:20 Chief complaint: Crohn's and UC, Antivia Treatment, Dizzy/Heart Iss Narrative: Eliezer Blair is 71-year-old male with past medical history for AFib, coronary artery disease status post 2 drug-eluting stents to the LAD and RCA, atrial fibrillation anticoagulated on warfarin and Crohn's disease of large intestine presented to the ED with 2 months of worsening lightheadedness, 5 days of worsening epigastric cramping and pain.? Patient last Crohn's flare has lasted for 2 months, during which the patient reports worsening lightheadedness, exertional dyspnea, fatigue.? Patient has been taking prednisone for the last 2 months, which is being currently tapered down.? Patient was administered a 1st infusion of Entyvio 5 days ago for Crohn's, following which he experienced a new symptom of epigastric pain which he describes as burning.? Patient states that the epigastric pain is relieved with bowel movement, however it returns soon after.? Patient also complains of nausea since the Entyvio infusion.? Patient endorses chronic bloody diarrhea, and when copious, he will discontinue his warfarin on his own.? Denies fever, chills, headache, chest pain, vomiting, dysuria, or syncope.? Patient was in e-mail communication with his GI doctor this morning, who advised him to go to the ED. His INR was elevated to 6.8 on 08/10/2021 and was instructed to hold his warfarin which was just resumed today as his INR is now 1.8. slightly subtherapeutic.?I noted in his last cardiology note in March of this year by Dr. Capellan, that he was to start taking diltiazem in addition to sotalol as the patient had an adverse reaction to valsartan. It does not appear that this medication was continued in a note that was prepared by Dr. Capellan on July 07 of this year. The ED provider stated his hemoglobin was 7.3, significantly less than his baseline hemoglobin of 11-14 and ordered 2 units PRBC. Patient just completed his first unit when he arrived to the floor. Chest xray was negative for any acute cardiopulmonary abnormality. Currently the patient is a febrile, blood pressure 147/75, heart rate 72, respiratory rate 18, oxygen saturation 98% on room air he weighs 100.5 kg with a BMI of 30.2. His hemoglobin and hematocrit were initially 7.3 and 23 upon presentation to the emergency room. After receiving 1 unit of blood it increased to 8.2 and 25.8. His PT INR on presentation to the emergency department was 20.2 and 1.8 respectively and it is currently 21.0 and 1.9 respectively. Pro BNP was 197, not significant, COVID-19 PCR was negative. Patient History Medical History (Updated 08/15/21 @ 20:44 by CURTIS Cervantes) Arthritis of both wrists CAD (coronary artery disease) (~2009) Cardiac arrhythmia (~2009) Cataracts, bilateral (~2003) Chest pain Crohn's disease (~2012) Dyslipidemia Hyperlipidemia Hypertension Osteoarthritis Paresthesia Prostate cancer (~2010) Skin cancer Symptomatic anemia Surgical History Anesthesia H/O hernia repair History of heart artery stent (~2009) History of knee replacement History of prostate surgery (~2012) Family & Social History Family History (Updated 08/15/21 @ 22:22 by CURTIS Cervantes) Father History of heart disease Myocardial infarction Mother Crohn's disease Social History: household members spouse Prior Living Arrangements House Safety & Behavioral: Feels Safe in Current Yes Environment Been Physically Hurt or No Threatened By a Person Tobacco & Substance use: Smoking Status Former smoker alcohol intake current alcohol intake frequency a few times a month Substance Use Type does not use Meds Home Medications and Allergies Home Medications Medication Instructions Recorded Confirmed Type rosuvastatin 10 mg tablet 10 mg PO DAILY 10/07/19 08/15/21 History sotalol 80 mg tablet 80 mg PO BID 06/28/20 08/15/21 History prednisone 5 mg tablet 5 mg PO DAILY 08/15/21 08/15/21 History warfarin 5 mg tablet 2.5 mg PO DAILY 08/15/21 08/15/21 History Allergies Allergy/AdvReac Type Severity Reaction Status Date / Time No Known Drug Allergies Allergy Verified 12/15/20 07:45 Review of Systems Review of Systems ROS: Yes All systems reviewed with the patient and are negative except as otherwise documented Exam Vital Signs (past 8 hours): - 08/15/21 14:22 08/15/21 14:30 08/15/21 14:32 Temperature Pulse Rate 73 74 73 Respiratory Rate Blood Pressure Pulse Oximetry 97 96 97 08/15/21 14:48 08/15/21 15:00 08/15/21 15:11 Temperature Pulse Rate 76 Respiratory Rate Blood Pressure 171/81 H 154/72 H Pulse Oximetry 96 08/15/21 15:30 08/15/21 16:08 08/15/21 16:09 Temperature Pulse Rate 66 72 Respiratory Rate 18 Blood Pressure Pulse Oximetry 96 98 98 08/15/21 16:30 08/15/21 17:00 08/15/21 18:44 Temperature 98.0 F Pulse Rate 69 67 73 Respiratory Rate 22 20 20 Blood Pressure 138/65 128/60 170/79 H Pulse Oximetry 97 96 08/15/21 19:01 08/15/21 19:11 08/15/21 20:15 Temperature 98.0 F 97.7 F 98.1 F Pulse Rate 68 72 77 Respiratory Rate 18 18 18 Blood Pressure 166/77 H 150/66 H 147/67 H Pulse Oximetry 96 08/15/21 21:48 Temperature 98.3 F Pulse Rate 74 Respiratory Rate 16 Blood Pressure 144/69 H Pulse Oximetry Oxygen Delivery Method Room Air Oxygen Flow Rate 0 Narrative Exam Narrative: Gen: Alert, oriented, over 71y.o. male, anxious HEENT: normocephalic, atraumatic, conjunctiva clear, sclera non-icteric, oral mucosa pink and moist Neck: supple, full ROM, no JVD, trachea is midline Resp: Lungs CTA, non-labored breathing CV: RRR, no murmur or rubs Abd: soft, non-tender, normoactive BTs Skin: no lesions or rashes, dry and intact Neuro: Alert and oriented X 4 w/no focal deficits. Speech clear and coherent. Extremities: moves all 4 extremities, is ambulatory, negative Cele?s sign Psyche: normal mood and affect. Objective Labs Result Diagrams: 08/16/21 00:03 08/15/21 14:59 Labs: Laboratory Results - last 24 hr 08/15/21 08/15/21 08/15/21 14:59 14:59 14:59 WBC 6.7 RBC 3.02 L Hgb 7.3 L Hct 23.0 L MCV 76.3 L MCH 24.3 L MCHC 31.8 RDW 19.0 H Plt Count 313 Neut % (Auto) 83.7 H Lymph % (Auto) 6.9 L [place] % (Auto) 5.4 Eos % (Auto) 3.0 Baso % (Auto) 1.0 Neut # (Auto) 5600 Lymph # (Auto) 500 L [place] # (Auto) 400 Eos # (Auto) 200 Baso # (Auto) 100 PT INR APTT Sodium 138 Potassium 4.5 Chloride 107 Carbon Dioxide 27 BUN 9 Creatinine 0.91 Estimated GFR > 60 BUN/Creatinine Ratio 9.9 Glucose 106 Calcium 8.3 L Total Bilirubin 0.3 AST 16 L ALT 8 Alkaline Phosphatase 66 Total Creatine Kinase 21 L CK-MB (CK-2) TNP CK-MB (CK-2) Rel Index TNP Troponin I < 0.012 NT-Pro-B Natriuret Pep Total Protein 5.3 L Albumin 2.7 L Globulin 2.6 Albumin/Globulin Ratio 1.0 Lipase 102 SARS-CoV-2 (PCR) Blood Type Antibody Screen Crossmatch 08/15/21 08/15/21 08/15/21 14:59 14:59 16:13 WBC RBC Hgb Hct MCV MCH MCHC RDW Plt Count Neut % (Auto) Lymph % (Auto) [place] % (Auto) Eos % (Auto) Baso % (Auto) Neut # (Auto) Lymph # (Auto) [place] # (Auto) Eos # (Auto) Baso # (Auto) PT 20.2 H D INR 1.8 H APTT 31 Sodium Potassium Chloride Carbon Dioxide BUN Creatinine Estimated GFR BUN/Creatinine Ratio Glucose Calcium Total Bilirubin AST ALT Alkaline Phosphatase Total Creatine Kinase CK-MB (CK-2) CK-MB (CK-2) Rel Index Troponin I NT-Pro-B Natriuret Pep 197 H Total Protein Albumin Globulin Albumin/Globulin Ratio Lipase SARS-CoV-2 (PCR) Blood Type O Positive Antibody Screen Negative Crossmatch See Detail 08/15/21 18:59 WBC RBC Hgb Hct MCV MCH MCHC RDW Plt Count Neut % (Auto) Lymph % (Auto) [place] % (Auto) Eos % (Auto) Baso % (Auto) Neut # (Auto) Lymph # (Auto) [place] # (Auto) Eos # (Auto) Baso # (Auto) PT INR APTT Sodium Potassium Chloride Carbon Dioxide BUN Creatinine Estimated GFR BUN/Creatinine Ratio Glucose Calcium Total Bilirubin AST ALT Alkaline Phosphatase Total Creatine Kinase CK-MB (CK-2) CK-MB (CK-2) Rel Index Troponin I NT-Pro-B Natriuret Pep Total Protein Albumin Globulin Albumin/Globulin Ratio Lipase SARS-CoV-2 (PCR) Negative Blood Type Antibody Screen Crossmatch Assessment & Plan Assessment & Plan narrative: Eliezer Blair is placed into observation for monitoring of symptomatic anemia. 1. Symptomatic anemia, acute, present on admission * Hemoglobin and hematocrit were initially 7.3 and 23 upon presentation to the emergency room. After receiving 1 unit of blood it increased to 8.2 and 2 * Patient was receiving his 1st unit of blood on presentation to the floor and given the improvement in his H&H, the 2nd unit will be held. Recheck H&H at the 5:00 a.m. labs 2. Atrial fibrillation, anticoagulated with warfarin currently therapeutic * Patient was initially supratherapeutic with an INR of 6.8 and at that time his warfarin was held. It was 1.7 on presentation to the emergency department and is now 1.9. * Warfarin will continue to be held in the setting of lower GI bleeding. 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 b.i.d. he was also initiated on diltiazem 180 mg sustained release for rhythm control 3. Crohn's disease, acute flare up present on admission * He will receive IV Protonix 40 mg a day * Ondansetron 4 mg IV as needed nausea and vomiting VTE Prophylaxis: Wells risk score 0 [X] Bilateral SCDs Patient is currently anticoagulated on warfarin. Patient is placed into observation as his stay is not expected to exceed 2 midnights. FEN: IV fluids: NS at 100 mL/hour diet: Clears, labs: CBC, C/BMP, liver enzymes, Mag, PT/INR Consultants None Dispo: Probable discharge home Code status: Full code as discussed with the patient who identifies Stefanie Carney, his surrogate and POA. [X] I have utilized all available immediate resources to obtain, update, or review of the patient's current medications Scores Wells' Criteria for PE Clinical signs and symptoms of DVT: No PE is #1 Dx or equally likely: No Heart rate > 100: No Immobilization at least 3 days or surg in previous 4 weeks: No History of PE or DVT: No Hemoptysis: No Malignancy w/Treatment within 6 months or palliative: No Wells' PE Score total: 0 Quality VTE Deep Vein Thrombosis/Pulmonary Embolism Present on Admission: No MIPS - Admit I confirm the patient?s Advance Care Plan is present, Code status is documented, Surrogate decision maker is in patient?s record [If Yes, STOP here]: Yes MIPS - DC The patient has current or prior documentation of left ventricular ejection fraction (LVEF) less than 40%, or moderate or severely depressed left ventricular systolic function.: No
--- NOTE | 2021-08-15 23:14 | PC.NURSE ---
Pt. refused SCD's, saying they were too much to have them undone for him to go to bathroom because of the urgency of have to go
--- NOTE | 2021-08-15 23:39 | PC.NURSE ---
Addendum entered by Dulce To R.N. 08/16/21 00:45: H&H ordered for 2 hours after 1st unit of PRBC completed as per Enrrique ACEVEOD, and was 8.2/25.8 so Enrrique instructed RN not to give 2nd unit of PRBC. Original Note: Patient is alert and oriented. Reportedly came to ER due to lightheadness, fatique, epigastric pain and Crohn's flare. Upon arrival to room 219 he had 1st unit of PRBC infusing. Breath sounds CTA with RA sat of 96%. Endorses feeling SOB with exertion but not at rest. Denies any chest pain but does report some episodes of lightheadedness. Telemetry reading was SR but does have history of afib. Denies nausea or abdominal tenderness; BT present and abdomen is soft. He is having yellow, watery stools with some streaks of bright red blood noted. Denies dysuria, frequency or urgency with urination. Is independent with mobility. Bilateral calf SCD's were applied but patient wore them only for couple hours and now is declining use because he is getting up to bathroom so frequently; reminded to ankle wave when awake and patient verbalizes understanding of risks since blood thinners are being held. Denies pain. Fall risk score is low
[2021-08-16] VITALS (7 sets, daily range): BP systolic 112–147; BP diastolic 60–75; PULSE 62–72; RESP 18–20; TEMP 36.3–37.1; O2SAT 97–98
[2021-08-16 00:32] LABS: INR 1.9 (0.9-1.3)
[2021-08-16 00:40] LABS: Hematocrit 25.8 % (41-53); Hemoglobin 8.2 g/dL (13.5-17.5)
[2021-08-16] MEDS: ACETAMINOPHEN 325 MG TABLET 650 MG PO (03:04)
[2021-08-16 05:29] LABS: Add Manual Diff / Slide Review NO; Basophils Absolute Auto 400 /uL (0-100); Basophils Percent Auto 4.2 % (0-2); Eosinophils Absolute Auto 300 /uL (0-450); Eosinophils Percent Auto 3.4 % (2-4); Hematocrit 26.5 % (41-53); Hemoglobin 8.6 g/dL (13.5-17.5); Lymphocytes Absolute Auto 1500 /uL (1100-4500); Lymphocytes Percent Auto 15.8 % (25-40); Mean Corpuscular HGB Conc 32.5 % (30-36); Mean Corpuscular Hemoglobin 25.3 PG (26-34); Mean Corpuscular Volume 77.7 fL (80-100); Monocytes Absolute Auto 1300 /uL (0-900); Monocytes Percent Auto 13.6 % (3-14); Neutrophils Absolute Auto 6100 /uL (1500-7000); Platelet Count 325 X10^3/uL (150-400); Red Blood Cell Count 3.41 X10^6/uL (4.5-5.9); Red Cell Distribution Width 19.7 % (11.6-14.8); White Blood Cell Count 9.6 X10^3/uL (4.5-11.0)
[2021-08-16 05:36] LABS: BUN Creatinine Ratio 7.1 (6-22); Blood Urea Nitrogen 7 mg/dL (9-20); Calcium 8.1 mg/dL (8.4-10.2); Carbon Dioxide 28 mmol/L (22-32); Chloride 107 mmol/L (98-107); Estimated Glomerular Filt Rate > 60 mL/min (>60); Glucose 92 mg/dL (80-110); HEMOLYSIS < 15 (0-50); Magnesium 2.1 mg/dL (1.6-2.3); Potassium 4.2 mmol/L (3.4-5.1); Sodium 138 mmol/L (137-145)
[2021-08-16] MEDS: dilTIAZem CD 180 MG CAP PO (08:32)
[2021-08-16] MEDS: PANTOPRAZOLE 40 MG VIAL IV ×2 (08:32→20:33)
[2021-08-16] MEDS: predniSONE 5 MG TABLET PO (08:32)
[2021-08-16] MEDS: SOTALOL 80 MG TABLET PO ×2 (08:32→20:32)
[2021-08-16] MEDS: SODIUM CHLORIDE 0.9% FLUSH 10 ML IV ×2 (08:42→20:33)
[2021-08-16 11:18] LABS: Clostridium Difficile Tox PCR Negative for C. diff (Negative)
[2021-08-16] MEDS: methylPREDNISolone 125 MG/2 ML VIAL 60 MG IV (14:35)
--- NOTE | 2021-08-16 15:17 | CM.DANOTE ---
DCP/Assessment: Reviewed chart. Patient is a 71yr old male admitted to [facility] with Chrohn's exacerbation. PCP is Dr. Tang. Primary payor is 1)Medicare 2)[employer]. Met with patient this AM explained CM/SW role. Patient reports that he is I with all ADL's. Patient newly diagnosed with Chrohn's disease and seeks active treatment at [facility] as outpatient. At this time patient does not anticipate any d/c planning needs. CM team following closely. P: Anticipate home when medically stable. PAM Discharge Planning/Care Management CM Discharge Assessment Start: 08/16/21 15:14 Freq: Status: Active Protocol: Document 08/16/21 15:14 PAM (Rec: 08/16/21 15:17 PAM [id number]) Discharge Planning Assessment Assigned Business Account Leader EMILY Maradiaga Contact Information Stefanie Carney (life partner ) # [phone] Advance Directives? Yes Advance Directives on File No History Provided By Patient,Medical Record Prior Living Arrangements House Type of transporation used prior to Drives own vehicle admit Independent with ADL's Yes Is patient alert and oriented? Yes Caregiver for Another No Barriers to Discharge No Discharge Plan Home Transportation Arrangement Family/friend Referrals Initiated Other Additional Comment None needed at time of initial assessment. Patient requesting to d/c home as soon as possible. Provider noitified this AM in rounds. Whiteboard Updated in Patient Room with Yes name and ext. # of Business Account Leader Review Status In Process Next Review Type Continued Stay Review
--- NOTE | 2021-08-16 18:48 | PC.NURSE ---
Pt is AxOx4, independent and cooperative. VSS, pt denies pain. HH stable: 8.6/26.5. C-diff negative. Pt has loose stool x1. Pt is eating well and sleeping well. No other changes. Continue monitor.
--- NOTE | 2021-08-16 20:30 | PM.PN.1 ---
Subjective Subjective Date Patient Seen: 08/16/21 Time Patient Seen: 08:00 Interval history: He is irritable. He continues to have loose stool, with less diarrhea. His fatigue, shortness of breath, dizziness, have resolved with blood transfusion Exam Vital Signs (past 8 hours): - 08/16/21 16:00 08/16/21 19:45 Temperature 97.6 F 97.4 F L Pulse Rate 65 69 Respiratory Rate 18 18 Blood Pressure 127/60 133/62 Pulse Oximetry 97 97 Oxygen Delivery Method Room Air Oxygen Flow Rate 0 Narrative Exam Narrative: GEN: no acute distress CV: regular rate and rhythm ABD: soft, nontender, nondistended Objective Labs Result Diagrams: 08/16/21 05:10 08/16/21 05:10 Labs: Laboratory Results - last 24 hr 08/15/21 08/15/21 08/16/21 00:03 16:13 00:03 WBC RBC Hgb Cancelled Hct Cancelled MCV MCH MCHC RDW Plt Count Neut % (Auto) Lymph % (Auto) [place] % (Auto) Eos % (Auto) Baso % (Auto) Neut # (Auto) Lymph # (Auto) [place] # (Auto) Eos # (Auto) Baso # (Auto) PT 21.0 H INR 1.9 H Sodium Potassium Chloride Carbon Dioxide BUN Creatinine Estimated GFR BUN/Creatinine Ratio Glucose Calcium Magnesium C. difficile Tox (PCR) Crossmatch See Detail 08/16/21 08/16/21 08/16/21 00:03 05:10 05:10 WBC 9.6 RBC 3.41 L Hgb 8.2 L 8.6 L Hct 25.8 L 26.5 L MCV 77.7 L MCH 25.3 L MCHC 32.5 RDW 19.7 H Plt Count 325 Neut % (Auto) 63.0 D Lymph % (Auto) 15.8 L [place] % (Auto) 13.6 Eos % (Auto) 3.4 Baso % (Auto) 4.2 H Neut # (Auto) 6100 Lymph # (Auto) 1500 [place] # (Auto) 1300 H Eos # (Auto) 300 Baso # (Auto) 400 H PT INR Sodium 138 Potassium 4.2 Chloride 107 Carbon Dioxide 28 BUN 7 L Creatinine 0.98 Estimated GFR > 60 BUN/Creatinine Ratio 7.1 Glucose 92 Calcium 8.1 L Magnesium 2.1 C. difficile Tox (PCR) Crossmatch 06/07/22 10:00 WBC RBC Hgb Hct MCV MCH MCHC RDW Plt Count Neut % (Auto) Lymph % (Auto) [place] % (Auto) Eos % (Auto) Baso % (Auto) Neut # (Auto) Lymph # (Auto) [place] # (Auto) Eos # (Auto) Baso # (Auto) PT INR Sodium Potassium Chloride Carbon Dioxide BUN Creatinine Estimated GFR BUN/Creatinine Ratio Glucose Calcium Magnesium C. difficile Tox (PCR) Negative for c. diff Crossmatch [facility], 1928–1983 Medical History (Updated 08/15/21 @ 20:44 by CURTIS Cervantes) Arthritis of both wrists CAD (coronary artery disease) (~2009) Cardiac arrhythmia (~2009) Cataracts, bilateral (~2003) Chest pain Crohn's disease (~2012) Dyslipidemia Hyperlipidemia Hypertension Osteoarthritis Paresthesia Prostate cancer (~2010) Skin cancer Symptomatic anemia Surgical History Anesthesia H/O hernia repair History of heart artery stent (~2009) History of knee replacement History of prostate surgery (~2012) Family History (Updated 08/15/21 @ 22:22 by CURTIS Cervantes) Father History of heart disease Myocardial infarction Mother Crohn's disease Social History household members: spouse Smoking Status: Former smoker alcohol intake: current Assessment & Plan Assessment & Plan narrative: 1. Acute GI bleeding due to acute Crohn's flare -patient transfused for blood loss anemia with good response in hgb and symptoms -as outpatient has been maintained on prednisone 5mg and recently attempted induction on entyvio -c diff negative -had recent colonoscopy last month, and this sounds like continuation of that flare, think repeat colonoscopy not indicated currently -will plan for burst of prednisone to put patient in remission and ideally allow entyvio to keep patient in remission -patient requests to go home, but have recommended to stay to make sure can tolerate diet and bloody diarrhea improves -advance diet -dietary consult 2. Atrial fibrillation -hold coumadin for now -will order lovenox as bleeding is improved and high risk of vte in IBD -consider restarting coumadin on dc vs follow up with outpatient physicians -continue sotalol Time Spent With Patient Critical Care time: I spent a total of [] minutes of critical care time on this patient's care today; this time is exclusive of procedural time. Quality VTE Deep Vein Thrombosis/Pulmonary Embolism Present on Admission: No
[2021-08-16] MEDS: ATORVASTATIN 20 MG TABLET PO (20:32)
[2021-08-17] VITALS: BP 133/74; PULSE 63; RESP 18; TEMP 36.2; O2SAT 96
[2021-08-17] MEDS: MELATONIN 3 MG TABLET 6 MG PO (00:05)
[2021-08-17 02:00] VITALS: O2SAT 95
[2021-08-17 04:00] VITALS: BP 138/75; PULSE 65; RESP 18; TEMP 36.5; O2SAT 97
[2021-08-17 05:02] LABS: Add Manual Diff / Slide Review NO; Basophils Absolute Auto 0 /uL (0-100); Basophils Percent Auto 0.1 % (0-2); Eosinophils Absolute Auto 0 /uL (0-450); Hematocrit 23.3 % (41-53); Hemoglobin 7.7 g/dL (13.5-17.5); Lymphocytes Absolute Auto 400 /uL (1100-4500); Lymphocytes Percent Auto 5.1 % (25-40); Mean Corpuscular Hemoglobin 25.5 PG (26-34); Mean Corpuscular Volume 77.2 fL (80-100); Monocytes Absolute Auto 500 /uL (0-900); Monocytes Percent Auto 6.1 % (3-14); Neutrophils Absolute Auto 7600 /uL (1500-7000); Neutrophils Percent Auto 88.7 % (50-75); Platelet Count 282 X10^3/uL (150-400); Red Blood Cell Count 3.03 X10^6/uL (4.5-5.9); Red Cell Distribution Width 19.6 % (11.6-14.8); White Blood Cell Count 8.6 X10^3/uL (4.5-11.0)
[2021-08-17 05:22] LABS: BUN Creatinine Ratio 11.1 (6-22); Blood Urea Nitrogen 9 mg/dL (9-20); Calcium 7.9 mg/dL (8.4-10.2); Carbon Dioxide 25 mmol/L (22-32); Chloride 107 mmol/L (98-107); Estimated Glomerular Filt Rate > 60 mL/min (>60); Glucose 142 mg/dL (80-110); HEMOLYSIS < 15 (0-50); Magnesium 2.1 mg/dL (1.6-2.3); Potassium 4.3 mmol/L (3.4-5.1); Sodium 137 mmol/L (137-145)
[2021-08-17 08:00] VITALS: BP 142/66; PULSE 66; RESP 17; TEMP 36.2; O2SAT 98
[2021-08-17] MEDS: dilTIAZem CD 180 MG CAP PO (09:20)
[2021-08-17] MEDS: SOTALOL 80 MG TABLET PO (09:20)
[2021-08-17] MEDS: PANTOPRAZOLE 40 MG VIAL IV (09:21)
[2021-08-17] MEDS: methylPREDNISolone 125 MG/2 ML VIAL 60 MG IV (09:21)
[2021-08-17 09:32] VITALS: PULSE 79; RESP 18; O2SAT 96
--- NOTE | 2021-08-17 10:08 | PC.NURSE ---
Assess-Patient is anxious to discharge home. His bowel tones are hypoactive, his crit has dropped a small amount to 7.7 and 23.3 from 8.6 and 26.5. He denies pain, took his medications. We have held his lovenox until talking to the Doctor as he is here for a cohrns flare up. Voices no needs at this time.
[2021-08-17 11:57] VITALS: BP 146/88; PULSE 69; RESP 18; TEMP 36.6; O2SAT 97
[2021-08-17 12:24] LABS: Hematocrit 24.8 % (41-53)
--- NOTE | 2021-08-17 13:26 | PM.DS.1 ---
History of Present Illness History of Present Illness Date Patient Seen: 08/17/21 Chief complaint: Crohn's and UC, Antivia Treatment, Dizzy/Heart Iss Narrative: Eliezer Blair is 71-year-old male with past medical history for AFib, coronary artery disease status post 2 drug-eluting stents to the LAD and RCA, atrial fibrillation anticoagulated on warfarin and Crohn's disease of large intestine presented to the ED with 2 months of worsening lightheadedness, 5 days of worsening epigastric cramping and pain.? Patient last Crohn's flare has lasted for 2 months, during which the patient reports worsening lightheadedness, exertional dyspnea, fatigue.? Patient has been taking prednisone for the last 2 months, which is being currently tapered down.? Patient was administered a 1st infusion of Entyvio 5 days ago for Crohn's, following which he experienced a new symptom of epigastric pain which he describes as burning.? Patient states that the epigastric pain is relieved with bowel movement, however it returns soon after.? Patient also complains of nausea since the Entyvio infusion.? Patient endorses chronic bloody diarrhea, and when copious, he will discontinue his warfarin on his own.? Denies fever, chills, headache, chest pain, vomiting, dysuria, or syncope.? Patient was in e-mail communication with his GI doctor this morning, who advised him to go to the ED. ? His INR was elevated to 6.8 on 08/10/2021 and was instructed to hold his warfarin which was just resumed today as his INR is now 1.8. slightly subtherapeutic.?I noted in his last cardiology note in March of this year by Dr. Capellan, that he was to start taking diltiazem in addition to sotalol as the patient had an adverse reaction to valsartan.? It does not appear that this medication was continued in a note that was prepared by Dr. Capellan on July 07 of this year. The ED provider stated his hemoglobin was 7.3, significantly less than his baseline hemoglobin of 11-14 and ordered 2 units PRBC. Patient just completed his first unit when he arrived to the floor. Chest xray was negative for any acute cardiopulmonary abnormality.? Currently the patient is a febrile, blood pressure 147/75, heart rate 72, respiratory rate 18, oxygen saturation 98% on room air he weighs 100.5 kg with a BMI of 30.2.? His hemoglobin and hematocrit were initially 7.3 and 23 upon presentation to the emergency room.? After receiving 1 unit of blood it increased to 8.2 and 25.8.? His PT INR on presentation to the emergency department was 20.2 and 1.8 respectively and it is currently 21.0 and 1.9 respectively.? Pro BNP was 197, not significant, COVID-19 PCR was negative. Discharge Providers Provider Date of admission: 08/15/21 19:38 Discharge Date: 08/17/21 Primary care physician: Castro Tang MD Consults: 08/16/21 17:45 Consult to Dietitian, Adult Routine Comment: Reason For Exam: crohns flare Discharge provider: Sudhakar Fabian DO Summary Hospital Course Discharge Diagnosis: 1. Acute GI bleeding with acute blood loss anemia due to acute Crohn's flare 2. Atrial fibrillation, paroxysmal, s/p cardioversion 3. CAD, chronic Hospital Course: This is a 71-year-old male who was admitted with acute blood loss anemia secondary to a Crohn's flare. This was further probably worsened by continued warfarin for chronic atrial fibrillation. His home warfarin was held, and given that the patient was recently started on Entyvio a few days prior to admission, he was given a pulse dose of steroids improvement ultimately in his symptoms. Hemoglobin remained stable between 7 and 8 at the time of discharge, and he did respond to 1 unit of packed red blood cell transfusion adequately. He was eating and tolerating a diet at the time of discharge and his bowel movements, though frequent, were no longer bloody, and his symptoms had markedly improved. The patient reported less adverse side effects with methylprednisolone here in the hospital, as compared to home prednisone, so he was discharged with 32 mg of methylprednisolone to take daily at this time. I recommend further follow-up with his GI provider as an outpatient for continued taper depending on his response as an outpatient. Time Spent with Patient Time spent: Greater than 30 minutes Exam Vital Signs (past 8 hours): - 08/17/21 08:00 08/17/21 09:32 08/17/21 11:57 Temperature 97.2 F L 97.8 F Pulse Rate 66 79 69 Respiratory Rate 17 18 18 Blood Pressure 142/66 H 146/88 H Pulse Oximetry 98 96 97 Oxygen Delivery Method Room Air Oxygen Flow Rate 0 Narrative Exam Narrative: GEN: no acute distress CV: regular rate and rhythm ABD: soft, nontender, nondistended Ext: No edema or joint effusions Objective Labs Result Diagrams: 08/17/21 11:57 08/17/21 04:19 Labs: Laboratory Results - last 24 hr 08/17/21 08/17/21 08/17/21 04:19 04:19 11:57 WBC 8.6 RBC 3.03 L Hgb 7.7 L 8.0 L Hct 23.3 L 24.8 L MCV 77.2 L MCH 25.5 L MCHC 33.0 RDW 19.6 H Plt Count 282 Neut % (Auto) 88.7 H D Lymph % (Auto) 5.1 L [place] % (Auto) 6.1 Eos % (Auto) 0.0 L Baso % (Auto) 0.1 Neut # (Auto) 7600 H Lymph # (Auto) 400 L [place] # (Auto) 500 Eos # (Auto) 0 Baso # (Auto) 0 Sodium 137 Potassium 4.3 Chloride 107 Carbon Dioxide 25 BUN 9 Creatinine 0.81 Estimated GFR > 60 BUN/Creatinine Ratio 11.1 Glucose 142 H Calcium 7.9 L Magnesium 2.1 PFSH Medical History (Updated 08/15/21 @ 20:44 by CURTIS Cervantes) Arthritis of both wrists CAD (coronary artery disease) (~2009) Cardiac arrhythmia (~2009) Cataracts, bilateral (~2003) Chest pain Crohn's disease (~2012) Dyslipidemia Hyperlipidemia Hypertension Osteoarthritis Paresthesia Prostate cancer (~2010) Skin cancer Symptomatic anemia Surgical History Anesthesia H/O hernia repair History of heart artery stent (~2009) History of knee replacement History of prostate surgery (~2012) Family History (Updated 08/15/21 @ 22:22 by CURTIS Cervantes) Father History of heart disease Myocardial infarction Mother Crohn's disease Social History household members: spouse Smoking Status: Former smoker alcohol intake: current Discharge Plan Discharge Plan Patient Disposition: Home Provider Discharge Comment: You were admitted to the hospital with flare of UC / crohns. Improved with steroids. Please follow up with GI physician as scheduled for further instructions on steroid taper. Discharge orders & Medications Prescriptions: New pantoprazole 40 mg tablet,delayed release (DR/EC) 40 mg PO DAILY 30 Days Qty: 30 0RF oxycodone 5 mg tablet 5 mg PO TID PRN (Reason: pain) 7 Days Qty: 10 0RF methylprednisolone 32 mg tablet 32 mg PO DAILY 14 Days Qty: 14 0RF Continued sotalol 80 mg tablet 80 mg PO BID 0RF rosuvastatin 10 mg tablet 10 mg PO DAILY 0RF Discontinued prednisone 5 mg Tablet 5 mg PO DAILY 0RF Label Comments: pt took 10mg this AM and was to start 5mg tomorrow AM (08/16) for taper warfarin 5 mg tablet 2.5 mg PO DAILY 0RF Follow up/Referrals: Castro Tang MD [Primary Care Provider] - Diet/Activity/Treatments Diet: Diet as Tolerated Activity: As tolerated Visit Report/Discharge Packet Instructions: DI for Crohns Disease, Gastrointestinal Bleeding, Prednisone Discharge Data Primary Care Provider: Castro Tang Attending Provider: Carlene Osuna VTE Deep Vein Thrombosis/Pulmonary Embolism Present on Admission: No
== END 2021-08-17 14:39 | disposition home or self-care (01) ==
LOC: ED 19:38 → AC 19:39
PROVIDERS: Emergency Medicine; Internal Medicine; Admitting Provider Nurse Practitioner Family; Emergency Provider Student in an Organized Health Care Education/Training Program; Family Provider Family Medicine; PCP Family Medicine; Visit Provider Nurse Practitioner Family
DX: D62 Acute posthemorrhagic anemia (principal); I48.0 Paroxysmal atrial fibrillation; R42 Dizziness and giddiness; K50.111 Crohn's disease of large intestine with rectal bleeding; I25.10 Atherosclerotic heart disease of native coronary artery without angina pectoris; Z79.01 Long term (current) use of anticoagulants; Z20.822 Contact with and (suspected) exposure to COVID-19
CPT/HCPCS: 36415; 36430; 71046; 80048; 80053; 81003; 82550; 83690; 83735; 83880; 84484; 85014; 85018; 85025; 85610; 85730; 86850; 86900; 86901; 87045; 87493; 87635; 87899; 93005; 93010; 94760; 96374; 96375; 96376; 99285; C9803; G0378; P9016; C9113; J2405; J2930

== ENCOUNTER → 2021-08-23 10:43 | Outpatient (CLI) | payer MEDICARE, OTHER, SELFPAY ==
[2021-08-15 20:11] VITALS: BMI 30.2
[2021-08-23 11:56] LABS: Add Manual Diff / Slide Review NO; Basophils Absolute Auto 0 /uL (0-100); Basophils Percent Auto 0.1 % (0-2); Eosinophils Absolute Auto 100 /uL (0-450); Eosinophils Percent Auto 1.4 % (2-4); Hematocrit 26.3 % (41-53); Hemoglobin 8.5 g/dL (13.5-17.5); Lymphocytes Absolute Auto 400 /uL (1100-4500); Mean Corpuscular HGB Conc 32.2 % (30-36); Mean Corpuscular Hemoglobin 24.3 PG (26-34); Mean Corpuscular Volume 75.4 fL (80-100); Monocytes Absolute Auto 1000 /uL (0-900); Monocytes Percent Auto 9.8 % (3-14); Neutrophils Absolute Auto 8200 /uL (1500-7000); Neutrophils Percent Auto 84.7 % (50-75); Platelet Count 418 X10^3/uL (150-400); Red Blood Cell Count 3.49 X10^6/uL (4.5-5.9); Red Cell Distribution Width 20.7 % (11.6-14.8); White Blood Cell Count 9.7 X10^3/uL (4.5-11.0)
[2021-08-23 12:05] LABS: Anisocytosis 2+
== END ==
PROVIDERS: Family Provider Family Medicine; PCP Family Medicine; Referring Provider Internal Medicine Gastroenterology; Visit Provider Internal Medicine Gastroenterology
DX: K50.111 Crohn's disease of large intestine with rectal bleeding (principal)
CPT/HCPCS: 36415; 85025

== ENCOUNTER 2021-08-29 14:59 | Emergency (ER) | payer MEDICARE, OTHER, SELFPAY ==
[2021-08-15 20:11] VITALS: BMI 30.2
[2021-08-29] VITALS (25 sets, daily range): BP systolic 122–159; BP diastolic 61–76; PULSE 62–79; RESP 16–51; TEMP 36.6–36.9; O2SAT 90–99; BMI 28.5
[2021-08-29 16:44] LABS: Add Manual Diff / Slide Review NO; Basophils Absolute Auto 0 /uL (0-100); Basophils Percent Auto 0.1 % (0-2); Eosinophils Absolute Auto 0 /uL (0-450); Eosinophils Percent Auto 0.2 % (2-4); Hematocrit 24.9 % (41-53); Lymphocytes Absolute Auto 400 /uL (1100-4500); Lymphocytes Percent Auto 3.8 % (25-40); Mean Corpuscular Hemoglobin 23.4 PG (26-34); Mean Corpuscular Volume 73.3 fL (80-100); Monocytes Absolute Auto 300 /uL (0-900); Monocytes Percent Auto 3.7 % (3-14); Neutrophils Absolute Auto 8400 /uL (1500-7000); Neutrophils Percent Auto 92.2 % (50-75); Platelet Count 383 X10^3/uL (150-400); Red Cell Distribution Width 22.3 % (11.6-14.8); White Blood Cell Count 9.2 X10^3/uL (4.5-11.0)
[2021-08-29] MEDS: ONDANSETRON 4 MG/2 ML INJ IV (16:49)
[2021-08-29] MEDS: SODIUM CHLORIDE 0.9% 1,000 ML 1000 ML IV (16:49)
[2021-08-29 16:58] LABS: Alanine Aminotransferase 12 IU/L (<50); Albumin 2.9 g/dL (3.5-5.0); Alkaline Phosphatase 62 U/L (38-126); Aspartate Aminotransferase 20 IU/L (17-59); BUN Creatinine Ratio 15.7 (6-22); Bilirubin Total 0.5 mg/dL (0.2-1.3); Blood Urea Nitrogen 17 mg/dL (9-20); Calcium 8.3 mg/dL (8.4-10.2); Carbon Dioxide 27 mmol/L (22-32); Chloride 105 mmol/L (98-107); Estimated Glomerular Filt Rate > 60 mL/min (>60); Glucose 136 mg/dL (80-110); HEMOLYSIS < 15 (0-50); Potassium 4.4 mmol/L (3.4-5.1); Sodium 136 mmol/L (137-145); Total Protein 5.9 g/dL (6.3-8.2)
[2021-08-29] MEDS: HYDROMORPHONE 0.5 MG INJ IV ×2 (16:58→18:18)
[2021-08-29 17:36] LABS: Anisocytosis 2+
--- NOTE | 2021-08-29 18:10 | ED.GIBLEED ---
HPI - GI Bleed General Chief complaint: GI Bleed Stated complaint: COLITIS CROHNS Time Seen by Provider: 08/29/21 16:16 History of Present Illness HPI Narrative: Patient is a 71-year-old male history of atrial fibrillation, coronary artery disease with stents, Crohn's disease ulcerative colitis, anemia presenting today with increasing shortness of breath. He was seen evaluated here on August 15 through August 17 or he required a blood transfusion. At the time he had had some rectal bleeding. He says since his discharge he has had increasing shortness of breath. He says he is more short of breath all the time more so with exertion. Today in the shower he felt very light headed is but he did not pass out. He says his rectal bleeding has slowed down significantly but still present. He denies any orthopnea or cough. Was previously on Coumadin for atrial fibrillation, but held at discharge. He is on Entyvio infusions for his Crohns disease. He denies any abdominal pain nausea vomiting. Related Data Home Medications Medication Instructions Recorded Confirmed rosuvastatin 10 mg tablet 10 mg PO DAILY 10/07/19 08/15/21 sotalol 80 mg tablet 80 mg PO BID 06/28/20 08/15/21 Previous Rx's Medication Instructions Recorded methylprednisolone 32 mg tablet 32 mg PO DAILY 14 days #14 tabs 08/17/21 pantoprazole 40 mg tablet,delayed 40 mg PO DAILY 30 days #30 tabs 08/17/21 release Allergies Allergy/AdvReac Type Severity Reaction Status Date / Time No Known Drug Allergies Allergy Verified 12/15/20 07:45 Review of Systems Review of Systems Narrative: GENERAL: Denies chills, fatigue, malaise, fever, sweats, travel HEENT: Denies sinus pain, ear pain, sore throat, difficulty swallowing, neck pain RESPIRATORY: See HPI CARDIOVASCULAR: Denies chest pain, palpitations, orthopnea, edema GASTROINTESTINAL: See HPI : Denies dysuria, frequency, incontinence, hematuria, urinary retention, flank pain. MUSCULOSKELETAL: Denies weakness, joint pain, or bony pain SKIN: No rash, no erythema, no pruritus NEUROLOGIC: Denies weakness, dizziness, headache, numbness, change in speech, confusion PSYCHIATRIC: No concerning psychosocial issues. 12 point review of systems is negative except for those stated above and HPI Patient History Medical History Arthritis of both wrists CAD (coronary artery disease) (~2009) Cardiac arrhythmia (~2009) Cataracts, bilateral (~2003) Chest pain Crohn's disease (~2012) Dyslipidemia Hyperlipidemia Hypertension Osteoarthritis Paresthesia Prostate cancer (~2010) Skin cancer Symptomatic anemia Surgical History Anesthesia H/O hernia repair History of heart artery stent (~2009) History of knee replacement History of prostate surgery (~2012) Family History Father History of heart disease Myocardial infarction Mother Crohn's disease Social History household members: spouse Smoking Status: Former smoker alcohol intake: current Smoking Status: Former smoker alcohol intake frequency: a few times a month Substance Use Type: does not use Exam Initial Vital Signs Initial Vital Signs: Vital Signs Temperature 97.8 F 08/29/21 15:35 Pulse Rate 73 08/29/21 15:35 Respiratory Rate 16 08/29/21 15:35 Blood Pressure 136/76 08/29/21 15:35 Pulse Oximetry 97 08/29/21 15:35 Oxygen Delivery Method 08/29/21 15:35 GENERAL: Alert pleasant well-appearing 71-year-old male and in no acute distress. HEENT: Head atraumatic,EOMI, pupils reactive, face symmetric, moist mucous membranes CARDIOVASCULAR: Regular rate and rhythm without murmurs, rubs or gallops. RESPIRATORY: Breath sounds equal bilaterally, no wheezes rales or rhonchi. ABDOMEN: Soft, nontender. Normoactive bowel sounds all 4 quadrants. No guarding or rebound. EXTREMITIES: Normal range of motion, no clubbing or edema. Neurovascularly intact NEUROLOGICAL: Alert and oriented x4.Normal gait and speech. SKIN: Warm, dry, no laceration, no petechiae, no rashes or lesions. Course Orders Ordered: ED Orders 08/29/21 16:15 BNP [NT-proBNP (BNP-Adult 18+)] Stat Complete Blood Count AUTO DIFF Stat Comprehensive Metabolic Panel Stat D Dimer Stat Lactate (Lactic Acid) Stat PRBC [Packed Cells] Stat PTT [Partial Thromboplastin Time] Stat Prothrombin Time INR Stat Troponin & CK Cardiac Panel Stat Type and Screen Stat 08/29/21 16:40 COVID19 -Nasal RAPID/Pre-Proc Stat 08/29/21 18:07 EKG-12 Lead Stat 08/29/21 18:14 XR chest 1V Stat Discontinued Medications Hydromorphone HCl (Hydromorphone 0.5 Mg Inj) 0.5 mg IV Q15MIN PRN PRN Reason: Pain, Last Admin: 08/29/21 18:18 Dose: 0.5 mg Documented By: MLJayro Admin: 08/29/21 16:58 Dose: 0.5 mg Documented By: AT Sodium Chloride (Normal Saline 0.9%) 1,000 mls @ 1,000 mls/hr IV BOLUS ONE Stop: 08/29/21 17:15 Last Infusion: 08/29/21 18:13 Dose: 0 mls/hr Documented By: MLJayro Admin: 08/29/21 16:49 Dose: 1,000 mls/hr Documented By: ALENA Ondansetron HCl (Ondansetron 4 Mg/2 Ml Inj) 4 mg IV NOW ONE Stop: 08/29/21 16:17 Last Admin: 08/29/21 16:49 Dose: 4 mg Documented By: ALENA Vital Signs Vital signs: Vital Signs - 8 hr 08/29/21 15:35 08/29/21 19:35 08/29/21 19:51 Temperature 97.8 F 98.1 F 98.2 F Pulse Rate 73 66 62 Respiratory Rate 16 16 18 Blood Pressure 136/76 148/67 H 122/61 Pulse Oximetry 97 Oxygen Delivery Method Room Air 08/29/21 17:24 08/29/21 17:25 08/29/21 17:25 Temperature Pulse Rate 66 64 Respiratory Rate 25 H 25 H Blood Pressure 137/66 Pulse Oximetry 98 99 Oxygen Delivery Method 08/29/21 17:30 08/29/21 18:00 08/29/21 18:30 Temperature Pulse Rate 62 62 65 Respiratory Rate 18 17 20 Blood Pressure Pulse Oximetry 99 Oxygen Delivery Method 08/29/21 19:00 08/29/21 19:28 08/29/21 19:28 Temperature Pulse Rate 64 66 Respiratory Rate 20 35 H Blood Pressure 145/70 H Pulse Oximetry Oxygen Delivery Method 08/29/21 19:30 08/29/21 19:30 08/29/21 19:45 Temperature Pulse Rate 67 62 Respiratory Rate 19 18 Blood Pressure 148/67 H Pulse Oximetry 96 95 Oxygen Delivery Method 08/29/21 19:51 08/29/21 20:15 08/29/21 21:09 Temperature 98.2 F 98.2 F Pulse Rate 66 64 69 Respiratory Rate 16 Blood Pressure 134/62 159/69 H Pulse Oximetry 96 Oxygen Delivery Method 08/29/21 20:00 08/29/21 20:00 08/29/21 20:16 Temperature Pulse Rate 70 64 Respiratory Rate 26 H 19 Blood Pressure 150/70 H Pulse Oximetry 97 94 Oxygen Delivery Method 08/29/21 20:30 08/29/21 20:46 08/29/21 20:47 Temperature Pulse Rate 79 77 77 Respiratory Rate 51 H 19 17 Blood Pressure Pulse Oximetry 90 L 99 99 Oxygen Delivery Method 08/29/21 21:00 08/29/21 21:07 08/29/21 21:09 Temperature Pulse Rate 78 73 69 Respiratory Rate Blood Pressure Pulse Oximetry 99 99 99 Oxygen Delivery Method 08/29/21 22:05 08/29/21 21:30 08/29/21 21:31 Temperature 98.4 F Pulse Rate 70 68 Respiratory Rate Blood Pressure 145/65 H 133/62 Pulse Oximetry 96 Oxygen Delivery Method 08/29/21 21:31 08/29/21 22:00 08/29/21 22:00 Temperature Pulse Rate 69 70 Respiratory Rate Blood Pressure 145/65 H Pulse Oximetry 97 97 Oxygen Delivery Method MDM - GI Bleed Lab Data Result diagrams: 08/29/21 16:15 08/29/21 16:15 Labs: Lab Results 08/29/21 08/29/21 08/29/21 Range/Units 16:15 16:15 16:15 WBC 9.2 (4.5-11.0) X10^3/uL RBC 3.40 L (4.5-5.9) X10^6/uL Hgb 8.0 L (13.5-17.5) g/dL Hct 24.9 L (41-53) % MCV 73.3 L (80-100) fL MCH 23.4 L (26-34) PG MCHC 32.0 (30-36) % RDW 22.3 H (11.6-14.8) % Plt Count 383 (150-400) X10^3/uL Neut % (Auto) 92.2 H (50-75) % Lymph % (Auto) 3.8 L (25-40) % [place] % (Auto) 3.7 (3-14) % Eos % (Auto) 0.2 L (2-4) % Baso % (Auto) 0.1 (0-2) % Neut # (Auto) 8400 H (2610-2998) /uL Lymph # (Auto) 400 L (1573-1216) /uL [place] # (Auto) 300 (0-900) /uL Eos # (Auto) 0 (0-450) /uL Baso # (Auto) 0 (0-100) /uL RBC Morphology See below Anisocytosis 2+ H PT (10.1-12.7) SECONDS INR (0.9-1.3) APTT (26.4-36.2) SECONDS D-Dimer (<230) ng/mL Sodium 136 L (137-145) mmol/L Potassium 4.4 (3.4-5.1) mmol/L Chloride 105 (98-107) mmol/L Carbon Dioxide 27 (22-32) mmol/L BUN 17 (9-20) mg/dL Creatinine 1.08 (0.66-1.25) mg/dL Estimated GFR > 60 (>60) mL/min BUN/Creatinine Ratio 15.7 (6-22) Glucose 136 H (80-110) mg/dL Lactate (0.7-2.1) mmol/L Calcium 8.3 L (8.4-10.2) mg/dL Total Bilirubin 0.5 (0.2-1.3) mg/dL AST 20 (17-59) IU/L ALT 12 (<50) IU/L Alkaline Phosphatase 62 (38-126) U/L Total Creatine Kinase (55-170) U/L CK-MB (CK-2) CK-MB (CK-2) Rel Index Troponin I (0.01-0.034) ng/mL NT-Pro-B Natriuret Pep (<125) pg/mL Total Protein 5.9 L (6.3-8.2) g/dL Albumin 2.9 L (3.5-5.0) g/dL Globulin 3.0 (1.7-4.1) g/dL Albumin/Globulin Ratio 1.0 (1.0-2.8) SARS-CoV-2 (PCR) (Negative) Blood Type O Positive Antibody Screen Negative Crossmatch See Detail 08/29/21 08/29/21 08/29/21 Range/Units 16:15 16:15 16:15 WBC (4.5-11.0) X10^3/uL RBC (4.5-5.9) X10^6/uL Hgb (13.5-17.5) g/dL Hct (41-53) % MCV (80-100) fL MCH (26-34) PG MCHC (30-36) % RDW (11.6-14.8) % Plt Count (150-400) X10^3/uL Neut % (Auto) (50-75) % Lymph % (Auto) (25-40) % [place] % (Auto) (3-14) % Eos % (Auto) (2-4) % Baso % (Auto) (0-2) % Neut # (Auto) (5012-2568) /uL Lymph # (Auto) (3202-3480) /uL [place] # (Auto) (0-900) /uL Eos # (Auto) (0-450) /uL Baso # (Auto) (0-100) /uL RBC Morphology Anisocytosis PT 16.5 H (10.1-12.7) SECONDS INR 1.4 H (0.9-1.3) APTT 25 L D (26.4-36.2) SECONDS D-Dimer 469 H (<230) ng/mL Sodium (137-145) mmol/L Potassium (3.4-5.1) mmol/L Chloride (98-107) mmol/L Carbon Dioxide (22-32) mmol/L BUN (9-20) mg/dL Creatinine (0.66-1.25) mg/dL Estimated GFR (>60) mL/min BUN/Creatinine Ratio (6-22) Glucose (80-110) mg/dL Lactate 1.5 (0.7-2.1) mmol/L Calcium (8.4-10.2) mg/dL Total Bilirubin (0.2-1.3) mg/dL AST (17-59) IU/L ALT (<50) IU/L Alkaline Phosphatase (38-126) U/L Total Creatine Kinase < 20 L (55-170) U/L CK-MB (CK-2) TNP CK-MB (CK-2) Rel Index TNP Troponin I < 0.012 (0.01-0.034) ng/mL NT-Pro-B Natriuret Pep (<125) pg/mL Total Protein (6.3-8.2) g/dL Albumin (3.5-5.0) g/dL Globulin (1.7-4.1) g/dL Albumin/Globulin Ratio (1.0-2.8) SARS-CoV-2 (PCR) (Negative) Blood Type Antibody Screen Crossmatch 08/29/21 08/29/21 Range/Units 16:15 16:40 WBC (4.5-11.0) X10^3/uL RBC (4.5-5.9) X10^6/uL Hgb (13.5-17.5) g/dL Hct (41-53) % MCV (80-100) fL MCH (26-34) PG MCHC (30-36) % RDW (11.6-14.8) % Plt Count (150-400) X10^3/uL Neut % (Auto) (50-75) % Lymph % (Auto) (25-40) % [place] % (Auto) (3-14) % Eos % (Auto) (2-4) % Baso % (Auto) (0-2) % Neut # (Auto) (3969-7346) /uL Lymph # (Auto) (7016-5376) /uL [place] # (Auto) (0-900) /uL Eos # (Auto) (0-450) /uL Baso # (Auto) (0-100) /uL RBC Morphology Anisocytosis PT (10.1-12.7) SECONDS INR (0.9-1.3) APTT (26.4-36.2) SECONDS D-Dimer (<230) ng/mL Sodium (137-145) mmol/L Potassium (3.4-5.1) mmol/L Chloride (98-107) mmol/L Carbon Dioxide (22-32) mmol/L BUN (9-20) mg/dL Creatinine (0.66-1.25) mg/dL Estimated GFR (>60) mL/min BUN/Creatinine Ratio (6-22) Glucose (80-110) mg/dL Lactate (0.7-2.1) mmol/L Calcium (8.4-10.2) mg/dL Total Bilirubin (0.2-1.3) mg/dL AST (17-59) IU/L ALT (<50) IU/L Alkaline Phosphatase (38-126) U/L Total Creatine Kinase (55-170) U/L CK-MB (CK-2) CK-MB (CK-2) Rel Index Troponin I (0.01-0.034) ng/mL NT-Pro-B Natriuret Pep 422 H (<125) pg/mL Total Protein (6.3-8.2) g/dL Albumin (3.5-5.0) g/dL Globulin (1.7-4.1) g/dL Albumin/Globulin Ratio (1.0-2.8) SARS-CoV-2 (PCR) Negative (Negative) Blood Type Antibody Screen Crossmatch Imaging Data Chest x-ray: Radiologist's Impression: XRay Report Signed Patient: Eliezer Blair MR#: [id number] : 1950 Acct:[id number] Age/Sex: 71 / M Date of Service: 08/29/21 Loc: ED Accession Number: [id number] ?? Procedure: XR chest 1V Ordering Provider: Nayely Boswell D.O. PROCEDURE:? XR CHEST 1V ? INDICATIONS:? short of breath ? TECHNIQUE:? One view of the chest was acquired.? ? COMPARISON:? [facility], , XR CHEST 2V, 08/15/2021, 15:41. ? FINDINGS:? ? Surgical changes and devices:? None.? ? Lungs and pleura:? Lungs are clear.? No pleural effusions or pneumothorax.? ? Mediastinum:? Mediastinal contours appear normal.? Heart size is normal.? ? Bones and chest wall:? No suspicious bony lesions.? Overlying soft tissues appear unremarkable.? ? IMPRESSION:? No acute process. ? ? Dictated by: Rowena Mahoney M.D. on 08/29/2021 at 18:3 ECG Data Interpretation: Normal sinus rhythm rate 67 MO interval 144 QRS 106 QTC 452 T-wave inversion noted in lead [address] changes similar to previous MDM Narrative Medical decision making narrative: Patient is becoming more short of breath with exertion. He is not hypoxic or tachycardic. Hemoglobin actually seems to be quite stable but he is likely pretty symptomatic. D-dimer age corrects, he did have a very brief hospital stay possible PE but I do think more likely related to his anemia. BNP is in the 400s it has been higher in the 1000 probably not related to CHF though possible. He is given 1 unit of packed red blood cells. He is actually feeling a bit better. I recommend rechecking his anemia with his primary care provider if things are getting worse then return for further evaluation and workup. Discharge Plan Departure Patient Disposition: Home Clinical Impression: Anemia Instructions: Anemia Activity Restrictions/Additional Instructions: *You have been diagnosed with anemia *What to do: I hope this blood makes you feel better. Please have your blood rechecked in about 1 week with your doctors *Continue to take medications as directed *Follow up with your primary care provider in 2-3 days or call [phone] *Return to ER if you should have increasing shortness of breath chest pain worsening bloody stool or any new, worsening or concerning symptoms Prescriptions: No Action sotalol 80 mg tablet 80 mg PO BID rosuvastatin 10 mg tablet 10 mg PO DAILY pantoprazole 40 mg tablet,delayed release (DR/EC) 40 mg PO DAILY 30 Days Qty: 30 0RF methylprednisolone 32 mg tablet 32 mg PO DAILY 14 Days Qty: 14 0RF Referrals: Castro Tang MD [Primary Care Provider] - Visit Report Forms: Patient Portal/API
--- NOTE | 2021-08-29 18:14 | DI.RAD.S_ITS ---
PROCEDURE: XR CHEST 1V INDICATIONS: short of breath TECHNIQUE: One view of the chest was acquired. COMPARISON: [facility], CR, XR CHEST 2V, 08/15/2021, 15:41. FINDINGS: Surgical changes and devices: None. Lungs and pleura: Lungs are clear. No pleural effusions or pneumothorax. Mediastinum: Mediastinal contours appear normal. Heart size is normal. Bones and chest wall: No suspicious bony lesions. Overlying soft tissues appear unremarkable. IMPRESSION: No acute process. Dictated by: Rowena Mahoney M.D. on 08/29/2021 at 18:31 Approved by: Rowena Mahoney M.D. on 08/29/2021 at 18:31
[2021-08-29 18:16] LABS: Lactate (Lactic Acid) 1.5 mmol/L (0.7-2.1)
[2021-08-29 18:20] LABS: INR 1.4 (0.9-1.3); Prothrombin Time 16.5 SECONDS (10.1-12.7)
[2021-08-29 18:21] LABS: Creatine Kinase < 20 U/L (55-170)
[2021-08-29 18:22] LABS: PTT Partial Thromboplastin Tim 25 SECONDS (26.4-36.2)
[2021-08-29 18:23] LABS: D Dimer 469 ng/mL (<230)
[2021-08-29 18:32] LABS: NT-proBNP (BNP-Adult 18+) 422 pg/mL (<125)
[2021-08-29 18:35] LABS: Troponin I < 0.012 ng/mL (0.01-0.034)
[2021-08-29 19:15] LABS: COVID19 -Nasal RAPID Negative (Negative)
== END 2021-08-29 22:18 | disposition home or self-care (01) ==
PROVIDERS: Emergency Medicine; Emergency Provider Emergency Medicine; Family Provider Family Medicine; PCP Family Medicine
DX: D64.9 Anemia, unspecified (principal); R06.02 Shortness of breath; Z20.822 Contact with and (suspected) exposure to COVID-19; K50.90 Crohn's disease, unspecified, without complications
CPT/HCPCS: 36415; 36430; 71045; 80053; 82550; 83605; 83880; 84484; 85025; 85379; 85610; 85730; 86850; 86900; 86901; 87635; 93005; 96361; 96374; 96375; 99284; C9803; P9016; P9040; J1170; J2405

== ENCOUNTER → 2021-09-13 11:57 | Outpatient (CLI) | payer MEDICARE, OTHER, SELFPAY ==
[2021-08-15 20:11] VITALS: BMI 30.2
[2021-09-13 12:30] LABS: Alanine Aminotransferase 13 IU/L (<50); Albumin 3.3 g/dL (3.5-5.0); Albumin Globulin Ratio 1.1 (1.0-2.8); Alkaline Phosphatase 64 U/L (38-126); Aspartate Aminotransferase 19 IU/L (17-59); BUN Creatinine Ratio 15.9 (6-22); Bilirubin Total 0.5 mg/dL (0.2-1.3); Blood Urea Nitrogen 14 mg/dL (9-20); Calcium 8.8 mg/dL (8.4-10.2); Carbon Dioxide 30 mmol/L (22-32); Chloride 104 mmol/L (98-107); Estimated Glomerular Filt Rate > 60 mL/min (>60); Globulin 2.9 g/dL (1.7-4.1); Glucose 97 mg/dL (80-110); HEMOLYSIS < 15 (0-50); Potassium 4.5 mmol/L (3.4-5.1); Sodium 138 mmol/L (137-145); Total Protein 6.2 g/dL (6.3-8.2)
[2021-09-13 12:33] LABS: Add Manual Diff / Slide Review NO; Basophils Absolute Auto 0 /uL (0-100); Basophils Percent Auto 0.1 % (0-2); Eosinophils Absolute Auto 0 /uL (0-450); Hematocrit 30.2 % (41-53); Hemoglobin 9.4 g/dL (13.5-17.5); Lymphocytes Absolute Auto 300 /uL (1100-4500); Lymphocytes Percent Auto 3.9 % (25-40); Mean Corpuscular HGB Conc 31.2 % (30-36); Mean Corpuscular Hemoglobin 23.5 PG (26-34); Mean Corpuscular Volume 75.2 fL (80-100); Monocytes Absolute Auto 300 /uL (0-900); Monocytes Percent Auto 3.8 % (3-14); Neutrophils Absolute Auto 7600 /uL (1500-7000); Neutrophils Percent Auto 92.2 % (50-75); Platelet Count 291 X10^3/uL (150-400); Red Blood Cell Count 4.02 X10^6/uL (4.5-5.9); Red Cell Distribution Width 23.8 % (11.6-14.8); White Blood Cell Count 8.2 X10^3/uL (4.5-11.0)
[2021-09-13 12:53] LABS: Microcytosis 1+; Ovalocytes 1+
== END ==
PROVIDERS: Family Provider Family Medicine; PCP Family Medicine; Referring Provider Family Medicine; Visit Provider Family Medicine
DX: E78.5 Hyperlipidemia, unspecified (principal); D64.9 Anemia, unspecified; I10 Essential (primary) hypertension; K50.919 Crohn's disease, unspecified, with unspecified complications
CPT/HCPCS: 36415; 80053; 85025

== ENCOUNTER → 2021-09-28 11:38 | Outpatient (CLI) | payer MEDICARE, OTHER, SELFPAY ==
[2021-08-15 20:11] VITALS: BMI 30.2
[2021-09-28 12:40] LABS: Add Manual Diff / Slide Review NO; Basophils Absolute Auto 100 /uL (0-100); Basophils Percent Auto 0.7 % (0-2); Eosinophils Absolute Auto 100 /uL (0-450); Eosinophils Percent Auto 0.8 % (2-4); Hematocrit 30.2 % (41-53); Hemoglobin 9.3 g/dL (13.5-17.5); Lymphocytes Absolute Auto 400 /uL (1100-4500); Lymphocytes Percent Auto 3.4 % (25-40); Mean Corpuscular HGB Conc 30.9 % (30-36); Mean Corpuscular Hemoglobin 22.3 PG (26-34); Mean Corpuscular Volume 72.3 fL (80-100); Monocytes Absolute Auto 600 /uL (0-900); Monocytes Percent Auto 4.8 % (3-14); Neutrophils Absolute Auto 11100 /uL (1500-7000); Neutrophils Percent Auto 90.3 % (50-75); Platelet Count 245 X10^3/uL (150-400); Red Blood Cell Count 4.18 X10^6/uL (4.5-5.9); Red Cell Distribution Width 21.8 % (11.6-14.8); White Blood Cell Count 12.3 X10^3/uL (4.5-11.0)
[2021-09-28 12:51] LABS: HEMOLYSIS < 15 (0-50); Iron 29 ug/dL (49-181)
[2021-09-28 12:52] LABS: Anisocytosis 2+; Poikilocytosis 1+
[2021-09-28 13:02] LABS: Percent Iron Saturation 10 % (20-50); Total Iron Binding Capacity 304 ug/dL (261-462); Transferrin 227 mg/dL (206-381)
[2021-09-28 13:26] LABS: Ferritin 12 ng/mL (18-464)
== END ==
PROVIDERS: Family Provider Family Medicine; PCP Family Medicine; Referring Provider Family Medicine; Visit Provider Family Medicine
DX: D64.9 Anemia, unspecified (principal); E61.1 Iron deficiency; I10 Essential (primary) hypertension; K50.919 Crohn's disease, unspecified, with unspecified complications
CPT/HCPCS: 36415; 82728; 83540; 83550; 85025

== ENCOUNTER → 2021-10-19 12:55 | Outpatient (CLI) | payer MEDICARE, OTHER, SELFPAY ==
[2021-08-15 20:11] VITALS: BMI 30.2
[2021-10-19 14:27] LABS: Add Manual Diff / Slide Review NO; Basophils Absolute Auto 100 /uL (0-100); Basophils Percent Auto 1.2 % (0-2); Eosinophils Absolute Auto 100 /uL (0-450); Eosinophils Percent Auto 2.6 % (2-4); Hematocrit 32.5 % (41-53); Hemoglobin 10.1 g/dL (13.5-17.5); Lymphocytes Absolute Auto 1500 /uL (1100-4500); Lymphocytes Percent Auto 28.3 % (25-40); Mean Corpuscular HGB Conc 31.2 % (30-36); Mean Corpuscular Hemoglobin 22.8 PG (26-34); Monocytes Absolute Auto 900 /uL (0-900); Monocytes Percent Auto 16.7 % (3-14); Neutrophils Absolute Auto 2700 /uL (1500-7000); Neutrophils Percent Auto 51.2 % (50-75); Platelet Count 302 X10^3/uL (150-400); Red Blood Cell Count 4.45 X10^6/uL (4.5-5.9); Red Cell Distribution Width 23.2 % (11.6-14.8); White Blood Cell Count 5.3 X10^3/uL (4.5-11.0)
[2021-10-19 14:45] LABS: NT-proBNP (BNP-Adult 18+) 125 pg/mL (<125)
[2021-10-19 14:54] LABS: Anisocytosis 2+; Hypochromasia 1+; Microcytosis 1+
[2021-10-19 14:55] LABS: Ovalocytes 1+
[2021-10-19 15:12] LABS: Iron 83 ug/dL (49-181)
[2021-10-19 15:26] LABS: Transferrin 224 mg/dL (206-381)
[2021-10-19 22:12] LABS: HEMOLYSIS < 15 (0-50); Percent Iron Saturation 27 % (20-50); Total Iron Binding Capacity 312 ug/dL (261-462)
== END ==
PROVIDERS: Family Provider Family Medicine; PCP Family Medicine; Referring Provider Internal Medicine Cardiovascular Disease; Visit Provider Internal Medicine Gastroenterology
DX: R19.7 Diarrhea, unspecified (principal); K50.111 Crohn's disease of large intestine with rectal bleeding
CPT/HCPCS: 36415; 83540; 83550; 83880; 85025

== ENCOUNTER → 2021-11-08 10:54 | Outpatient (CLI) | payer MEDICARE, OTHER, SELFPAY ==
[2021-08-15 20:11] VITALS: BMI 30.2
[2021-11-08 12:27] LABS: Clostridium Difficile Tox PCR Positive for C. diff (Negative)
[2021-11-10 15:02] LABS: C difficie Toxins A and B, EIA Negative (Negative)
== END ==
PROVIDERS: Family Provider Family Medicine; PCP Family Medicine; Referring Provider Internal Medicine Gastroenterology; Visit Provider Internal Medicine Gastroenterology
DX: R19.7 Diarrhea, unspecified (principal); K50.10 Crohn's disease of large intestine without complications
CPT/HCPCS: 87324; 87493

== ENCOUNTER → 2021-11-30 12:18 | Outpatient (CLI) | payer MEDICARE, OTHER, SELFPAY ==
[2021-08-15 20:11] VITALS: BMI 30.2
[2021-11-30 13:03] LABS: Add Manual Diff / Slide Review NO; Basophils Absolute Auto 100 /uL (0-100); Basophils Percent Auto 0.6 % (0-2); Eosinophils Absolute Auto 100 /uL (0-450); Eosinophils Percent Auto 0.7 % (2-4); Hematocrit 39.9 % (41-53); Lymphocytes Absolute Auto 700 /uL (1100-4500); Lymphocytes Percent Auto 7.2 % (25-40); Mean Corpuscular HGB Conc 32.5 % (30-36); Mean Corpuscular Hemoglobin 25.7 PG (26-34); Monocytes Absolute Auto 300 /uL (0-900); Monocytes Percent Auto 2.5 % (3-14); Neutrophils Absolute Auto 9300 /uL (1500-7000); Platelet Count 215 X10^3/uL (150-400); Red Blood Cell Count 5.05 X10^6/uL (4.5-5.9); Red Cell Distribution Width 22.9 % (11.6-14.8); White Blood Cell Count 10.5 X10^3/uL (4.5-11.0)
[2021-11-30 13:20] LABS: Anisocytosis 1+
== END ==
PROVIDERS: Family Provider Family Medicine; PCP Family Medicine; Referring Provider Internal Medicine Gastroenterology; Visit Provider Internal Medicine Gastroenterology
DX: R19.7 Diarrhea, unspecified (principal); K50.10 Crohn's disease of large intestine without complications
CPT/HCPCS: 36415; 85025

== ENCOUNTER → 2021-12-06 14:59 | Outpatient (CLI) | payer MEDICARE, OTHER, SELFPAY ==
[2021-08-15 20:11] VITALS: BMI 30.2
[2021-12-09 15:32] LABS: Calprotectin, Stool 1615 ug/g (0-120)
== END ==
PROVIDERS: Family Provider Family Medicine; PCP Family Medicine; Referring Provider Internal Medicine Gastroenterology; Visit Provider Internal Medicine Gastroenterology
DX: R19.7 Diarrhea, unspecified (principal); K50.10 Crohn's disease of large intestine without complications
CPT/HCPCS: 83993

== ENCOUNTER → 2021-12-30 09:36 | Outpatient (CLI) | payer MEDICARE, OTHER, SELFPAY ==
[2021-08-15 20:11] VITALS: BMI 30.2
[2021-12-30 10:32] LABS: COVID19 -Nasal RAPID Negative (Negative)
--- NOTE | 2021-12-30 17:29 | DI.NM.S_ITS ---
DATE OF SERVICE: 12/30/2021 PROCEDURE: Pharmacological perfusion study. INDICATION: Coronary artery disease, AFib, history of LAD and RCA stent in 2009. RADIOPHARMACEUTICAL: 24.5 millicurie technetium-99m Myoview IV was injected at stress and 12.2 millicurie technetium-99m Myoview IV was injected at rest. CARDIAC STRESS: The patient underwent IV Lexiscan perfusion study under the supervision of an attending staff, as per standard protocol. Baseline rhythm sinus with some PACs. During stress, no convincing ischemic changes or new significant sustained arrhythmias. Baseline blood pressure 140/80. The patient did not have any chest pain. Had minimal dyspnea. RAW DATA: There is increased subdiaphragmatic activity. The patient's weight is 221 pounds. GATED STUDY: Resting LV ejection fraction 53 and stress LV ejection fraction 66 percent without any obvious wall motion abnormalities. Resting and end- diastolic volume 147 mL and TID ratio 1.07, which is within normal limits. Lung/heart ratio 0.37, which is within normal limits. MYOCARDIAL PERFUSION SCAN: The patient does not have any stress prone images. Stress supine and resting supine images were compared to each other. There appears to be predominantly fixed moderate to large size, moderate to severely decreased perfusion of inferolateral wall and mildly decreased fixed perfusion defect of mid anteroseptum. No reversible ischemia. Resting images look worse than stress supine images. CONCLUSION: 1. This is an abnormal myocardial perfusion study. 2. No reversible ischemia. 3. Predominantly fixed moderate to large size, moderate to severely decreased perfusion of inferolateral wall and mildly decreased perfusion of mid anteroseptum. Summed stress score 8 and summed rest score 12, which is worse than resting score. Most likely, patient has inferolateral infarction, as well as mid anteroseptum infarction. The patient had a perfusion study in February,, at that time also has inferior and inferolateral defect with partial reversibility. In this study, I do not see any significant inferior wall defect. Mostly fixed inferolateral wall defect. In absence of prone images, some component of tissue attenuation artifact cannot be ruled out. Left ventricular function is preserved. No transient ischemic dilatation. Hence, in absence of reversible ischemia and overall preserved ejection fraction, it is not a high-risk perfusion study. Correlate clinically. Eliezer Blair - MARIBEL/sariah/javed doc#: [id number]/job#: [id number] dd: 12/30/2021 16:59:00 dt: 12/30/2021 17:22:00 DICTATING MD/COPIES TO: Lore Horowitz MD COPIES MNE: BHAKTI;
== END ==
PROVIDERS: Family Provider Family Medicine; PCP Family Medicine; Referring Provider Internal Medicine Cardiovascular Disease; Visit Provider Internal Medicine Cardiovascular Disease
DX: R94.39 Abnormal result of other cardiovascular function study (principal); I48.91 Unspecified atrial fibrillation; I25.119 Atherosclerotic heart disease of native coronary artery with unspecified angina pectoris; R06.00 Dyspnea, unspecified; Z20.822 Contact with and (suspected) exposure to COVID-19; Z95.5 Presence of coronary angioplasty implant and graft
CPT/HCPCS: 78452; 87635; 93017; A9502; J2785

== ENCOUNTER → 2022-03-29 10:09 | Outpatient (CLI) | payer MEDICARE, OTHER, SELFPAY ==
[2021-08-15 20:11] VITALS: BMI 30.2
[2022-03-29 10:54] LABS: Hemoglobin A1C% w Est Avg Glu 5.8 % (4.0-6.0)
== END ==
PROVIDERS: Family Provider Family Medicine; PCP Family Medicine; Referring Provider Family Medicine; Visit Provider Family Medicine
DX: Z13.1 Encounter for screening for diabetes mellitus (principal); E78.5 Hyperlipidemia, unspecified; R73.9 Hyperglycemia, unspecified
CPT/HCPCS: 36415; 83036

== ENCOUNTER → 2022-04-10 12:28 | Outpatient (CLI) | payer MEDICARE, OTHER, SELFPAY ==
[2021-08-15 20:11] VITALS: BMI 30.2
[2022-04-10 13:20] LABS: BUN Creatinine Ratio 15.7 (6-22); Blood Urea Nitrogen 13 mg/dL (9-20); Carbon Dioxide 25 mmol/L (22-32); Chloride 105 mmol/L (98-107); Estimated Glomerular Filt Rate > 60 mL/min (>60); Glucose 86 mg/dL (80-110); HEMOLYSIS 20 (0-50); Magnesium 2.1 mg/dL (1.6-2.3); Potassium 4.4 mmol/L (3.4-5.1); Sodium 140 mmol/L (137-145)
== END ==
PROVIDERS: Family Provider Family Medicine; PCP Family Medicine; Referring Provider Internal Medicine Cardiovascular Disease; Visit Provider Internal Medicine Cardiovascular Disease
DX: Z79.899 Other long term (current) drug therapy (principal); Z51.81 Encounter for therapeutic drug level monitoring; I48.91 Unspecified atrial fibrillation; I48.0 Paroxysmal atrial fibrillation
CPT/HCPCS: 36415; 80048; 83735

== ENCOUNTER 2022-05-24 10:12 | Emergency (ER) | payer MEDICARE, OTHER, SELFPAY ==
[2021-08-15 20:11] VITALS: BMI 30.2
[2022-05-24] VITALS (8 sets, daily range): BP systolic 144–177; BP diastolic 71–86; PULSE 78–91; RESP 20–31; TEMP 37.9–38.8; O2SAT 92–95; BMI 33.2
--- NOTE | 2022-05-24 10:23 | DI.RAD.S_ITS ---
PROCEDURE: XR CHEST 1V INDICATIONS: +covid, sore throat, sob TECHNIQUE: One view of the chest was acquired. COMPARISON: [facility], CR, XR CHEST 1V, 08/29/2021, 18:17. FINDINGS: Surgical changes and devices: None. Lungs and pleura: Small airspace opacity in left lower lung field is seen suggestive of left lower lobe patchy infiltrates. No pleural effusions or pneumothorax. Mediastinum: Mediastinal contours appear normal. Heart size is normal. Bones and chest wall: No suspicious bony lesions. Overlying soft tissues appear unremarkable. IMPRESSION: Finding is suggestive of left lower lobe pneumonia. No pleural effusion or pneumothorax. Dictated by: Miguel Hidalgo M.D. on 05/24/2022 at 10:42 Approved by: Miguel Hidalgo M.D. on 05/24/2022 at 10:47
--- NOTE | 2022-05-24 10:23 | ED.SOB ---
HPI - SOB/Dyspnea General Chief Complaint: Shortness of Breath/Dyspnea Stated Complaint: Covid +, SOB, Sore throat Time Seen by Provider: 05/24/22 10:15 History of Present Illness HPI Narrative: This is a 72-year-old male with history of atrial fibrillation on warfarin and sotalol, dyslipidemia and Crohn's disease on Entyvio. Patient states he was [facility] while his was prepping for heart and lung transplant and caught COVID. He is had fever, sore throat and shortness of breath for several days. Patient states he feels a little foggy and has had some trouble remembering. No syncope. Denies active headache, he denies chest pain or pressure, he has some shortness of breath he states his main complaint is sore throat. He has a hoarse voice, he denies any difficulty swallowing saliva or secretions. He states minimal cough but there has been some. He states he has been taking minimal fluids. He is had nausea but no vomiting. He had diarrhea yesterday. No black or bloody stools. He denies any new swelling in his extremities. Patient states he is completing prednisone he had his last dose yesterday for a Crohn's flare. Patient states he is had prior cardiac stents x2 at [facility] and prostate surgeries. Denies any known drug allergies. Remote tobacco use. No ETOH. Denies illicit. He states his primary care is Dr. Tang. Related Data Home Medications Medication Instructions Recorded Confirmed sotalol 80 mg tablet 80 mg PO BID 06/28/20 09/27/21 vedolizumab 300 mg intravenous 300 mg IV Q2W 09/27/21 09/27/21 solution (Entyvio) Previous Rx's Medication Instructions Recorded rosuvastatin 10 mg tablet 10 mg PO DAILY #90 tabs 09/01/21 trazodone 50 mg tablet See Rx Instructions PO BEDTIME PRN 10/10/21 insomnia #90 tabs amoxicillin 875 mg-potassium 1 tab PO BID #20 tabs 05/24/22 clavulanate 125 mg tablet Allergies Allergy/AdvReac Type Severity Reaction Status Date / Time No Known Drug Allergies Allergy Verified 09/01/21 08:59 Review of Systems Review of Systems ROS Unobtainable: All systems reviewed & are unremarkable except as noted in HPI and below Patient History Medical History Arthritis of both wrists CAD (coronary artery disease) (~2009) Cardiac arrhythmia (~2009) Cataracts, bilateral (~2003) Chest pain Crohn's disease (~2012) Dyslipidemia Hyperlipidemia Hypertension Osteoarthritis Paresthesia Prostate cancer (~2010) Skin cancer Symptomatic anemia Surgical History Anesthesia H/O hernia repair History of heart artery stent (~2009) History of knee replacement History of prostate surgery (~2012) Family History Father History of heart disease Myocardial infarction Mother Crohn's disease Social History household members: spouse Smoking Status: Former smoker alcohol intake: current Smoking Status: Former smoker alcohol intake frequency: a few times a month Substance Use Type: does not use Exam Narrative Exam Narrative: GEN: well nourished, well appearing male, alert and oriented x 3, patient appears to be in mild distress. Patient does feel warm to touch. HEENT: Atraumatic, pupils are equal round reactive to light, extraocular movements are intact, nares are clear, TMs are clear with no fluid, there is no conjunctival pallor. Throat is clear without any exudates, erythema, tonsillar enlargement or uvular deviation, patient has hoarse voice, no difficulty with saliva or secretions. No muffled voice. HEART: Regular rate and rhythm without murmur, clicks, rubs. Pulses are equal in upper and lower extremities. No JVD. LUNGS:Lungs clear to auscultation, no wheezes, rales, crackles, chest moves symmetrically, no tachypnea or accessory muscle use. ABD:bowel sounds normal, soft, non-tender, no guarding, rebound, rigidity, no masses noted, no hepatosplenomegaly :No CVA tenderness MSCL: Non-tender, no muscle atrophy, muscles strength 5/5 upper and lower extremities, full range of motion, normal gait NEURO:CN 2-12 intact, sensation normal SKIN: No rash, erythema or other skin changes. Initial Vital Signs Initial Vital Signs: Vital Signs Pulse Rate 86 05/24/22 10:21 Pulse Oximetry 93 05/24/22 10:21 Course Orders Ordered: ED Orders 05/24/22 10:55 Blood Culture Stat Discontinued Medications Acetaminophen (Acetaminophen 325 Mg Tablet) 975 mg PO NOW ONE Stop: 05/24/22 10:25 Last Admin: 05/24/22 10:40 Dose: 975 mg Documented By: DURGA Dexamethasone (Dexamethasone 10 Mg/Ml Vial) 10 mg IV NOW ONE Stop: 05/24/22 10:24 Last Admin: 05/24/22 10:40 Dose: 10 mg Documented By: DURGA Sodium Chloride (Normal Saline 0.9%) 1,000 mls @ 1,000 mls/hr IV BOLUS ONE Stop: 05/24/22 11:23 Last Infusion: 05/24/22 11:52 Dose: 0 mls/hr Documented By: Admin: 05/24/22 10:40 Dose: 1,000 mls/hr Documented By: DURGA Ceftriaxone Sodium 2,000 mg/ (Sodium Chloride) 100 mls @ 200 mls/hr IV NOW ONE Stop: 05/24/22 11:12 Last Infusion: 05/24/22 12:19 Dose: 0 mls/hr Documented By: Admin: 05/24/22 11:34 Dose: 200 mls/hr Documented By: DURGA Vital Signs Vital signs: Vital Signs - 8 hr 05/24/22 12:06 05/24/22 12:06 05/24/22 12:03 Temperature 100.2 F H Pulse Rate 85 82 Respiratory Rate 20 28 H Blood Pressure Pulse Oximetry 92 95 05/24/22 12:04 05/24/22 12:04 Temperature Pulse Rate 81 Respiratory Rate 31 H Blood Pressure 177/81 H Pulse Oximetry 93 MDM - SOB/Dyspnea Lab Data 05/24/22 10:20 05/24/22 10:20 Labs: Lab Results 05/24/22 05/24/22 05/24/22 Range/Units 10:20 10:20 10:20 WBC 8.2 (4.5-11.0) X10^3/uL RBC 5.24 (4.5-5.9) X10^6/uL Hgb 14.6 (13.5-17.5) g/dL Hct 43.8 (41-53) % MCV 83.5 (80-100) fL MCH 27.8 (26-34) PG MCHC 33.3 (30-36) % RDW 16.4 H (11.6-14.8) % Plt Count 118 L (150-400) X10^3/uL Neut % (Auto) 79.6 H (50-75) % Lymph % (Auto) 7.3 L (25-40) % [place] % (Auto) 12.6 (3-14) % Eos % (Auto) 0.1 L (2-4) % Baso % (Auto) 0.4 (0-2) % Neut # (Auto) 6500 (4893-3431) /uL Lymph # (Auto) 600 L (0069-4506) /uL [place] # (Auto) 1000 H (0-900) /uL Eos # (Auto) 0 (0-450) /uL Baso # (Auto) 0 (0-100) /uL PT 31.1 H (10.1-12.7) SECONDS INR 2.7 H (0.9-1.3) APTT 43 H (26-36) SECONDS D-Dimer 270 (<500) ng/ml Sodium 133 L (137-145) mmol/L Potassium 4.2 (3.4-5.1) mmol/L Chloride 100 (98-107) mmol/L Carbon Dioxide 25 (22-32) mmol/L BUN 6 L (9-20) mg/dL Creatinine 0.74 (0.66-1.25) mg/dL Estimated GFR > 60 (>60) mL/min BUN/Creatinine Ratio 8.1 (6-22) Glucose 103 (80-110) mg/dL Lactate (0.7-2.1) mmol/L Calcium 8.1 L (8.4-10.2) mg/dL Total Bilirubin 0.7 (0.2-1.3) mg/dL AST 36 (17-59) IU/L ALT 28 (<50) IU/L Alkaline Phosphatase 64 (38-126) U/L Total Creatine Kinase 147 (55-170) U/L CK-MB (CK-2) < 0.22 (<2.37) ng/mL CK-MB (CK-2) Rel Index 0.1 L (1.5-5.0) % Troponin I < 0.012 (0.01-0.034) ng/mL NT-Pro-B Natriuret Pep 379 H (<125) pg/mL Total Protein 7.0 (6.3-8.2) g/dL Albumin 4.0 (3.5-5.0) g/dL Globulin 3.0 (1.7-4.1) g/dL Albumin/Globulin Ratio 1.3 (1.0-2.8) Procalcitonin 0.33 (<0.5) ng/mL SARS-CoV-2 (PCR) (Negative) Influenza A (RT-PCR) (NEGATIVE) Influenza B (RT-PCR) (NEGATIVE) RSV (PCR) (Negative) 05/24/22 05/24/22 Range/Units 10:20 10:21 WBC (4.5-11.0) X10^3/uL RBC (4.5-5.9) X10^6/uL Hgb (13.5-17.5) g/dL Hct (41-53) % MCV (80-100) fL MCH (26-34) PG MCHC (30-36) % RDW (11.6-14.8) % Plt Count (150-400) X10^3/uL Neut % (Auto) (50-75) % Lymph % (Auto) (25-40) % [place] % (Auto) (3-14) % Eos % (Auto) (2-4) % Baso % (Auto) (0-2) % Neut # (Auto) (5098-7117) /uL Lymph # (Auto) (5224-4886) /uL [place] # (Auto) (0-900) /uL Eos # (Auto) (0-450) /uL Baso # (Auto) (0-100) /uL PT (10.1-12.7) SECONDS INR (0.9-1.3) APTT (26-36) SECONDS D-Dimer (<500) ng/ml Sodium (137-145) mmol/L Potassium (3.4-5.1) mmol/L Chloride (98-107) mmol/L Carbon Dioxide (22-32) mmol/L BUN (9-20) mg/dL Creatinine (0.66-1.25) mg/dL Estimated GFR (>60) mL/min BUN/Creatinine Ratio (6-22) Glucose (80-110) mg/dL Lactate 0.9 (0.7-2.1) mmol/L Calcium (8.4-10.2) mg/dL Total Bilirubin (0.2-1.3) mg/dL AST (17-59) IU/L ALT (<50) IU/L Alkaline Phosphatase (38-126) U/L Total Creatine Kinase (55-170) U/L CK-MB (CK-2) (<2.37) ng/mL CK-MB (CK-2) Rel Index (1.5-5.0) % Troponin I (0.01-0.034) ng/mL NT-Pro-B Natriuret Pep (<125) pg/mL Total Protein (6.3-8.2) g/dL Albumin (3.5-5.0) g/dL Globulin (1.7-4.1) g/dL Albumin/Globulin Ratio (1.0-2.8) Procalcitonin (<0.5) ng/mL SARS-CoV-2 (PCR) Positive H (Negative) Influenza A (RT-PCR) Flu a negative (NEGATIVE) Influenza B (RT-PCR) Flu b negative (NEGATIVE) RSV (PCR) Negative (Negative) Imaging Data Chest x-ray: Radiologist's Impression: [address] [address] XRay Report Signed Patient: Eliezer Blair MR#: [id number] : 1950 Acct:[id number] Age/Sex: 72 / M Date of Service: 05/24/22 Loc: ED Accession Number: [id number] ?? Procedure: XR chest 1V Ordering Provider: Joya Alvarenga D.O. PROCEDURE:? XR CHEST 1V ? INDICATIONS:? +covid, sore throat, sob ? TECHNIQUE:? One view of the chest was acquired.? ? COMPARISON:? [facility], CR, XR CHEST 1V, 08/29/2021, 18:17. ? FINDINGS:? ? Surgical changes and devices:? None.? ? Lungs and pleura:? Small airspace opacity in left lower lung field is seen suggestive of left lower lobe patchy infiltrates.? No pleural effusions or pneumothorax.? ? Mediastinum:? Mediastinal contours appear normal.? Heart size is normal.? ? Bones and chest wall:? No suspicious bony lesions.? Overlying soft tissues appear unremarkable.? ? IMPRESSION:? Finding is suggestive of left lower lobe pneumonia.? No pleural effusion or pneumothorax. ? ? Dictated by: Miguel Hidalgo M.D. on 05/24/2022 at 10:42 ? ? Approved by: Miguel Hidalgo M.D. on 05/24/2022 at 10:47?? ECG Data Attestation: I personally reviewed and interpreted this ECG as follows: Prior ECG tracings: available for review Interpretation: Sinus rhythm rate 83 MD 156 QRS of 114 QTC 434. Patient has prior from 08/29/2021 which appears similar with no dynamic changes. Patient does have Q-wave 3 and AVF. MDM Narrative Medical decision making narrative: This is a 72-year-old male who presents with complaint of home COVID testing positive and symptoms including fever, sore throat and some shortness of breath. Patient does have a history of atrial fibrillation he is anticoagulated on warfarin and is on sotalol and has some immune suppression secondary Crohn's disease is on monoclonal antibody injections monthly and just completed several days steroids. Patient workup does not show leukocytosis, no significant anemia platelets are slightly low from baseline at 1:18 a.m., neutrophils elevated 79%. Coags show an INR 2.7 which is appropriate being on warfarin for his AFib, D-dimer is negative at 270. Sodium is 133, BUN 6 electrolytes otherwise normal, negative troponin, BNP is 379 with a procalcitonin of 0.33 this is technically negative but in the setting of a possible upper respiratory infection and possible changes on chest x-ray for pneumonia cut off would be 0.25. Patient is COVID/influenza/RSV is positive for COVID. Chest x-ray shows possible left-sided lower lobe pneumonia, no pleural effusion or pneumothorax noted. Patient is febrile he is not tachycardic he is not been hypoxic he did not require O2 with EMS he was 93% his lowest in the field, EMS had placed him on O2 2 L for comfort. While in the department at rest patient drops to 90%, RT had placed him on 1-2 L nasal cannula. Patient was ambulated in the department and pulse ox was never below 90%. Patient would like to return home. He states he has a pulse oximetry at home. He states it has been about a week since his symptoms started so he is likely at the peak of his symptoms and will hopefully start to improve. We discussed strict return precautions plan to discharge home with Augmentin twice daily for possible overlying bacterial pneumonia. Other antibiotics would be difficult with patient's warfarin. Discharge Plan Departure Patient Disposition: Home Clinical Impression: Pneumonia, COVID-19 virus infection Instructions: DI for COVID-19 (Suspected or Confirmed ) Activity Restrictions/Additional Instructions: Please follow-up with your physician for recheck. Continue to use her pulse oximeter at home if you are dropping below 90% were consistently in the 80s for your pulse oximetry please return to the ER. You do have a COVID infection today, you may have an overlying bacterial infection please take antibiotics until gone. Prescription sent to [facility] in [place]. I would recommend taking Tylenol every 6 hours as needed for fevers and sore throat. You may take prednisone 20 mg x 2 days, then 10 mg x 2 days, then 5 mg x 2 days Please return for rapidly worsening symptoms or other new or concerning changes, new shortness of breath, increasing chest pain, difficulty with breathing, inability to swallow your saliva or secretions, muffled voice, passing out or other new or concerning changes. Prescriptions: New amoxicillin-pot clavulanate 875-125 mg tablet 1 tab PO BID Qty: 20 0RF No Action trazodone 50 mg tablet See Rx Instructions PO BEDTIME PRN (Reason: insomnia) Qty: 90 3RF Rx Instructions: take 1-2 tabs orally bedtime PRN; sotalol 80 mg tablet 80 mg PO BID rosuvastatin 10 mg tablet 10 mg PO DAILY Qty: 90 3RF Entyvio 300 mg recon soln 300 mg IV Q2W Rx Instructions: administer 2nd dose 2 weeks after first dose; administer over 30 minutes Referrals: Castro Tang MD [Primary Care Provider] - Stand Alone Forms: Patient Portal/API
[2022-05-24 10:39] LABS: Add Manual Diff / Slide Review NO; Basophils Absolute Auto 0 /uL (0-100); Basophils Percent Auto 0.4 % (0-2); Eosinophils Absolute Auto 0 /uL (0-450); Eosinophils Percent Auto 0.1 % (2-4); Hematocrit 43.8 % (41-53); Hemoglobin 14.6 g/dL (13.5-17.5); Lymphocytes Absolute Auto 600 /uL (1100-4500); Lymphocytes Percent Auto 7.3 % (25-40); Mean Corpuscular HGB Conc 33.3 % (30-36); Mean Corpuscular Hemoglobin 27.8 PG (26-34); Mean Corpuscular Volume 83.5 fL (80-100); Monocytes Absolute Auto 1000 /uL (0-900); Monocytes Percent Auto 12.6 % (3-14); Neutrophils Absolute Auto 6500 /uL (1500-7000); Neutrophils Percent Auto 79.6 % (50-75); Platelet Count 118 X10^3/uL (150-400); Red Blood Cell Count 5.24 X10^6/uL (4.5-5.9); Red Cell Distribution Width 16.4 % (11.6-14.8); White Blood Cell Count 8.2 X10^3/uL (4.5-11.0)
[2022-05-24] MEDS: SODIUM CHLORIDE 0.9% 1,000 ML 1000 ML IV (10:40)
[2022-05-24] MEDS: ACETAMINOPHEN 325 MG TABLET 975 MG PO (10:40)
[2022-05-24] MEDS: DEXAMETHASONE 10 MG/ML VIAL IV (10:40)
[2022-05-24 10:48] LABS: Alanine Aminotransferase 28 IU/L (<50); Albumin Globulin Ratio 1.3 (1.0-2.8); Alkaline Phosphatase 64 U/L (38-126); Aspartate Aminotransferase 36 IU/L (17-59); BUN Creatinine Ratio 8.1 (6-22); Bilirubin Total 0.7 mg/dL (0.2-1.3); Blood Urea Nitrogen 6 mg/dL (9-20); Calcium 8.1 mg/dL (8.4-10.2); Carbon Dioxide 25 mmol/L (22-32); Chloride 100 mmol/L (98-107); Creatine Kinase 147 U/L (55-170); Estimated Glomerular Filt Rate > 60 mL/min (>60); Glucose 103 mg/dL (80-110); HEMOLYSIS < 15 (0-50); Lactate (Lactic Acid) 0.9 mmol/L (0.7-2.1); Potassium 4.2 mmol/L (3.4-5.1); Sodium 133 mmol/L (137-145)
[2022-05-24 10:51] LABS: INR 2.7 (0.9-1.3); Prothrombin Time 31.1 SECONDS (10.1-12.7)
[2022-05-24 10:53] LABS: D Dimer 270 ng/ml (<500)
[2022-05-24 10:54] LABS: PTT Partial Thromboplastin Tim 43 SECONDS (26-36)
[2022-05-24 10:59] LABS: NT-proBNP (BNP-Adult 18+) 379 pg/mL (<125); Troponin I < 0.012 ng/mL (0.01-0.034)
[2022-05-24 11:03] LABS: CKMB % Relative Index 0.1 % (1.5-5.0); Creatine Kinase MB < 0.22 ng/mL (<2.37)
[2022-05-24 11:04] LABS: Procalcitonin 0.33 ng/mL (<0.5)
[2022-05-24 11:12] LABS: Influenza A - CEPHEID Flu A NEGATIVE (NEGATIVE); Influenza B - CEPHEID Flu B NEGATIVE (NEGATIVE); Respiratory Syncytial Virus Negative (Negative)
[2022-05-24 11:14] LABS: COVID-19 CEPHEID 4-PLEX PCR POSITIVE (Negative)
[2022-05-24] MEDS: cefTRIAXone 2,000 MG in SODIUM CHLORIDE 0.9% 100 ML 200 MG IV (11:34)
== END 2022-05-24 12:36 | disposition home or self-care (01) ==
PROVIDERS: Emergency Provider Emergency Medicine; Family Provider Family Medicine; PCP Family Medicine
DX: U07.1 COVID-19 (principal); J18.9 Pneumonia, unspecified organism; Z79.01 Long term (current) use of anticoagulants; R06.02 Shortness of breath
CPT/HCPCS: 0241U; 36415; 71045; 80053; 82550; 82553; 83605; 83880; 84145; 84484; 85025; 85379; 85610; 85730; 87040; 93005; 93010; 96365; 96375; 99284; 99285; J0696; J1100

== ENCOUNTER → 2022-06-15 08:17 | Outpatient (CLI) | payer MEDICARE, OTHER, SELFPAY ==
[2021-08-15 20:11] VITALS: BMI 30.2
--- NOTE | 2022-06-15 08:21 | DI.RAD.S_ITS ---
PROCEDURE: XR CHEST 2V INDICATIONS: subacute cough TECHNIQUE: 2 views of the chest were acquired. COMPARISON: [facility], CR, XR CHEST 2V, 08/15/2021, 15:41. [facility], CR, XR CHEST 1V, 05/24/2022, 10:22. [facility], CR, XR CHEST 1V, 08/29/2021, 18:17. FINDINGS: Surgical changes and devices: None. Lungs and pleura: Lungs are clear. No pleural effusions or pneumothorax. Mediastinum: Heart size is normal. Mediastinal and hilar contours appear similar to before. Bones and chest wall: No suspicious bony abnormalities. Soft tissues appear unremarkable. IMPRESSION: No acute cardiopulmonary abnormality. Dictated by: Vick Bennett M.D. on 06/15/2022 at 9:58 Approved by: Vick Bennett M.D. on 06/15/2022 at 10:00
== END ==
PROVIDERS: Family Provider Family Medicine; PCP Family Medicine; Referring Provider Family Medicine; Visit Provider Family Medicine
DX: R05.3 Chronic cough (principal)
CPT/HCPCS: 71046

== ENCOUNTER → 2022-07-27 11:23 | Outpatient (CLI) | payer MEDICARE, OTHER, SELFPAY ==
[2021-08-15 20:11] VITALS: BMI 30.2
[2022-07-27 13:05] LABS: Add Manual Diff / Slide Review NO; BUN Creatinine Ratio 18.9 (6-22); Basophils Absolute Auto 100 /uL (0-100); Basophils Percent Auto 1.3 % (0-2); Blood Urea Nitrogen 14 mg/dL (9-20); Calcium 8.6 mg/dL (8.4-10.2); Carbon Dioxide 25 mmol/L (22-32); Chloride 106 mmol/L (98-107); Eosinophils Absolute Auto 300 /uL (0-450); Eosinophils Percent Auto 4.3 % (2-4); Estimated Glomerular Filt Rate > 60 mL/min (>60); Glucose 87 mg/dL (80-110); HEMOLYSIS 31 (0-50); Hematocrit 41.3 % (41-53); Hemoglobin 13.7 g/dL (13.5-17.5); Lymphocytes Absolute Auto 1300 /uL (1100-4500); Mean Corpuscular Hemoglobin 27.6 PG (26-34); Mean Corpuscular Volume 83.6 fL (80-100); Monocytes Absolute Auto 1000 /uL (0-900); Monocytes Percent Auto 13.8 % (3-14); Neutrophils Absolute Auto 4800 /uL (1500-7000); Neutrophils Percent Auto 63.6 % (50-75); Platelet Count 215 X10^3/uL (150-400); Potassium 4.5 mmol/L (3.4-5.1); Red Blood Cell Count 4.94 X10^6/uL (4.5-5.9); Red Cell Distribution Width 15.7 % (11.6-14.8); Sodium 138 mmol/L (137-145); White Blood Cell Count 7.5 X10^3/uL (4.5-11.0)
== END ==
PROVIDERS: Family Provider Family Medicine; PCP Family Medicine; Referring Provider Internal Medicine Cardiovascular Disease; Visit Provider Internal Medicine Cardiovascular Disease
DX: I48.0 Paroxysmal atrial fibrillation (principal)
CPT/HCPCS: 36415; 80048; 85025

== ENCOUNTER → 2022-10-17 15:35 | Outpatient (CLI) | payer MEDICARE, OTHER, SELFPAY ==
[2021-08-15 20:11] VITALS: BMI 30.2
--- NOTE | 2022-10-17 15:36 | DI.RAD.S_ITS ---
PROCEDURE: XR SHOULDER RT MIN 2V INDICATIONS: right shoulder OA TECHNIQUE: 3 views of the shoulder were acquired. COMPARISON: None. FINDINGS: Bones: No fractures or dislocations. Stgk-qx-qcvueqkk acromioclavicular joint and glenohumeral joint osteoarthritic changes are seen with joint space narrowing, subchondral sclerosis and marginal osteophyte formation. No suspicious bony lesions. Visualized ribs appear intact. Soft tissues: No suspicious soft tissue calcifications. IMPRESSION: Mild to moderate right shoulder joint osteoarthritis. No fracture or dislocation. No gross soft tissue abnormalities. Dictated by: Miguel Hidalgo M.D. on 10/17/2022 at 16:17 Approved by: Miguel Hidalgo M.D. on 10/17/2022 at 16:17
== END ==
PROVIDERS: Family Provider Family Medicine; PCP Family Medicine; Referring Provider Family Medicine; Visit Provider Family Medicine
DX: M19.011 Primary osteoarthritis, right shoulder (principal); M25.811 Other specified joint disorders, right shoulder
CPT/HCPCS: 73030

== ENCOUNTER 2022-12-02 10:32 | Observation (INO) | payer MEDICARE, OTHER, SELFPAY ==
[2021-08-15 20:11] VITALS: BMI 30.2
[2022-12-02] VITALS (36 sets, daily range): BP systolic 161–224; BP diastolic 74–105; PULSE 50–66; RESP 12–34; TEMP 36.6–36.8; O2SAT 88–100; BMI 29.3
--- NOTE | 2022-12-02 10:41 | DI.CT.S_ITS ---
PROCEDURE: CT ANGIO HEAD AND NECK INDICATIONS: dizziness, ataxia, vision since 0600 TECHNIQUE: After the administration of intravenous contrast, 1 mm thick sections acquired from the aortic arch through the [place] of [place]. 3-dimensional citiqzh-ksdkvmjij-smqdrstblh (MIP) and/or volume rendering reformats were acquired of the central intracranial vasculature and neck separately. For radiation dose reduction, the following was used: automated exposure control, adjustment of mA and/or kV according to patient size. COMPARISON: None. FINDINGS: Image quality: Diagnostic Anterior circulation: ICAs: Moderate bilateral cavernous carotid calcifications. The proximal ophthalmic arteries are seen, distal portions are too small to evaluate ACAs: Normal and symmetric MCAs: Normal and symmetric AComm: No aneurysm Venous sinuses: patent Posterior circulation: Dominance: Left Vertebral arteries: Kofs-ps-wafsgbjy bilateral vertebral artery narrowing. The right intracranial vertebral artery is diminutive. Basilar artery: Unremarkable PComms: No aneurysm direct support staff: Unremarkable NECK ANGIOGRAPHY Aortic arch and subclavian arteries: Normal flow, no aneurysm. CCAs: No stenosis, occlusion, or aneurysm. ICA origins (by NASCET criteria): Wwer-sg-apxqvkqp narrowing, less than 50%. ICAs: No stenosis, occlusion or aneurysm. ECAs: Origins are patent. Vertebral arteries: Unremarkable Soft tissues: No significant mass, aneurysm, or lymphadenopathy Lung apices: No pneumothorax Bones: No acute or suspicious abnormality. IMPRESSION: No large vessel occlusion or high-grade stenosis. Mild and moderate areas of atherosclerotic calcifications as above. Consider MRI to further evaluate for ischemia. There is a diminutive appearance of the intracranial right vertebral artery, probably congenital. Any quantitative measurements of stenosis were performed using NASCET criteria. Dictated by: Naman Pickering M.D. on 12/02/2022 at 11:42 Approved by: Naman Pickering M.D. on 12/02/2022 at 11:49
--- NOTE | 2022-12-02 10:41 | DI.CT.S_ITS ---
PROCEDURE: CT STROKE INDICATIONS: dizziness, ataxia, vision since 0600 TECHNIQUE: Noncontrast 4.5 mm thick angled axial sections acquired from the foramen magnum to the vertex, with coronal reformats. For radiation dose reduction, the following was used: automated exposure control, adjustment of mA and/or kV according to patient size. COMPARISON: None. FINDINGS: Image quality: Good CSF spaces: Basal cisterns are patent Volume: Vascular calcifications. Periventricular white matter disease is commonly seen with chronic microangiopathy. Volume loss is present. These findings are nfow-th-jheuggtz Brain: No intracranial hemorrhage. Patel-white differentiation is grossly maintained. Craniofacial structures: Unremarkable. Right maxillary mucous cyst. IMPRESSION: No acute intracranial abnormality. Report called to ED. Dictated by: Naman Pickering M.D. on 12/02/2022 at 11:05 Approved by: Naman Pickering M.D. on 12/02/2022 at 11:07
--- NOTE | 2022-12-02 10:42 | ED_ITS ---
HPI - General Adult General Chief complaint: Dizziness Stated complaint: Thinks he had a stroke this morning Time Seen by Provider: 12/02/22 10:41 History of Present Illness HPI narrative: 72-year-old male former smoker with history of hypertension, hyperlipidemia, AFib on warfarin presents with a chief complaint of dizziness and trouble walking that he 1st noticed at 6:00 a.m. this morning. He states he went to bed in his normal state of health. He denies any fever or chills nor any recent trauma or injury. He states that he felt profoundly dizzy while sleeping and this woke him up at 6:00 a.m.. He states that it was so bad at 1st they could not open his eyes, turned his head or even walk. Since then it has gradually improved but he is still having trouble walking and feels dizzy but no longer as if things are spinning. He denies any blurred vision or trouble with speech. He denies any numbness, tingling or weakness of extremities. He denies any change in diet or medications. Related Data Home Medications Medication Instructions Recorded Confirmed sotalol 80 mg tablet 80 mg PO BID 06/28/20 12/02/22 vedolizumab 300 mg intravenous 300 mg IV Q2W 09/27/21 12/02/22 solution (Entyvio) warfarin 5 mg tablet 2.5 mg PO DAILY 08/15/22 12/02/22 Previous Rx's Medication Instructions Recorded rosuvastatin 10 mg tablet 10 mg PO DAILY #90 tabs 09/01/21 zolpidem 5 mg tablet (Ambien) 5 mg PO BEDTIME PRN insomnia #30 10/30/22 tabs celecoxib 200 mg capsule (Celebrex) 200 mg PO BID PRN shoulder pain 11/21/22 #30 caps Allergies Allergy/AdvReac Type Severity Reaction Status Date / Time No Known Drug Allergies Allergy Verified 12/02/22 10:50 Review of Systems Review of Systems Narrative: GENERAL: Denies chills, fatigue, malaise, fever, sweats. HEENT: Denies sinus pain, ear pain, sore throat, difficulty swallowing, diz ziness. RESPIRATORY: Denies dyspnea, cough, wheezing, hemoptysis, sputum. CARDIOVASCULAR: Denies chest pain, palpitations, orthopnea, edema, GASTROINTESTINAL: Denies nausea, vomiting, abdominal pain, diarrhea, constipation, melena. : Denies dysuria, frequency, incontinence, hematuria, urinary retention. MUSCULOSKELETAL: denies weakness, joint pain, or bony pain SKIN: Denies rash, skin lesions, or other NEUROLOGIC: see HPI PSYCHIATRIC: No concerning psychosocial issues. 12 point review of systems is negative except for those stated above Patient History Medical History Arthritis of both wrists CAD (coronary artery disease) (~2009) Cardiac arrhythmia (~2009) Cataracts, bilateral (~2003) Chest pain Crohn's disease (~2012) Dyslipidemia Hyperlipidemia Hypertension Osteoarthritis Paresthesia Prostate cancer (~2010) Skin cancer Symptomatic anemia Surgical History Anesthesia H/O hernia repair History of heart artery stent (~2009) History of knee replacement History of prostate surgery (~2012) Family History Father History of heart disease Myocardial infarction Mother Crohn's disease Social History household members: spouse Smoking Status: Former smoker alcohol intake: current Smoking Status: Former smoker alcohol intake frequency: a few times a month Substance Use Type: does not use Exam Narrative Exam Narrative: GENERAL: [78] year old patient appears stated age. Well-developed patient, in mild distress. He did walk in but with an ataxic gait HEAD: Atraumatic. Normocephalic. EYES: Pupils equal round and reactive. Extraocular motions intact. No scleral icterus. No injection or drainage. ENT: Nose without bleeding, purulent drainage. Throat without erythema, tonsillar hypertrophy or exudate. Airway patent. NECK: Trachea midline. Non tender CARDIOVASCULAR: Regular rate and rhythm without murmurs, gallops, or rubs. RESPIRATORY: Clear to auscultation. Breath sounds equal bilaterally. No wheezes, rales, or rhonchi. GASTROINTESTINAL: Abdomen soft, non-tender, nondistended. EXTREMITIES: No edema or joint tenderness. BACK: Nontender without deformity or crepitance. No flank tenderness. NEURO: AOx3. Cranial nerves 2-12 grossly intact SKIN: No rash or erythema of visible areas Initial Vital Signs Initial Vital Signs: Vital Signs Temperature 98.1 F 12/02/22 10:35 Pulse Rate 50 L 12/02/22 10:35 Respiratory Rate 14 12/02/22 10:35 Blood Pressure 224/105 H 12/02/22 10:35 Pulse Oximetry 99 12/02/22 10:35 Oxygen Delivery Method Room Air 12/02/22 10:35 Scores NIH Stroke Scale Level of Conciousness: Alert, keenly responsive Ask month/age: Answers both questions correctly. Open/close eyes, close hand: Performs both tasks correctly Best gaze horizontal: Normal Visual nguyen: No visual loss Facial palsy: Normal symetrical movement Left arm drift: No drift for full 10 sec Right arm drift: No drift for full 10 sec Left leg drift: No drift for full 5 sec Right leg drift: No drift for full 5 sec Limb ataxia: Present in two limbs Sensory on face/arms/legs: Normal, no sensory loss Best language: No aphasia, normal Dysarthria: Normal Extinction or inattention: No abnormality Total NIH Stroke scale score: 2 Course Orders Ordered: ED Orders 12/02/22 10:[address] angio head and neck Stat EKG-12 Lead Stat 12/02/22 11:02 Complete Blood Count AUTO DIFF Stat Comprehensive Metabolic Panel Stat Ethanol (ETOH) Stat PTT Partial Thromboplastin Nagi Stat Prothrombin Time INR Stat Troponin & CK Cardiac Panel Stat 12/02/22 12:35 Urinalysis and Microscopic Stat Urine Drug Screen, Rapid Stat Acetaminophen (Acetaminophen 325 Mg Tablet) 650 mg PO Q6H PRN PRN Reason: Fever/Mild Pain (1-3) Atorvastatin Calcium (Atorvastatin 20 Mg Tablet) 20 mg PO DAILY LARRY Sodium Chloride (Normal Saline 0.9%) 1,000 mls @ 150 mls/hr IV CONT LARRY Last Admin: 12/02/22 17:39 Dose: 150 mls/hr Documented By: Infusion: 12/02/22 17:39 Dose: 0 mls/hr Documented By: Infusion: 12/02/22 17:08 Dose: 0 mls/hr Documented By: Admin: 12/02/22 11:47 Dose: 150 mls/hr Documented By: EDGAR Sodium Chloride (Normal Saline 0.9%) 1,000 mls @ 100 mls/hr IV CONT LARRY Stop: 12/03/22 05:44 Labetalol HCl (Labetalol 20 Mg/4 Ml Syringe) 10 mg IV Q5MIN PRN PRN Reason: SBP >220 or DBP >110 Meclizine HCl (Meclizine Hcl 12.5 Mg Tablet) 25 mg PO Q6HR PRN PRN Reason: Vertigo Melatonin (Melatonin 3 Mg Tablet) 6 mg PO BEDTIME PRN PRN Reason: Insomnia Naloxone HCl (Naloxone 0.4 Mg/Ml Vial) 0.2 mg IV Q2MIN PRN PRN Reason: Opiate Reversal Ondansetron HCl (Ondansetron 4 Mg/2 Ml Inj) 4 mg IV Q4HR PRN PRN Reason: Nausea And Vomiting Polyethylene Glycol (Polyethylene Glycol 3350 17 Gm Powd.Pack) 17 gm PO DAILY PRN PRN Reason: Constipation Sennosides (Sennosides 8.6 Mg Tablet) 8.6 mg PO BID PRN PRN Reason: Constipation Sotalol HCl (Sotalol 80 Mg Tablet) 80 mg PO BID [facility] Warfarin Protocol (Warfarin Per Pharmacy (Inr 2-3)) 1 request MISC NOW PRN PRN Reason: A-fib Zolpidem Tartrate (Zolpidem 5 Mg Tablet) 5 mg PO BEDTIME PRN PRN Reason: insomnia Discontinued Medications Aspirin (Aspirin Ec 325 Mg Tablet) 325 mg PO NOW ONE Stop: 12/02/22 16:55 Last Admin: 12/02/22 17:38 Dose: 325 mg Documented By: MM Vital Signs Vital signs: Vital Signs - 8 hr 12/02/22 10:38 12/02/22 10:43 12/02/22 10:43 Pulse Rate 57 L 58 L Respiratory Rate Blood Pressure 208/92 H Pulse Oximetry 100 99 Oxygen Delivery Method 12/02/22 10:45 12/02/22 11:07 12/02/22 11:08 Pulse Rate 54 L 55 L Respiratory Rate 19 Blood Pressure 182/82 H Pulse Oximetry 99 97 Oxygen Delivery Method 12/02/22 11:08 12/02/22 11:15 12/02/22 11:30 Pulse Rate 53 L 55 L Respiratory Rate 17 26 H Blood Pressure 168/81 H Pulse Oximetry 98 97 Oxygen Delivery Method Room Air 12/02/22 11:30 12/02/22 11:45 12/02/22 12:00 Pulse Rate 51 L 51 L Respiratory Rate 26 H 23 Blood Pressure 172/78 H Pulse Oximetry 98 96 Oxygen Delivery Method 12/02/22 12:00 12/02/22 12:15 12/02/22 12:33 Pulse Rate 51 L 52 L 65 Respiratory Rate 21 22 Blood Pressure Pulse Oximetry 93 98 88 L Oxygen Delivery Method 12/02/22 12:35 12/02/22 12:35 12/02/22 12:45 Pulse Rate 53 L 51 L Respiratory Rate 21 19 Blood Pressure 179/84 H Pulse Oximetry 97 97 Oxygen Delivery Method 12/02/22 13:00 12/02/22 13:00 12/02/22 13:15 Pulse Rate 52 L 54 L Respiratory Rate 28 H 15 Blood Pressure 203/93 H Pulse Oximetry 98 100 Oxygen Delivery Method 12/02/22 13:30 12/02/22 13:31 12/02/22 13:31 Pulse Rate 53 L 55 L Respiratory Rate 12 20 Blood Pressure 205/91 H Pulse Oximetry 99 99 Oxygen Delivery Method 12/02/22 13:45 12/02/22 14:00 12/02/22 14:01 Pulse Rate 55 L 54 L Respiratory Rate 29 H Blood Pressure 198/91 H Pulse Oximetry 97 99 Oxygen Delivery Method 12/02/22 14:01 12/02/22 14:15 12/02/22 14:30 Pulse Rate 55 L 54 L 53 L Respiratory Rate 21 27 H Blood Pressure Pulse Oximetry 99 99 99 Oxygen Delivery Method 12/02/22 14:31 12/02/22 14:31 12/02/22 14:45 Pulse Rate 53 L 54 L Respiratory Rate 25 H 27 H Blood Pressure 179/81 H Pulse Oximetry 99 98 Oxygen Delivery Method 12/02/22 15:00 12/02/22 15:00 12/02/22 15:15 Pulse Rate 56 L 56 L Respiratory Rate 25 H 21 Blood Pressure 177/81 H Pulse Oximetry 98 98 Oxygen Delivery Method 12/02/22 15:30 12/02/22 15:30 12/02/22 16:13 Pulse Rate 57 L 57 L Respiratory Rate 15 34 H Blood Pressure 179/85 H Pulse Oximetry 95 Oxygen Delivery Method 12/02/22 16:14 12/02/22 16:14 12/02/22 16:15 Pulse Rate 60 60 Respiratory Rate 23 21 Blood Pressure 184/85 H Pulse Oximetry 98 98 Oxygen Delivery Method 12/02/22 16:30 12/02/22 16:30 12/02/22 16:45 Pulse Rate 65 61 Respiratory Rate Blood Pressure 197/74 H Pulse Oximetry Oxygen Delivery Method 12/02/22 17:00 12/02/22 17:00 Pulse Rate 66 Respiratory Rate 18 Blood Pressure 179/84 H Pulse Oximetry Oxygen Delivery Method Medical Decision Making Lab Data 12/02/22 11:02 12/02/22 11:02 Labs: Lab Results 12/02/22 12/02/22 12/02/22 Range/Units 11:02 11:02 11:02 WBC 7.1 (4.5-11.0) X10^3/uL RBC 5.17 (4.5-5.9) X10^6/uL Hgb 14.0 (13.5-17.5) g/dL Hct 42.9 (41-53) % MCV 82.9 (80-100) fL MCH 27.1 (26-34) PG MCHC 32.7 (30-36) % RDW 17.1 H (11.6-14.8) % Plt Count 161 (150-400) X10^3/uL Neut % (Auto) 70.0 (50-75) % Lymph % (Auto) 15.3 L (25-40) % [place] % (Auto) 9.6 (3-14) % Eos % (Auto) 4.0 (2-4) % Baso % (Auto) 1.1 (0-2) % Neut # (Auto) 5000 (4482-8247) /uL Lymph # (Auto) 1100 (3634-1594) /uL [place] # (Auto) 700 (0-900) /uL Eos # (Auto) 300 (0-450) /uL Baso # (Auto) 100 (0-100) /uL PT 29.3 H (10.1-12.7) SECONDS INR 2.5 H (0.9-1.3) APTT 39 H (26-36) SECONDS Sodium 139 (137-145) mmol/L Potassium 4.3 (3.4-5.1) mmol/L Chloride 107 (98-107) mmol/L Carbon Dioxide 28 (22-32) mmol/L BUN 11 (9-20) mg/dL Creatinine 0.71 (0.66-1.25) mg/dL Estimated GFR > 60 (>60) mL/min BUN/Creatinine Ratio 15.5 (6-22) Glucose 85 (80-110) mg/dL Hemoglobin A1c (4.0-6.0) % Calcium 9.3 (8.4-10.2) mg/dL Magnesium (1.6-2.3) mg/dL Total Bilirubin 0.4 (0.2-1.3) mg/dL AST 25 (17-59) IU/L ALT 24 (<50) IU/L Alkaline Phosphatase 82 (38-126) U/L Total Creatine Kinase 43 L (55-170) U/L Troponin I < 0.012 (0.01-0.034) ng/mL Total Protein 6.4 (6.3-8.2) g/dL Albumin 3.7 (3.5-5.0) g/dL Globulin 2.7 (1.7-4.1) g/dL Albumin/Globulin Ratio 1.4 (1.0-2.8) Triglycerides (35-150) mg/dL Cholesterol (140-199) mg/dL LDL Cholesterol, Calc (<100) mg/dL HDL Cholesterol (40-60) mg/dL TSH (0.47-4.68) uIU/mL Urine Color Urine Appearance Urine pH (4.5-8.0) Ur Specific Institute (1.000-1.035) Urine Protein (Negative) Urine Glucose (UA) (Negative) g/dL Urine Ketones (NEGATIVE) Urine Occult Blood (Negative) Urine Nitrate (Negative) Urine Bilirubin (NEGATIVE) Urine Urobilinogen (0.2) E.U./dL Ur Leukocyte Esterase (NEGATIVE) Urine RBC (0-5/HPF) Urine WBC (0-5/HPF) Ur Squamous Epith Cells (0-5/HPF) Urine Bacteria (None) Ur Culture Indicated? U Opiates 300ng/mL cut (Negative) Ur Oxycodone Screen (Negative) Urine Methadone Screen (Negative) Ur Barbiturates Screen (Negative) U Tricyclic Antidepress (Negative) Ur Phencyclidine Scrn (Negative) Ur Amphetamines Screen (Negative) U Methamphetamines Scrn (Negative) Ur MDMA Scrn (Ecstasy) (Negative) U Benzodiazepines Scrn (Negative) Urine Cocaine Screen (Negative) U Marijuana (THC) Screen (Negative) Ethyl Alcohol < 10 ( - 10) mg/dL 12/02/22 12/02/22 12/02/22 Range/Units 11:02 11:02 11:02 WBC (4.5-11.0) X10^3/uL RBC (4.5-5.9) X10^6/uL Hgb (13.5-17.5) g/dL Hct (41-53) % MCV (80-100) fL MCH (26-34) PG MCHC (30-36) % RDW (11.6-14.8) % Plt Count (150-400) X10^3/uL Neut % (Auto) (50-75) % Lymph % (Auto) (25-40) % [place] % (Auto) (3-14) % Eos % (Auto) (2-4) % Baso % (Auto) (0-2) % Neut # (Auto) (0452-9134) /uL Lymph # (Auto) (6773-5264) /uL [place] # (Auto) (0-900) /uL Eos # (Auto) (0-450) /uL Baso # (Auto) (0-100) /uL PT (10.1-12.7) SECONDS INR (0.9-1.3) APTT (26-36) SECONDS Sodium (137-145) mmol/L Potassium (3.4-5.1) mmol/L Chloride (98-107) mmol/L Carbon Dioxide (22-32) mmol/L BUN (9-20) mg/dL Creatinine (0.66-1.25) mg/dL Estimated GFR (>60) mL/min BUN/Creatinine Ratio (6-22) Glucose (80-110) mg/dL Hemoglobin A1c 5.5 (4.0-6.0) % Calcium (8.4-10.2) mg/dL Magnesium 2.2 (1.6-2.3) mg/dL Total Bilirubin (0.2-1.3) mg/dL AST (17-59) IU/L ALT (<50) IU/L Alkaline Phosphatase (38-126) U/L Total Creatine Kinase (55-170) U/L Troponin I (0.01-0.034) ng/mL Total Protein (6.3-8.2) g/dL Albumin (3.5-5.0) g/dL Globulin (1.7-4.1) g/dL Albumin/Globulin Ratio (1.0-2.8) Triglycerides 90 (35-150) mg/dL Cholesterol 109 L (140-199) mg/dL LDL Cholesterol, Calc 52 (<100) mg/dL HDL Cholesterol 39 L (40-60) mg/dL TSH (0.47-4.68) uIU/mL Urine Color Urine Appearance Urine pH (4.5-8.0) Ur Specific Institute (1.000-1.035) Urine Protein (Negative) Urine Glucose (UA) (Negative) g/dL Urine Ketones (NEGATIVE) Urine Occult Blood (Negative) Urine Nitrate (Negative) Urine Bilirubin (NEGATIVE) Urine Urobilinogen (0.2) E.U./dL Ur Leukocyte Esterase (NEGATIVE) Urine RBC (0-5/HPF) Urine WBC (0-5/HPF) Ur Squamous Epith Cells (0-5/HPF) Urine Bacteria (None) Ur Culture Indicated? U Opiates 300ng/mL cut (Negative) Ur Oxycodone Screen (Negative) Urine Methadone Screen (Negative) Ur Barbiturates Screen (Negative) U Tricyclic Antidepress (Negative) Ur Phencyclidine Scrn (Negative) Ur Amphetamines Screen (Negative) U Methamphetamines Scrn (Negative) Ur MDMA Scrn (Ecstasy) (Negative) U Benzodiazepines Scrn (Negative) Urine Cocaine Screen (Negative) U Marijuana (THC) Screen (Negative) Ethyl Alcohol ( - 10) mg/dL 12/02/22 12/02/22 12/02/22 Range/Units 11:02 12:35 12:35 WBC (4.5-11.0) X10^3/uL RBC (4.5-5.9) X10^6/uL Hgb (13.5-17.5) g/dL Hct (41-53) % MCV (80-100) fL MCH (26-34) PG MCHC (30-36) % RDW (11.6-14.8) % Plt Count (150-400) X10^3/uL Neut % (Auto) (50-75) % Lymph % (Auto) (25-40) % [place] % (Auto) (3-14) % Eos % (Auto) (2-4) % Baso % (Auto) (0-2) % Neut # (Auto) (5743-4759) /uL Lymph # (Auto) (7334-3039) /uL [place] # (Auto) (0-900) /uL Eos # (Auto) (0-450) /uL Baso # (Auto) (0-100) /uL PT (10.1-12.7) SECONDS INR (0.9-1.3) APTT (26-36) SECONDS Sodium (137-145) mmol/L Potassium (3.4-5.1) mmol/L Chloride (98-107) mmol/L Carbon Dioxide (22-32) mmol/L BUN (9-20) mg/dL Creatinine (0.66-1.25) mg/dL Estimated GFR (>60) mL/min BUN/Creatinine Ratio (6-22) Glucose (80-110) mg/dL Hemoglobin A1c (4.0-6.0) % Calcium (8.4-10.2) mg/dL Magnesium (1.6-2.3) mg/dL Total Bilirubin (0.2-1.3) mg/dL AST (17-59) IU/L ALT (<50) IU/L Alkaline Phosphatase (38-126) U/L Total Creatine Kinase (55-170) U/L Troponin I (0.01-0.034) ng/mL Total Protein (6.3-8.2) g/dL Albumin (3.5-5.0) g/dL Globulin (1.7-4.1) g/dL Albumin/Globulin Ratio (1.0-2.8) Triglycerides (35-150) mg/dL Cholesterol (140-199) mg/dL LDL Cholesterol, Calc (<100) mg/dL HDL Cholesterol (40-60) mg/dL TSH 1.02 (0.47-4.68) uIU/mL Urine Color Yellow Urine Appearance Clear Urine pH 7.0 (4.5-8.0) Ur Specific Institute 1.010 (1.000-1.035) Urine Protein Negative (Negative) Urine Glucose (UA) Negative (Negative) g/dL Urine Ketones Negative (NEGATIVE) Urine Occult Blood Negative (Negative) Urine Nitrate Negative (Negative) Urine Bilirubin Negative (NEGATIVE) Urine Urobilinogen 0.2 (0.2) E.U./dL Ur Leukocyte Esterase Negative (NEGATIVE) Urine RBC 0-1/hpf (0-5/HPF) Urine WBC None seen (0-5/HPF) Ur Squamous Epith Cells None seen (0-5/HPF) Urine Bacteria None seen (None) Ur Culture Indicated? Cult not indicated U Opiates 300ng/mL cut Negative (Negative) Ur Oxycodone Screen Negative (Negative) Urine Methadone Screen Negative (Negative) Ur Barbiturates Screen Negative (Negative) U Tricyclic Antidepress Negative (Negative) Ur Phencyclidine Scrn Negative (Negative) Ur Amphetamines Screen Negative (Negative) U Methamphetamines Scrn Negative (Negative) Ur MDMA Scrn (Ecstasy) Negative (Negative) U Benzodiazepines Scrn Negative (Negative) Urine Cocaine Screen Negative (Negative) U Marijuana (THC) Screen Negative (Negative) Ethyl Alcohol ( - 10) mg/dL Urine Dip Bedside Urine Glucose Negative Bedside Urine Bilirubin - Negative Bedside Urine Ketone - Negative Urine Specific [facility] 1.005 Bedside Urine Occult Blood - Negative Bedside Urine pH 6.5 Bedside Urine Protein - Negative Bedside Urine Urobilinogen - Negative Bedside Urine Nitrite - Negative Bedside Urine Leukocytes - Negative Esterase Point of care testing: Urine Dip Bedside Urine Glucose Negative Bedside Urine Bilirubin - Negative Bedside Urine Ketone - Negative Urine Specific [facility] 1.005 Bedside Urine Occult Blood - Negative Bedside Urine pH 6.5 Bedside Urine Protein - Negative Bedside Urine Urobilinogen - Negative Bedside Urine Nitrite - Negative Bedside Urine Leukocytes - Negative Esterase MDM Narrative Medical decision making narrative: [72] year old patient presents with dizziness upon waking Multiple etiologies for patient's symptoms considered including, but not limited to: [ peripheral vertigo versus stroke versus other] Prior Charts reviewed in our EMR Primary Historian: patient Labs reviewed and interpreted by myself: no significant abnormalities requiring immediate intervention Imaging reviewed: CT of the head and CTA of the head and neck without acute abnormalities requiring intervention, no bleed or large vessel occlusion Consultations: hospitalist (Dr. Hooks) happy to accept patient. Patient with persistent dizziness despite any ability to reproduce nystagmus or reproduce the dizziness on exam here. Additionally he does have difficulty with [id number] and heel to rosario with right upper and lower extremities without measurable weakness or sensory deficit. Patient suspected of stroke, he is outside of any window for intervention and does not have evidence of the need for mechanical retrieval, patient requires hospitalization for further workup Discharge Plan Departure Patient Disposition: Admitted as Observation Clinical Impression: Stroke Admit Date/Time: 12/02/22 17:04 Admit Provider: William Hooks
[2022-12-02 11:10] LABS: Add Manual Diff / Slide Review NO; Basophils Absolute Auto 100 /uL (0-100); Basophils Percent Auto 1.1 % (0-2); Eosinophils Absolute Auto 300 /uL (0-450); Hematocrit 42.9 % (41-53); Lymphocytes Absolute Auto 1100 /uL (1100-4500); Lymphocytes Percent Auto 15.3 % (25-40); Mean Corpuscular HGB Conc 32.7 % (30-36); Mean Corpuscular Hemoglobin 27.1 PG (26-34); Mean Corpuscular Volume 82.9 fL (80-100); Monocytes Absolute Auto 700 /uL (0-900); Monocytes Percent Auto 9.6 % (3-14); Neutrophils Absolute Auto 5000 /uL (1500-7000); Platelet Count 161 X10^3/uL (150-400); Red Blood Cell Count 5.17 X10^6/uL (4.5-5.9); Red Cell Distribution Width 17.1 % (11.6-14.8); White Blood Cell Count 7.1 X10^3/uL (4.5-11.0)
[2022-12-02 11:16] LABS: INR 2.5 (0.9-1.3); Prothrombin Time 29.3 SECONDS (10.1-12.7)
[2022-12-02 11:19] LABS: PTT Partial Thromboplastin Tim 39 SECONDS (26-36)
[2022-12-02 11:22] LABS: Alanine Aminotransferase 24 IU/L (<50); Albumin 3.7 g/dL (3.5-5.0); Albumin Globulin Ratio 1.4 (1.0-2.8); Alkaline Phosphatase 82 U/L (38-126); Aspartate Aminotransferase 25 IU/L (17-59); BUN Creatinine Ratio 15.5 (6-22); Bilirubin Total 0.4 mg/dL (0.2-1.3); Blood Urea Nitrogen 11 mg/dL (9-20); Calcium 9.3 mg/dL (8.4-10.2); Carbon Dioxide 28 mmol/L (22-32); Chloride 107 mmol/L (98-107); Creatine Kinase 43 U/L (55-170); Estimated Glomerular Filt Rate > 60 mL/min (>60); Ethanol (ETOH) < 10 mg/dL; Globulin 2.7 g/dL (1.7-4.1); Glucose 85 mg/dL (80-110); HEMOLYSIS < 15 (0-50); Potassium 4.3 mmol/L (3.4-5.1); Sodium 139 mmol/L (137-145); Total Protein 6.4 g/dL (6.3-8.2)
[2022-12-02 11:32] LABS: Troponin I < 0.012 ng/mL (0.01-0.034)
[2022-12-02] MEDS: SODIUM CHLORIDE 0.9% 1,000 ML 150 ML IV ×2 (11:47→17:39)
[2022-12-02 12:47] LABS: Appearance Urine UA CLEAR; Bilirubin Urine UA NEGATIVE (NEGATIVE); Color Urine UA YELLOW; Glucose Urine UA NEGATIVE (Negative); Ketones Urine UA NEGATIVE (NEGATIVE); Leukocyte Esterase Urine UA NEGATIVE (NEGATIVE); Nitrite Urine UA NEGATIVE (Negative); Occult Blood Urine UA NEGATIVE (Negative); Protein Urine UA NEGATIVE (Negative); UR Morphine/Opiate cutoff 300 Negative (Negative); Ur Creatinine Normal (Normal); Ur Specific Gravity Normal (Normal); Urine Amphetamines Negative (Negative); Urine Barbiturates Negative (Negative); Urine Benzodiazepines Negative (Negative); Urine Cocaine Negative (Negative); Urine MDMA Negative (Negative); Urine Methadone Negative (Negative); Urine Methamphetamines Negative (Negative); Urine Oxycodone Negative (Negative); Urine Phencyclidine Negative (Negative); Urine Tetrahydrocannabinol Negative (Negative); Urine Tricyclic Antidepressant Negative (Negative); Urine pH Normal (Normal); Urobilinogen Urine UA 0.2 E.U./dL (0.2)
[2022-12-02 13:00] LABS: Bacteria Urine None Seen; Culture Indicated Urine Cult Not Indicated; RBC Urine 0-1/HPF (0-5/HPF); Squamous Epithelial Cell Urine None Seen (0-5/HPF); WBC Urine None Seen (0-5/HPF)
--- NOTE | 2022-12-02 16:31 | PC.NURSE ---
Patient ambulated independently to the bathroom without difficulty or dizziness.
[2022-12-02] MEDS: SODIUM CHLORIDE 0.9% 1,000 ML 100 ML IV (17:35)
[2022-12-02] MEDS: ASPIRIN EC 325 MG TABLET PO (17:38)
--- NOTE | 2022-12-02 17:38 | DI.MRI.S_ITS ---
PROCEDURE: MR HEAD/BRAIN WO CON INDICATIONS: acute dizziness, rule out CVA TECHNIQUE: Noncontrast axial T1 spin echo, axial T2 fast spin echo, sagittal and axial FLAIR, coronal T2 fast spin echo, axial gradient echo, axial diffusion and ADC through the brain. COMPARISON: None. FINDINGS: Image quality: Excellent. CSF Spaces: Basal cisterns are patent. No extra-axial fluid collections. Ventricles are normal in size and shape. Brain: No intracranial masses or hemorrhage. Patel/white matter interface is normal. Brainstem appears normal. Diffusion-weighted images demonstrate no acute ischemic insult. No chronic ischemic insults. Normal intravascular flow voids are present. Skull and face: Calvarium has normal marrow signal. Orbits appear normal. Sinuses: Polypoidal mucosal thickening of the maxillary sinuses. IMPRESSION: No acute intracranial pathology. Dictated by: Chilo Charles M.D. on 12/03/2022 at 8:44 Approved by: Chilo Charles M.D. on 12/03/2022 at 8:45
[2022-12-02 18:00] LABS: Cholesterol 109 mg/dL (140-199); HDL Cholesterol 39 mg/dL (40-60); LDL Cholesterol Calculated 52 mg/dL (<100); Magnesium 2.2 mg/dL (1.6-2.3); Triglycerides 90 mg/dL (35-150)
--- NOTE | 2022-12-02 18:09 | P.HP_ITS ---
History of Present Illness History of Present Illness Date Patient Seen: 12/02/22 Time Patient Seen: 18:53 Chief complaint: Thinks he had a stroke this morning Narrative: Eliezer Blair is a 72yo M with PMH of A-fib on warfarin, CAD, Crohn's disease on weekly Entyvio infusions, HTN, HLD, and prostate cancer who presents with acute vertigo. Patient states he was awoke from sleep at 0600 with extreme vertigo both with his eyes closed and open. It slowly abated after 30-45 minutes and would worsen if he tried to get up and out of bed. He had some mild nausea. [place] fine afterward and the dizziness hasn't come back today. He has never had vertigo before. Denies any recent flulike illness. No headache, NV, CP, SOB, abd pain or diarrhea. PFSH Medical History Arthritis of both wrists CAD (coronary artery disease) (~2009) Cardiac arrhythmia (~2009) Cataracts, bilateral (~2003) Chest pain Crohn's disease (~2012) Dyslipidemia Hyperlipidemia Hypertension Osteoarthritis Paresthesia Prostate cancer (~2010) Skin cancer Symptomatic anemia Surgical History Anesthesia H/O hernia repair History of heart artery stent (~2009) History of knee replacement History of prostate surgery (~2012) Family History Father History of heart disease Myocardial infarction Mother Crohn's disease Social History household members: spouse Smoking Status: Former smoker alcohol intake: current Meds Home Medications and Allergies Home Medications Medication Instructions Recorded Confirmed Type sotalol 80 mg tablet 80 mg PO BID 06/28/20 12/02/22 History rosuvastatin 10 mg tablet 10 mg PO DAILY #90 tabs 09/01/21 12/02/22 Rx vedolizumab 300 mg intravenous 300 mg IV Q2W 09/27/21 12/02/22 History solution (Entyvio) warfarin 5 mg tablet 2.5 mg PO DAILY 08/15/22 12/02/22 History zolpidem 5 mg tablet (Ambien) 5 mg PO BEDTIME PRN insomnia #30 10/30/22 12/02/22 Rx tabs celecoxib 200 mg capsule (Celebrex) 200 mg PO BID PRN shoulder pain 11/21/22 12/02/22 Rx #30 caps Allergies Allergy/AdvReac Type Severity Reaction Status Date / Time No Known Drug Allergies Allergy Verified 12/02/22 10:50 Review of Systems Review of Systems Narrative: All other systems reviewed with the patient and are negative unless otherwise stated. Exam Vital Signs (past 8 hours): - 12/02/22 10:35 12/02/22 10:38 12/02/22 10:43 Temperature 98.1 F Pulse Rate 50 L 57 L Respiratory Rate 14 Blood Pressure 224/105 H 208/92 H Pulse Oximetry 99 100 Oxygen Delivery Method Room Air 12/02/22 10:43 12/02/22 10:45 12/02/22 11:07 Temperature Pulse Rate 58 L 54 L 55 L Respiratory Rate 19 Blood Pressure Pulse Oximetry 99 99 97 Oxygen Delivery Method 12/02/22 11:08 12/02/22 11:08 12/02/22 11:15 Temperature Pulse Rate 53 L 55 L Respiratory Rate 17 26 H Blood Pressure 182/82 H Pulse Oximetry 98 97 Oxygen Delivery Method Room Air 12/02/22 11:30 12/02/22 11:30 12/02/22 11:45 Temperature Pulse Rate 51 L 51 L Respiratory Rate 26 H 23 Blood Pressure 168/81 H Pulse Oximetry 98 96 Oxygen Delivery Method 12/02/22 12:00 12/02/22 12:00 12/02/22 12:15 Temperature Pulse Rate 51 L 52 L Respiratory Rate 21 22 Blood Pressure 172/78 H Pulse Oximetry 93 98 Oxygen Delivery Method 12/02/22 12:33 12/02/22 12:35 12/02/22 12:35 Temperature Pulse Rate 65 53 L Respiratory Rate 21 Blood Pressure 179/84 H Pulse Oximetry 88 L 97 Oxygen Delivery Method 12/02/22 12:45 12/02/22 13:00 12/02/22 13:00 Temperature Pulse Rate 51 L 52 L Respiratory Rate 19 28 H Blood Pressure 203/93 H Pulse Oximetry 97 98 Oxygen Delivery Method 12/02/22 13:15 12/02/22 13:30 12/02/22 13:31 Temperature Pulse Rate 54 L 53 L Respiratory Rate 15 12 Blood Pressure 205/91 H Pulse Oximetry 100 99 Oxygen Delivery Method 12/02/22 13:31 12/02/22 13:45 12/02/22 14:00 Temperature Pulse Rate 55 L 55 L 54 L Respiratory Rate 20 29 H Blood Pressure Pulse Oximetry 99 97 99 Oxygen Delivery Method 12/02/22 14:01 12/02/22 14:01 12/02/22 14:15 Temperature Pulse Rate 55 L 54 L Respiratory Rate 21 Blood Pressure 198/91 H Pulse Oximetry 99 99 Oxygen Delivery Method 12/02/22 14:30 12/02/22 14:31 12/02/22 14:31 Temperature Pulse Rate 53 L 53 L Respiratory Rate 27 H 25 H Blood Pressure 179/81 H Pulse Oximetry 99 99 Oxygen Delivery Method 12/02/22 14:45 12/02/22 15:00 12/02/22 15:00 Temperature Pulse Rate 54 L 56 L Respiratory Rate 27 H 25 H Blood Pressure 177/81 H Pulse Oximetry 98 98 Oxygen Delivery Method 12/02/22 15:15 12/02/22 15:30 12/02/22 15:30 Temperature Pulse Rate 56 L 57 L Respiratory Rate 21 15 Blood Pressure 179/85 H Pulse Oximetry 98 95 Oxygen Delivery Method 12/02/22 16:13 12/02/22 16:14 12/02/22 16:14 Temperature Pulse Rate 57 L 60 Respiratory Rate 34 H 23 Blood Pressure 184/85 H Pulse Oximetry 98 Oxygen Delivery Method 12/02/22 16:15 12/02/22 16:30 12/02/22 16:30 Temperature Pulse Rate 60 65 Respiratory Rate 21 Blood Pressure 197/74 H Pulse Oximetry 98 Oxygen Delivery Method 12/02/22 16:45 12/02/22 17:00 12/02/22 17:00 Temperature Pulse Rate 61 66 Respiratory Rate 18 Blood Pressure 179/84 H Pulse Oximetry Oxygen Delivery Method Oxygen Delivery Method Room Air Narrative Exam Narrative: GEN: no acute distress HEENT: moist mucous membranes, PERRL NECK: trachea midline, no JVD CV: regular rate and rhythm, no murmurs PULM: clear bilaterally ABD: soft, nontender, nondistended, no organomegaly EXT: warm and well perfused with no edema NEURO: awake, alert, oriented, no focal deficits Objective Labs 12/02/22 11:02 12/02/22 11:02 Labs: Laboratory Results - last 24 hr 12/02/22 12/02/22 12/02/22 11:02 11:02 11:02 WBC 7.1 RBC 5.17 Hgb 14.0 Hct 42.9 MCV 82.9 MCH 27.1 MCHC 32.7 RDW 17.1 H Plt Count 161 Neut % (Auto) 70.0 Lymph % (Auto) 15.3 L [place] % (Auto) 9.6 Eos % (Auto) 4.0 Baso % (Auto) 1.1 Neut # (Auto) 5000 Lymph # (Auto) 1100 [place] # (Auto) 700 Eos # (Auto) 300 Baso # (Auto) 100 PT 29.3 H INR 2.5 H APTT 39 H Sodium 139 Potassium 4.3 Chloride 107 Carbon Dioxide 28 BUN 11 Creatinine 0.71 Estimated GFR > 60 BUN/Creatinine Ratio 15.5 Glucose 85 Calcium 9.3 Magnesium Total Bilirubin 0.4 AST 25 ALT 24 Alkaline Phosphatase 82 Total Creatine Kinase 43 L Troponin I < 0.012 Total Protein 6.4 Albumin 3.7 Globulin 2.7 Albumin/Globulin Ratio 1.4 Triglycerides Cholesterol LDL Cholesterol, Calc HDL Cholesterol Urine Color Urine Appearance Urine pH Ur Specific [place] Urine Protein Urine Glucose (UA) Urine Ketones Urine Occult Blood Urine Nitrate Urine Bilirubin Urine Urobilinogen Ur Leukocyte Esterase Urine RBC Urine WBC Ur Squamous Epith Cells Urine Bacteria Ur Culture Indicated? U Opiates 300ng/mL cut Ur Oxycodone Screen Urine Methadone Screen Ur Barbiturates Screen U Tricyclic Antidepress Ur Phencyclidine Scrn Ur Amphetamines Screen U Methamphetamines Scrn Ur MDMA Scrn (Ecstasy) U Benzodiazepines Scrn Urine Cocaine Screen U Marijuana (THC) Screen Ethyl Alcohol < 10 12/02/22 12/02/22 12/02/22 11:02 11:02 12:35 WBC RBC Hgb Hct MCV MCH MCHC RDW Plt Count Neut % (Auto) Lymph % (Auto) [place] % (Auto) Eos % (Auto) Baso % (Auto) Neut # (Auto) Lymph # (Auto) [place] # (Auto) Eos # (Auto) Baso # (Auto) PT INR APTT Sodium Potassium Chloride Carbon Dioxide BUN Creatinine Estimated GFR BUN/Creatinine Ratio Glucose Calcium Magnesium 2.2 Total Bilirubin AST ALT Alkaline Phosphatase Total Creatine Kinase Troponin I Total Protein Albumin Globulin Albumin/Globulin Ratio Triglycerides 90 Cholesterol 109 L LDL Cholesterol, Calc 52 HDL Cholesterol 39 L Urine Color Urine Appearance Urine pH Ur Specific [place] Urine Protein Urine Glucose (UA) Urine Ketones Urine Occult Blood Urine Nitrate Urine Bilirubin Urine Urobilinogen Ur Leukocyte Esterase Urine RBC Urine WBC Ur Squamous Epith Cells Urine Bacteria Ur Culture Indicated? U Opiates 300ng/mL cut Negative Ur Oxycodone Screen Negative Urine Methadone Screen Negative Ur Barbiturates Screen Negative U Tricyclic Antidepress Negative Ur Phencyclidine Scrn Negative Ur Amphetamines Screen Negative U Methamphetamines Scrn Negative Ur MDMA Scrn (Ecstasy) Negative U Benzodiazepines Scrn Negative Urine Cocaine Screen Negative U Marijuana (THC) Screen Negative Ethyl Alcohol 12/02/22 12:35 WBC RBC Hgb Hct MCV MCH MCHC RDW Plt Count Neut % (Auto) Lymph % (Auto) [place] % (Auto) Eos % (Auto) Baso % (Auto) Neut # (Auto) Lymph # (Auto) [place] # (Auto) Eos # (Auto) Baso # (Auto) PT INR APTT Sodium Potassium Chloride Carbon Dioxide BUN Creatinine Estimated GFR BUN/Creatinine Ratio Glucose Calcium Magnesium Total Bilirubin AST ALT Alkaline Phosphatase Total Creatine Kinase Troponin I Total Protein Albumin Globulin Albumin/Globulin Ratio Triglycerides Cholesterol LDL Cholesterol, Calc HDL Cholesterol Urine Color Yellow Urine Appearance Clear Urine pH 7.0 Ur Specific [place] 1.010 Urine Protein Negative Urine Glucose (UA) Negative Urine Ketones Negative Urine Occult Blood Negative Urine Nitrate Negative Urine Bilirubin Negative Urine Urobilinogen 0.2 Ur Leukocyte Esterase Negative Urine RBC 0-1/hpf Urine WBC None seen Ur Squamous Epith Cells None seen Urine Bacteria None seen Ur Culture Indicated? Cult not indicated U Opiates 300ng/mL cut Ur Oxycodone Screen Urine Methadone Screen Ur Barbiturates Screen U Tricyclic Antidepress Ur Phencyclidine Scrn Ur Amphetamines Screen U Methamphetamines Scrn Ur MDMA Scrn (Ecstasy) U Benzodiazepines Scrn Urine Cocaine Screen U Marijuana (THC) Screen Ethyl Alcohol Assessment & Plan Assessment & Plan narrative: # acute vertigo concerning for TIA -had severe vertigo for 30-45min then stopped, likely BPPV but should rule out TIA -MRI brain ordered -echo ordered -tele -will hold on aspirin given therapeutic INR with warfarin # paroxysmal atrial fibrillation -warfarin per pharmacy -continue home sotalol # hypertension -allow permissive HTN x24 hours # hyperlipidemia -continue crestor # Crohn's disease -gets weekly Entyvio infusions Code status is full code. DVT prophylaxis with warfarin. Proxy is son Nagi. I have reviewed home meds and used all available resources to reconcile the home meds. Case discussed with ED physician/APC and patient will be admitted to the hospitalist service for further workup and management. This patient will be admitted as observation and will require less than 2 midnights of hospital time to treat vertigo and possible TIA. Quality VTE Deep Vein Thrombosis/Pulmonary Embolism Present on Admission: No
[2022-12-02 18:18] LABS: Hemoglobin A1C% w Est Avg Glu 5.5 % (4.0-6.0)
[2022-12-02 18:31] LABS: TSH w/ Reflex to FT4 1.02 uIU/mL (0.47-4.68)
[2022-12-02] MEDS: SOTALOL 80 MG TABLET PO (20:22)
[2022-12-03 00:08] VITALS: BP 145/75; PULSE 56; RESP 16; TEMP 36.3; O2SAT 97
[2022-12-03 03:43] VITALS: BP 164/67; PULSE 53; RESP 18; TEMP 36.1; O2SAT 97
[2022-12-03 05:37] LABS: Add Manual Diff / Slide Review NO; Basophils Absolute Auto 100 /uL (0-100); Basophils Percent Auto 1.7 % (0-2); Eosinophils Absolute Auto 400 /uL (0-450); Eosinophils Percent Auto 5.9 % (2-4); Hematocrit 42.2 % (41-53); Hemoglobin 13.8 g/dL (13.5-17.5); Lymphocytes Absolute Auto 1600 /uL (1100-4500); Lymphocytes Percent Auto 25.8 % (25-40); Mean Corpuscular HGB Conc 32.7 % (30-36); Mean Corpuscular Hemoglobin 26.8 PG (26-34); Mean Corpuscular Volume 82.1 fL (80-100); Monocytes Absolute Auto 700 /uL (0-900); Neutrophils Absolute Auto 3400 /uL (1500-7000); Neutrophils Percent Auto 54.6 % (50-75); Platelet Count 130 X10^3/uL (150-400); Red Blood Cell Count 5.14 X10^6/uL (4.5-5.9); Red Cell Distribution Width 17.3 % (11.6-14.8); White Blood Cell Count 6.1 X10^3/uL (4.5-11.0)
[2022-12-03 05:42] LABS: INR 2.1 (0.9-1.3)
[2022-12-03 05:46] LABS: BUN Creatinine Ratio 14.8 (6-22); Blood Urea Nitrogen 9 mg/dL (9-20); Calcium 8.5 mg/dL (8.4-10.2); Carbon Dioxide 23 mmol/L (22-32); Chloride 109 mmol/L (98-107); Estimated Glomerular Filt Rate > 60 mL/min (>60); Glucose 96 mg/dL (80-110); HEMOLYSIS < 15 (0-50); Potassium 4.1 mmol/L (3.4-5.1); Sodium 139 mmol/L (137-145)
[2022-12-03 07:00] VITALS: BP 165/74; PULSE 57; RESP 17; TEMP 36.1; O2SAT 97
--- NOTE | 2022-12-03 07:53 | DI.ECHO.S_ITS ---
[facility]---------+ [facility] +---------+ : : [address] : : : : [id number] : : : : Phone: [phone]+ Echocardiogram Report + + :Name: KELLEY DUMONT Study Date: 12/03/2022 Height: 72 in : :[facility] ReadingLocation: Weight: 216 lb : : Gender: Male BSA: 2.2 m2 : :: 1950 Age: 72 yrs BP: 184/79 mmHg: :Reason For Study: Vertigo, Check for PFO or Clot : :Ordering Physician: HOLLI, : :ROSS Cummings Performed By: Kelly Harris : :Referring: ROSS DE LA GARZA : + + Interpretation Summary Injection of contrast documented no interatrial shunt. The left ventricle is normal in size. Left ventricular ejection fraction is estimated to be 50%. The right ventricle is moderately dilated. The right ventricular systolic function is normal. Procedure: A two-dimensional transthoracic echocardiogram with color flow and Doppler was performed in limited views only. The study quality was technically adequate. Comparison is made with the echocardiogram of 05/10/2017. A saline contrast injection was performed to assess for cardiac shunting. The patient was in normal sinus rhythm during the exam. Left Ventricle: The left ventricle is normal in size. Left ventricular ejection fraction is estimated to be 50%. Right Ventricle: The right ventricle is moderately dilated. The right ventricular systolic function is normal. Atria: Injection of contrast documented no interatrial shunt. Tricuspid Valve: The tricuspid valve is not well visualized. There is trace tricuspid regurgitation. Pulmonary artery pressures cannot be estimated because of the lack of a measurable TR jet velocity. Great Vessels: The IVC is of normal diameter and collapses greater than 50% with a sniff. This suggests a low right atrial pressure of 3 mm Hg. MMode/2D Measurements & Calculations RA area: 19.8 cm2 RVD1 (basal): 4.8 cm LVLs ap4: 7.2 cm LVLd ap2: 8.0 cm LVLs ap2: 6.6 cm TAPSE_phl: 2.2 cm Reading Physician:02:37 PM
--- NOTE | 2022-12-03 09:06 | PT.IIE ---
Surgical History (Last Reviewed 12/02/22 @ 10:44 by Song Mcpherson DO) Anesthesia H/O hernia repair History of heart artery stent (~2009) History of knee replacement History of prostate surgery (~2012) Medical History (Last Reviewed 12/02/22 @ 10:44 by Song Mcpherson DO) Arthritis of both wrists CAD (coronary artery disease) (~2009) Cardiac arrhythmia (~2009) Cataracts, bilateral (~2003) Chest pain Crohn's disease (~2012) Dyslipidemia Hyperlipidemia Hypertension Osteoarthritis Paresthesia Prostate cancer (~2010) Skin cancer Symptomatic anemia Physical Therapy Inpatient Evaluation/Re-Eval M1 PT/OT-IP Prior Functional Status Start: 12/03/22 11:30 Freq: NEEDED Status: Active Protocol: Document 12/03/22 11:30 AB (Rec: 12/03/22 12:02 AB [id number]) Medical Review Prior Functional Status Medical History Reviewed Yes Communication Pt is able to communicate all needs. Mobility and Gait Pt reports he is independent and does not use AD. Activities of Daily Living and IADL's Pt is independent with all ADLs and IADLs. Social History Household Members none Living Arrangements House Number of Floors (Floors) One Floor Number of Stairs To Enter/Railing? 1 [place], no hand rail Home Environment Standard Height Toilet,Walk in Shower Home Equipment Hand Held Shower Additional Social History Comment Pt reports he lives alone, but states he has supportive family/friends that could assist 02/10 if needed. M2 PT-IP Current Condition Start: 12/03/22 11:30 Freq: NEEDED Status: Active Protocol: Document 12/03/22 11:30 AB (Rec: 12/03/22 12:02 AB [id number]) Physical Therapy Current Condition Current Condition Evaluation Date 12/03/22 Treatment Diagnosis dizziness; vertigo Onset Date 12/02/22 M3 PT-IP Subjective Start: 12/03/22 11:30 Freq: NEEDED Status: Active Protocol: Document 12/03/22 11:30 AB (Rec: 12/03/22 12:02 AB [id number]) Subjective Physical Therapy Visit Type Type Initial Evaluation Visit Start Time 09:06 Visit Stop Time 09:41 Total Visit Minutes 35 Physical Therapy Visit Comments Patient Comments Pt presents semi supine in bed , denies any symptoms currently, and is agreeable to PT evaluation this morning. Therapy Pain Assessment Pain When Pain Assessed At Rest Pain Present Pain Present Denied Pain M4 PT-IP Mobility and Gait Start: 12/03/22 11:30 Freq: NEEDED Status: Active Protocol: Document 12/03/22 11:30 AB (Rec: 12/03/22 12:02 AB [id number]) PT-Bed Mobility Assessment Rolling Type of Rolling Bilateral Level of Assist Independent Supine to Sit Supine to Sit Independent Sit to Supine Sit to Supine Independent Scooting Scooting to Edge of Bed Independent Scooting Up and Down in Bed Independent PT-Transfer Assessment Sit to and From Stand Sit to and from Stand Independent Equipment Transfer Assistive Device None Transfers Transfer Destination Bed Transfer Technique Stand Step Pivot Transfer Ability Level of Assist Independent Comments Mobility Comments The pt denied any symptoms of dizziness when performing bed mobility. Gait Assessment Gait Gait Assistance Required: Independent Distance (Feet) 300 Assistive Devices Assistive Device Gait Belt Gait Deviations General Gait Pattern Within Normal Limits Stair Climbing Assessment Evaluation Level of Assist On Stairs Independent Devices Stair Climbing Assistive Devices Left Railing Technique/Endurance Stair Climbing Direction Ascend and Descend Stair Climbing Technique Step Over Step Number of Steps Climbed 3 Query Text: Stair Climbing Set # Repetitions (reps) 1 PT-Balance Assessment Sitting Balance and Reactions Static Sitting Balance Ability Normal Dynamic Sitting Balance Ability Normal Standing Balance and Reactions Static Standing Balance Ability Normal Dynamic Standing Balance Ability Normal Device Used none M5 PT-IP Objective Assessments Start: 12/03/22 11:30 Freq: NEEDED Status: Active Protocol: Document 12/03/22 11:30 AB (Rec: 12/03/22 12:02 AB [id number]) Orientation Orientation/Cognition Level of Alertness Alert Orientation Name,Age,Birthday,Month,Date, Year,Day of Week,Place, Situation Language Function Ability No Deficits Noted Safety Awareness Understands Safety Issues Memory Description No Deficits Noted Gross Range of Motion Upper Extremity ROM Assessment Within Functional Limits Lower Extremity ROM Assessment Within Functional Limits Strength Upper Extremity Strength Assessment Within Functional Limits Lower Extremity Strength Assessment Within Functional Limits Sensation Assessment Sensation Gross Sensation WNL M6 PT-IP Treatment Start: 12/03/22 11:30 Freq: NEEDED Status: Active Protocol: Document 12/03/22 11:30 AB (Rec: 12/03/22 12:02 AB [id number]) Physical Therapy Treatment Education Education Provided Safety Brace Education Patient Other Treatments Other Treatment Performed Pt was educated on the possiblity of his symptoms being a result of BPPV. After education regarding BPPV, PT recommended Parma Hallpike to be performed in order to rule BPPV in/out, however the pt refused for Parma Hallpike to be performed due to concerns of his symptoms returning, even after the pt was extensively educated on the purpose and indication. He was also extensively educated on seeking an outpatient PT referral if his symptoms due return in order to undergo diagnosis and treatment for BPPV, with the pt reporting understanding. At end of session, the pt returned to bed with all needs met and call light within reach. RN was notified of findings. M7 PT-IP Assessment and Plan Start: 12/03/22 11:30 Freq: NEEDED Status: Active Protocol: Document 12/03/22 11:30 AB (Rec: 12/03/22 12:02 AB [id number]) PT Summary Assessment and Plan Potential Rehabilitation Potential Excellent Status of Condition at Evaluation Stable Summary Assessment Summary Eliezer Elena is a 72 year old male patient presenting with complaints of dizziness/ vertigo which began yesterday (12/02/22) morning. The pt's report of symptoms appears to be consistent with BPPV, with the exception of the duration of his symptoms (15-30 mins per pt). However, the pt refused to undergo Parma Hallpike for diagnosis and treatment of BPPV, even after the pt was educated on the purpose and indication. The pt demonstrated independence with all functional mobility testing, including no LOB, gait deviations or significant ROM or strength deficits noted today. Based on these findings, PT recommends discharge to home with the pt seeking outpatient PT referral if symptoms return. The pt is being discharged from therapy services, however this is subject to change if his symptoms return during his hospitalization in order to perform Chandana Hallpike. Goals Bed Mobility Goal Independent Transfer Goal Independent Gait Goal Independent Gait Distance 500 Days to Meet Goals 5 Frequency of Treatment Frequency Of Treatment Discharge Treatment Plan Physical Therapy Treatment Plan Neuromuscular Re-ed Other Recommendations and Next Treatment The pt is being discharged Focus from PT. However, perform Parma Hallpike if symptoms return during his hospitalization. Recommendations To Nursing Amount of Assist Needed Independent Discharge Recommendations PT Discharge Recommendations Home,Outpatient PT Transportation Needs at Discharge Private Vehicle
[2022-12-03] MEDS: SOTALOL 80 MG TABLET PO (10:39)
[2022-12-03] MEDS: ATORVASTATIN 20 MG TABLET PO (10:39)
--- NOTE | 2022-12-03 10:58 | CM.DANOTE ---
DCP Assessment Note: Patient is a 72yo male here under OBS status for stroke protocol after experiencing extreme vertigo. PCP Stephen Horras Payer Medicare and Nichole DIAZ reviewed EMR. Per hospitalist, likely d/c today. W[employer] TECHNICAL OFFICER entered room and introduced self and role. Patient laying in bed and appeared A/Ox4. Patient lives alone in [place] and has a local son/DIL that he's close with. Patient is IADLs, drives, and uses no DME. Patient drove here and will likely drive self back. Patient reports being eager to d/c home. Plan: Likely d/c home today, transport with self. Likely no needs from CM team. CM team will continue to follow as needed. EMILY Zendejas Discharge Planning/Care Management CM Discharge Assessment Start: 12/03/22 10:56 Freq: Status: Active Protocol: Document 12/03/22 10:56 (Rec: 12/03/22 10:58 [id number]) Discharge Planning Assessment Assigned Vision Mixer EMILY Srivastava DPOA/Assigned Designee Name Nagi Blair (son) Contact Information [phone] Advance Directives? Yes Advance Directives on File No History Provided By Patient,Medical Record Prior Living Arrangements House Household Members none Type of transporation used prior to Drives own vehicle admit Independent with ADL's Yes Is patient alert and oriented? Yes Discharge Plan Home Transportation Arrangement self Referrals Initiated Other Additional Comment None needed at time of initial assessment. Patient requesting to d/c home as soon as possible. Provider noitified this AM in rounds. Whiteboard Updated in Patient Room with Yes name and ext. # of Vision Mixer Review Status In Process Next Review Type Continued Stay Review
--- NOTE | 2022-12-03 13:38 | PM.DS.1 ---
History of Present Illness History of Present Illness Date Patient Seen: 12/02/22 Time Patient Seen: 18:53 Chief complaint: Thinks he had a stroke this morning Narrative: Eliezer Blair is a 72yo M with PMH of A-fib on warfarin, CAD, Crohn's disease on weekly Entyvio infusions, HTN, HLD, and prostate cancer who presents with acute vertigo. Patient states he was awoke from sleep at 0600 with extreme vertigo both with his eyes closed and open. It slowly abated after 30-45 minutes and would worsen if he tried to get up and out of bed. He had some mild nausea. Villanueva fine afterward and the dizziness hasn't come back today. He has never had vertigo before. Denies any recent flulike illness. No headache, NV, CP, SOB, abd pain or diarrhea. Discharge Providers Provider Date of admission: 12/02/22 17:04 Discharge Date: 12/03/22 Primary care physician: Castro Tang MD Consults: 12/02/22 17:37 Consult to Occupational Therapy Evaluate & Treat Comment: Physician Instructions: Evaluate and treat Consult to Physical Therapy Evaluate & Treat Comment: Physician Instructions: Evaluate and Treat Discharge provider: William Hooks DO Summary Hospital Course Discharge Diagnosis: # acute vertigo concerning for TIA -had severe vertigo for 30-45min then stopped, likely BPPV but should rule out TIA -MRI brain negative -echo reassuring with EF 50% and no shunt -tele -will hold on aspirin given therapeutic INR with warfarin # paroxysmal atrial fibrillation -warfarin per pharmacy -continue home sotalol # hypertension -allow permissive HTN x24 hours # hyperlipidemia -continue crestor # Crohn's disease -gets weekly Entyvio infusions Hospital Course: Admitted for vertigo with concern for TIA. MRI and CT head negative. Thought by PT/OT to be BPPV. Will f/up for outpatient PT for this. Exam Vital Signs (past 8 hours): - 12/03/22 07:00 Temperature 97.0 F L Pulse Rate 57 L Respiratory Rate 17 Blood Pressure 165/74 H Pulse Oximetry 97 Oxygen Flow Rate 0 Oxygen Delivery Method Room Air Oxygen Flow Rate 0 Narrative Exam Narrative: GEN: no acute distress HEENT: moist mucous membranes, PERRL NECK: trachea midline, no JVD CV: regular rate and rhythm, no murmurs PULM: clear bilaterally ABD: soft, nontender, nondistended, no organomegaly EXT: warm and well perfused with no edema NEURO: awake, alert, oriented, no focal deficits Objective Labs 12/03/22 05:15 12/03/22 05:15 Labs: Laboratory Results - last 24 hr 12/02/22 12/02/22 12/02/22 11:02 11:02 11:02 WBC RBC Hgb Hct MCV MCH MCHC RDW Plt Count Neut % (Auto) Lymph % (Auto) [place] % (Auto) Eos % (Auto) Baso % (Auto) Neut # (Auto) Lymph # (Auto) [place] # (Auto) Eos # (Auto) Baso # (Auto) PT INR Sodium Potassium Chloride Carbon Dioxide BUN Creatinine Estimated GFR BUN/Creatinine Ratio Glucose Hemoglobin A1c 5.5 Calcium Magnesium 2.2 Triglycerides 90 Cholesterol 109 L LDL Cholesterol, Calc 52 HDL Cholesterol 39 L TSH 12/02/22 12/03/22 12/03/22 11:02 05:15 05:15 WBC 6.1 RBC 5.14 Hgb 13.8 Hct 42.2 MCV 82.1 MCH 26.8 MCHC 32.7 RDW 17.3 H Plt Count 130 L Neut % (Auto) 54.6 Lymph % (Auto) 25.8 [place] % (Auto) 12.0 Eos % (Auto) 5.9 H Baso % (Auto) 1.7 Neut # (Auto) 3400 Lymph # (Auto) 1600 [place] # (Auto) 700 Eos # (Auto) 400 Baso # (Auto) 100 PT INR Sodium 139 Potassium 4.1 Chloride 109 H Carbon Dioxide 23 BUN 9 Creatinine 0.61 L Estimated GFR > 60 BUN/Creatinine Ratio 14.8 Glucose 96 Hemoglobin A1c Calcium 8.5 Magnesium Triglycerides Cholesterol LDL Cholesterol, Calc HDL Cholesterol TSH 1.02 12/03/22 05:15 WBC RBC Hgb Hct MCV MCH MCHC RDW Plt Count Neut % (Auto) Lymph % (Auto) [place] % (Auto) Eos % (Auto) Baso % (Auto) Neut # (Auto) Lymph # (Auto) [place] # (Auto) Eos # (Auto) Baso # (Auto) PT 24.0 H D INR 2.1 H Sodium Potassium Chloride Carbon Dioxide BUN Creatinine Estimated GFR BUN/Creatinine Ratio Glucose Hemoglobin A1c Calcium Magnesium Triglycerides Cholesterol LDL Cholesterol, Calc HDL Cholesterol TSH [facility] Medical History Arthritis of both wrists CAD (coronary artery disease) (~2009) Cardiac arrhythmia (~2009) Cataracts, bilateral (~2003) Chest pain Crohn's disease (~2012) Dyslipidemia Hyperlipidemia Hypertension Osteoarthritis Paresthesia Prostate cancer (~2010) Skin cancer Symptomatic anemia Surgical History Anesthesia H/O hernia repair History of heart artery stent (~2009) History of knee replacement History of prostate surgery (~2012) Family History Father History of heart disease Myocardial infarction Mother Crohn's disease Social History household members: none Smoking Status: Former smoker alcohol intake: current Discharge Plan Discharge Plan Patient Disposition: Home Provider Discharge Comment: I've put you on a new blood pressure medication for your heart. Discharge orders & Medications Prescriptions: New losartan 25 mg tablet 25 mg PO BEDTIME Qty: 30 0RF Continued zolpidem [Ambien] 5 mg tablet 5 mg PO BEDTIME PRN (Reason: insomnia) Qty: 30 0RF sotalol 80 mg tablet 80 mg PO BID rosuvastatin 10 mg tablet 10 mg PO DAILY Qty: 90 3RF Entyvio 300 mg recon soln 300 mg IV Q2W Rx Instructions: administer 2nd dose 2 weeks after first dose; administer over 30 minutes warfarin 5 mg tablet 2.5 mg PO DAILY Rx Instructions: dosed by Dr. conner celecoxib [Celebrex] 200 mg capsule 200 mg PO BID PRN (Reason: shoulder pain) Qty: 30 1RF Follow up/Referrals: Castro Tang MD [Primary Care Provider] - 2 Weeks Visit Report/Discharge Packet Stand Alone Forms: Patient Portal/API, Stroke Signs & Symptoms Discharge Data Primary Care Provider: Castro Tang Attending Provider: William Hooks Admit Date/Time: 12/02/22 17:04 Discharges patient from system. Discharge Date/Time: 12/03/22 11:40 Quality VTE Deep Vein Thrombosis/Pulmonary Embolism Present on Admission: No
== END 2022-12-03 11:40 | disposition home or self-care (01) ==
LOC: ED 11:38 → AC 17:04
PROVIDERS: Admitting Provider Student in an Organized Health Care Education/Training Program; Emergency Provider Emergency Medicine; Family Provider Family Medicine; PCP Family Medicine; Referring Provider Emergency Medicine; Visit Provider Student in an Organized Health Care Education/Training Program
DX: R42 Dizziness and giddiness (principal); R29.702 NIHSS score 2; I48.0 Paroxysmal atrial fibrillation; I10 Essential (primary) hypertension; E78.5 Hyperlipidemia, unspecified; K50.90 Crohn's disease, unspecified, without complications; Z79.01 Long term (current) use of anticoagulants; Z87.891 Personal history of nicotine dependence
CPT/HCPCS: 36415; 70450; 70496; 70498; 70551; 80048; 80053; 80061; 80305; 80320; 81001; 81003; 82550; 83036; 83735; 84443; 84484; 85025; 85610; 85730; 93005; 93307; 96360; 96361; 97161; 97535; 99284; 99285; G0378; Q9967

== ENCOUNTER → 2023-01-02 11:08 | Outpatient (CLI) | payer MEDICARE, OTHER, SELFPAY ==
[2022-12-02 17:36] VITALS: BMI 29.3
[2023-01-02 12:47] LABS: Add Manual Diff / Slide Review NO; Basophils Absolute Auto 100 /uL (0-100); Basophils Percent Auto 1.8 % (0-2); Eosinophils Absolute Auto 400 /uL (0-450); Eosinophils Percent Auto 7.4 % (2-4); Hematocrit 42.2 % (41-53); Hemoglobin 14.2 g/dL (13.5-17.5); Lymphocytes Absolute Auto 1300 /uL (1100-4500); Lymphocytes Percent Auto 23.7 % (25-40); Mean Corpuscular HGB Conc 33.6 % (30-36); Mean Corpuscular Hemoglobin 28.1 PG (26-34); Mean Corpuscular Volume 83.6 fL (80-100); Monocytes Absolute Auto 600 /uL (0-900); Monocytes Percent Auto 10.8 % (3-14); Neutrophils Absolute Auto 3100 /uL (1500-7000); Neutrophils Percent Auto 56.3 % (50-75); Platelet Count 152 X10^3/uL (150-400); Red Blood Cell Count 5.04 X10^6/uL (4.5-5.9); Red Cell Distribution Width 18.2 % (11.6-14.8); White Blood Cell Count 5.5 X10^3/uL (4.5-11.0)
[2023-01-02 13:09] LABS: Alanine Aminotransferase 24 IU/L (<50); Albumin 3.8 g/dL (3.5-5.0); Albumin Globulin Ratio 1.5 (1.0-2.8); Alkaline Phosphatase 85 U/L (38-126); Aspartate Aminotransferase 28 IU/L (17-59); BUN Creatinine Ratio 24.1 (6-22); Bilirubin Total 0.4 mg/dL (0.2-1.3); Blood Urea Nitrogen 19 mg/dL (9-20); Carbon Dioxide 30 mmol/L (22-32); Chloride 104 mmol/L (98-107); Cholesterol 111 mg/dL (140-199); Estimated Glomerular Filt Rate > 60 mL/min (>60); Globulin 2.5 g/dL (1.7-4.1); Glucose 92 mg/dL (80-110); HDL Cholesterol 40 mg/dL (40-60); HEMOLYSIS < 15 (0-50); LDL Cholesterol Calculated 38 mg/dL (<100); Potassium 4.1 mmol/L (3.4-5.1); Sodium 139 mmol/L (137-145); Total Protein 6.3 g/dL (6.3-8.2); Triglycerides 164 mg/dL (35-150)
[2023-01-02 13:36] LABS: Prostate Specific Antigen Scrn 0.487 ng/mL (0.1-4.0)
== END ==
PROVIDERS: Family Provider Family Medicine; PCP Family Medicine; Referring Provider Family Medicine; Visit Provider Family Medicine
DX: I10 Essential (primary) hypertension (principal); Z12.5 Encounter for screening for malignant neoplasm of prostate; E78.5 Hyperlipidemia, unspecified; K50.919 Crohn's disease, unspecified, with unspecified complications; D64.9 Anemia, unspecified
CPT/HCPCS: 36415; 80053; 80061; 84443; 85025; G0103

== ENCOUNTER 2023-05-02 12:32 | Day surgery (SDC) | payer MEDICARE, OTHER, SELFPAY ==
[2022-12-02 17:36] VITALS: BMI 29.3
--- NOTE | 2023-05-02 | PATH_ITS ---
[facility] Accession Number: [id number] No. of containers..03 Tissue . 01 Material submitted: . PART A: colon - RIGHT COLON PART B: colon - TRANSVERSE COLON PART C: colon - LEFT COLON . 01 Diagnosis: A-B. RIGHT, TRANSVERSE COLON, BIOPSIES: Colonic mucosa with no significant diagnostic abnormality. Negative for active inflammation, granulomas, dysplasia, and malignancy. . C. LEFT COLON, BIOPSY: Chronic colitis with mild activity; please see comment. Negative for granulomas, dysplasia, or malignancy. [facility] 05/04/2023 1146 Local . 01 Comment: C. The findings in the left colon biopsy are consistent with the clinical history of Crohn's disease. . 01 Electronically signed: . William Obrien MD, PhD, Pathologist NPI- [id number] . 01 Gross description: . Part A: RIGHT COLON : Received in formalin is multiple fragment(s) of warren, soft tissue measuring 1.0 x 0.5 x 0.1 cm in aggregate submitted entirely in 1 cassette(s) Part B: TRANSVERSE COLON: Received in formalin is multiple fragment(s) of warren, soft tissue measuring 1.0 x 0.5 x 0.1 cm in aggregate submitted entirely in 1 cassette(s) Part C: LEFT COLON: Received in formalin is multiple fragment(s) of warren, soft tissue measuring 1.0 x 0.5 x 0.1 cm in aggregate submitted entirely in 1 cassette(s) /AAY 05/03/2023 0452 Local . 01 Pathologist provided ICD-10: K50.111 . 01 CPT . 090328, [id number], [id number] Specimen Comment: A courtesy copy of this report has been sent to [phone] Performed at: 01 [facility] [address], [place], [place] [id number] MD Tyrone Patel MD Phone: [phone]
[2023-05-02] MEDS: LACTATED RINGERS 1,000 ML 100 ML IV (13:12)
[2023-05-02 13:13] VITALS: BP 178/85; PULSE 65; RESP 16; TEMP 36.7; O2SAT 98
--- NOTE | 2023-05-02 13:14 | PM.OP.COLON ---
Operative Date/Time/Diagnoses Date of procedure: 05/02/23 Pre-op diagnosis: See indication and findings Procedure & Clinicians Study performed: Colonoscopy Indications: Follow-up Crohn's colitis Surgeon: Lu Albright Procedure Notes Procedure in detail: After informed consent was obtained the patient was placed in left lateral decubitus position. The video colonoscope was placed in the rectum slowly advanced to the cecum. Preparation was good. On slow withdrawal mucosa was carefully examined. The scope was removed. The patient tolerated procedure well. Blood loss none Complications none Sedation mac Findings 1. Extensive pseudopolyps from sigmoid to cecum. In addition there were some areas of patchy erythema/inflammation but these were relatively few. Random biopsies were taken right transverse and left colon every 10 cm with 2 biopsies. The in should have follow-up colonoscopy in 1-2 years
--- NOTE | 2023-05-02 13:16 | PM.HP.1 ---
History of Present Illness History of Present Illness Date Patient Seen: 05/02/23 Chief complaint: SDC Narrative: History of Crohn's colitis need to check for disease state and screening for colon cancer/dysplasia. [facility] Medical History (Updated 01/04/23 @ 09:53 by Castro Tang MD) Dyslipidemia Symptomatic anemia Arthritis of both wrists Osteoarthritis Cataracts, bilateral (~2003) Cardiac arrhythmia (~2009) Paresthesia Chest pain Skin cancer Prostate cancer (~2010) Hyperlipidemia CAD (coronary artery disease) (~2009) Crohn's disease (~2012) Hypertension Surgical History Anesthesia History of knee replacement History of prostate surgery (~2012) H/O hernia repair History of heart artery stent (~2009) Family History Father History of heart disease Myocardial infarction Mother Crohn's disease Social History household members: none Smoking Status: Former smoker alcohol intake: current Meds Home Medications and Allergies Home Medications Medication Instructions Recorded Confirmed Type sotalol 80 mg tablet 80 mg PO BID 06/28/20 04/24/23 History rosuvastatin 10 mg tablet 10 mg PO DAILY #90 tabs 09/01/21 04/24/23 Rx vedolizumab 300 mg intravenous 300 mg IV Q2W 09/27/21 04/24/23 History solution (Entyvio) warfarin 5 mg tablet 2.5 mg PO DAILY 08/15/22 04/24/23 History zolpidem 5 mg tablet (Ambien) 5 mg PO BEDTIME PRN insomnia #30 10/30/22 04/24/23 Rx tabs losartan 25 mg tablet 25 mg PO BEDTIME #30 tabs 01/01/23 04/24/23 Rx Allergies Allergy/AdvReac Type Severity Reaction Status Date / Time No Known Drug Allergies Allergy Verified 04/24/23 14:19 Exam Narrative Exam Narrative: Oropharynx free of lesions Chest clear to auscultation percussion Cardiac exam reveals no S3 or murmur Assessment & Plan Assessment & Plan narrative: History of Crohn's colitis need for multiple biopsy screening. Risks benefits and alternatives been explained. Patient's INR is 1.1 today. We will tell him on discharge when to restart his Coumadin.
[2023-05-02 13:58] VITALS: BP 102/65; PULSE 68; RESP 14; TEMP 36.9; O2SAT 93
[2023-05-02 14:03] VITALS: BP 153/112; PULSE 67; RESP 16; O2SAT 95
[2023-05-02 14:08] VITALS: BP 134/85; PULSE 62; RESP 18; O2SAT 95
[2023-05-02 14:16] VITALS: BP 149/83; PULSE 63; RESP 14; O2SAT 96
== END 2023-05-02 14:35 | disposition home or self-care (01) ==
PROVIDERS: Family Provider Family Medicine; PCP Family Medicine; Referring Provider Internal Medicine Gastroenterology; Visit Provider Internal Medicine Gastroenterology
PROC: 0DJD8ZZ Inspection of Lower Intestinal Tract, Via Natural or Artificial Opening Endoscopic (ICD-10-PCS; CPT 45378; principal; 2023-05-02 13:30)
DX: K50.111 Crohn's disease of large intestine with rectal bleeding (principal)
CPT/HCPCS: 45380; J2704

== ENCOUNTER → 2023-12-31 11:02 | Outpatient (CLI) | payer MEDICARE, OTHER, SELFPAY ==
[2022-12-02 17:36] VITALS: BMI 29.3
[2023-12-31 11:59] LABS: Add Manual Diff / Slide Review NO; Basophils Absolute Auto 100 /uL (0-100); Eosinophils Absolute Auto 300 /uL (0-450); Eosinophils Percent Auto 3.6 % (2-4); Hematocrit 49.5 % (41-53); Hemoglobin 16.7 g/dL (13.5-17.5); Lymphocytes Absolute Auto 1400 /uL (1100-4500); Lymphocytes Percent Auto 14.6 % (25-40); Mean Corpuscular HGB Conc 33.8 % (30-36); Mean Corpuscular Hemoglobin 31.2 PG (26-34); Mean Corpuscular Volume 92.5 fL (80-100); Monocytes Absolute Auto 800 /uL (0-900); Neutrophils Absolute Auto 6700 /uL (1500-7000); Neutrophils Percent Auto 71.8 % (50-75); Platelet Count 145 X10^3/uL (150-400); Red Blood Cell Count 5.35 X10^6/uL (4.5-5.9); Red Cell Distribution Width 14.2 % (11.6-14.8); White Blood Cell Count 9.3 X10^3/uL (4.5-11.0)
[2023-12-31 12:12] LABS: Alanine Aminotransferase 22 IU/L (<50); Albumin 4.3 g/dL (3.5-5.0); Albumin Globulin Ratio 1.7 (1.0-2.8); Alkaline Phosphatase 91 U/L (38-126); Aspartate Aminotransferase 29 IU/L (17-59); BUN Creatinine Ratio 16.9 (6-22); Bilirubin Total 0.8 mg/dL (0.2-1.3); Blood Urea Nitrogen 14 mg/dL (9-20); Calcium 9.1 mg/dL (8.4-10.2); Carbon Dioxide 28 mmol/L (22-32); Chloride 106 mmol/L (98-107); Cholesterol 120 mg/dL (140-199); Estimated Glomerular Filt Rate > 60 mL/min (>60); Globulin 2.6 g/dL (1.7-4.1); Glucose 84 mg/dL (80-110); HDL Cholesterol 40 mg/dL (40-60); LDL Cholesterol Calculated 56 mg/dL (<100); Sodium 140 mmol/L (137-145); Total Protein 6.9 g/dL (6.3-8.2); Triglycerides 121 mg/dL (35-150)
[2023-12-31 12:13] LABS: HEMOLYSIS 16 (0-50)
[2023-12-31 12:18] LABS: Potassium 4.1 mmol/L (3.4-5.1)
[2023-12-31 12:42] LABS: Prostate Specific Antigen Scrn 0.732 ng/mL (0.1-4.0)
[2023-12-31 12:46] LABS: TSH w/ Reflex to FT4 1.65 uIU/mL (0.47-4.68)
[2024-01-01 04:09] LABS: Apolipoprotein B 59 mg/dL (<90)
== END ==
PROVIDERS: Family Provider Family Medicine; PCP Family Medicine; Referring Provider Family Medicine; Visit Provider Family Medicine
DX: Z12.5 Encounter for screening for malignant neoplasm of prostate (principal); I10 Essential (primary) hypertension; E78.5 Hyperlipidemia, unspecified; Z85.46 Personal history of malignant neoplasm of prostate; M25.811 Other specified joint disorders, right shoulder; G47.00 Insomnia, unspecified
CPT/HCPCS: 36415; 80053; 80061; 82172; 84443; 85025; G0103

== ENCOUNTER 2024-05-06 08:15 | Outpatient (RCR) | payer MEDICARE, OTHER, SELFPAY ==
[2022-12-02 17:36] VITALS: BMI 29.3
--- NOTE | 2024-04-17 18:05 | PT.OIE ---
Current Diagnoses Primary osteoarthritis, right shoulder (04/17/24) Primary osteoarthritis, left shoulder (04/17/24) Past Medical History (Last Reviewed 08/15/23 @ 09:40 by Nicholas Fox RN) Arthritis of both wrists CAD (coronary artery disease) (~2009) Cardiac arrhythmia (~2009) Cataracts, bilateral (~2003) Chest pain Crohn's disease (~2012) Dyslipidemia Hyperlipidemia Hypertension Osteoarthritis Paresthesia Prostate cancer (~2010) Skin cancer Symptomatic anemia Past Surgical History (Last Reviewed 08/15/23 @ 09:40 by Nicholas Fox RN) Anesthesia H/O hernia repair History of heart artery stent (~2009) History of knee replacement History of prostate surgery (~2012) Visit Care Team Role Provider Type Castro Tang MD Attending Provider Physician Family Provider Primary Care Provider Referring Provider Specialty: [facility] Practice Address: [address] [place] [address] Email: [email or web address] Physical Therapy Initial Evaluation PT-OP-A Visit Information Start: 04/14/24 18:38 Freq: Status: Active Protocol: Document 04/17/24 08:17 LRN (Rec: 04/17/24 09:46 LRN [id number]) Out-Patient Physical Therapy Visit Information Visit Information Visit Type Treatment Note Visit Start Time 08:17 Visit Stop Time 09:05 Visit Number 1 Evaluation Information Evaluation Date 04/17/24 Precautions Precautions Prostate CA surgery ~7 yrs ago , CHF with 2 Stents in 2011, Chrohns Disease, gina partial knee replacements (2013). 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 PT-OP-B Current Condition Start: 04/14/24 18:38 Freq: Status: Active Protocol: Document 04/17/24 08:17 LRN (Rec: 04/17/24 09:46 LRN [id number]) Current Condition History of Current Condition Onset Date 5 months ago Current Complaints No pain in shoulders, but worried pain will return like before. History of Current Condition Insidious onset of difficulty sleeping because R shoulder had throbbing pain while R sidelying. First cortisone injection to R shoulder 3.5 months ago. When pain returned in both shoulders he had a 2nd cortisone injection in R shoulder and 1st injection in L shoulder . Pt also is asking why his R hand shakes when he is trying to eat. Pt referred back to referring physician for hand shaking condition. Treatment Goals Patient/Caregiver Goals Pt goals: - to be educated and learn exercises to keep the pain away. - to alleviate the possibility of pain during the night. - pt will be educated and consistent with a HEP Personal Factors Other Personal Factors That May Effect Prostate CA surgery ~7 yrs ago Therapy/Recovery , CHF with 2 Stents in 2011, Lives alone. c/o R hand shaking when trying to eat. PT-OP-C Subjective Start: 04/14/24 18:38 Freq: Status: Active Protocol: Document 04/17/24 08:17 LRN (Rec: 04/17/24 09:46 LRN [id number]) Patient Questionnaires Quick Dash- Upper Extremity Quick Dash UE Score 2.27 Quick Dash UE Impairment 1 to 19% Impaired (Score 1-19) OP-PT Pain Assessment Pain Assessment Grid Paper Pain Assessment Grid Completed Yes Location Shoulders Pain Location Details Gina shoulders Intensity 0 Scale Used Numeric (0 - 10) Comments Pain Comments Initially R shoulder pain, then 3 months later bilateral shoulder pain. Gina shoulder pain prior to cortisone injections - 09/18. PT-OP-E Functional Tests Start: 04/14/24 18:38 Freq: Status: Active Protocol: Document 04/17/24 08:17 LRN (Rec: 04/17/24 17:26 LRN [id number]) Functional Tests Apley's Scratch Test Action 1- Left 1 below spine of R scapula Action 1- Right Reaches to spine of L scapula Action 2- Left ER T3 Action 2- Right ER T3 Action 3- Left T10 Action 3- Right T12 PT-OP-J Posture/Palpation/Skin Start: 04/14/24 18:38 Freq: Status: Active Protocol: Document 04/17/24 08:17 LRN (Rec: 04/17/24 09:46 LRN [id number]) Posture Evaluation Position Standing Head/C-Spine Posture Side Bent Right,Forward Head T-Spine Posture Increased Kyphosis Shoulder Posture (L) Elevated Scapula Posture (L) Rotated Up Arm Posture (L) Internally Rotated,(R) Internally Rotated Comments Posture Comments Mildly increased L/S curve. Palpation Assessment Location L Rhomboids Palpation Location Ms atrophy PT-OP-K Range of Motion Start: 04/14/24 18:38 Freq: Status: Active Protocol: Document 04/17/24 08:17 LRN (Rec: 04/17/24 09:46 LRN [id number]) Cervical Spine Range of Motion Cervical Spine Active Degrees Testing Position Sitting Flexion 58 Extension 35 Rotation Left 60 Rotation Right 60 Shoulder Goniometric Range of Motion Shoulder Right Active Testing Position Sitting Flexion 145 Extension 50 Abduction 150 Horizontal Adduction 18 External Rotation at 45 degrees 0 Abduction External Rotation at 0 degrees Abduction 42 Internal Rotation Behind Back (text) T12 Comments Reaches to spine of L scapula ER T3 Left Active Testing Position Sitting Flexion 154 Extension 50 Abduction 148 External Rotation at 0 degrees Abduction 45 Internal Rotation Behind Back (text) T10 Comments Reaches to 1 below spine of R scapula ER T3 PT-OP-M Strength Start: 04/14/24 18:38 Freq: Status: Active Protocol: Document 04/17/24 08:17 LRN (Rec: 04/17/24 09:46 LRN [id number]) Shoulder Strength Shoulder Manual Muscle Testing Right Comments Strength is 5/5 Left Comments Strength is 5/5 PT-OP-Q Treatments Start: 04/14/24 18:38 Freq: Status: Active Protocol: Document 04/17/24 08:17 LRN (Rec: 04/17/24 09:46 LRN [id number]) Self-Care/Home Management Treatment Education Patient Education Joint Protection,Posture Other Education Pt advised in s/p cortisone injection activities to limit heavy lifting or strenuous activities, and caution with new activities using UE's. Briefly discussed nighttime positioning of sidelying (pt sleeps on L side), with use of pillow to support upper arm or propping to prevent pt from rolling. Discussed and recommended pt speak to his primary care/ referring physician regarding R hand shaking when trying to eat. Activities Self-Care/Home Management Activities Discussed results of evaluation, goals, treatment, and at length plan of care ( POC for initial visits for primarily self care and ex to prevent reinjury), attendance /cx/dns policy; pt agreeable to evaluation, goals, treatment, attendance/cx/dns policy and POC. PT-OP-T Assessment and Plan Start: 04/14/24 18:38 Freq: Status: Active Protocol: Document 04/17/24 08:17 LRN (Rec: 04/17/24 09:46 LRN [id number]) Physical Therapy Assessment Rehab Potential Rehabilitation Potential Excellent Evaluation Complexity Number of Personal Factors/Comorbidities 3 or More Number of Body Systems Impaired 3 Clinical Presentation at Evaluation Evolving Impairments Impairments Activity Tolerance,Posture,ROM Other Impairments No pain since gina shoulder cortisone injections 04/03/24. Other Concerns Age Related Concerns Pt reporting uncontrolled shaking (intentional tremor description) of his R hand while trying to eat. No tremors noticed when in dependent position or with shoulder AROM. Goals Three Impairment Gina shoulder discomfort history during the nighttime. Short Term Goal (STG) Pt will be educated and position himself at nighttime in best practice posturing to minimize onset of pain in the morning. STG Duration 05/09/24 Care Home Goal (LTG) Pt will be able to sleep during the night without pain in 6 wks once cortisone injection affects have dissapated. LTG Duration 05/23/24 One Impairment Pt lacks appropriate self care HEP. Short Term Goal (STG) Pt will be educated and will demonstrate proper head/neck sitting/standing posture. STG Duration 05/09/24 Asphalt Blender Goal (LTG) Pt will be independent and consistent with a self care HEP of gina shoulder ROM and scapular strengthening exercises. LTG Duration 05/23/24 Two Impairment Gina shoulder pain rated 7/10 prior to cortisone injection ( 2x R shdr) Short Term Goal (STG) Pt will be educated and able to manage gina shoulder soreness with cryotherapy technique (ELLE). STG Duration 05/09/24 Care Home Goal (LTG) Pt will improve shoulder ( rotator cuff) and scapular stabilization strength on a HEP to be able to wake in the mornings without pain. LTG Duration 05/23/24 Assessment Summary Assessment Pt is a 74 yo male who presents with no complaints of bilateral shoulder pain s/p cortisone injection 3 weeks ago. The pt apparently has a second episode of insidious onset of shoulder pain and attends with a goal of education and exercise to prevent return of pain. The pt demonstrates limitated shoulder AROM that may be his normal, but unknown at this time. He has good bilateral shoulder strength and functional neck mobility with no signs of cervical involvment. The pt probably has onset of pain due to incorrect posture and body mechanics; therefore the pt will benefit from skilled physical therapy to address these areas and if the pain returns with treat for shoulder dysfunction. Physical Therapy Plan Frequency and Duration Frequency of Treatment variable Duration of treatment (weeks) 5 Plan of Care Start Date 04/17/24 Plan of Care End Date 05/23/24 Therapeutic Interventions Therapeutic Interventions Home Exercise Program,Manual Therapy,Self-Care/Home Management,Therapeutic Activities,Therapeutic Exercises Modalities Cold Pack/Ice Massage Next Visit Focus/Plan Next Note Type Treatment Note Next Visit Plan 2x/week for 1-2 wks until pt is educated in proper posture (sit/stand), self care pain mgmt, nighttime positioning and HEP: Light strengthening of RC and scapular stabilization exercises. then follow up with progress note when pt is ~8 wks s/p cortisone injection for assessment of progress and possible discharge.
--- NOTE | 2024-04-21 17:51 | PT.OTN ---
Current Diagnoses Primary osteoarthritis, right shoulder (04/21/24) Primary osteoarthritis, left shoulder (04/21/24) Physical Therapy Treatment Note PT-OP-A Visit Information Start: 04/14/24 18:38 Freq: Status: Active Protocol: Document 04/21/24 09:07 LRN (Rec: 04/21/24 12:36 LRN [id number]) Out-Patient Physical Therapy Visit Information Visit Information Visit Type Treatment Note Visit Start Time 09:07 Visit Stop Time 09:45 Visit Number 2 Evaluation Information Evaluation Date 04/17/24 Precautions Precautions Prostate CA surgery ~7 yrs ago , CHF with 2 Stents in 2011, Chrohns Disease, erickson partial knee replacements (2013). 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 PT-OP-B Current Condition Start: 04/14/24 18:38 Freq: Status: Active Protocol: Document 04/17/24 08:17 LRN (Rec: 04/17/24 09:46 LRN [id number]) Current Condition History of Current Condition Onset Date 5 months ago Current Complaints No pain in shoulders, but worried pain will return like before. History of Current Condition Insidious onset of difficulty sleeping because R shoulder had throbbing pain while R sidelying. First cortisone injection to R shoulder 3.5 months ago. When pain returned in both shoulders he had a 2nd cortisone injection in R shoulder and 1st injection in L shoulder . Pt also is asking why his R hand shakes when he is trying to eat. Pt referred back to referring physician for hand shaking condition. Treatment Goals Patient/Caregiver Goals Pt goals: - to be educated and learn exercises to keep the pain away. - to alleviate the possibility of pain during the night. - pt will be educated and consistent with a HEP Personal Factors Other Personal Factors That May Effect Prostate CA surgery ~7 yrs ago Therapy/Recovery , CHF with 2 Stents in 2011, Lives alone. c/o R hand shaking when trying to eat. PT-OP-C Subjective Start: 04/14/24 18:38 Freq: Status: Active Protocol: Document 04/21/24 09:07 LRN (Rec: 04/21/24 12:36 LRN [id number]) OP-PT Subjective Patient Comments Patient Comments States he has no pain. States he is s/p 4 wks injection. Sleeping good, doesn't lakia medication. PT-OP-E Functional Tests Start: 04/14/24 18:38 Freq: Status: Active Protocol: Document 04/17/24 08:17 LRN (Rec: 04/17/24 17:26 LRN [id number]) Functional Tests Apley's Scratch Test Action 1- Left 1 below spine of R scapula Action 1- Right Reaches to spine of L scapula Action 2- Left ER T3 Action 2- Right ER T3 Action 3- Left T10 Action 3- Right T12 PT-OP-J Posture/Palpation/Skin Start: 04/14/24 18:38 Freq: Status: Active Protocol: Document 04/17/24 08:17 LRN (Rec: 04/17/24 09:46 LRN [id number]) Posture Evaluation Position Standing Head/C-Spine Posture Side Bent Right,Forward Head T-Spine Posture Increased Kyphosis Shoulder Posture (L) Elevated Scapula Posture (L) Rotated Up Arm Posture (L) Internally Rotated,(R) Internally Rotated Comments Posture Comments Mildly increased L/S curve. Palpation Assessment Location L Rhomboids Palpation Location Ms atrophy PT-OP-K Range of Motion Start: 04/14/24 18:38 Freq: Status: Active Protocol: Document 04/17/24 08:17 LRN (Rec: 04/17/24 09:46 LRN [id number]) Cervical Spine Range of Motion Cervical Spine Active Degrees Testing Position Sitting Flexion 58 Extension 35 Rotation Left 60 Rotation Right 60 Shoulder Goniometric Range of Motion Shoulder Right Active Testing Position Sitting Flexion 145 Extension 50 Abduction 150 Horizontal Adduction 18 External Rotation at 45 degrees 0 Abduction External Rotation at 0 degrees Abduction 42 Internal Rotation Behind Back (text) T12 Comments Reaches to spine of L scapula ER T3 Left Active Testing Position Sitting Flexion 154 Extension 50 Abduction 148 External Rotation at 0 degrees Abduction 45 Internal Rotation Behind Back (text) T10 Comments Reaches to 1 below spine of R scapula ER T3 PT-OP-M Strength Start: 04/14/24 18:38 Freq: Status: Active Protocol: Document 04/17/24 08:17 LRN (Rec: 04/17/24 09:46 LRN [id number]) Shoulder Strength Shoulder Manual Muscle Testing Right Comments Strength is 5/5 Left Comments Strength is 5/5 PT-OP-Q Treatments Start: 04/14/24 18:38 Freq: Status: Active Protocol: Document 04/21/24 09:07 LRN (Rec: 04/21/24 12:36 [facility] [id number]) Therapeutic Exercises Sitting Exercises Posture training Sitting Exercise Name Cued for head in alignment w/ shdrs & body, LE's in 90/90 position Reps/Minutes 2' Standing Exercises Posture training Standing Exercise Name Free standing > wall standing w/head to ceiling Comments Cued for head in alignment w/ shdrs & body, LE's in 90/90 position IR-hand behind back Standing Exercise Name Active lifting hands behind the back. Side bilateral Reps/Minutes 3' Pendulum Side right Reps/Minutes 3' Head AROM Standing Exercise Name Rot, SB, flex/ext. Active shdr AB/ER/IR Side bilateral Reps/Minutes 6' Comments Cued to not push into pain or discomfort Shdr flex Standing Exercise Name wall slides Side bilateral Reps/Minutes 4' Comments Cued to not push into pain or discomfort Self-Care/Home Management Treatment Activities Self-Care/Home Management Activities Issued & reviewed handouts for : Sitting posture, pain mgmt, body mechanics discussing changing of tasks and limiting force, ex's: pendulum, shoulder flex (wall slide, broom stretch, towel stretch for IR). PT-OP-T Assessment and Plan Start: 04/14/24 18:38 Freq: Status: Active Protocol: Document 04/21/24 09:07 LRN (Rec: 04/21/24 12:36 [facility] [id number]) Physical Therapy Assessment Goals Three Impairment Erickson shoulder discomfort history during the nighttime. Short Term Goal (STG) Pt will be educated and position himself at nighttime in best practice posturing to minimize onset of pain in the morning. STG Duration 05/09/24 Studio Operation Engineer Goal (LTG) Pt will be able to sleep during the night without pain in 6 wks once cortisone injection affects have dissapated. 04/21/24: 4wks s/p cortisone injection - no pain with sleep LTG Duration 05/23/24 One Impairment Pt lacks appropriate self care HEP. Short Term Goal (STG) Pt will be educated and will demonstrate proper head/neck sitting/standing posture. 04/21/24: Pt educated in proper sitting posture and standing against wall posture. He was able to demonstrate improved posture in standing after wall posturing. STG Duration 05/09/24 (04/21/24: MET GOAL). Studio Operation Engineer Goal (LTG) Pt will be independent and consistent with a self care HEP of erickson shoulder ROM and scapular strengthening exercises. 04/21/24: Handouts issued for shoulder AROM (wall slide flex, broom shoulder AB, towel IR stretch) and instructed in shoulder ER/IR. LTG Duration 05/23/24 progressed 04/21/24 (need scap strengthening ex) Two Impairment Erickson shoulder pain rated 7/10 prior to cortisone injection ( 2x R shdr) Short Term Goal (STG) Pt will be educated and able to manage erickson shoulder soreness with cryotherapy technique (RICE). 04/21/24: Pt educated with handout issued in pain management techniques ( cryotherapy, heat, meds). STG Duration 05/09/24 progressed 04/21/24 (need RICE handout) Assisted Goal (LTG) Pt will improve shoulder ( rotator cuff) and scapular stabilization strength on a HEP to be able to wake in the mornings without pain. LTG Duration 05/23/24 Assessment Summary Assessment Pt is still reporting no pain and was very receptive to education in proper posturing, self care pain management, proper shoulder care and HEP of shoulder ROM stretch exercises. Pt had some pain with shoulder IR when overstretching and shows limited mobility reaching behind the back compared to the L shoulder. His stiffness /discomfort on the R side with IR mvmt was alleviated by pendulum exercise. Physical Therapy Plan Frequency and Duration Frequency of Treatment variable Duration of treatment (weeks) 5 Plan of Care Start Date 04/17/24 Plan of Care End Date 05/23/24 Next Visit Focus/Plan Next Note Type Treatment Note Next Visit Plan 2x/week for 1-2 wks. Next: quick review of in proper posture (sit/stand), self care pain mgmt. Next: Educ in nighttime positioning and HEP: Light strengthening of RC and scapular stabilization exercises. POC: HEP: Light strengthening of RC and scapular stabilization exercises. then follow up with progress note when pt is ~8 wks s/p cortisone injection for assessment of progress and possible discharge, or discharge to HEP.
--- NOTE | 2024-04-25 12:30 | PT.OTN ---
Current Diagnoses Primary osteoarthritis, right shoulder (04/29/24) Primary osteoarthritis, left shoulder (04/29/24) Physical Therapy Treatment Note PT-OP-A Visit Information Start: 04/14/24 18:38 Freq: Status: Active Protocol: Document 04/25/24 10:50 NBM (Rec: 04/25/24 13:09 NBM [id number]) Out-Patient Physical Therapy Visit Information Visit Information Visit Type Treatment Note Visit Start Time 10:50 Visit Stop Time 11:34 Visit Number 3 Number of GROUND WORKER Visits 1 Evaluation Information Evaluation Date 04/17/24 Precautions Precautions Prostate CA surgery ~7 yrs ago , CHF with 2 Stents in 2011, Chrohns Disease, erickson partial knee replacements (2013). 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 PT-OP-B Current Condition Start: 04/14/24 18:38 Freq: Status: Active Protocol: Document 04/17/24 08:17 LRN (Rec: 04/17/24 09:46 LRN [id number]) Current Condition History of Current Condition Onset Date 5 months ago Current Complaints No pain in shoulders, but worried pain will return like before. History of Current Condition Insidious onset of difficulty sleeping because R shoulder had throbbing pain while R sidelying. First cortisone injection to R shoulder 3.5 months ago. When pain returned in both shoulders he had a 2nd cortisone injection in R shoulder and 1st injection in L shoulder . Pt also is asking why his R hand shakes when he is trying to eat. Pt referred back to referring physician for hand shaking condition. Treatment Goals Patient/Caregiver Goals Pt goals: - to be educated and learn exercises to keep the pain away. - to alleviate the possibility of pain during the night. - pt will be educated and consistent with a HEP Personal Factors Other Personal Factors That May Effect Prostate CA surgery ~7 yrs ago Therapy/Recovery , CHF with 2 Stents in 2011, Lives alone. c/o R hand shaking when trying to eat. PT-OP-C Subjective Start: 04/14/24 18:38 Freq: Status: Active Protocol: Document 04/25/24 10:50 NBM (Rec: 04/25/24 13:09 NBM [id number]) OP-PT Subjective Patient Comments Patient Comments Eliezer reports no pain in either shoulder today and he's sleeping better. PT-OP-E Functional Tests Start: 04/14/24 18:38 Freq: Status: Active Protocol: Document 04/17/24 08:17 LRN (Rec: 04/17/24 17:26 LRN [id number]) Functional Tests Apley's Scratch Test Action 1- Left 1 below spine of R scapula Action 1- Right Reaches to spine of L scapula Action 2- Left ER T3 Action 2- Right ER T3 Action 3- Left T10 Action 3- Right T12 PT-OP-J Posture/Palpation/Skin Start: 04/14/24 18:38 Freq: Status: Active Protocol: Document 04/17/24 08:17 LRN (Rec: 04/17/24 09:46 LRN [id number]) Posture Evaluation Position Standing Head/C-Spine Posture Side Bent Right,Forward Head T-Spine Posture Increased Kyphosis Shoulder Posture (L) Elevated Scapula Posture (L) Rotated Up Arm Posture (L) Internally Rotated,(R) Internally Rotated Comments Posture Comments Mildly increased L/S curve. Palpation Assessment Location L Rhomboids Palpation Location Ms atrophy PT-OP-K Range of Motion Start: 04/14/24 18:38 Freq: Status: Active Protocol: Document 04/17/24 08:17 LRN (Rec: 04/17/24 09:46 LRN [id number]) Cervical Spine Range of Motion Cervical Spine Active Degrees Testing Position Sitting Flexion 58 Extension 35 Rotation Left 60 Rotation Right 60 Shoulder Goniometric Range of Motion Shoulder Right Active Testing Position Sitting Flexion 145 Extension 50 Abduction 150 Horizontal Adduction 18 External Rotation at 45 degrees 0 Abduction External Rotation at 0 degrees Abduction 42 Internal Rotation Behind Back (text) T12 Comments Reaches to spine of L scapula ER T3 Left Active Testing Position Sitting Flexion 154 Extension 50 Abduction 148 External Rotation at 0 degrees Abduction 45 Internal Rotation Behind Back (text) T10 Comments Reaches to 1 below spine of R scapula ER T3 PT-OP-M Strength Start: 04/14/24 18:38 Freq: Status: Active Protocol: Document 04/17/24 08:17 LRN (Rec: 04/17/24 09:46 LRN [id number]) Shoulder Strength Shoulder Manual Muscle Testing Right Comments Strength is 5/5 Left Comments Strength is 5/5 PT-OP-Q Treatments Start: 04/14/24 18:38 Freq: Status: Active Protocol: Document 04/25/24 10:50 NBM (Rec: 05/01/24 07:06 NB [id number]-) Therapeutic Exercises Supine Exercises Arm lifts Supine Exercise Name added to HEP Side bilateral Reps/Minutes x5 ea Comments cues for scapular setting and no cervical flexion or breathholding Head Clock Supine Exercise Name CW/CCW - added to HEP Side bilateral Reps/Minutes x3 ea Comments cues to avoid cervical flexion LTR Supine Exercise Name Neck and Torso Rotation - added to HEP Side bilateral Reps/Minutes 5 x5 Comments cues for cervical retraction and to avoid cervical flexion Dorsal [place] Supine Exercise Name added to HEP Reps/Minutes 3 x5 Comments cues to avoid cervical flexion Sidelying Exercises Arm circles Sidelying Exercise Name Arm and Upper Body [place] - added to HEP Side bilateral Reps/Minutes x5 ea Comments cues for alignment and scapular setting; painfree Sitting Exercises Posture training Sitting Exercise Name Cued for head in alignment w/ shdrs & body, LE's in 90/90 position Reps/Minutes 2' Standing Exercises Shoulder Clock Standing Exercise Name CW/CCW - added to HEP Side bilateral Reps/Minutes x5 ea Comments cues for initial alignment and scapular depression d/t UT overactivation Posture training Standing Exercise Name Free standing <> wall standing w/head to ceiling Reps/Minutes 3' Comments Cued for head in alignment w/ shdrs & body, tactile cue for scapular setting Therapeutic Activity Therapeutic Activity sleep positioning Name sidelying, supine Reps/Minutes 8' Comments focus on R>L sidelying to simulate pt's main position. Cues for scapular setting, appropriate pillow height for head support and cervical alignment, and arm positioning . Pt reports increased comfort w/ cues and pillow supports between LEs and under top arm. Edu in supine for appropriate pillow height for c-spine alignment and pillow support under LEs. PT-OP-T Assessment and Plan Start: 04/14/24 18:38 Freq: Status: Active Protocol: Document 04/25/24 10:50 NBM (Rec: 04/25/24 13:09 NBM [id number]) Physical Therapy Assessment Goals Three Impairment Erickson shoulder discomfort history during the nighttime. Short Term Goal (STG) Pt will be educated and position himself at nighttime in best practice posturing to minimize onset of pain in the morning. STG Duration 05/09/24 Farm Manager Goal (LTG) Pt will be able to sleep during the night without pain in 6 wks once cortisone injection affects have dissapated. 04/21/24: 4wks s/p cortisone injection - no pain with sleep 04/25/24: - no pain with sleep LTG Duration 05/23/24 One Impairment Pt lacks appropriate self care HEP. Short Term Goal (STG) Pt will be educated and will demonstrate proper head/neck sitting/standing posture. 04/21/24: Pt educated in proper sitting posture and standing against wall posture. He was able to demonstrate improved posture in standing after wall posturing. 04/25/24: review of in proper posture (sit/stand) due to lack of carryover. Pt requires initial cueing for alignment but demos improved self- awareness after wall posturing . STG Duration 05/09/24 (04/21/24: MET GOAL). Farm Manager Goal (LTG) Pt will be independent and consistent with a self care HEP of erickson shoulder ROM and scapular strengthening exercises. 04/21/24: Handouts issued for shoulder AROM (wall slide flex, broom shoulder AB, towel IR stretch) and instructed in shoulder ER/IR. 04/25/24: Pt is issued 15- minute Neck Exericise Program HO (supine Dorsal glide, Neck and Torso rotation, Head Clock , Arm lifts, sidelying Arm and Upper Body [place], and standing Shoulder Clock). Initial cueing for chin retraction and tactile cueing for scapular setting, cues to avoid cervical flexion in supine. LTG Duration 05/23/24 progressed 04/21/24 (need scap strengthening ex) Two Impairment Erickson shoulder pain rated 7/10 prior to cortisone injection ( 2x R shdr) Impairment Pt goal is to achieve some pain relief, improve mobility of L wrist and hand, educate pt on HEP, educate on pain managment. Short Term Goal (STG) Pt will be educated and able to manage erickson shoulder soreness with cryotherapy technique (RICE). 04/21/24: Pt educated with handout issued in pain management techniques ( cryotherapy, heat, meds). 04/25/24: Review of self care pain mgmt HOs with emphasis on cryotherapy. RICE HO given. STG Duration 05/09/24 progressed 04/25/24 Mcfp Goal (LTG) Pt will improve shoulder ( rotator cuff) and scapular stabilization strength on a HEP to be able to wake in the mornings without pain. LTG Duration 05/23/24 Progress Towards Goals Progress Towards Goals Progressing Toward Goals Assessment Summary Assessment Eliezer continues to report no shoulder pain. Treatment focus on review of in proper posture (sit/stand), sleep positioning, and HEP review and progression. Pt demonstrates lack of carryover for posturing in sit/stand as he requires initial cueing for alignment, particularly with chin retraction and scapular depression, but he demos improved self-awareness after review and wall posturing. He requires cues for sleeping positioning in sidelying for arm and head placement and scapular setting , and reports improved comfort with these modifications - HO provided. He requires consistent cues for chin retraction and to avoid cervical flexion with supine head clock. Pt is issued 15- minute Neck Exericise Program HO (supine Dorsal glide, Neck and Torso rotation, Head Clock , Arm lifts, sidelying Arm and Upper Body [place], and standing Shoulder Clock). Physical Therapy Plan Frequency and Duration Frequency of Treatment variable Duration of treatment (weeks) 5 Plan of Care Start Date 04/17/24 Plan of Care End Date 05/23/24 Therapeutic Interventions Therapeutic Interventions Home Exercise Program,Manual Therapy,Self-Care/Home Management,Therapeutic Activities,Therapeutic Exercises Modalities Cold Pack/Ice Massage Next Visit Focus/Plan Next Note Type Treatment Note Next Visit Plan 2x/week for 1-2 wks. Next: assess response to last visit (posturing, sleep positioning, HEP). Next: HEP: Light strengthening of RC and scapular stabilization exercises. POC: HEP: Light strengthening of RC and scapular stabilization exercises. then follow up with progress note when pt is ~8 wks s/p cortisone injection for assessment of progress and possible discharge, or discharge to HEP.
--- NOTE | 2024-04-29 12:30 | PT.OTN ---
Current Diagnoses Primary osteoarthritis, right shoulder (04/29/24) Primary osteoarthritis, left shoulder (04/29/24) Physical Therapy Treatment Note PT-OP-A Visit Information Start: 04/14/24 18:38 Freq: Status: Active Protocol: Document 04/29/24 11:30 NBM (Rec: 05/01/24 07:44 [facility] [phone]-) Out-Patient Physical Therapy Visit Information Visit Information Visit Type Treatment Note Visit Note Pt requires glasses for reading but must remove for eye contact. Visit Start Time 11:30 Visit Stop Time 12:15 Visit Number 4 Number of BODY TECHNICIAN/PAINTER Visits 2 Evaluation Information Evaluation Date 04/17/24 Precautions Precautions Prostate CA surgery ~7 yrs ago , CHF with 2 Stents in 2011, Chrohns Disease, gina partial knee replacements (2013). 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 PT-OP-B Current Condition Start: 04/14/24 18:38 Freq: Status: Active Protocol: Document 04/17/24 08:17 LRN (Rec: 04/17/24 09:46 LRN [id number]) Current Condition History of Current Condition Onset Date 5 months ago Current Complaints No pain in shoulders, but worried pain will return like before. History of Current Condition Insidious onset of difficulty sleeping because R shoulder had throbbing pain while R sidelying. First cortisone injection to R shoulder 3.5 months ago. When pain returned in both shoulders he had a 2nd cortisone injection in R shoulder and 1st injection in L shoulder . Pt also is asking why his R hand shakes when he is trying to eat. Pt referred back to referring physician for hand shaking condition. Treatment Goals Patient/Caregiver Goals Pt goals: - to be educated and learn exercises to keep the pain away. - to alleviate the possibility of pain during the night. - pt will be educated and consistent with a HEP Personal Factors Other Personal Factors That May Effect Prostate CA surgery ~7 yrs ago Therapy/Recovery , CHF with 2 Stents in 2011, Lives alone. c/o R hand shaking when trying to eat. PT-OP-C Subjective Start: 04/14/24 18:38 Freq: Status: Active Protocol: Document 04/29/24 11:30 NBM (Rec: 05/01/24 07:44 [facility] [phone]-) OP-PT Subjective Patient Comments Patient Comments Eliezer reports no pain with shoulders and he's trying to pay more attention to his posture. He does not have pain with sleep but isn't sleeping well due to sounds of guest staying over and also thinking of who passed a year ago . He uses a backup camera when driving and so realizes he's no longer used to turning his head to check both blind spots . PT-OP-E Functional Tests Start: 04/14/24 18:38 Freq: Status: Active Protocol: Document 04/17/24 08:17 LRN (Rec: 04/17/24 17:26 LRN [id number]) Functional Tests Apley's Scratch Test Action 1- Left 1 below spine of R scapula Action 1- Right Reaches to spine of L scapula Action 2- Left ER T3 Action 2- Right ER T3 Action 3- Left T10 Action 3- Right T12 PT-OP-J Posture/Palpation/Skin Start: 04/14/24 18:38 Freq: Status: Active Protocol: Document 04/17/24 08:17 LRN (Rec: 04/17/24 09:46 LRN [id number]) Posture Evaluation Position Standing Head/C-Spine Posture Side Bent Right,Forward Head T-Spine Posture Increased Kyphosis Shoulder Posture (L) Elevated Scapula Posture (L) Rotated Up Arm Posture (L) Internally Rotated,(R) Internally Rotated Comments Posture Comments Mildly increased L/S curve. Palpation Assessment Location L Rhomboids Palpation Location Ms atrophy PT-OP-K Range of Motion Start: 04/14/24 18:38 Freq: Status: Active Protocol: Document 04/17/24 08:17 LRN (Rec: 04/17/24 09:46 LRN [id number]) Cervical Spine Range of Motion Cervical Spine Active Degrees Testing Position Sitting Flexion 58 Extension 35 Rotation Left 60 Rotation Right 60 Shoulder Goniometric Range of Motion Shoulder Right Active Testing Position Sitting Flexion 145 Extension 50 Abduction 150 Horizontal Adduction 18 External Rotation at 45 degrees 0 Abduction External Rotation at 0 degrees Abduction 42 Internal Rotation Behind Back (text) T12 Comments Reaches to spine of L scapula ER T3 Left Active Testing Position Sitting Flexion 154 Extension 50 Abduction 148 External Rotation at 0 degrees Abduction 45 Internal Rotation Behind Back (text) T10 Comments Reaches to 1 below spine of R scapula ER T3 PT-OP-M Strength Start: 04/14/24 18:38 Freq: Status: Active Protocol: Document 04/17/24 08:17 LRN (Rec: 04/17/24 09:46 LRN [id number]) Shoulder Strength Shoulder Manual Muscle Testing Right Comments Strength is 5/5 Left Comments Strength is 5/5 PT-OP-Q Treatments Start: 04/14/24 18:38 Freq: Status: Active Protocol: Document 04/29/24 11:30 NBM (Rec: 05/01/24 07:44 NBM [phone]-) Therapeutic Exercises Supine Exercises Arm lifts Supine Exercise Name HEP review Side bilateral Reps/Minutes x5 ea Comments cues for scapular setting and no cervical flexion or breathholding Head Clock Supine Exercise Name CW/CCW - HEP review Side bilateral Reps/Minutes x3 ea Comments cues to avoid cervical flexion LTR Supine Exercise Name Neck and Torso Rotation - HEP review Side bilateral Reps/Minutes 5 x5 Comments cues to avoid cervical flexion and increase hold time Dorsal [place] Supine Exercise Name HEP review Reps/Minutes 3 x5 Comments cues to avoid cervical flexion Sidelying Exercises Arm circles Sidelying Exercise Name Arm and Upper Body [place] - HEP review Side bilateral Reps/Minutes x5 ea Comments cues for alignment and scapular setting; painfree Sitting Exercises Posture training Sitting Exercise Name Cued for head in alignment w/ shdrs & body, LE's in 90/90 position Reps/Minutes 2' Comments improved self-awareness Standing Exercises Shoulder and Upper Back Stretch Side bilateral Reps/Minutes x3 Comments cues for starting position and form. Shoulder Clock Standing Exercise Name CW/CCW - HEP review Side bilateral Reps/Minutes x5 ea Comments cues for scapular depression d /t UT overactivation Posture training Standing Exercise Name Free standing <> wall standing w/head to ceiling Reps/Minutes 2' Comments Cued for head in alignment w/ shdrs & body, scapular setting IR-hand behind back Standing Exercise Name Active lifting hands behind the back. Side bilateral Comments verbal review Pendulum Standing Exercise Name verbal review for pain relief Side right Shdr flex Standing Exercise Name wall slides Side bilateral Reps/Minutes 4' Comments R ryann pn reported, cued for scap setting and painfree range. Therapeutic Activity Therapeutic Activity sleep positioning Name sidelying, supine - verbal review Comments focus on R>L sidelying to simulate pt's main position. Cues for scapular setting, appropriate pillow height for head support and cervical alignment, and arm positioning . Pt reports increased comfort w/ cues and pillow supports between LEs and under top arm. Edu in supine for appropriate pillow height for c-spine alignment and pillow support under LEs. Manual Therapy Treatment Consent Patient gave verbal consent for manual Yes treatment Soft Tissue Mobilization R shoulder Body Location Upper Trapezius, Levator Scap Mobilization Type Cross-Friction,Rolling, Sustained Pressure,Trigger Point Release,Other Intensity/Depth Moderate Body Position Hooklying Comments LEs supported on bolster. Manual pin and stretch to UT - very limited. Positive feedback response. PT-OP-T Assessment and Plan Start: 04/14/24 18:38 Freq: Status: Active Protocol: Document 04/29/24 11:30 NB (Rec: 05/01/24 07:44 [facility] [phone]-) Physical Therapy Assessment Goals Three Impairment Gina shoulder discomfort history during the nighttime. Short Term Goal (STG) Pt will be educated and position himself at nighttime in best practice posturing to minimize onset of pain in the morning. STG Duration 05/09/24 Halfway Goal (LTG) Pt will be able to sleep during the night without pain in 6 wks once cortisone injection affects have dissapated. 04/21/24: 4wks s/p cortisone injection - no pain with sleep 04/25/24: - no pain with s/ leep 04/29/24: 5wks s/p cortisone injection - no pain with sleep LTG Duration 05/23/24 One Impairment Pt lacks appropriate self care HEP. Short Term Goal (STG) Pt will be educated and will demonstrate proper head/neck sitting/standing posture. 04/21/24: Pt educated in proper sitting posture and standing against wall posture. He was able to demonstrate improved posture in standing after wall posturing. 04/25/24: review of in proper posture (sit/stand) due to lack of carryover. Pt requires initial cueing for alignment but demos improved self- awareness after wall posturing . 04/29/24: improved self- awareness STG Duration 05/09/24 (04/21/24: MET GOAL). Halfway Goal (LTG) Pt will be independent and consistent with a self care HEP of gina shoulder ROM and scapular strengthening exercises. 04/21/24: Handouts issued for shoulder AROM (wall slide flex, broom shoulder AB, towel IR stretch) and instructed in shoulder ER/IR. 04/25/24: Pt is issued 15- minute Neck Exericise Program HO (supine Dorsal glide, Neck and Torso rotation, Head Clock , Arm lifts, sidelying Arm and Upper Body [place], and standing Shoulder Clock). Initial cueing for chin retraction and tactile cueing for scapular setting, cues to avoid cervical flexion in supine. 04/29/24: Verbal review of all 04/21/24 HOs due to pt lack of recall - HOs re-issued. Review of 04/25/24 HEP. LTG Duration 05/23/24 progressed 04/29/24 (need scap strengthening ex) Two Impairment Gina shoulder pain rated 7/10 prior to cortisone injection ( 2x R shdr) Impairment Pt goal is to achieve some pain relief, improve mobility of L wrist and hand, educate pt on HEP, educate on pain managment. Short Term Goal (STG) Pt will be educated and able to manage gina shoulder soreness with cryotherapy technique (ELLE). 04/21/24: Pt educated with handout issued in pain management techniques ( cryotherapy, heat, meds). 04/25/24: Review of self care pain mgmt HOs with emphasis on cryotherapy. RICE HO given. 04/29/24: Review of cryotherapy handout with suggestion for pt to utilize frozen peas at home for management of R shoulder pain. STG Duration 05/09/24 progressed 04/29/24 Hospice Volunteer Coordinator Goal (LTG) Pt will improve shoulder ( rotator cuff) and scapular stabilization strength on a HEP to be able to wake in the mornings without pain. LTG Duration 05/23/24 Assessment Summary Assessment Eliezer continues to report no shoulder pain with sleep, or at start of session, although he reports poor sleep last night secondary to stress. He reports R shoulder pain with wall slides during treatment, and significant palpable tension at R Upper Trapezius and Levator Scapula m. insertions improves with soft tissue mobilization end of session. He lacks recall of handouts which are verbally reviewed and re- issued today, with significant time spent discussing cryotherapy for pain management. Physical Therapy Plan Frequency and Duration Frequency of Treatment variable Duration of treatment (weeks) 5 Plan of Care Start Date 04/17/24 Plan of Care End Date 05/23/24 Therapeutic Interventions Therapeutic Interventions Home Exercise Program,Manual Therapy,Self-Care/Home Management,Therapeutic Activities,Therapeutic Exercises Modalities Cold Pack/Ice Massage Next Visit Focus/Plan Next Note Type Treatment Note Next Visit Plan 2x/week for 1-2 wks. Next: assess response to last visit (home cryotherapy trialed? HEP review due to lack of recall) . Next: HEP: Light strengthening of RC and scapular stabilization exercises. Consider cervical stretches. POC: HEP: Light strengthening of RC and scapular stabilization exercises. then follow up with progress note when pt is ~8 wks s/p cortisone injection for assessment of progress and possible discharge, or discharge to [facility].
--- NOTE | 2024-05-01 13:48 | PT.OTN ---
Current Diagnoses Primary osteoarthritis, right shoulder (05/01/24) Primary osteoarthritis, left shoulder (05/01/24) Physical Therapy Treatment Note PT-OP-A Visit Information Start: 04/14/24 18:38 Freq: Status: Active Protocol: Document 05/01/24 08:19 LRN (Rec: 05/01/24 09:03 LRN [id number]) Out-Patient Physical Therapy Visit Information Visit Information Visit Type Treatment Note Visit Start Time 08:19 Visit Stop Time 09:00 Visit Number 4 Evaluation Information Evaluation Date 04/17/24 Precautions Precautions Prostate CA surgery ~7 yrs ago , CHF with 2 Stents in 2011, Chrohns Disease, erickson partial knee replacements (2013). 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 PT-OP-B Current Condition Start: 04/14/24 18:38 Freq: Status: Active Protocol: Document 04/17/24 08:17 LRN (Rec: 04/17/24 09:46 LRN [id number]) Current Condition History of Current Condition Onset Date 5 months ago Current Complaints No pain in shoulders, but worried pain will return like before. History of Current Condition Insidious onset of difficulty sleeping because R shoulder had throbbing pain while R sidelying. First cortisone injection to R shoulder 3.5 months ago. When pain returned in both shoulders he had a 2nd cortisone injection in R shoulder and 1st injection in L shoulder . Pt also is asking why his R hand shakes when he is trying to eat. Pt referred back to referring physician for hand shaking condition. Treatment Goals Patient/Caregiver Goals Pt goals: - to be educated and learn exercises to keep the pain away. - to alleviate the possibility of pain during the night. - pt will be educated and consistent with a HEP Personal Factors Other Personal Factors That May Effect Prostate CA surgery ~7 yrs ago Therapy/Recovery , CHF with 2 Stents in 2011, Lives alone. c/o R hand shaking when trying to eat. PT-OP-C Subjective Start: 04/14/24 18:38 Freq: Status: Active Protocol: Document 05/01/24 08:19 LRN (Rec: 05/01/24 09:03 LRN [id number]) OP-PT Subjective Patient Comments Patient Comments States R shoulder is a little different, but he doesn't notice his R shoulder until it 's mentioned. States he doesn 't do his ex's daiy because he doensn't think about it because it doesn't hurt. Constantly works on his posture. PT-OP-E Functional Tests Start: 04/14/24 18:38 Freq: Status: Active Protocol: Document 04/17/24 08:17 LRN (Rec: 04/17/24 17:26 LRN [id number]) Functional Tests Apley's Scratch Test Action 1- Left 1 below spine of R scapula Action 1- Right Reaches to spine of L scapula Action 2- Left ER T3 Action 2- Right ER T3 Action 3- Left T10 Action 3- Right T12 PT-OP-J Posture/Palpation/Skin Start: 04/14/24 18:38 Freq: Status: Active Protocol: Document 04/17/24 08:17 LRN (Rec: 04/17/24 09:46 LRN [id number]) Posture Evaluation Position Standing Head/C-Spine Posture Side Bent Right,Forward Head T-Spine Posture Increased Kyphosis Shoulder Posture (L) Elevated Scapula Posture (L) Rotated Up Arm Posture (L) Internally Rotated,(R) Internally Rotated Comments Posture Comments Mildly increased L/S curve. Palpation Assessment Location L Rhomboids Palpation Location Ms atrophy PT-OP-K Range of Motion Start: 04/14/24 18:38 Freq: Status: Active Protocol: Document 04/17/24 08:17 LRN (Rec: 04/17/24 09:46 LRN [id number]) Cervical Spine Range of Motion Cervical Spine Active Degrees Testing Position Sitting Flexion 58 Extension 35 Rotation Left 60 Rotation Right 60 Shoulder Goniometric Range of Motion Shoulder Right Active Testing Position Sitting Flexion 145 Extension 50 Abduction 150 Horizontal Adduction 18 External Rotation at 45 degrees 0 Abduction External Rotation at 0 degrees Abduction 42 Internal Rotation Behind Back (text) T12 Comments Reaches to spine of L scapula ER T3 Left Active Testing Position Sitting Flexion 154 Extension 50 Abduction 148 External Rotation at 0 degrees Abduction 45 Internal Rotation Behind Back (text) T10 Comments Reaches to 1 below spine of R scapula ER T3 PT-OP-M Strength Start: 04/14/24 18:38 Freq: Status: Active Protocol: Document 04/17/24 08:17 LRN (Rec: 04/17/24 09:46 LRN [id number]) Shoulder Strength Shoulder Manual Muscle Testing Right Comments Strength is 5/5 Left Comments Strength is 5/5 PT-OP-Q Treatments Start: 04/14/24 18:38 Freq: Status: Active Protocol: Document 05/01/24 08:19 LRN (Rec: 05/01/24 09:03 LRN [id number]) Therapeutic Exercises Supine Exercises Arm lifts Supine Exercise Name HEP - I/S pt to lengthen neck w/ex Side bilateral Reps/Minutes x10 ea Comments cues for scapular setting and no cervical flexion or breathholding Head Clock Supine Exercise Name CW/CCW - added to HEP Side bilateral Reps/Minutes x5 ea Comments cues to avoid cervical flexion LTR Supine Exercise Name Neck and Torso Rotation - added to HEP Side bilateral Reps/Minutes 10 x5 Comments cues for cervical retraction and to avoid cervical flexion Dorsal [place] Supine Exercise Name Lengthen neck. Cued for a little chin tuck but not jam chin into chest Reps/Minutes 5 SH x 5 Sidelying Exercises Arm circles Sidelying Exercise Name HEP-Arm and Upper Body [place] Side bilateral Reps/Minutes x10 ea Comments cues for painfree, alignment and scapular setting Standing Exercises Serratus Wall Slide Resistance L2 TB Reps/Minutes 10x Resistive shdr ER/IR Standing Exercise Name Resisted shdr ER /IR Side bilateral Resistance Lev 2 TB Equipment Used Towel at elbow Reps/Minutes 10x each Shoulder & UB stretch Standing Exercise Name HEP - added Side bilateral Reps/Minutes 3x Comments R Triceps tendon soreness Active shdr AB/ER/IR Standing Exercise Name Active shdr ER/IR Side bilateral Reps/Minutes 6' Comments Cued to not push into pain or discomfort Self-Care/Home Management Treatment Activities Self-Care/Home Management Activities Issued & reviewed HEP: Shoulder/UB stertch (reach to ceiling>scap retract w/elbows pulled down/behind shoulders), Shoulder ER/IR, Serratus wall slide w/Lev2 TB issued. PT-OP-T Assessment and Plan Start: 04/14/24 18:38 Freq: Status: Active Protocol: Document 05/01/24 08:19 LRN (Rec: 05/01/24 09:03 [facility] [id number]) Physical Therapy Assessment Goals Three Impairment Erickson shoulder discomfort history during the nighttime. Short Term Goal (STG) Pt will be educated and position himself at nighttime in best practice posturing to minimize onset of pain in the morning. STG Duration 05/09/24 (04/25/24: MET GOAL ) Devops Consultant Goal (LTG) Pt will be able to sleep during the night without pain in 6 wks (05/15/24) once cortisone injection affects have dissapated. 04/21/24: 4wks s/p cortisone injection - no pain with sleep 04/25/24: - no pain with sleep . 05/01/24: No pain erickson shldrs sleeping, just started last night able to sleep on back, wakes on side. LTG Duration 05/23/24 progressing One Impairment Pt lacks appropriate self care HEP. Short Term Goal (STG) Pt will be educated and will demonstrate proper head/neck sitting/standing posture. 04/21/24: Pt educated in proper sitting posture and standing against wall posture. He was able to demonstrate improved posture in standing after wall posturing. 04/25/24: review of in proper posture (sit/stand) due to lack of carryover. Pt requires initial cueing for alignment but demos improved self- awareness after wall posturing . STG Duration 05/09/24 (04/21/24: MET GOAL). Devops Consultant Goal (LTG) Pt will be independent and consistent with a self care HEP of erickson shoulder ROM and scapular strengthening exercises. 04/21/24: Handouts issued for shoulder AROM (wall slide flex, broom shoulder AB, towel IR stretch) and instructed in shoulder ER/IR. 04/25/24: Pt is issued 15- minute Neck Exericise Program HO (supine Dorsal glide, Neck and Torso rotation, Head Clock , Arm lifts, sidelying Arm and Upper Body [place], and standing Shoulder Clock). Initial cueing for chin retraction and tactile cueing for scapular setting, cues to avoid cervical flexion in supine. 05/01/24: HEP: Shoulder/UB stertch (reach to ceiling>scap retract w/elbows pulled down/ behind shoulders), Shoulder ER /IR, Serratus wall slide w/ Lev2 TB issued. LTG Duration 05/23/24 progressed 05/01/24 (need scap strengthening ex) Two Impairment Erickson shoulder pain rated 7/10 prior to cortisone injection ( 2x R shdr) Impairment Pt goal is to achieve some pain relief, improve mobility of L wrist and hand, educate pt on HEP, educate on pain managment. Short Term Goal (STG) Pt will be educated and able to manage erickson shoulder soreness with cryotherapy technique (RICE). 04/21/24: Pt educated with handout issued in pain management techniques ( cryotherapy, heat, meds). 04/25/24: Review of self care pain mgmt HOs with emphasis on cryotherapy. RICE HO given. 05/01/24: Pt not able to recall use of cryotherapy. STG Duration 05/09/24 progressed 04/25/24 Group Home Goal (LTG) Pt will improve shoulder ( rotator cuff) and scapular stabilization strength on a HEP to be able to wake in the mornings without pain. LTG Duration 05/23/24 Assessment Summary Assessment 74 yo male referred to therapy for OA of erickson shoulders, no c /o pain s/p cortisone injection 04/03/24; initially presented w/limited shoulder AROM, good bilateral shoulder strength and functional neck mobility, negative for cervical involvement; pain was probably exacerbated by incorrect posture and body mechanics. Today, pt ~4 wks s /p injection and is reporting no pain, but notices his R shoulder is a little different . Pt is now able to reach towards ceiling and perform a lat pull down motion with scapular retract/depression w/ o erickson shoulder pain. No pain with simple RC strengthening. Pt is probably ready to progress scap stab ex's. Physical Therapy Plan Frequency and Duration Frequency of Treatment variable Duration of treatment (weeks) 5 Plan of Care Start Date 04/17/24 Plan of Care End Date 05/23/24 Next Visit Focus/Plan Next Note Type Treatment Note Next Visit Plan Probably 2 more wks (reduce to 1x/wk next visit) for scap stab and RC HEP strengthening. Next: Assess if pt is able to recall proper self care (use of cryotherapy) if he has shoulder pain (Goals2). Carefully check if shoulder IR (w/towel use) is necessary, otherwise DC from HEP. HEP: Light strengthening of RC and scapular stabilization exercises. POC: HEP: Light strengthening of RC and scapular stabilization exercises. then follow up with progress note when pt is ~6 wks s/p cortisone injection for assessment of progress and possible discharge, or discharge to HEP.
--- NOTE | 2024-05-06 17:17 | PT.OTN ---
Current Diagnoses Primary osteoarthritis, right shoulder (05/06/24) Primary osteoarthritis, left shoulder (05/06/24) Physical Therapy Treatment Note PT-OP-A Visit Information Start: 04/14/24 18:38 Freq: Status: Active Protocol: Document 05/06/24 08:19 LRN (Rec: 05/06/24 09:02 LRN [id number]) Out-Patient Physical Therapy Visit Information Visit Information Visit Type Treatment Note Visit Start Time 08:19 Visit Stop Time 08:41 Visit Number 5 Evaluation Information Evaluation Date 04/17/24 Precautions Precautions Prostate CA surgery ~7 yrs ago , CHF with 2 Stents in 2011, Chrohns Disease, erickson partial knee replacements (2013). 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 PT-OP-B Current Condition Start: 04/14/24 18:38 Freq: Status: Active Protocol: Document 04/17/24 08:17 LRN (Rec: 04/17/24 09:46 LRN [id number]) Current Condition History of Current Condition Onset Date 5 months ago Current Complaints No pain in shoulders, but worried pain will return like before. History of Current Condition Insidious onset of difficulty sleeping because R shoulder had throbbing pain while R sidelying. First cortisone injection to R shoulder 3.5 months ago. When pain returned in both shoulders he had a 2nd cortisone injection in R shoulder and 1st injection in L shoulder . Pt also is asking why his R hand shakes when he is trying to eat. Pt referred back to referring physician for hand shaking condition. Treatment Goals Patient/Caregiver Goals Pt goals: - to be educated and learn exercises to keep the pain away. - to alleviate the possibility of pain during the night. - pt will be educated and consistent with a HEP Personal Factors Other Personal Factors That May Effect Prostate CA surgery ~7 yrs ago Therapy/Recovery , CHF with 2 Stents in 2011, Lives alone. c/o R hand shaking when trying to eat. PT-OP-C Subjective Start: 04/14/24 18:38 Freq: Status: Active Protocol: Document 05/06/24 08:19 LRN (Rec: 05/06/24 09:02 LRN [id number]) OP-PT Subjective Patient Comments Patient Comments Pt states he doesn't feel well . Has been feeling dizzy for the past 4 days. 6 days in bed he became really dizzy and almost called for help, but because he lived alone he didn 't reach out to anyone. He states he was given a new medication (Eloquist) and hasn 't felt well. He thought maybe he shouldn't have driven to therapy, but now that he is in PT he thought he would drive to his doctor's office after therapy to be seen. Pt agreeable to go to ER after discussion with PT regarding doctor office recommendation. PT-OP-E Functional Tests Start: 04/14/24 18:38 Freq: Status: Active Protocol: Document 04/17/24 08:17 LRN (Rec: 04/17/24 17:26 LRN [id number]) Functional Tests Apley's Scratch Test Action 1- Left 1 below spine of R scapula Action 1- Right Reaches to spine of L scapula Action 2- Left ER T3 Action 2- Right ER T3 Action 3- Left T10 Action 3- Right T12 PT-OP-J Posture/Palpation/Skin Start: 04/14/24 18:38 Freq: Status: Active Protocol: Document 04/17/24 08:17 LRN (Rec: 04/17/24 09:46 LRN [id number]) Posture Evaluation Position Standing Head/C-Spine Posture Side Bent Right,Forward Head T-Spine Posture Increased Kyphosis Shoulder Posture (L) Elevated Scapula Posture (L) Rotated Up Arm Posture (L) Internally Rotated,(R) Internally Rotated Comments Posture Comments Mildly increased L/S curve. Palpation Assessment Location L Rhomboids Palpation Location Ms atrophy PT-OP-K Range of Motion Start: 04/14/24 18:38 Freq: Status: Active Protocol: Document 04/17/24 08:17 LRN (Rec: 04/17/24 09:46 LRN [id number]) Cervical Spine Range of Motion Cervical Spine Active Degrees Testing Position Sitting Flexion 58 Extension 35 Rotation Left 60 Rotation Right 60 Shoulder Goniometric Range of Motion Shoulder Right Active Testing Position Sitting Flexion 145 Extension 50 Abduction 150 Horizontal Adduction 18 External Rotation at 45 degrees 0 Abduction External Rotation at 0 degrees Abduction 42 Internal Rotation Behind Back (text) T12 Comments Reaches to spine of L scapula ER T3 Left Active Testing Position Sitting Flexion 154 Extension 50 Abduction 148 External Rotation at 0 degrees Abduction 45 Internal Rotation Behind Back (text) T10 Comments Reaches to 1 below spine of R scapula ER T3 PT-OP-M Strength Start: 04/14/24 18:38 Freq: Status: Active Protocol: Document 04/17/24 08:17 LRN (Rec: 04/17/24 09:46 LRN [id number]) Shoulder Strength Shoulder Manual Muscle Testing Right Comments Strength is 5/5 Left Comments Strength is 5/5 PT-OP-Q Treatments Start: 04/14/24 18:38 Freq: Status: Active Protocol: Document 05/06/24 08:19 LRN (Rec: 05/06/24 09:02 LRN [id number]) Self-Care/Home Management Treatment Education Other Education Called Dr. Tang office to notify of pt's health change to see if pt could be seen. Kyra, triage nurse at Dr. de, states Dr. Tang is on vacation until 05/16/24 and recommends pt go to ER for assessment and if referred back to MD he could see another physician. Activities Self-Care/Home Management Activities Vitals taken sittin/76 and HR 59. Discussed with pt conversation with Triage nurse at Dr. Tang office. Pt agreeable to go to ER. Pt refused a w/c to ER therefore he was walked to ER accompanied by to check in desk. PT-OP-T Assessment and Plan Start: 04/14/24 18:38 Freq: Status: Active Protocol: Document 05/06/24 08:19 LRN (Rec: 05/06/24 09:02 LRN [id number]) Physical Therapy Assessment Goals Three Impairment Erickson shoulder discomfort history during the nighttime. Short Term Goal (STG) Pt will be educated and position himself at nighttime in best practice posturing to minimize onset of pain in the morning. STG Duration 05/09/24 (04/25/24: MET GOAL ) Elevator Service Technician Goal (LTG) Pt will be able to sleep during the night without pain in 6 wks (05/15/24) once cortisone injection affects have dissapated. 04/21/24: 4wks s/p cortisone injection - no pain with sleep 04/25/24: - no pain with sleep . 05/01/24: No pain erickson shldrs sleeping, just started last night able to sleep on back, wakes on side. 05/06/24: No c/o erickson shoulder pain. LTG Duration 05/23/24 progressing One Impairment Pt lacks appropriate self care HEP. Short Term Goal (STG) Pt will be educated and will demonstrate proper head/neck sitting/standing posture. 04/21/24: Pt educated in proper sitting posture and standing against wall posture. He was able to demonstrate improved posture in standing after wall posturing. 04/25/24: review of in proper posture (sit/stand) due to lack of carryover. Pt requires initial cueing for alignment but demos improved self- awareness after wall posturing . STG Duration 05/09/24 (04/21/24: MET GOAL). Snf Goal (LTG) Pt will be independent and consistent with a self care HEP of erickson shoulder ROM and scapular strengthening exercises. 04/21/24: Handouts issued for shoulder AROM (wall slide flex, broom shoulder AB, towel IR stretch) and instructed in shoulder ER/IR. 04/25/24: Pt is issued 15- minute Neck Exericise Program HO (supine Dorsal glide, Neck and Torso rotation, Head Clock , Arm lifts, sidelying Arm and Upper Body [place], and standing Shoulder Clock). Initial cueing for chin retraction and tactile cueing for scapular setting, cues to avoid cervical flexion in supine. 05/01/24: HEP: Shoulder/UB stertch (reach to ceiling>scap retract w/elbows pulled down/ behind shoulders), Shoulder ER /IR, Serratus wall slide w/ Lev2 TB issued. LTG Duration 05/23/24 progressed 05/01/24 (need scap strengthening ex) Two Impairment Erickson shoulder pain rated 7/10 prior to cortisone injection ( 2x R shdr) Impairment Pt goal is to achieve some pain relief, improve mobility of L wrist and hand, educate pt on HEP, educate on pain managment. Short Term Goal (STG) Pt will be educated and able to manage erickson shoulder soreness with cryotherapy technique (RICE). 04/21/24: Pt educated with handout issued in pain management techniques ( cryotherapy, heat, meds). 04/25/24: Review of self care pain mgmt HOs with emphasis on cryotherapy. RICE HO given. 05/01/24: Pt not able to recall use of cryotherapy. STG Duration 05/09/24 progressed 04/25/24 Snf Goal (LTG) Pt will improve shoulder ( rotator cuff) and scapular stabilization strength on a HEP to be able to wake in the mornings without pain. LTG Duration 05/23/24 Assessment Summary Assessment 74 yo male referred to therapy for OA of erickson shoulders, no c /o pain s/p cortisone injection 04/03/24; initially presented w/limited shoulder AROM, good bilateral shoulder strength and functional neck mobility, negative for cervical involvement; pain was probably exacerbated by incorrect posture and body mechanics. Today, pt attends with c/o dizziness and not feeling well. He states his shoulder is doing well. Pt was referred to ER for assessment of his dizziness. Physical Therapy Plan Frequency and Duration Frequency of Treatment variable Duration of treatment (weeks) 5 Plan of Care Start Date 04/17/24 Plan of Care End Date 05/23/24 Next Visit Focus/Plan Next Note Type Treatment Note Next Visit Plan Assess response to his ER visit for safety with treatment. Probably 1 more week for placement on HEP of Scap stab & RC strengthening if
--- NOTE | 2024-06-12 15:32 | PT.OPDS ---
Current Diagnoses Primary osteoarthritis, right shoulder (05/06/24) Primary osteoarthritis, left shoulder (05/06/24) Visit Care Team Role Provider Type Castro Tang MD Attending Provider Physician Family Provider Primary Care Provider Referring Provider Specialty: [facility] Address: [address] [place] [address], [facility] Email: [email or web address] Visit Number Visit Number 5 Discharge Summary PT-OP-B Current Condition Start: 04/14/24 18:38 Freq: Status: Active Protocol: Document 04/17/24 08:17 LRN (Rec: 04/17/24 09:46 LRN [id number]) Current Condition History of Current Condition Onset Date 5 months ago Current Complaints No pain in shoulders, but worried pain will return like before. History of Current Condition Insidious onset of difficulty sleeping because R shoulder had throbbing pain while R sidelying. First cortisone injection to R shoulder 3.5 months ago. When pain returned in both shoulders he had a 2nd cortisone injection in R shoulder and 1st injection in L shoulder . Pt also is asking why his R hand shakes when he is trying to eat. Pt referred back to referring physician for hand shaking condition. Treatment Goals Patient/Caregiver Goals Pt goals: - to be educated and learn exercises to keep the pain away. - to alleviate the possibility of pain during the night. - pt will be educated and consistent with a HEP Personal Factors Other Personal Factors That May Effect Prostate CA surgery ~7 yrs ago Therapy/Recovery , CHF with 2 Stents in 2011, Lives alone. c/o R hand shaking when trying to eat. PT-OP-C Subjective Start: 04/14/24 18:38 Freq: Status: Active Protocol: Document 06/12/24 15:15 LRN (Rec: 06/12/24 15:28 LRN [id number]) OP-PT Subjective Patient Comments Patient Comments Per phone conversation the pt states his shoulders are doing fine and he is not having pain, and can sleep at nights w/o shoulder pain waking him and has no pain in the mornings. His HBP was due to allergic reaction to the new blood thinner medication he was taking, but is no longer having problems as he switched back to his previous medication. Pt is agreeable to DC from PT as he no longer has problems with his shoulders. PT-OP-E Functional Tests Start: 04/14/24 18:38 Freq: Status: Active Protocol: Document 04/17/24 08:17 LRN (Rec: 04/17/24 17:26 LRN [id number]) Functional Tests Apley's Scratch Test Action 1- Left 1 below spine of R scapula Action 1- Right Reaches to spine of L scapula Action 2- Left ER T3 Action 2- Right ER T3 Action 3- Left T10 Action 3- Right T12 PT-OP-J Posture/Palpation/Skin Start: 04/14/24 18:38 Freq: Status: Active Protocol: Document 04/17/24 08:17 LRN (Rec: 04/17/24 09:46 LRN [id number]) Posture Evaluation Position Standing Head/C-Spine Posture Side Bent Right,Forward Head T-Spine Posture Increased Kyphosis Shoulder Posture (L) Elevated Scapula Posture (L) Rotated Up Arm Posture (L) Internally Rotated,(R) Internally Rotated Comments Posture Comments Mildly increased L/S curve. Palpation Assessment Location L Rhomboids Palpation Location Ms atrophy PT-OP-K Range of Motion Start: 04/14/24 18:38 Freq: Status: Active Protocol: Document 04/17/24 08:17 LRN (Rec: 04/17/24 09:46 LRN [id number]) Cervical Spine Range of Motion Cervical Spine Active Degrees Testing Position Sitting Flexion 58 Extension 35 Rotation Left 60 Rotation Right 60 Shoulder Goniometric Range of Motion Shoulder Right Active Testing Position Sitting Flexion 145 Extension 50 Abduction 150 Horizontal Adduction 18 External Rotation at 45 degrees 0 Abduction External Rotation at 0 degrees Abduction 42 Internal Rotation Behind Back (text) T12 Comments Reaches to spine of L scapula ER T3 Left Active Testing Position Sitting Flexion 154 Extension 50 Abduction 148 External Rotation at 0 degrees Abduction 45 Internal Rotation Behind Back (text) T10 Comments Reaches to 1 below spine of R scapula ER T3 PT-OP-M Strength Start: 04/14/24 18:38 Freq: Status: Active Protocol: Document 04/17/24 08:17 LRN (Rec: 04/17/24 09:46 LRN [id number]) Shoulder Strength Shoulder Manual Muscle Testing Right Comments Strength is 5/5 Left Comments Strength is 5/5 PT-OP-T Assessment and Plan Start: 04/14/24 18:38 Freq: Status: Active Protocol: Document 06/12/24 15:15 LRN (Rec: 06/12/24 15:28 LRN [id number]) Physical Therapy Assessment Goals Three Impairment Gina shoulder discomfort history during the nighttime. Short Term Goal (STG) Pt will be educated and position himself at nighttime in best practice posturing to minimize onset of pain in the morning. STG Duration 05/09/24 (04/25/24: MET GOAL ) Distribution Manager Goal (LTG) Pt will be able to sleep during the night without pain in 6 wks (05/15/24) once cortisone injection affects have dissapated. 04/21/24: 4wks s/p cortisone injection - no pain with sleep 04/25/24: - no pain with sleep . 05/01/24: No pain gina shldrs sleeping, just started last night able to sleep on back, wakes on side. 05/06/24: No c/o gina shoulder pain. 06/12/24: No gina shoulder pain. LTG Duration 05/23/24 (06/12/24: MET GOAL) One Impairment Pt lacks appropriate self care HEP. Short Term Goal (STG) Pt will be educated and will demonstrate proper head/neck sitting/standing posture. 04/21/24: Pt educated in proper sitting posture and standing against wall posture. He was able to demonstrate improved posture in standing after wall posturing. 04/25/24: review of in proper posture (sit/stand) due to lack of carryover. Pt requires initial cueing for alignment but demos improved self- awareness after wall posturing . STG Duration 05/09/24 (04/21/24: MET GOAL). Distribution Manager Goal (LTG) Pt will be independent and consistent with a self care HEP of gina shoulder ROM and scapular strengthening exercises. 04/21/24: Handouts issued for shoulder AROM (wall slide flex, broom shoulder AB, towel IR stretch) and instructed in shoulder ER/IR. 04/25/24: Pt is issued 15- minute Neck Exericise Program HO (supine Dorsal glide, Neck and Torso rotation, Head Clock , Arm lifts, sidelying Arm and Upper Body [place], and standing Shoulder Clock). Initial cueing for chin retraction and tactile cueing for scapular setting, cues to avoid cervical flexion in supine. 05/01/24: HEP: Shoulder/UB stertch (reach to ceiling>scap retract w/elbows pulled down/ behind shoulders), Shoulder ER /IR, Serratus wall slide w/ Lev2 TB issued. LTG Duration 05/23/24 (06/12/24: GOAL MET, shoulder pain resolved, scap ex not needed) Two Impairment Gina shoulder pain rated 7/10 prior to cortisone injection ( 2x R shdr) Impairment Pt goal is to achieve some pain relief, improve mobility of L wrist and hand, educate pt on HEP, educate on pain managment. Short Term Goal (STG) Pt will be educated and able to manage gina shoulder soreness with cryotherapy technique (ELLE). 04/21/24: Pt educated with handout issued in pain management techniques ( cryotherapy, heat, meds). 04/25/24: Review of self care pain mgmt HOs with emphasis on cryotherapy. RICE HO given. 05/01/24: Pt not able to recall use of cryotherapy. 06/12/24: No gina shoulder pain. STG Duration 05/09/24 (06/12/24: MET GOAL) Distribution Manager Goal (LTG) Pt will improve shoulder ( rotator cuff) and scapular stabilization strength on a HEP to be able to wake in the mornings without pain. 06/12/24: No gina shoulder pain. LTG Duration 05/23/24 (06/12/24: MET GOAL) Assessment Summary Assessment 74 yo male referred to therapy for OA of gina shoulders, no c /o pain s/p cortisone injection 04/03/24; initially presented w/limited shoulder AROM, good bilateral shoulder strength and functional neck mobility, negative for cervical involvement. The pt was last seen 05/06/24 and although was doing well with his shoulders, he was having other medical symptoms of dizziness and not feeling well . The pt did not return for further therapy, but per telephone conversation today is reports no gina shoulder pain day and night and is not waking with shoulder pain; therefore he is okay to be discharged from PT. No further therapy is planned. Physical Therapy Plan Discharge Physical Therapy Discharge Reasons Goals Met Discharge Comments Thank you for your referral.
== END 2024-06-20 12:33 | disposition home or self-care (01) ==
LOC: PHYS 08:15
PROVIDERS: Family Provider Family Medicine; PCP Family Medicine; Referring Provider Family Medicine; Visit Provider Family Medicine
DX: M19.011 Primary osteoarthritis, right shoulder (principal); M19.012 Primary osteoarthritis, left shoulder
CPT/HCPCS: 97110; 97162; 97530; 97535

== ENCOUNTER 2024-05-06 08:47 | Emergency (ER) | payer MEDICARE, OTHER, SELFPAY ==
[2022-12-02 17:36] VITALS: BMI 29.3
[2024-05-06] VITALS (10 sets, daily range): BP systolic 138–174; BP diastolic 72–86; PULSE 56–61; RESP 18–39; TEMP 36.9; O2SAT 94–96; BMI 29.8
--- NOTE | 2024-05-06 08:53 | EKG_ITS ---
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
--- NOTE | 2024-05-06 09:03 | DI.RAD.S_ITS ---
PROCEDURE: XR CHEST 1V INDICATIONS: chest pain TECHNIQUE: One view of the chest was acquired. COMPARISON: [facility], CR, XR CHEST 2V, 06/15/2022, 8:20. FINDINGS: Surgical changes and devices: None. Lungs and pleura: Lungs are clear. No pleural effusions or pneumothorax. Mediastinum: Mediastinal contours appear normal. Heart size is normal. Bones and chest wall: No suspicious bony lesions. Overlying soft tissues appear unremarkable. IMPRESSION: No acute pulmonary process. Dictated by: Betty Elizalde M.D. on 05/06/2024 at 9:57 Approved by: Betty Elizalde M.D. on 05/06/2024 at 10:00
--- NOTE | 2024-05-06 09:33 | ED_ITS ---
HPI - Dizziness General Chief Complaint: Dizziness Stated Complaint: Dizzy on and off Time Seen by Provider: 05/06/24 09:31 Source: patient Mode of arrival: Family Vehicle History of Present Illness HPI Narrative: 74-year-old male history of prior stroke, atrial fibrillation was on warfarin but recently converted to Eliquis, hypertension, dyslipidemia who presents with complaint of some dizziness over the weekend. Went to physical therapy and was told he could not participate because he had dizziness and was sent to the emergency department. Patient states that he switch to Eliquis from Coumadin sleeve and a half to do as much testing this was initiated by himself. He states he took his 1st dose at 7:00 a.m. in the morning on Sunday started to feel dizziness which he describes as sort of the room spinning has not next dose that evening was much worse overnight particularly in bed. Noted the dizziness was worse with movement of his head or rolling over. He then stopped the Eliquis had only 2 doses total and returned to his normal Coumadin dosing schedule. Patient states symptoms has been not as intense but persistent does sort of wax and wane sometimes resolves. Patient states he has not had any headaches, no vision changes no numbness, tingling or weakness no difficulty with speech, no new chest pain or shortness of breath, no nausea or vomiting. Has not had any difficulty with ambulation in the last several days. Patient went to physical therapy and told them about what was going on in the septum here. Patient states he takes Coumadin for atrial fibrillation has had prior cardiac stents is on sotalol, rosuvastatin and losartan patient describes an allergy to prednisone. No tobacco, alcohol or recreational drugs. His primary care is Dr. Tang. He follows with Dr. Lee for Cardiology. Patient notes his normal Coumadin is 2.5 mg on Sunday followed by 5 mg daily the rest of the week. He has not had a recent INR. Related Data Home Medications Medication Instructions Recorded Confirmed sotalol 80 mg tablet 80 mg PO BID 06/28/20 04/03/24 vedolizumab 300 mg intravenous 300 mg IV Q2W 09/27/21 04/03/24 solution (Entyvio) warfarin 5 mg tablet 2.5 mg PO DAILY 08/15/22 04/03/24 Previous Rx's Medication Instructions Recorded rosuvastatin 10 mg tablet 10 mg PO DAILY #90 tabs 09/01/21 losartan 25 mg tablet 25 mg PO BEDTIME #30 tabs 01/01/23 trazodone 50 mg tablet See Rx Instructions PO BEDTIME PRN 12/25/23 insomnia #90 tabs Allergies Allergy/AdvReac Type Severity Reaction Status Date / Time No Known Drug Allergies Allergy Verified 05/06/24 09:09 Review of Systems Review of Systems ROS Unobtainable: All systems reviewed & are unremarkable except as noted in HPI and below Patient History Medical History Dyslipidemia Symptomatic anemia Arthritis of both wrists Osteoarthritis Cataracts, bilateral (~2003) Cardiac arrhythmia (~2009) Paresthesia Chest pain Skin cancer Prostate cancer (~2010) Hyperlipidemia CAD (coronary artery disease) (~2009) Crohn's disease (~2012) Hypertension Surgical History Anesthesia History of knee replacement History of prostate surgery (~2012) H/O hernia repair History of heart artery stent (~2009) Family History Father History of heart disease Myocardial infarction Mother Crohn's disease Social History household members: none Smoking Status: Former smoker alcohol intake: current Smoking Status: Former smoker tobacco type: cigarettes alcohol intake frequency: a few times a month Exam Narrative Exam Narrative: GEN: well nourished, well appearing male, alert and oriented x 3, patient appears to be in mild distress. HEENT: Atraumatic, pupils are equal round reactive to light, extraocular movements are intact, nares are clear, TMs are clear with no fluid, there is no conjunctival pallor. Throat is clear without any exudates, erythema, tonsillar enlargement or uvular deviation, no facial droop HEART: Regular rate and rhythm without murmur, clicks, rubs. Pulses are equal in upper and lower extremities LUNGS:Lungs clear to auscultation, no wheezes, rales, crackles, chest moves symmetrically ABD:bowel sounds normal, soft, non-tender, no guarding, rebound, rigidity, no masses noted, no hepatosplenomegaly :No CVA tenderness MSCL: Non-tender, no muscle atrophy, muscles strength 5/5 upper and lower extremities, full range of motion, normal gait NEURO:CN 2-12 intact, sensation normal, finger nose finger test normal, heel rosario test normal. Initial Vital Signs Initial Vital Signs: Vital Signs Temperature 98.4 F 05/06/24 09:04 Pulse Rate 61 05/06/24 09:04 Respiratory Rate 18 05/06/24 09:04 Blood Pressure 171/86 H 05/06/24 09:04 Pulse Oximetry 95 05/06/24 09:04 Oxygen Delivery Method Room Air 05/06/24 09:04 Course Orders Ordered: ED Orders 05/06/24 10:03 CT head/brain wo con Stat Discontinued Medications Aspirin (Aspirin 81 Mg Chew Tab) 324 mg PO NOW ONE Stop: 05/06/24 09:04 Last Admin: 05/06/24 09:45 Dose: Not Given Documented By: Vital Signs Vital signs: Vital Signs - 8 hr 05/06/24 11:00 05/06/24 11:00 Pulse Rate 56 L Respiratory Rate 19 Blood Pressure 154/74 H Pulse Oximetry 95 Oxygen Delivery Method Room Air MDM - Dizziness Lab Data 05/06/24 09:38 05/06/24 09:38 Labs: Lab Results 05/06/24 Range/Units 09:38 WBC 7.3 (4.5-11.0) X10^3/uL RBC 5.24 (4.5-5.9) X10^6/uL Hgb 16.4 (13.5-17.5) g/dL Hct 48.6 (41-53) % MCV 92.8 (80-100) fL MCH 31.3 (26-34) PG MCHC 33.8 (30-36) % RDW 14.3 (11.6-14.8) % Plt Count 157 (150-400) X10^3/uL Neut % (Auto) 63.8 (50-75) % Lymph % (Auto) 20.2 L (25-40) % [place] % (Auto) 12.1 (3-14) % Eos % (Auto) 2.7 (2-4) % Baso % (Auto) 1.2 (0-2) % Neut # (Auto) 4700 (4257-1571) /uL Lymph # (Auto) 1500 (4040-5075) /uL [place] # (Auto) 900 (0-900) /uL Eos # (Auto) 200 (0-450) /uL Baso # (Auto) 100 (0-100) /uL PT 12.5 (9.4-12.5) SECONDS INR 1.1 (0.9-1.3) APTT 37 H (25.1-36.5) SECONDS Sodium 141 (137-145) mmol/L Potassium 4.2 (3.4-5.1) mmol/L Chloride 109 H (98-107) mmol/L Carbon Dioxide 26 (22-32) mmol/L BUN 15 (9-20) mg/dL Creatinine 0.81 (0.66-1.25) mg/dL Estimated GFR > 60 (>60) mL/min BUN/Creatinine Ratio 18.5 (6-22) Glucose 84 (80-110) mg/dL Calcium 9.1 (8.4-10.2) mg/dL Magnesium 2.2 (1.6-2.3) mg/dL Total Bilirubin 0.8 (0.2-1.3) mg/dL AST 25 (17-59) IU/L ALT 26 (<50) IU/L Alkaline Phosphatase 63 (38-126) U/L Total Creatine Kinase 40 L (55-170) U/L Troponin I < 0.012 (0.01-0.034) ng/mL NT-Pro-B Natriuret Pep 56 (<450) pg/mL Total Protein 6.3 (6.3-8.2) g/dL Albumin 3.9 (3.5-5.0) g/dL Globulin 2.4 (1.7-4.1) g/dL Albumin/Globulin Ratio 1.6 (1.0-2.8) Lipase 107 (23-300) U/L ECG Data Attestation: I personally reviewed and interpreted this ECG as follows: Interpretation: Shows sinus bradycardia rate of 57, UT 146 QRS of 108 QTC of 434, no acute ST elevation depression noted. MDM Narrative Medical decision making narrative: Labs show white count of 7.3 hemoglobin of 16 platelets of 157. INR today is 1.1. Chemistries show chloride of 109 otherwise appropriate electrolytes BUN creatinine, glucose is 84 LFTs are negative troponins less than 0.012 with a BNP of 56. EKG shows sinus bradycardia rate of 57, no acute ST changes. Chest x-ray shows no acute change Head CT is negative. Spoke with Dr. Tonio Martin who read it, reports are not crossing over so do not have the formal report available. 74-year-old male developed dizziness or vertigo like symptoms after starting Eliquis has been on Coumadin. Has not had any other acute neurologic symptoms has had a week of symptoms has been slightly persistent but not worsening. Patient was noted to be subtherapeutic on his INR he did return back to his Coumadin his normal dosing so we will have patient take an extra 5 mg today and then have recheck in the next 1-2 days. Discharge Plan Departure Patient Disposition: Home Clinical Impression: Vertigo Instructions: DI for Vertigo Activity Restrictions/Additional Instructions: Please follow up for recheck with your physician. Your INR today is low I would have you take an additional 5 mg along with your normal 5 mg this evening for a total of 10 mg and then resume your normal scheduled doses. You will need to follow up in the next 2-3 days to have your INR rechecked. If you are having persistent vertigo symptoms maybe helpful to follow up with ENT for additional testing. Contacts included below. Please return for new or worsening symptoms, severe headaches, new numbness, tingling or weakness, lightheadedness or passing out, difficulty with ambulation or movement, nausea or vomiting, difficulty with speech or vision or other new or concerning changes. Prescriptions: No Action losartan 25 mg tablet 25 mg PO BEDTIME Qty: 30 0RF trazodone 50 mg tablet See Rx Instructions PO BEDTIME PRN (Reason: insomnia) Qty: 90 3RF Rx Instructions: take 1-2 tabs orally bedtime PRN; sotalol 80 mg tablet 80 mg PO BID rosuvastatin 10 mg tablet 10 mg PO DAILY Qty: 90 3RF Entyvio 300 mg recon soln 300 mg IV Q2W Rx Instructions: administer 2nd dose 2 weeks after first dose; administer over 30 minutes warfarin 5 mg tablet 2.5 mg PO DAILY Rx Instructions: dosed by Dr. conner Referrals: Ollie Marshall MD [Physician] - Castro Tang MD [Primary Care Provider] - Stand Alone Forms: Patient Portal/API/Survey
[2024-05-06 09:55] LABS: Add Manual Diff / Slide Review NO; Basophils Absolute Auto 100 /uL (0-100); Basophils Percent Auto 1.2 % (0-2); Eosinophils Absolute Auto 200 /uL (0-450); Eosinophils Percent Auto 2.7 % (2-4); Hematocrit 48.6 % (41-53); Hemoglobin 16.4 g/dL (13.5-17.5); Lymphocytes Absolute Auto 1500 /uL (1100-4500); Lymphocytes Percent Auto 20.2 % (25-40); Mean Corpuscular HGB Conc 33.8 % (30-36); Mean Corpuscular Hemoglobin 31.3 PG (26-34); Mean Corpuscular Volume 92.8 fL (80-100); Monocytes Absolute Auto 900 /uL (0-900); Monocytes Percent Auto 12.1 % (3-14); Neutrophils Absolute Auto 4700 /uL (1500-7000); Neutrophils Percent Auto 63.8 % (50-75); Platelet Count 157 X10^3/uL (150-400); Red Blood Cell Count 5.24 X10^6/uL (4.5-5.9); Red Cell Distribution Width 14.3 % (11.6-14.8); White Blood Cell Count 7.3 X10^3/uL (4.5-11.0)
[2024-05-06 10:00] LABS: INR 1.1 (0.9-1.3); Prothrombin Time 12.5 SECONDS (9.4-12.5)
[2024-05-06 10:02] LABS: PTT Partial Thromboplastin Tim 37 SECONDS (25.1-36.5)
--- NOTE | 2024-05-06 10:03 | DI.CT.S_ITS ---
PROCEDURE: CT HEAD/BRAIN WO CON INDICATIONS: vertigo x 1 week, switching b/w eliquis and coumadin TECHNIQUE: Noncontrast 4.5 mm thick angled axial sections acquired from the foramen magnum to the vertex, with coronal and sagittal reformats. For radiation dose reduction, the following was used: automated exposure control, adjustment of mA and/or kV according to patient size. COMPARISON: None. FINDINGS: Image quality: Diagnostic. CSF spaces: Basal cisterns are patent. No extra-axial fluid collections. The ventricles are symmetric in size and shape. Brain: No intracranial bleeds or masses. There is cerebral volume loss for age, with resultant ventricular and sulcal prominence. There are periventricular and deep white matter chronic small vessel ischemic changes. There is intracranial internal carotid artery atherosclerosis. Skull and face: Calvarium and visualized facial bones appear intact, without suspicious lesions. Sinuses: Visualized sinuses and mastoids are clear. IMPRESSION: 1. No acute intracranial process. 2. Moderate atrophy and chronic microvascular ischemic changes. Dictated by: Betty Elizalde M.D. on 05/06/2024 at 11:14 Approved by: Betty Elizalde M.D. on 05/06/2024 at 11:15
[2024-05-06 10:07] LABS: Alanine Aminotransferase 26 IU/L (<50); Albumin 3.9 g/dL (3.5-5.0); Albumin Globulin Ratio 1.6 (1.0-2.8); Alkaline Phosphatase 63 U/L (38-126); Aspartate Aminotransferase 25 IU/L (17-59); BUN Creatinine Ratio 18.5 (6-22); Bilirubin Total 0.8 mg/dL (0.2-1.3); Blood Urea Nitrogen 15 mg/dL (9-20); Calcium 9.1 mg/dL (8.4-10.2); Carbon Dioxide 26 mmol/L (22-32); Chloride 109 mmol/L (98-107); Creatine Kinase 40 U/L (55-170); Estimated Glomerular Filt Rate > 60 mL/min (>60); Globulin 2.4 g/dL (1.7-4.1); Glucose 84 mg/dL (80-110); HEMOLYSIS < 15 (0-50); Lipase 107 U/L (23-300); Magnesium 2.2 mg/dL (1.6-2.3); Potassium 4.2 mmol/L (3.4-5.1); Sodium 141 mmol/L (137-145); Total Protein 6.3 g/dL (6.3-8.2)
[2024-05-06 10:20] LABS: NT-proBNP (BNP-Adult 18+) 56 pg/mL (<450); Troponin I < 0.012 ng/mL (0.01-0.034)
--- NOTE | 2024-05-06 11:09 | PC.NURSE ---
pt wanting to leave ER. Dr Alvarenga notified. Pt denies feeling dizzy.
== END 2024-05-06 11:40 | disposition home or self-care (01) ==
PROVIDERS: Emergency Provider Emergency Medicine; Family Provider Family Medicine; PCP Family Medicine
DX: R42 Dizziness and giddiness (principal); R00.1 Bradycardia, unspecified; I48.91 Unspecified atrial fibrillation; Z79.01 Long term (current) use of anticoagulants; Z86.73 Personal history of transient ischemic attack (TIA), and cerebral infarction without residual deficits
CPT/HCPCS: 70450; 71045; 80053; 82550; 83690; 83735; 83880; 84484; 85025; 85610; 85730; 93005; 99283; 99284

== ENCOUNTER 2024-12-24 08:08 | Day surgery (SDC) | payer MEDICARE, OTHER, SELFPAY ==
[2022-12-02 17:36] VITALS: BMI 29.3
[2024-12-24 09:08] VITALS: BP 162/99; PULSE 80; RESP 16; TEMP 36.7; O2SAT 97
--- NOTE | 2024-12-24 09:12 | PM.HP.IH.1 ---
History of Present Illness History of Present Illness Date Patient Seen: 12/24/24 Chief complaint: SDC Narrative: Personal history of Crohn's disease need for colorectal cancer screening. [facility] Medical History Dyslipidemia Symptomatic anemia Arthritis of both wrists Osteoarthritis Cataracts, bilateral (~2003) Cardiac arrhythmia (~2009) Paresthesia Chest pain Skin cancer Prostate cancer (~2010) Hyperlipidemia CAD (coronary artery disease) (~2009) Crohn's disease (~2012) Hypertension Surgical History Anesthesia History of knee replacement History of prostate surgery (~2012) H/O hernia repair History of heart artery stent (~2009) Family History Father History of heart disease Myocardial infarction Mother Crohn's disease Social History (Updated 10/21/24 @ 09:23 by Camelia Pool MA) household members: none lives independently: Yes occupational status: previously employed alcohol intake: current Meds Home Medications and Allergies Home Medications ?Medication ?Instructions ?Recorded ?Confirmed ?Type sotalol 80 mg tablet 80 mg PO BID 06/28/20 12/24/24 History rosuvastatin 10 mg tablet 10 mg PO DAILY #90 tabs 09/01/21 11/14/24 Rx warfarin 5 mg tablet 2.5 mg PO DAILY 08/15/22 12/24/24 History losartan 25 mg tablet 25 mg PO BEDTIME #30 tabs 01/01/23 12/24/24 Rx trazodone 50 mg tablet See Rx Instructions PO BEDTIME PRN 10/17/24 12/24/24 Rx insomnia #90 tabs Allergies Allergy/AdvReac Type Severity Reaction Status Date / Time No Known Drug Allergies Allergy Verified 12/24/24 09:00 Exam Vital Signs (past 8 hours): - 12/24/24 09:08 Temperature 98.1 F Pulse Rate 80 Respiratory Rate 16 Blood Pressure 162/99 H Pulse Oximetry 97 Oxygen Delivery Method Room Air Oxygen Delivery Method Room Air Narrative Exam Narrative: Oropharynx free of lesions Chest clear to auscultation percussion Cardiac exam reveals no S3 or murmur Assessment & Plan Assessment & Plan narrative: Personal history of Crohn's disease with need for colonoscopy with multiple biopsies. Risks, benefits, alternatives have been explained. Time-Based Coding :: [TOTAL MINUTES] spent with patient and on the chart (including review of chart, obtaining history, exam, reviewing outside data, placing orders, documenting exam and treatment plan, and counseling patient) on [DATE]. [employer]EE [employer] Operator Document charge(s): No
[2024-12-24] MEDS: LACTATED RINGERS 1,000 ML 42 ML IV (09:30)
--- NOTE | 2024-12-24 09:45 | PM.OP.COLON ---
Operative Date/Time/Diagnoses Date of procedure: 12/24/24 Time of procedure: 10:21 Pre-op diagnosis: See indication and findings Post-op diagnosis: same Procedure & Clinicians Study performed: Colonoscopy Same procedure(s) as scheduled: Yes Indications: History of Crohn's disease need for colorectal cancer screening with multiple biopsies Surgeon: Lu Albright Anesthesia Type: Other Procedure Notes Procedure in detail: After informed consent was obtained the patient was placed in left lateral decubitus position. The video colonoscopy was placed in the rectum slowly advanced cecum. Preparation was good. On slow withdrawal mucosa was carefully examined. The scope was removed. The patient tolerated the procedure well. Blood loss none Complications none Sedation mac Findings 1. Signs of mild active Crohn's disease in the rectum and in the right colon. Two random biopsies were taken every 10 cm in the right colon, transverse colon, and left colon. 2. Mild pseudopolyps seen in the right colon with 3 larger ones in the sigmoid. Polyp at 40 cm was approximately 2 cm in size and biopsied. Polyp at 30 cm was 12 cm in size and was biopsied. We will be in touch with them regarding his biopsies which I expect to be consistent with his Crohn's disease and pseudopolyps. He should have follow-up colonoscopy with multiple biopsies in 1-2 years.
[2024-12-24 10:22] VITALS: BP 116/71; PULSE 79; RESP 19; TEMP 36.3; O2SAT 95
[2024-12-24 10:29] VITALS: BP 127/71; PULSE 89; RESP 18; O2SAT 97
[2024-12-24 10:35] VITALS: BP 160/81; PULSE 76; RESP 16; TEMP 36.1; O2SAT 97
[2024-12-24 10:39] VITALS: BP 140/81; PULSE 79; TEMP 36.1; O2SAT 97
== END 2024-12-24 10:40 | disposition home or self-care (01) ==
PROVIDERS: Family Provider Family Medicine; PCP Family Medicine; Referring Provider Internal Medicine Gastroenterology; Visit Provider Internal Medicine Gastroenterology
PROC: 0DJD8ZZ Inspection of Lower Intestinal Tract, Via Natural or Artificial Opening Endoscopic (ICD-10-PCS; CPT 45378; principal; 2024-12-24 09:45)
DX: Z12.11 Encounter for screening for malignant neoplasm of colon (principal); K50.10 Crohn's disease of large intestine without complications; K63.5 Polyp of colon
CPT/HCPCS: 45380; J2704; J3010; J7120